=== PATIENT | male | born 1950 | race Caucasian/White ===

== ENCOUNTER 2022-11-02 02:07 | Emergency (ER) | payer MEDICARE ==
--- NOTE | 2022-11-02 03:29 | ED Physician Documentation ---
PD HPI NECK PAIN - Stated complaint Stated Complaint: LEG WEAKNESS - Chief complaint Chief Complaint: Trauma Hd/Nk - History obtained from History obtained from: Patient, Family (spouse of patient) - Additional information Additional information: HPI from patient as well as patient's . Patient's is also registered in ED at this time, unrelated c/o. Patient recently moved to [facility], has not established with local PMD yet. Patient fell yesterday off of a porch, c/o left knee pain, left elbow pain, lower back pain. Pain is exacerbated with movement, palpation. Review of Systems Constitutional: denies: Fever Cardiac: denies: Chest pain / pressure PD PAST MEDICAL HISTORY - Past Medical History Past Medical History: Yes - Present Medications Home Medications: Ambulatory Orders Medication Instructions Recorded Confirmed oxyCODONE [Roxicodone] 5 - 10 mg PO Q6H PRN #14 tablet 11/02/22 - Allergies Allergies/Adverse Reactions: Allergies Allergy/AdvReac Type Severity Reaction Status Date / Time iodine Allergy Itching Verified 11/02/22 02:21 PD ED PE NORMAL - Vitals Vital signs reviewed: Yes - General General: Alert and oriented X 3, No acute distress, Well developed/nourished - HEENT HEENT: Atraumatic - Neck Neck: No bony TTP - Cardiac Cardiac: RRR - Respiratory Respiratory: No respiratory distress, Clear bilaterally - Back Back: No spinal TTP PD ED PE EXPANDED - Extremities Extremities: Tenderness (left knee , anterior aspect over patella with mild swelling; left elbow, mild TTP over olecranon without swelling. ROM intact in left knee and left elbow) Results - Vitals Vitals: Oxygen O2 Source Room air - Rads (name of study) left elbow xrays Radiology: Prelim report reviewed, EMP read indepedently, See rad report left knee xrays Radiology: Prelim report reviewed, EMP read indepedently, See rad report lumbar spine xrays Radiology: Prelim report reviewed, EMP read indepedently, See rad report PD Medical Decision Making - ED course Complexity details: reviewed results, re-evaluated patient, considered differential, d/w patient ED course: No acute findings on xrays (lumbar , left knee, left elbow). results d/w patient. He is given 10 mg oxycodone PO and rx for short course of oxycodone provided. I am prescribing a short course of short-acting opioid pain medication for this patient. I have reviewed the patients [employer] and no concerning findings were noted. I have discussed that the opioids are for short term therapy only, and will not be refilled from the ED. Departure - Departure Disposition: 01 Home, Self Care Clinical Impression: Frequent falls Back pain Qualifiers: Back pain location: low back pain Chronicity: unspecified Back pain laterality: midline Sciatica presence: without sciatica Qualified Code(s): M54.50 - Low back pain, unspecified Left knee sprain Qualifiers: Encounter type: initial encounter Involved ligament of knee: unspecified ligament Qualified Code(s): S83.92XA - Sprain of unspecified site of left knee, initial encounter Elbow contusion Qualifiers: Encounter type: initial encounter Laterality: left Qualified Code(s): S50.02XA - Contusion of left elbow, initial encounter Condition: Good Instructions: ED Low Back Pain Injury, ED Fall Uncertain Cause, ED Sprain Knee Prescriptions: oxyCODONE [Roxicodone] 5 - 10 mg PO Q6H PRN #14 tablet PRN Reason: Pain Comments: There were no acute findings on the x-rays; the abnormalities on the x-rays were all of a chronic nature. You had degenerative changes on the back x-rays as well as the elbow xrays, and bone spurs of the patella ("kneecap"). As we discussed, I recommend that you follow-up with your doctors regarding your increasingly frequent falls. I think the best approach would be to make appointments with both your primary care provider as well as your neurologist, and to keep both appointments no matter which can see you first. A prescription for oxycodone (narcotic/opiate pain medication) has been electronically submitted to the [facility] in [place]. I am prescribing a short course of narcotic pain medication for you. These are potentially dangerous and addictive medications that should be used carefully. These medications may constipate you. Take an zlze-udu-ioyavrc stool softener (docusate) twice daily with plenty of water while taking these medications. If you go 24 hours without a bowel movement, take cudi-esn-hvynluo miralax, per package instructions. Do not drink or drive while taking these medications. If you received narcotic or sedating medications while in the emergency department, do not drive for 24 hours. Store this medication in a safe, secure place and out of reach of children. It is a violation of federal law to give or sell this medication to another person or to use in a manner other than prescribed. The ED will not refill narcotic prescriptions, including prescriptions lost or stolen. To dispose of unwanted medications: 1. [facility] [address] in [place] has a medication drop box. They accept prescription medications (in pill form) Friday through Friday 9:00 a.m. to 5:00 p.m. 2. [facility] accepts prescription medications (in pill form only) for disposal year round. Call for more information. 3. Contact the [facility] for the next [facility] sponsored prescription drug collection event. , [phone], or [phone]; Discharge Date/Time: 11/02/22 06:18
[2022-11-02 05:41] VITALS: BP 132/68
[2022-11-02] MEDS ORDERED: oxyCODONE 5 MG TABLET PO STA (06:06)
--- NOTE | 2022-11-02 10:24 | XRAY Report ---
PROCEDURE: Elbow 3 View LT INDICATIONS: fall, pain TECHNIQUE: 3 views of the elbow were acquired. COMPARISON: None FINDINGS: Bones: No fractures or dislocations. No suspicious bony lesions. Soft tissues: No elbow joint effusion. No suspicious soft tissue calcifications. IMPRESSION: Unremarkable left elbow radiographs Note: Final report is concordant with preliminary interpretation provided by [email or web address] Reviewed by: Jace Jimenes MD on 11/02/2022 9:23 AM [place] Approved by: Jace Jimenes MD on 11/02/2022 9:23 AM [facility] Station ID: [id number]
--- NOTE | 2022-11-02 10:26 | XRAY Report ---
PROCEDURE: Knee 3 View LT INDICATIONS: fall, pain, swelling TECHNIQUE: 3 views of the left knee(s) were acquired. COMPARISON: None. FINDINGS: Bones: No fractures or dislocations. No suspicious bony lesions. Small enthesophyte noted at the s uperior patella and tibial tuberosity Soft tissues: No joint effusion. No suspicious soft tissue calcifications. IMPRESSION: Degenerative disease without fracture or foreign body Note: Final report is concordant with preliminary interpretation provided by [employer] Reviewed by: Jace Jimenes MD on 11/02/2022 9:24 AM [facility] Approved by: Jace Jimenes MD on 11/02/2022 9:24 AM [place] Station ID: [id number]
--- NOTE | 2022-11-02 10:34 | XRAY Report ---
PROCEDURE: Lumbar Spine 2 View INDICATIONS: fall, upper lumbar pain TECHNIQUE: 2 views of the lumbar spine were acquired. COMPARISON: None. FINDINGS: Bones: 5 pbf-suc-foljnti vertebrae are present. There is normal bony alignment. No suspicious bony lesions. Thoracolumbar posterior lateral fusion and interbody fusion with posterior qiana and screw c onstruct noted. Lower lumbar spine degenerative disc space narrowing and hypertrophic facet joints ar e present. Generalized decreased osseous mineralization present. Subcutaneous pain pump noted in the left. Soft tissues: Overlying bowel gas pattern is normal. No suspicious soft tissue calcifications. Dif fuse obscuring vascular calcification. Surgical clips in the right upper quadrant. Moderate degree IMPRESSION: No acute findings. Degenerative findings as well as thoracolumbar instrumented fusion. No hardware failure or loosening. Note: Final report is concordant with preliminary interpretation provided by [employer] Reviewed by: Jace Jimenes MD on 11/02/2022 9:32 AM [facility] Approved by: Jace Jimenes MD on 11/02/2022 9:32 AM [facility] Station ID: [id number]
== END 2022-11-02 06:18 | disposition home or self-care (01) ==
LOC: ED 02:07
DX: M54.50 Low back pain, unspecified (principal); S83.92XA Sprain of unspecified site of left knee, initial encounter; S50.02XA Contusion of left elbow, initial encounter; W17.89XA Other fall from one level to another, initial encounter; Z91.81 History of falling; Y92.008 Other place in unspecified non-institutional (private) residence as the place of occurrence of the external cause; R29.6 Repeated falls
CPT/HCPCS: 72100; 73080; 73562; 99284; A9270

== ENCOUNTER 2022-12-17 18:08 | Outpatient (CLI) | payer MEDICARE | END 2022-12-17 18:09 | disposition critical access hospital (66) | LOC: EMS 18:08 | DX: M25.551 Pain in right hip (principal); W01.0XXA Fall on same level from slipping, tripping and stumbling without subsequent striking against object, initial encounter; Y92.009 Unspecified place in unspecified non-institutional (private) residence as the place of occurrence of the external cause | CPT/HCPCS: A0425; A0429 ==

== ENCOUNTER 2022-12-17 18:43 | Emergency (ER) | payer MEDICARE ==
[2022-12-17 19:54] LABS: BASOPHILS % (AUTO) 0.7 %; EOSINOPHILS # (AUTO) 0.3 10^3/uL (0.0-0.7); EOSINOPHILS % (AUTO) 4.9 %; HCT - HEMATOCRIT 50.1 % (42.0-52.0); HGB - HEMOGLOBIN 15.4 g/dL (14.0-18.0); LYMPHOCYTES # (AUTO) 1.2 10^3/uL (1.5-3.5); LYMPHOCYTES % (AUTO) 21.7 %; MEAN CORPUSCULAR HEMOGLOBIN 29.1 pg (27.0-31.0); MEAN CORPUSCULAR HGB CONC 30.7 g/dL (32.0-36.0); MEAN CORPUSCULAR VOLUME 94.7 fL (80.0-94.0); MEAN PLATELET VOLUME 10.2 fL (7.4-11.4); MONOCYTES # (AUTO) 0.8 10^3/uL (0.0-1.0); MONOCYTES % (AUTO) 13.3 %; NEUTROPHILS # (AUTO) 3.4 10^3/uL (1.5-6.6); NEUTROPHILS % (AUTO) 59.2 %; PLT - PLATELET COUNT 306 10^3/uL (130-450); RED BLOOD COUNT 5.29 10^6/uL (4.70-6.10); RED CELL DISTRIBUTION WIDTH 12.4 % (12.0-15.0); WHITE BLOOD COUNT 5.7 x10^3/uL (4.8-10.8)
[2022-12-17 20:04] LABS: ALBUMIN 3.1 g/dL (3.2-5.5); ALBUMIN/GLOBULIN RATIO 0.9 (1.0-2.2); BILIRUBIN,TOTAL 0.5 mg/dL (0.2-1.0); CALCIUM 8.6 mg/dL (8.5-10.3); CREATININE 0.7 mg/dL (0.6-1.2); POTASSIUM 4.4 mmol/L (3.5-5.0); TOTAL PROTEIN 6.7 g/dL (6.7-8.2)
[2022-12-17] MEDS ORDERED: cephALEXin 250 MG CAPSULE PO STA (20:19)
[2022-12-17] MEDS ORDERED: oxyCODONE 5 MG TABLET PO STA (20:19)
--- NOTE | 2022-12-17 20:22 | ED Physician Documentation ---
History of Present Illness - Stated complaint Stated Complaint: GLF/R HIP PX - Chief complaint Chief Complaint: General - History obtained from History obtained from: Patient, Family () - Additonal information Additional information: 72-year-old man with past medical history of chronic back pain, diabetes, multiple toe amputations, osteomyelitis left first toe, not currently on antibiotics, presents with a fall 36 hours ago without HT or LOC, but with subsequent weakness and right lower back pain preventing him from moving around since the fall. Patient has had multiple prior falls in the past and uses walker at baseline. His doctors are at [facility]. Needs pcp here. denies fever. Review of Systems Constitutional: denies: Fever Cardiac: denies: Chest pain / pressure Respiratory: denies: Dyspnea GI: denies: Abdominal Pain, Nausea, Vomiting : denies: Dysuria, Frequency Musculoskeletal: reports: Back pain Neurologic: reports: Generalized weakness PD PAST MEDICAL HISTORY - Past Medical History Neuro: Parkinson's Psych: Depression, Other Musculoskeletal: Chronic back pain - Past Surgical History Past Surgical History: Yes Ortho: Other - Present Medications Home Medications: Ambulatory Orders Medication Instructions Recorded Confirmed oxyCODONE [Roxicodone] 5 - 10 mg PO Q6H PRN #14 tablet 11/02/22 cephALEXin [Keflex] 500 mg PO Q6H #28 tab 12/17/22 - Allergies Allergies/Adverse Reactions: Allergies Allergy/AdvReac Type Severity Reaction Status Date / Time iodine Allergy Itching Verified 11/02/22 02:21 ketorolac [From Toradol] Allergy Rash Verified 12/17/22 18:56 - Social History Does the pt smoke?: No Smoking Status: Never smoker Does the pt drink ETOH?: No Does the pt have substance abuse?: No - Immunizations Immunizations are current?: Yes - POLST Patient has POLST: No PD ED PE NORMAL - Vitals Vital signs reviewed: Yes - General General: Alert and oriented X 3, No acute distress, Other (elderly, deconditioned appearing) - HEENT HEENT: Atraumatic, PERRL, EOMI - Neck Neck: Supple, no meningeal sign - Cardiac Cardiac: RRR - Respiratory Respiratory: No respiratory distress, Clear bilaterally - Abdomen Abdomen: Non tender, Non distended - Back Back: No spinal TTP, Other (R lower back discomfort to palpation) - Derm Derm: Normal color, Warm and dry - Neuro Neuro: No motor deficit, No sensory deficit - Psych Psych: Normal mood, Normal affect Results - Vitals Vitals: Vital Signs - 24 hr 12/17/22 12/17/22 18:50 19:00 Temperature 37.1 C Heart Rate 80 72 Respiratory 11 L 14 Rate Blood Pressure 137/86 H 140/79 H O2 Saturation 93 93 Oxygen O2 Source Room air - Labs Labs: Laboratory Tests 12/17/22 12/17/22 19:50 19:50 WBC 5.7 RBC 5.29 Hgb 15.4 Hct 50.1 MCV 94.7 H MCH 29.1 MCHC 30.7 L RDW 12.4 Plt Count 306 MPV 10.2 Neut # (Auto) 3.4 Lymph # (Auto) 1.2 L Posey # (Auto) 0.8 Eos # (Auto) 0.3 Baso # (Auto) 0.0 Absolute Nucleated RBC 0.00 Nucleated RBC % 0.0 Sodium 136 Potassium 4.4 Chloride 95 L Carbon Dioxide 32 Anion Gap 9.0 BUN 14 Creatinine 0.7 Estimated GFR (MDRD) 111 Glucose 391 H Calcium 8.6 Total Bilirubin 0.5 AST 24 ALT 15 Alkaline Phosphatase 106 Total Protein 6.7 Albumin 3.1 L Globulin 3.6 Albumin/Globulin Ratio 0.9 L Lipase 22 PD Medical Decision Making - ED course ED course: 72yM with chronic back pain presents with generalized weakness related to fall friday morning as well as chronic L toe osteomyelitis and concern that it is reddening. Patient has been having no fevers, no leukocytosis on labs, and toe looks mildly erythematous. Physical exam uncovered no traumatic injury related to the fall. Plan to give antibiotics for suppression of osteomyelitis. referral provided for PCP here. return precautions given. Departure - Departure Disposition: Home, Self Care Clinical Impression: Toe infection, Chronic back pain, Generalized weakness, Frequent falls Condition: Stable Instructions: Falls Prevent Prepare What Do Follow-Up: Stephane Cohen MD [Provider Admit Priv/Credential] - Prescriptions: cephALEXin [Keflex] 500 mg PO Q6H #28 tab Comments: You are seen in the emergency department for evaluation after a fall as well as for a wound check of your toe. I am sending antibiotics to [facility] electronically. Please follow-up with a primary care provider (referral enclosed).Return to the emergency department for new or worsening symptoms or if you have other concerns.
[2022-12-17] MEDS ORDERED: LIDOCAINE 1% 2 ML VIAL MC ONE (20:24)
[2022-12-17] MEDS ORDERED: cefTRIAXone 1 GM VIAL IM STA (20:24)
[2022-12-17 20:58] VITALS: BP 135/77
[2022-12-17 21:01] LABS: BILIRUBIN,URINE NEGATIVE (NEGATIVE); GLUCOSE, URINE (UA) >=1000 mg/dL (NEGATIVE); KETONES,URINE (UA) NEGATIVE (NEGATIVE); LEUKOCYTE ESTERASE, URINE NEGATIVE (NEGATIVE); NITRITE,URINE NEGATIVE (NEGATIVE); OCCULT BLOOD,URINE TRACE-INTA (NEGATIVE); PROTEIN,URINE NEGATIVE (NEGATIVE); UROBILINOGEN,URINE 0.2 (NORMAL) E.U./dL (NORMAL)
[2022-12-17 21:03] LABS: CLARITY,URINE CLEAR (CLEAR)
== END 2022-12-17 20:58 | disposition home or self-care (01) ==
LOC: EDUNIT# → ED 18:43
DX: M54.9 Dorsalgia, unspecified (principal); G89.29 Other chronic pain; R53.1 Weakness; L08.9 Local infection of the skin and subcutaneous tissue, unspecified; M86.672 Other chronic osteomyelitis, left ankle and foot; R29.6 Repeated falls
CPT/HCPCS: 36415; 80053; 81003; 83690; 85025; 99283; 99284; A9270; 81001; 87086

== ENCOUNTER 2022-12-24 17:13 | Outpatient (CLI) | payer MEDICARE | END 2022-12-24 17:14 | disposition EMS.NT | LOC: EMS 17:13 | DX: E11.621 Type 2 diabetes mellitus with foot ulcer (principal); E11.65 Type 2 diabetes mellitus with hyperglycemia ==

== ENCOUNTER 2022-12-25 11:26 | Emergency (ER) | payer MEDICARE ==
--- NOTE | 2022-12-25 12:33 | XRAY Report ---
PROCEDURE: Shoulder 3 View RT INDICATIONS: GLF. Right shoulder pain TECHNIQUE: 3 views of the shoulder were acquired. COMPARISON: None. FINDINGS: Bones: Comminuted, mildly displaced fracture of the humeral head and neck. No suspicious bony lesions . Visualized ribs appear intact. Soft tissues: No suspicious soft tissue calcifications. IMPRESSION: Comminuted, mildly displaced fracture of the humeral head and neck. Reviewed by: Van Hutchison MD on 12/25/2022 12:31 PM PDT Approved by: Van Hutchison MD on 12/25/2022 12:31 PM PDT Station ID: [id number]
--- NOTE | 2022-12-25 12:52 | ED Physician Documentation ---
History of Present Illness - Stated complaint Stated Complaint: GLF/LT FT INJ - Chief complaint Chief Complaint: Trauma Ext - History obtained from History obtained from: Patient, Family - Additonal information Additional information: This is a 72-year-old male with a past medical history of diabetes and Parkinson's who recently moved to the area who presents after a ground-level fall. The patient was actually coming to the ER to be evaluated for a left great toe infection. On the way from the parking lot to the ER, the patient stumbled and fell and is here now with right shoulder pain. Patient states he did not get dizzy or have any chest pain or sudden weakness but he was walking with a cane rather than a walker and lost his balance and fell. He did not hit his head, denies any hip pain pelvis pain, neck or back pain. His pain is localized to the right shoulder and upper arm. He is also concerned about his left great toe infection. He was seen for this onset 12/17 and states that it was present for about a week to 2 weeks before that. Per the note on 12/17, the patient has chronic osteomyelitis of this toe and he was placed on Keflex at that time for infection though his labs and physical exam were reassuring. states that the toe has gotten worse over the course of the last week. He was actually being seen by home health nurse who called 911 yesterday for his toe infection however at that time the patient did not want to come into the hospital and therefore waited until today when his would bring him in.He has not had a fever chills, chest pain or difficulty breathing, abdominal pain nausea vomiting or diarrhea, with new weakness, or any change in mentation. The patient does have a history of Frequent falls and is post to be using a walker though tends to only use a Cane because he has no use of his left arm due to a prior left arm injury. Patient notably has not been checking his glucose or taking his Insulin for quite a while. His blood sugar monitor is apparently broken and because they have not been checking his blood glucose, they have not been giving him insulin. His glucose has routinely been in the 300-400 range. He has not had any symptoms with this however. Patient used to be seen in [place] however they moved to the [place] area a couple months ago and have not established primary care yet. He was seeing podiatry In the [place] area as well. Review of Systems Constitutional: reports: Reviewed and negative Eyes: reports: Reviewed and negative Ears: reports: Reviewed and negative Nose: reports: Reviewed and negative Throat: reports: Reviewed and negative Cardiac: reports: Reviewed and negative Respiratory: reports: Reviewed and negative GI: reports: Reviewed and negative : reports: Reviewed and negative Skin: reports: Other (left great toe ulcer) Musculoskeletal: reports: Extremity pain, Extremity swelling. denies: Neck pain, Back pain Neurologic: reports: Reviewed and negative Psychiatric: reports: Reviewed and negative Endocrine: reports: Reviewed and negative Immunocompromised: reports: Reviewed and negative PD PAST MEDICAL HISTORY - Past Medical History Past Medical History: Yes Neuro: Parkinson's Psych: Depression, Other Musculoskeletal: Chronic back pain - Past Surgical History Past Surgical History: Yes Ortho: Other - Present Medications Home Medications: Ambulatory Orders Medication Instructions Recorded Confirmed oxyCODONE [Roxicodone] 5 - 10 mg PO Q6H PRN #14 tablet 11/02/22 cephALEXin [Keflex] 500 mg PO Q6H #28 tab 12/17/22 Amox/Clav 875/125 [Augmentin] 1 each PO Q12H #20 tablet 12/25/22 Blood Sugar Diagnostic [Glucometer 1 each QID #100 strip 12/25/22 Strips] Blood-Glucose Meter [Glucometer] 1 each MC QID #1 each 12/25/22 Oxycodone HCl/Acetaminophen 1 each PO Q8HR PRN #12 tab 12/25/22 [Oxycodone-Acetaminophen 5-325] - Allergies Allergies/Adverse Reactions: Allergies Allergy/AdvReac Type Severity Reaction Status Date / Time iodine Allergy Itching Verified 12/25/22 11:47 ketorolac [From Toradol] Allergy Rash Verified 12/25/22 11:47 - Social History Does the pt smoke?: No Smoking Status: Never smoker Does the pt drink ETOH?: No Does the pt have substance abuse?: No - Immunizations Immunizations are current?: Yes - POLST Patient has POLST: No PD ED PE NORMAL - Vitals Vital signs reviewed: Yes - General General: Alert and oriented X 3, No acute distress, Well developed/nourished - HEENT HEENT: Atraumatic, Moist mucous membranes, Pharynx benign - Neck Neck: Supple, no meningeal sign, No JVD - Cardiac Cardiac: RRR, No murmur, No gallop, No rub - Respiratory Respiratory: No respiratory distress, Clear bilaterally - Abdomen Abdomen: Normal bowel sounds, Soft, Non tender, Non distended - Back Back: No CVA TTP, No spinal TTP - Derm Derm: Normal color, Warm and dry, No rash, Other (distal half of the left great toe is raw, open, skin appears to have sloughed off completely. NO erythema extending up the leg. ) - Extremities Extremities: Other (right proximal humerus ttp w/ swelling. chronic left arm immobility. Several toes amputated on the right foot and the fifth toe has been amputated on the left foot.). No: No deformity, No tenderness to palpate, Normal ROM s pain - Neuro Neuro: Alert and oriented X 3 Eye Opening: Spontaneous Motor: Obeys Commands Verbal: Oriented GCS Score: 15 - Psych Psych: Normal mood, Normal affect Results - Vitals Vitals: Vital Signs - 24 hr 12/25/22 12/25/22 12/25/22 11:41 13:23 14:54 Temperature 36.1 C L 35.8 C L Heart Rate 68 58 L 68 Respiratory 16 16 14 Rate Blood Pressure 156/103 H 149/82 H 157/85 H O2 Saturation 94 93 98 Oxygen O2 Source Room air - Labs Labs: Laboratory Tests 12/25/22 12/25/22 13:06 13:06 WBC 8.3 RBC 5.71 Hgb 16.8 Hct 52.9 H MCV 92.6 MCH 29.4 MCHC 31.8 L RDW 12.3 Plt Count 362 MPV 10.1 Neut # (Auto) 4.7 Lymph # (Auto) 2.3 [place] # (Auto) 0.9 Eos # (Auto) 0.4 Baso # (Auto) 0.1 Absolute Nucleated RBC 0.00 Nucleated RBC % 0.0 Sodium 133 L Potassium 5.1 H Chloride 91 L Carbon Dioxide 33 H Anion Gap 9.0 BUN 14 Creatinine 0.8 Estimated GFR (MDRD) 95 Glucose 430 H Calcium 9.2 PD Medical Decision Making - ED course Complexity details: reviewed old records, reviewed results, re-evaluated patient, considered differential, d/w patient, d/w family ED course: This is a 72-year-old male with poorly controlled Insulin-dependent diabetes, Parkinson's, frequent falls, And diabetic ulcer. He presents today for follow- up on his left toe ulcer but then incidentally he fell on his way into the ER and injured his right shoulder as described in HPI. On exam here, the patient is stable appearing with stable vital signs, he is nontoxic and in no acute distress. He does have tenderness of the right humerus and this area was x- rayed which reveals a comminuted fracture of the humeral head and neck. He was placed in a sling and given pain control for this. He will follow-up with orthopedic surgery on outpatient basis for this injury. He also has a left great toe diabetic ulcer. This ulcer appears to have sloughed off somewhat since his last visit but there is no sign of spreading erythema, and clinically he does not have signs of acute infection. I obtained labs which Revealed a stable CBC. We we will clean and dress this wound and they will continue frequent wound care at home at least daily, and I will change his antibiotics to Augmentin to take for the next 10 days. In the meantime, the patient will need to establish care with podiatry locally for follow-up. I have also placed a consult to the wound care clinic. I did have a long discussion with the patient and his that his poorly controlled diabetes is certainly limiting the ability of this wound to heal and there is a possibility that it will continue to get worse and result in possible amputation that this time I do not think there is any benefit for the patient to be monitored in the hospital for IV antibiotics.As part of Routine evaluation in a diabetic patient, I did obtain a CMP and the patient's potassium is slightly elevated 5.1, past elevated at 430. The patient was given 500 mL of normal saline as well as 4 units of insulin. His glucose decreased to 400. No signs of DKA on exam. He was given a glucometer and encouraged to resume checking his glucose on a regular basis and resume his insulin regimen at home. He absolutely needs to establish primary care as soon as possible to continue management of his multiple chronic conditions. He was given recommendations for primary care providers as well as podiatry and orthopedic surgery. He was discharged home with Augmentin For his diabetic ulcer as well as Oxycodone for pain. Departure - Departure Disposition: 01 Home, Self Care Clinical Impression: Frequent falls Humerus head fracture Qualifiers: Encounter type: initial encounter Fracture type: closed Laterality: right Q ualified Code(s): S42.291A - Other displaced fracture of upper end of right humerus, initial encounter for closed fracture Toe ulcer due to DM Qualifiers: Diabetes mellitus type: type 2 Laterality: left Non-pressure ulcer stage: limited to breakdown of skin Qualified Code(s): E11.621 - Type 2 diabetes mellitus with foot ulcer; L97.521 - Non-pressure chronic ulcer of other part of left foot limited to breakdown of skin Hyperglycemia due to type 2 diabetes mellitus Qualifiers: Diabetes mellitus half-way insulin use: with half-way use Qualified Code(s): E11.65 - Type 2 diabetes mellitus with hyperglycemia; Z79.4 - halfway (current) use of insulin Condition: Good Instructions: Falls Preventing, Humerus Fx, ED Hyperglycemia Diabetic, ED Diabetes General Info Follow-Up: Chidi Hauser MD [Provider Admit Priv/Credential] - Amanuel Pierce DPM [Physician No Access] - Arelis Tee DPM [Provider Admit Priv/Credential] - Prescriptions: Oxycodone HCl/Acetaminophen [Oxycodone-Acetaminophen 5-325] 1 each PO Q8HR PRN #12 tab PRN Reason: Pain >8 Amox/Clav 875/125 [Augmentin] 1 each PO Q12H #20 tablet Blood-Glucose Meter [Glucometer] 1 each MC QID #1 each Blood Sugar Diagnostic [Glucometer Strips] 1 each MC QID #100 strip Comments: Please schedule follow up with podiatry as soon as possible. I have listed a couple foreign banknote teller trader in the area if you can't get back to your usual foreign banknote teller trader. You will also need to schedule a follow up with the orthopedic surgeon for your right humerus. I have listed Dr. Hauser for follow up. I have started a new antibiotic for your toe infection and You should continue to monitor this closely with good wound care daily and close follow-up. It remains possible that you may need an amputation if this does not improve with wound care and antibiotics. At this time however there does not appear to be indication for admission to the hospital for IV antibiotics. You do have a right humerus fracture and we have placed you in a sling for this. I also prescribed narcotic pain medication. Please use this cautiously as it can have habit-forming properties and can also cause sedation and confusion.
[2022-12-25] MEDS: MORPHINE 10 MG/ML VIAL IM STA (13:02)
[2022-12-25 13:11] LABS: BASOPHILS # (AUTO) 0.1 10^3/uL (0.0-0.1); EOSINOPHILS # (AUTO) 0.4 10^3/uL (0.0-0.7); EOSINOPHILS % (AUTO) 4.2 %; HCT - HEMATOCRIT 52.9 % (42.0-52.0); HGB - HEMOGLOBIN 16.8 g/dL (14.0-18.0); LYMPHOCYTES # (AUTO) 2.3 10^3/uL (1.5-3.5); LYMPHOCYTES % (AUTO) 27.7 %; MEAN CORPUSCULAR HEMOGLOBIN 29.4 pg (27.0-31.0); MEAN CORPUSCULAR HGB CONC 31.8 g/dL (32.0-36.0); MEAN CORPUSCULAR VOLUME 92.6 fL (80.0-94.0); MEAN PLATELET VOLUME 10.1 fL (7.4-11.4); MONOCYTES # (AUTO) 0.9 10^3/uL (0.0-1.0); MONOCYTES % (AUTO) 10.4 %; NEUTROPHILS # (AUTO) 4.7 10^3/uL (1.5-6.6); NEUTROPHILS % (AUTO) 56.1 %; PLT - PLATELET COUNT 362 10^3/uL (130-450); RED BLOOD COUNT 5.71 10^6/uL (4.70-6.10); RED CELL DISTRIBUTION WIDTH 12.3 % (12.0-15.0); WHITE BLOOD COUNT 8.3 x10^3/uL (4.8-10.8)
[2022-12-25 13:19] LABS: CALCIUM 9.2 mg/dL (8.5-10.3); CREATININE 0.8 mg/dL (0.6-1.2); POTASSIUM 5.1 mmol/L (3.5-5.0)
--- NOTE | 2022-12-25 14:08 | XRAY Report ---
PROCEDURE: Foot 3 View LT INDICATIONS: diabetic infection big toe TECHNIQUE: 3 views of the foot were acquired. COMPARISON: None FINDINGS: Bones: No fractures or dislocations. Subtle erosive changes in radial lucency involving first dista l phalangeal tuft is seen, concerning for early osteomyelitis. Prior amputation of fifth toe at the l evel of fifth metatarsal shaft is seen with plain surgical margin. No suspicious bony lesions. Soft tissues: Soft tissue swelling surrounding distal portion of great toe is noted. No tibiotalar j oint effusion. Achilles tendon appears normal. IMPRESSION: Soft tissue swelling surrounding distal great toe with suggestion of early osteomyelitis involving fi rst distal phalangeal tuft. Reviewed by: Lennox Dukes MD on 12/25/2022 2:06 PM PDT Approved by: Lennox Dukes MD on 12/25/2022 2:06 PM PDT Station ID: [id number]
[2022-12-25] MEDS: SODIUM CHLORIDE 0.9% 500 ML IV STA (14:16)
[2022-12-25] MEDS: INSULIN REGULAR HUMAN 100 UNIT/1 ML 10 ML MDV IVP STA (14:16)
[2022-12-25 14:56] VITALS: BP 157/85
[2022-12-25] MEDS: BACITRACIN ZINC OINT 1 PACKET TOP STA (15:04)
[2022-12-25] MEDS: MORPHINE 2 MG/ML CARPUJECT IVP STA (15:04)
== END 2022-12-25 15:27 | disposition home or self-care (01) ==
LOC: ED 11:26
DX: S42.291A Other displaced fracture of upper end of right humerus, initial encounter for closed fracture (principal); E11.65 Type 2 diabetes mellitus with hyperglycemia; E11.621 Type 2 diabetes mellitus with foot ulcer; L97.521 Non-pressure chronic ulcer of other part of left foot limited to breakdown of skin; Z79.4 Long term (current) use of insulin; W01.0XXA Fall on same level from slipping, tripping and stumbling without subsequent striking against object, initial encounter; Y93.01 Activity, walking, marching and hiking; Y92.481 Parking lot as the place of occurrence of the external cause; Y92.538 Other ambulatory health services establishments as the place of occurrence of the external cause; R29.6 Repeated falls
CPT/HCPCS: 36415; 73030; 73630; 80048; 85025; 96361; 96372; 96374; 99284; A9270; J1815

== ENCOUNTER 2022-12-29 01:52 | Outpatient (CLI) | payer MEDICARE | END 2022-12-29 23:59 | disposition EMS.NT | LOC: EMS 01:52 | DX: M79.621 Pain in right upper arm (principal) ==

== ENCOUNTER 2023-01-28 11:37 | Outpatient (CLI) | payer MEDICARE | END 2023-01-28 23:59 | disposition EMS.NT | LOC: EMS 11:37 | DX: Z03.89 Encounter for observation for other suspected diseases and conditions ruled out (principal) ==

== ENCOUNTER 2023-03-04 15:27 | Outpatient (CLI) | payer MEDICARE | END 2023-03-04 23:59 | disposition short-term general hospital (02) | LOC: EMS 15:27 | DX: I47.20 Ventricular tachycardia, unspecified (principal); R41.82 Altered mental status, unspecified; R47.81 Slurred speech; R73.9 Hyperglycemia, unspecified; K92.2 Gastrointestinal hemorrhage, unspecified; R10.9 Unspecified abdominal pain; R53.1 Weakness; R53.83 Other fatigue; R00.2 Palpitations; T40.2X1A Poisoning by other opioids, accidental (unintentional), initial encounter | CPT/HCPCS: A0425; A0427 ==

== ENCOUNTER 2023-04-01 05:49 | Outpatient (CLI) | payer MEDICARE | END 2023-04-01 23:59 | disposition critical access hospital (66) | LOC: EMS 05:49 | DX: R53.1 Weakness (principal); R47.81 Slurred speech; R26.81 Unsteadiness on feet; R63.0 Anorexia; Z79.01 Long term (current) use of anticoagulants | CPT/HCPCS: A0425; A0429 ==

== ENCOUNTER 2023-04-01 06:18 | Emergency (ER) | payer MEDICARE ==
[2023-04-01] MEDS ORDERED: SODIUM CHLORIDE 0.9% 1,000 ML IV STA ×2 (06:21→07:32)
--- NOTE | 2023-04-01 06:25 | ED Physician Documentation ---
History of Present Illness - Stated complaint Stated Complaint: SLURRED SPEECH - Chief complaint Chief Complaint: Neuro - History obtained from History obtained from: Patient, EMS - Additonal information Additional information: The patient is brought to the emergency department by EMS for chief complaint of slurred speech which started last night around 1999. The patient has a history of a prior stroke and has some residual left-sided weakness from this. He states he felt a bit generally weak last night. He has some nausea but has not vomited. He denies chest pain or shortness of breath. No new focal weakness. No visual changes. He does admit to not eating or drinking that much over the past several days because it makes his stomach hurt. The patient states he is on Pradaxa for history of A-fib. PD PAST MEDICAL HISTORY - Past Medical History Neuro: Parkinson's Psych: Depression, Other Musculoskeletal: Chronic back pain - Past Surgical History Past Surgical History: Yes Ortho: Other - Present Medications Home Medications: Ambulatory Orders Medication Instructions Recorded Confirmed oxyCODONE [Roxicodone] 5 - 10 mg PO Q6H PRN #14 tablet 11/02/22 cephALEXin [Keflex] 500 mg PO Q6H #28 tab 12/17/22 Amox/Clav 875/125 [Augmentin] 1 each PO Q12H #20 tablet 12/25/22 Blood Sugar Diagnostic [Glucometer 1 each QID #100 strip 12/25/22 Strips] Blood-Glucose Meter [Glucometer] 1 each QID #1 each 12/25/22 Oxycodone HCl/Acetaminophen 1 each PO Q8HR PRN #12 tab 12/25/22 [Oxycodone-Acetaminophen 5-325] - Allergies Allergies/Adverse Reactions: Allergies Allergy/AdvReac Type Severity Reaction Status Date / Time iodine Allergy Itching Verified 12/25/22 11:47 ketorolac [From Toradol] Allergy Rash Verified 12/25/22 11:47 - Social History Does the pt smoke?: No Smoking Status: Never smoker Does the pt drink ETOH?: No Does the pt have substance abuse?: No - Immunizations Immunizations are current?: Yes - POLST Patient has POLST: No PD ED PE NORMAL - Vitals Vital signs reviewed: Yes - General General: Alert and oriented X 3, No acute distress, Well developed/nourished, Other (Appears older than stated age.) - HEENT HEENT: Atraumatic, PERRL, EOMI, Moist mucous membranes - Neck Neck: Supple, no meningeal sign - Cardiac Cardiac: RRR, No murmur - Respiratory Respiratory: No respiratory distress, Clear bilaterally - Abdomen Abdomen: Soft, Non tender, Non distended - Derm Derm: Normal color, Warm and dry, No rash - Extremities Extremities: No deformity - Neuro Neuro: Alert and oriented X 3, Other (The patient has reasonably clear speech, considering that he has no teeth. He is moving all 4 extremities without difficulty.) - Psych Psych: Normal mood, Normal affect Results - Vitals Vitals: Vital Signs - 24 hr 04/01/23 06:24 Temperature 36.8 C Heart Rate 59 L Respiratory 16 Rate Blood Pressure 105/72 O2 Saturation 96 Oxygen O2 Source Room air - Labs Labs: Laboratory Tests 04/01/23 04/01/23 06:28 06:28 WBC 6.6 RBC 4.84 Hgb 13.8 L Hct 43.2 MCV 89.3 MCH 28.5 MCHC 31.9 L RDW 13.8 Plt Count 251 MPV 9.9 Neut # (Auto) 2.9 Lymph # (Auto) 2.4 [place] # (Auto) 0.7 Eos # (Auto) 0.4 Baso # (Auto) 0.1 Absolute Nucleated RBC 0.00 Nucleated RBC % 0.0 Sodium 138 Potassium 3.2 L Chloride 101 Carbon Dioxide 24 Anion Gap 13.0 BUN 15 Creatinine 0.8 Estimated GFR (MDRD) 95 Glucose 198 H Calcium 8.4 L Total Bilirubin 0.6 AST 29 ALT 29 Alkaline Phosphatase 78 Total Protein 6.3 L Albumin 3.4 Globulin 2.9 Albumin/Globulin Ratio 1.2 Lipase 21 L PD Medical Decision Making - ED course Complexity details: reviewed results, re-evaluated patient, considered differential, d/w patient ED course: The patient was fairly well-appearing in the emergency department. He was treated with IV fluids and worked up with labs, urinalysis, and CT of the head. He was signed out to Dr. Abraham at change of shift, pending results and final disposition.
[2023-04-01 06:33] LABS: BASOPHILS # (AUTO) 0.1 10^3/uL (0.0-0.1); BASOPHILS % (AUTO) 0.8 %; EOSINOPHILS # (AUTO) 0.4 10^3/uL (0.0-0.7); EOSINOPHILS % (AUTO) 6.6 %; HCT - HEMATOCRIT 43.2 % (42.0-52.0); HGB - HEMOGLOBIN 13.8 g/dL (14.0-18.0); LYMPHOCYTES # (AUTO) 2.4 10^3/uL (1.5-3.5); LYMPHOCYTES % (AUTO) 36.6 %; MEAN CORPUSCULAR HEMOGLOBIN 28.5 pg (27.0-31.0); MEAN CORPUSCULAR HGB CONC 31.9 g/dL (32.0-36.0); MEAN CORPUSCULAR VOLUME 89.3 fL (80.0-94.0); MEAN PLATELET VOLUME 9.9 fL (7.4-11.4); MONOCYTES # (AUTO) 0.7 10^3/uL (0.0-1.0); MONOCYTES % (AUTO) 10.8 %; NEUTROPHILS # (AUTO) 2.9 10^3/uL (1.5-6.6); NEUTROPHILS % (AUTO) 44.9 %; PLT - PLATELET COUNT 251 10^3/uL (130-450); RED BLOOD COUNT 4.84 10^6/uL (4.70-6.10); RED CELL DISTRIBUTION WIDTH 13.8 % (12.0-15.0); WHITE BLOOD COUNT 6.6 x10^3/uL (4.8-10.8)
[2023-04-01 06:46] LABS: ALBUMIN 3.4 g/dL (3.2-5.5); ALBUMIN/GLOBULIN RATIO 1.2 (1.0-2.2); BILIRUBIN,TOTAL 0.6 mg/dL (0.2-1.0); CALCIUM 8.4 mg/dL (8.5-10.3); CREATININE 0.8 mg/dL (0.6-1.2); POTASSIUM 3.2 mmol/L (3.5-5.0); TOTAL PROTEIN 6.3 g/dL (6.7-8.2)
--- NOTE | 2023-04-01 07:18 | CT Report ---
PROCEDURE: HEAD WO INDICATIONS: slurred speech TECHNIQUE: Noncontrast 4.5 mm thick angled axial sections acquired from the foramen magnum to the vertex. For r adiation dose reduction, the following was used: automated exposure control, adjustment of mA and/or kV according to patient size. COMPARISON: None. FINDINGS: Image quality: Excellent. CSF spaces: Basal cisterns are patent. No extra-axial fluid collections. Ventricles are normal in size and shape. Brain: No midline shift. No intracranial masses or hemorrhage. [place]-white matter interface is norm al. Intracranial carotid calcifications. Age-related volume loss and mild small vessel ischemic miller e. Old left cerebellar lacunar infarction. Skull and face: Calvarium and visualized facial bones are intact, without suspicious lesions. Sinuses: Visualized sinuses and mastoids are clear. IMPRESSION: 1. Age-related volume loss, mild small vessel ischemic change, old left cerebellar lacunar infarction . 2. No acute intracranial process. Findings are concordant with preliminary interpretation provided by [facility]. Reviewed by: Van Hutchison MD on 04/01/2023 7:16 AM PDT Approved by: Van Hutchison MD on 04/01/2023 7:16 AM PDT Station ID: [id number]
[2023-04-01] MEDS ORDERED: POTASSIUM BICARB 25 MEQ TABLET PO STA (07:32)
[2023-04-01] MEDS ORDERED: ACETAMINOPHEN 325 MG TABLET PO STA (07:32)
[2023-04-01] MEDS ORDERED: POTASSIUM CHLOR 10 MEQ/100 ML 10 MEQ/100 ML BAG IV ONE (07:32)
[2023-04-01] MEDS ORDERED: MAG HYDROX/AL HYDROX/SIMETH 30 ML UDC PO STA (07:33)
--- NOTE | 2023-04-01 08:08 | ED Physician Documentation ---
ED Addendum - Addendum Addendum: 04/01/23 08:04 Met with the patient and his at change of shift. The patient has had significant medical difficulties over the past 6 months or so. He had had an injury of his shoulder so was not able to move it very well. He had had a toe infection that required amputation and he was therefore down in bed quite a bit since he cannot really work with crutches etc. There was healing time for these and he was in some rehab briefly. About a month ago he had a stroke and was brought to [facility] for care there. He also had blood clots in his lung that came from his leg. He is on Pradaxa blood thinner for the last month or more. He has had ongoing chronic back pain and also pain at his foot and shoulder. He sees a pain clinic and is on a fentanyl patch 12.5 mg. He had had it Dilaudid pump but that and needed to be replaced. However with the recent problems and now on a blood thinner, its not currently able to be replaced. He is on the patch otherwise but no as needed pain meds. His states he is been having difficulty sleeping because of some insomnia and also pain at night. He is on metoprolol for heart rate. His blood pressure typically is approximately 1 15-1 20 systolic. Current ones here in the ER are 98-105. He states his speech is feeling better now. It had noticed some difficulty talking last night and also some left leg fumbling weakness. This is similar to the prior stroke symptoms a month ago. Is not clear whether he is having extended injury versus stress effect on the prior stroke because of tiredness, hydration etc. Assuming his symptoms are better now with some IV fluids and there is not really interventions to be done, it may be reasonable that he discharged home. However we will give some IV fluids and potassium replacement and see that he is doing a little bit better and his blood pressures slightly improved. I can prescribe him short-term as needed pain medicines. Have him do a baseline Tylenol a few times a day. No NSAIDs because of the Pradaxa. Can also prescribe medication for sleep at night. May consider reducing his metoprolol by half for the short-term anyway.
[2023-04-01 08:25] LABS: BILIRUBIN,URINE NEGATIVE (NEGATIVE); GLUCOSE, URINE (UA) >=1000 mg/dL (NEGATIVE); KETONES,URINE (UA) NEGATIVE (NEGATIVE); LEUKOCYTE ESTERASE, URINE NEGATIVE (NEGATIVE); NITRITE,URINE NEGATIVE (NEGATIVE); OCCULT BLOOD,URINE NEGATIVE (NEGATIVE); PH,URINE 5.5 PH (5.0-7.5); PROTEIN,URINE NEGATIVE (NEGATIVE); UROBILINOGEN,URINE 0.2 (NORMAL) E.U./dL (NORMAL)
[2023-04-01 08:26] LABS: CLARITY,URINE CLEAR (CLEAR)
[2023-04-01 09:03] VITALS: BP 119/66
== END 2023-04-01 09:27 | disposition home or self-care (01) ==
LOC: EDUNIT# → EDBD → ED 06:18
DX: R47.81 Slurred speech (principal); I95.9 Hypotension, unspecified; T44.7X5A Adverse effect of beta-adrenoreceptor antagonists, initial encounter; G47.00 Insomnia, unspecified; M79.673 Pain in unspecified foot; M25.519 Pain in unspecified shoulder; M54.9 Dorsalgia, unspecified; G89.29 Other chronic pain; I69.354 Hemiplegia and hemiparesis following cerebral infarction affecting left non-dominant side; I48.91 Unspecified atrial fibrillation; Z79.01 Long term (current) use of anticoagulants
CPT/HCPCS: 36415; 70450; 80053; 81003; 83690; 83735; 85025; 96365; 99284; A9270; 81001; 87086

== ENCOUNTER 2023-04-04 02:51 | Emergency (ER) | payer MEDICARE ==
[2023-04-04] MEDS ORDERED: SODIUM CHLORIDE 0.9% 1,000 ML IV STA (02:54)
[2023-04-04 03:25] LABS: BASOPHILS # (AUTO) 0.1 10^3/uL (0.0-0.1); BASOPHILS % (AUTO) 0.6 %; EOSINOPHILS # (AUTO) 0.3 10^3/uL (0.0-0.7); EOSINOPHILS % (AUTO) 3.5 %; HCT - HEMATOCRIT 46.6 % (42.0-52.0); HGB - HEMOGLOBIN 14.6 g/dL (14.0-18.0); LYMPHOCYTES # (AUTO) 1.3 10^3/uL (1.5-3.5); MEAN CORPUSCULAR HGB CONC 31.3 g/dL (32.0-36.0); MEAN CORPUSCULAR VOLUME 92.5 fL (80.0-94.0); MEAN PLATELET VOLUME 9.9 fL (7.4-11.4); MONOCYTES # (AUTO) 0.9 10^3/uL (0.0-1.0); NEUTROPHILS # (AUTO) 5.6 10^3/uL (1.5-6.6); NEUTROPHILS % (AUTO) 68.7 %; PLT - PLATELET COUNT 243 10^3/uL (130-450); RED BLOOD COUNT 5.04 10^6/uL (4.70-6.10); WHITE BLOOD COUNT 8.1 x10^3/uL (4.8-10.8)
[2023-04-04 03:30] LABS: INR 1.4 (0.8-1.2); PT - PROTHROMBIN TIME 15.3 secs (9.9-12.6)
--- NOTE | 2023-04-04 03:34 | ED Physician Documentation ---
History of Present Illness - Stated complaint Stated Complaint: FALL - Chief complaint Chief Complaint: Trauma Ext - History obtained from History obtained from: EMS - Additonal information Additional information: 72-year-old man brought in by EMS as a modified trauma for possible head injury on Pradaxa after falling from bed. Patient is demented at baseline and EMS reported that his provided a very limited history. he has chronic nonhealing R humerus fracture, hx of CVA X 2 in the past couple months, uncontrolled DM with multiple toe amputations, and extensive cardiac history including afib on pradaxa. Patient does not appear to have sustained traumatic injury today aside from abrasion to L 3rd toe though he cannot give history. PD PAST MEDICAL HISTORY - Past Medical History Cardiovascular: Congestive heart failure, Hypertension, High cholesterol, Coronary artery disease, [place] Respiratory: COPD Neuro: Dementia, CVA, Parkinson's Endocrine/Autoimmune: Type 2 diabetes GI: Ulcers : Benign prostate hypertrophy HEENT: Other Psych: Depression, Anxiety, Other Musculoskeletal: Chronic back pain - Past Surgical History Past Surgical History: Yes General: Bowel surgery Ortho: Spine surgery, Other - Present Medications Home Medications: Ambulatory Orders Medication Instructions Recorded Confirmed oxyCODONE [Roxicodone] 5 - 10 mg PO Q6H PRN #14 tablet 11/02/22 04/04/23 Blood Sugar Diagnostic [Glucometer 1 each QID #100 strip 12/25/22 04/04/23 Strips] Blood-Glucose Meter [Glucometer] 1 each QID #1 each 12/25/22 04/04/23 Acetaminophen [Tylenol] 650 mg PO Q6H PRN 04/01/23 04/04/23 Atorvastatin Calcium [Lipitor] 80 mg PO DAILY 04/01/23 04/04/23 Dabigatran Etexilate Mesylate 150 mg ORAL BID 04/01/23 04/04/23 [Pradaxa] Empagliflozin [Jardiance] 10 mg ORAL DAILY 04/01/23 04/04/23 Insulin NPH Human [HumuLIN N] 7 unit SUBQ BID 04/01/23 04/04/23 Insulin Regular Human [NovoLIN R] 10 - 30 units SUBQ TIDWM 04/01/23 04/04/23 Magnesium Oxide [Mag Ox] 400 mg PO DAILY 04/01/23 04/04/23 Metformin HCl 1,000 mg PO BID 04/01/23 04/04/23 Metoclopramide [Reglan] 5 mg PO TID PRN 04/01/23 04/04/23 Metoprolol Succinate [Toprol Xl] 25 mg PO DAILY 04/01/23 04/04/23 Miconazole Nitrate 1 applic TP BID 04/01/23 04/04/23 Mirtazapine [Remeron] 15 mg PO HS 04/01/23 04/04/23 ONDANSETRON ODT Prepack 2 [ZOFRAN 4 mg TL Q6H PRN 04/01/23 04/04/23 ODT Prepack 2] Omeprazole Magnesium 20 mg PO DAILY 04/01/23 04/04/23 Oxycodone HCl 10 mg PO TID PRN #25 tablet 04/01/23 04/04/23 Potassium Bicarbonate 25 meq PO DAILY #10 tablet 04/01/23 04/04/23 [K-Effervescent] Senna [Senokot] 8.6 mg PO BID PRN 04/01/23 04/04/23 Tamsulosin HCl [Flomax] 0.4 mg PO DAILY 04/01/23 04/04/23 Terbinafine HCl [Lamisil At] 1 applic TP BID 04/01/23 04/04/23 Trazodone HCl 100 mg PO HS PRN 04/01/23 04/04/23 fentaNYL 12 MCG PATCH [Duragesic 12 mcg TOP Q3D 04/01/23 04/04/23 12mcg patch] glipiZIDE [Glipizide] 10 mg PO BID 04/01/23 04/04/23 cephALEXin [Keflex] 500 mg PO Q6H #28 tab 04/04/23 - Allergies Allergies/Adverse Reactions: Allergies Allergy/AdvReac Type Severity Reaction Status Date / Time iodine Allergy Itching Verified 04/04/23 02:59 ketorolac [From Toradol] Allergy Rash Verified 04/04/23 02:59 - Social History Does the pt smoke?: No Smoking Status: Never smoker Does the pt drink ETOH?: No Does the pt have substance abuse?: No - Immunizations Immunizations are current?: Yes - POLST Patient has POLST: No PD ED PE NORMAL - Vitals Vital signs reviewed: Yes - General General: Other (alert, disoriented at baseline) - HEENT HEENT: Atraumatic, PERRL, EOMI, Moist mucous membranes - Neck Neck: No bony TTP, Other (c collar in place on ems arrival) - Cardiac Cardiac: RRR - Respiratory Respiratory: No respiratory distress, Clear bilaterally - Abdomen Abdomen: Non tender, Non distended - Back Back: No spinal TTP - Derm Derm: Normal color, Warm and dry, Other (multiple toe amputations. avulsed tissue to L 3rd toe) - Extremities Extremities: Other (2+ dp pulses) - Neuro Neuro: No motor deficit, No sensory deficit Eye Opening: Spontaneous Motor: Obeys Commands Verbal: Confused (at baseline) GCS Score: 14 Results - Vitals Vitals: Vital Signs - 24 hr 04/04/23 04/04/23 04/04/23 02:48 03:23 03:30 Temperature 36.2 C L Heart Rate 92 91 89 Respiratory 13 19 15 Rate Blood Pressure 126/70 126/73 126/73 O2 Saturation 96 99 100 04/04/23 04/04/23 04/04/23 04:00 04:28 04:30 Temperature Heart Rate 102 H 94 92 Respiratory 16 16 19 Rate Blood Pressure 116/41 L 129/78 129/78 O2 Saturation 96 96 98 Oxygen O2 Source Room air - EKG (time done) 0256 EKG releavant findings:: EKG personally interpreted by author of this note. Relevant findings are: Rate: Rate (enter#) (90) Rhythm: NSR Intervals: Normal [place] QRS: Poor R wave progression Ischemia: Non specific changes - Labs Labs: Laboratory Tests 04/04/23 04/04/23 04/04/23 03:18 03:18 03:18 WBC 8.1 RBC 5.04 Hgb 14.6 Hct 46.6 MCV 92.5 MCH 29.0 MCHC 31.3 L RDW 14.0 Plt Count 243 MPV 9.9 Neut # (Auto) 5.6 Lymph # (Auto) 1.3 L [place] # (Auto) 0.9 Eos # (Auto) 0.3 Baso # (Auto) 0.1 Absolute Nucleated RBC 0.00 Nucleated RBC % 0.0 PT 15.3 H INR 1.4 H APTT 51.7 H Sodium 140 Potassium 4.2 Chloride 104 Carbon Dioxide 26 Anion Gap 10.0 BUN 13 Creatinine 0.9 Estimated GFR (MDRD) 83 L Glucose 197 H Calcium 9.0 Total Bilirubin 1.0 AST 16 ALT 19 Alkaline Phosphatase 96 Total Protein 6.9 Albumin 3.3 Globulin 3.6 Albumin/Globulin Ratio 0.9 L Lipase 19 L Urine Color Urine Clarity Urine pH Ur Specific [place] Urine Protein Urine Glucose (UA) Urine Ketones Urine Occult Blood Urine Nitrite Urine Bilirubin Urine Urobilinogen Ur Leukocyte Esterase Ur Microscopic Review Urine Culture Comments Urine Opiates Screen Ur Oxycodone Screen Urine Methadone Screen Ur Propoxyphene Screen Ur Barbiturates Screen Ur Tricyclics Screen Ur Phencyclidine Scrn Ur Amphetamine Screen U Methamphetamines Scrn U Benzodiazepines Scrn Urine Cocaine Screen U Cannabinoids Screen Ethyl Alcohol < 5.0 04/04/23 04:00 WBC RBC Hgb Hct MCV MCH MCHC RDW Plt Count MPV Neut # (Auto) Lymph # (Auto) [place] # (Auto) Eos # (Auto) Baso # (Auto) Absolute Nucleated RBC Nucleated RBC % PT INR APTT Sodium Potassium Chloride Carbon Dioxide Anion Gap BUN Creatinine Estimated GFR (MDRD) Glucose Calcium Total Bilirubin AST ALT Alkaline Phosphatase Total Protein Albumin Globulin Albumin/Globulin Ratio Lipase Urine Color YELLOW Urine Clarity CLEAR Urine pH 5.5 Ur Specific [place] 1.010 Urine Protein NEGATIVE Urine Glucose (UA) >=1000 H Urine Ketones TRACE Urine Occult Blood TRACE-INTA Urine Nitrite NEGATIVE Urine Bilirubin NEGATIVE Urine Urobilinogen 0.2 (NORMAL) Ur Leukocyte Esterase NEGATIVE Ur Microscopic Review NOT INDICATED Urine Culture Comments NOT INDICATED Urine Opiates Screen NEGATIVE Ur Oxycodone Screen POSITIVE H Urine Methadone Screen NEGATIVE Ur Propoxyphene Screen NEGATIVE Ur Barbiturates Screen NEGATIVE Ur Tricyclics Screen NEGATIVE Ur Phencyclidine Scrn NEGATIVE Ur Amphetamine Screen NEGATIVE U Methamphetamines Scrn NEGATIVE U Benzodiazepines Scrn NEGATIVE Urine Cocaine Screen NEGATIVE U Cannabinoids Screen NEGATIVE Ethyl Alcohol PD Medical Decision Making - ED course ED course: 72yM presents as modified trauma s/p fall tonight with possible HT but no LOC. traumatic workup is underway. plan to reevaluate. at bedside now providing collateral history. she states she woke and he was on the floor, disoriented to place. she states he does sometimes have worsening dementia at nighttime and she was not too concerned by this but rather by the possibility of injury given he is on blood thinners. shared decision making to continue his traumatic workup and dc home if negative. she states his left 3rd toe was scraped in the fall but had already been starting to get red and swollen prior to this. he is not yet on antibiotics so first dose was provided here and rx for keflex for toe cellulitis sent to pharmacy. Departure - Departure Clinical Impression: Toe infection, Fall Condition: Stable Instructions: Cellulitis Dc Prescriptions: cephALEXin [Keflex] 500 mg PO Q6H #28 tab Comments: Mr. Vital was seen in the emergency department for evaluation after a fall. He does not have any traumatic injury on his work-up but he does appear to have getting of an infection in his toe. Antibiotics were sent electronically to [facility] in [place]. Please follow-up with your primary care provider soon as possible for recheck.
[2023-04-04 03:37] LABS: ALBUMIN 3.3 g/dL (3.2-5.5); ALBUMIN/GLOBULIN RATIO 0.9 (1.0-2.2); ALKALINE PHOSPHATASE 96 IU/L (42-121); ALT ALANINE AMINOTRANSFERASE 19 IU/L (10-60); AST ASPARTATE AMINOTRANSFERASE 16 IU/L (10-42); BUN - BLOOD UREA NITROGEN 13 mg/dL (6-20); CARBON DIOXIDE - CO2 26 mmol/L (21-32); CHLORIDE 104 mmol/L (101-111); CREATININE 0.9 mg/dL (0.6-1.2); ETOH - ETHANOL < 5.0 mg/dL; GFR - MDRD 83 (>89); GLUCOSE 197 mg/dL (70-100); LIPASE 19 U/L (22-51); PARTIAL THROMBOPLASTIN TIME 51.7 secs (24.9-33.3); POTASSIUM 4.2 mmol/L (3.5-5.0); SODIUM 140 mmol/L (135-145); TOTAL PROTEIN 6.9 g/dL (6.7-8.2)
[2023-04-04] MEDS ORDERED: cefTRIAXone 1 GM VIAL IM STA (04:11)
[2023-04-04] MEDS ORDERED: LIDOCAINE 1% 2 ML VIAL MC ONE (04:11)
[2023-04-04] MEDS ORDERED: BACITRACIN ZINC OINT 1 PACKET TOP STA (04:16)
[2023-04-04 04:38] LABS: BILIRUBIN,URINE NEGATIVE (NEGATIVE); CLARITY,URINE CLEAR (CLEAR); GLUCOSE, URINE (UA) >=1000 mg/dL (NEGATIVE); KETONES,URINE (UA) TRACE mg/dL (NEGATIVE); LEUKOCYTE ESTERASE, URINE NEGATIVE (NEGATIVE); MUDS CUTOFF CONCENTRATIONS CUTOFF CONC BELOW:; NITRITE,URINE NEGATIVE (NEGATIVE); OCCULT BLOOD,URINE TRACE-INTA (NEGATIVE); PH,URINE 5.5 PH (5.0-7.5); PROTEIN,URINE NEGATIVE (NEGATIVE); UROBILINOGEN,URINE 0.2 (NORMAL) E.U./dL (NORMAL)
[2023-04-04 04:49] LABS: AMPHETAMINE SCREEN,URINE NEGATIVE (NEGATIVE); BARBITURATE SCREEN,UR NEGATIVE (NEGATIVE); BENZODIAZEPINES SCREEN, URINE NEGATIVE (NEGATIVE); COCAINE SCREEN URINE NEGATIVE (NEGATIVE); METHADONE SCREEN, URINE NEGATIVE (NEGATIVE); METHAMPHETAMINES SCREEN, URINE NEGATIVE (NEGATIVE); OPIATE SCREEN, URINE NEGATIVE (NEGATIVE); OXYCODONE SCREEN, URINE POSITIVE (NEGATIVE); PROPOXYPHENE SCREEN, URINE NEGATIVE (NEGATIVE); THC CANNABINOID SCREEN, URINE NEGATIVE (NEGATIVE); TRICYCLIC ANTIDEPRESSANT,URINE NEGATIVE (NEGATIVE)
[2023-04-04 07:02] VITALS: BP 131/75
--- NOTE | 2023-04-04 08:17 | XRAY Report ---
PROCEDURE: Chest 1 View X-Ray INDICATIONS: md trauma TECHNIQUE: One view of the chest was acquired. COMPARISON: None. FINDINGS: Surgical changes and devices: Partially seen thoracolumbar spinal fusion hardware. Lungs and pleura: Low lung volumes. Appearance of vascular crowding and perihilar fullness may be ar tifact from low lung volumes. No dense consolidation or pleural effusion. Mediastinum: Possible cardiomegaly. Bones and chest wall: There is a possible irregularity at the right humeral head, only partially vis ualized. This was seen in January 2023. IMPRESSION: No acute radiographic abnormality in the chest. Evaluation limited by low lung volumes. Agree with pr eliminary report. Reviewed by: Dwight Hernandez MD on 04/04/2023 8:15 AM PDT Approved by: Dwight Hernandez MD on 04/04/2023 8:15 AM PDT Station ID: [id number]
--- NOTE | 2023-04-04 08:18 | XRAY Report ---
PROCEDURE: Pelvis 1 View INDICATIONS: md trauma TECHNIQUE: 1 view(s) of the pelvis acquired. COMPARISON: None. FINDINGS: Bones: Moderate bilateral hip degenerative changes. Partially seen and lumbar fusion hardware. Parti ally seen device at the left lower quadrant. No acute displaced fracture or dislocation. Soft tissues: No suspicious calcifications. IMPRESSION: No acute radiographic abnormality. There are degenerative changes. If there is high concern for occul t injury, consider repeat radiography or cross-sectional imaging. Agree with preliminary report. Reviewed by: Dwight Hernandez MD on 04/04/2023 8:17 AM PDT Approved by: Dwight Hernandez MD on 04/04/2023 8:17 AM PDT Station ID: [id number]
--- NOTE | 2023-04-04 08:21 | CT Report ---
PROCEDURE: HEAD WO INDICATIONS: Head trauma, mod-severe TECHNIQUE: Noncontrast 4.5 mm thick angled axial sections acquired from the foramen magnum to the vertex. For r adiation dose reduction, the following was used: automated exposure control, adjustment of mA and/or kV according to patient size. COMPARISON: 04/01/2023 FINDINGS: Image quality: There is some motion artifact. CSF spaces: Basal cisterns are patent. Lateral ventricles are symmetric. Volume: Vascular calcifications. Periventricular white matter disease is commonly seen with chronic m icroangiopathy. Volume loss is present. These findings are moderate. Brain: No intracranial hemorrhage. [place]-white differentiation is grossly maintained. Mild encephalom alacia of the left cerebellum. Craniofacial structures: Small mastoid effusions. The paranasal sinuses are otherwise clear. IMPRESSION: No acute intracranial abnormality. Reviewed by: Dwight Hernandez MD on 04/04/2023 8:20 AM PDT Approved by: Dwight Hernandez MD on 04/04/2023 8:20 AM PDT Station ID: [id number]
--- NOTE | 2023-04-04 08:22 | CT Report ---
PROCEDURE: CERVICAL SPINE WO INDICATIONS: Neck trauma, midline tenderness TECHNIQUE: Noncontrast 3 mm thick sections acquired from the skull base to the T4 level. Sagittal and coronal r eformats were then constructed. For radiation dose reduction, the following was used: automated exp osure control, adjustment of mA and/or kV according to patient size. COMPARISON: None. FINDINGS: Image quality: Good Bones: Mild to moderate degenerative changes. Vertebral body heights are well-maintained. No traumati c subluxation. Soft tissues: There are vascular calcifications. No pathologic prevertebral soft tissue swelling. IMPRESSION: No acute fracture or subluxation of the cervical spine. Mild to moderate degenerative changes. If the re is high concern for further derangement, consider MRI evaluation. Reviewed by: Dwight Hernandez MD on 04/04/2023 8:21 AM PDT Approved by: Dwight Hernandez MD on 04/04/2023 8:21 AM PDT Station ID: [id number]
== END 2023-04-04 07:15 | disposition home or self-care (01) ==
LOC: EDUNIT# → ED 02:51
DX: L08.9 Local infection of the skin and subcutaneous tissue, unspecified (principal); E11.9 Type 2 diabetes mellitus without complications; Z79.4 Long term (current) use of insulin; W19.XXXA Unspecified fall, initial encounter
CPT/HCPCS: 36415; 70450; 71045; 72125; 72170; 80053; 80306; 81003; 83690; 85025; 85610; 85730; 93005; 96372; 99284; A9270; G0480; 80320; 81001; 87086

== ENCOUNTER 2023-04-30 13:15 | Outpatient (CLI) | payer MEDICARE | END 2023-04-30 23:59 | disposition critical access hospital (66) | LOC: EMS 13:15 | DX: R53.1 Weakness (principal); R03.1 Nonspecific low blood-pressure reading; R00.1 Bradycardia, unspecified | CPT/HCPCS: A0425; A0429 ==

== ENCOUNTER 2023-04-30 14:25 | Emergency (ER) | payer MEDICARE ==
[2023-04-30 14:59] LABS: BASOPHILS # (AUTO) 0.1 10^3/uL (0.0-0.1); BASOPHILS % (AUTO) 0.6 %; EOSINOPHILS # (AUTO) 0.2 10^3/uL (0.0-0.7); EOSINOPHILS % (AUTO) 2.3 %; HCT - HEMATOCRIT 47.5 % (42.0-52.0); HGB - HEMOGLOBIN 15.5 g/dL (14.0-18.0); LYMPHOCYTES # (AUTO) 2.3 10^3/uL (1.5-3.5); LYMPHOCYTES % (AUTO) 28.9 %; MEAN CORPUSCULAR HEMOGLOBIN 29.1 pg (27.0-31.0); MEAN CORPUSCULAR HGB CONC 32.6 g/dL (32.0-36.0); MEAN CORPUSCULAR VOLUME 89.1 fL (80.0-94.0); MEAN PLATELET VOLUME 10.1 fL (7.4-11.4); MONOCYTES # (AUTO) 0.9 10^3/uL (0.0-1.0); MONOCYTES % (AUTO) 11.1 %; NEUTROPHILS # (AUTO) 4.5 10^3/uL (1.5-6.6); NEUTROPHILS % (AUTO) 56.7 %; PLT - PLATELET COUNT 295 10^3/uL (130-450); RED BLOOD COUNT 5.33 10^6/uL (4.70-6.10); RED CELL DISTRIBUTION WIDTH 14.5 % (12.0-15.0); WHITE BLOOD COUNT 7.9 x10^3/uL (4.8-10.8)
--- NOTE | 2023-04-30 15:06 | ED Physician Documentation ---
History of Present Illness - Stated complaint Stated Complaint: WEAKNESS/LBP - Chief complaint Chief Complaint: General - Additonal information Additional information: 72-year-old male who has a past medical history most significant for dementia, previous CVAs, Parkinson's disorder, poorly controlled type 2 diabetes, atrial fib anticoagulated on Pradaxa, chronic right humeral fracture presents to the emergency department for evaluation of general weakness and reported hypotension. He was being visited by the home health nurse this morning when she checked his blood pressure and found it to be low in the 80s thus EMS was summoned. For EMS he had a blood pressure of 94/54. On presentation in the emergency department I am greeted by a gentleman that appears much older than stated age. He is thin and cachectic in appearance. He has multiple toe amputations on both his lower extremities. The patient has a temperature of 37.3, heart rate of 84 and a blood pressure of 111/67. Room air sats are 97%. Patient states that he feels fine and would not have asked to come to the ER had it not been for home health advisement Review of Systems Constitutional: denies: Fever GI: reports: Reviewed and negative : reports: Reviewed and negative Skin: reports: Other (Multiple toe amputations bilateral feet) Neurologic: reports: Generalized weakness PD PAST MEDICAL HISTORY - Past Medical History Past Medical History: Yes Cardiovascular: Congestive heart failure, Hypertension, High cholesterol, Coronary artery disease, [place] Respiratory: COPD Neuro: Dementia, CVA, Parkinson's Endocrine/Autoimmune: Type 2 diabetes GI: Ulcers : Benign prostate hypertrophy HEENT: Other Psych: Depression, Anxiety, Other Musculoskeletal: Osteoarthritis, Chronic back pain - Past Surgical History Past Surgical History: Yes General: Bowel surgery Ortho: Spine surgery, Amputation, Other - Present Medications Home Medications: Ambulatory Orders Medication Instructions Recorded Confirmed Blood Sugar Diagnostic [Glucometer 1 each QID #100 strip 12/25/22 04/30/23 Strips] Blood-Glucose Meter [Glucometer] 1 each QID #1 each 12/25/22 04/30/23 Atorvastatin Calcium [Lipitor] 80 mg PO DAILY 04/01/23 04/30/23 Dabigatran Etexilate Mesylate 150 mg ORAL BID 04/01/23 04/30/23 [Pradaxa] Empagliflozin [Jardiance] 10 mg ORAL DAILY 04/01/23 04/30/23 Insulin NPH Human [HumuLIN N] 7 unit SUBQ BID 04/01/23 04/30/23 Insulin Regular Human [NovoLIN R] 10 - 30 units SUBQ TIDWM 04/01/23 04/30/23 Magnesium Oxide [Mag Ox] 400 mg PO DAILY 04/01/23 04/30/23 Metformin HCl 1,000 mg PO BID 04/01/23 04/30/23 Metoclopramide [Reglan] 5 mg PO TID PRN 04/01/23 04/30/23 Metoprolol Succinate [Toprol Xl] 25 mg PO DAILY 04/01/23 04/30/23 Miconazole Nitrate 1 applic TP BID 04/01/23 04/30/23 Mirtazapine [Remeron] 30 mg PO HS 04/01/23 04/30/23 ONDANSETRON ODT Prepack 2 [ZOFRAN 4 mg TL Q6H PRN 04/01/23 04/30/23 ODT Prepack 2] Omeprazole Magnesium 20 mg PO DAILY 04/01/23 04/30/23 Potassium Bicarbonate 25 meq PO DAILY #10 tablet 04/01/23 04/30/23 [K-Effervescent] Senna [Senokot] 8.6 mg PO BID PRN 04/01/23 04/30/23 Tamsulosin HCl [Flomax] 0.4 mg PO DAILY 04/01/23 04/30/23 Terbinafine HCl [Lamisil At] 1 applic TP BID 04/01/23 04/30/23 Trazodone HCl 100 mg PO HS PRN 04/01/23 04/30/23 glipiZIDE [Glipizide] 10 mg PO BID 04/01/23 04/30/23 Cholecalciferol (Vitamin D3) 50 mcg PO DAILY 04/30/23 04/30/23 [Vitamin D3] Escitalopram Oxalate [Lexapro] 20 mg PO DAILY 04/30/23 04/30/23 Furosemide [Lasix] 80 mg PO DAILY 04/30/23 04/30/23 Lidocaine Patch 5% [Lidoderm Patch] 1 each TOP DAILY 04/30/23 04/30/23 Methylphenidate HCl [Ritalin LA] 20 mg PO DAILY 04/30/23 04/30/23 Propranolol [Inderal] 10 mg ORAL TID 04/30/23 04/30/23 QUEtiapine [SEROquel] 25 - 50 mg PO QPM PRN 04/30/23 04/30/23 clonazePAM [Clonazepam] 0.5 - 1 mg PO HS PRN 04/30/23 04/30/23 - Allergies Allergies/Adverse Reactions: Allergies Allergy/AdvReac Type Severity Reaction Status Date / Time iodine Allergy Itching Verified 04/30/23 14:31 ketorolac [From Toradol] Allergy Rash Verified 04/30/23 14:31 - Social History Does the pt smoke?: No Smoking Status: Former smoker Does the pt drink ETOH?: No Does the pt have substance abuse?: No - Immunizations Immunizations are current?: Yes - POLST Patient has POLST: No PD ED PE NORMAL - General General: Alert and oriented X 3, No acute distress, Well developed/nourished (thin cachetic appearance) - Neck Neck: Supple, no meningeal sign - Cardiac Cardiac: RRR, Other (2+ DP pulses) - Respiratory Respiratory: No respiratory distress, Clear bilaterally - Abdomen Abdomen: Normal bowel sounds, Soft, Non tender - Back Back: No spinal TTP - Derm Derm: Normal color, Warm and dry - Extremities Extremities: Other (multiple toe amputations) - Neuro Neuro: Alert and oriented X 3 Eye Opening: Spontaneous Motor: Obeys Commands Verbal: Oriented GCS Score: 15 Results - Vitals Vitals: Vital Signs - 24 hr 04/30/23 04/30/23 14:31 14:35 Temperature 37.3 C Heart Rate 84 84 Respiratory 18 14 Rate Blood Pressure 95/66 111/67 O2 Saturation 98 97 Oxygen O2 Source Room air - EKG (time done) 1522 EKG releavant findings:: EKG personally interpreted by author of this note. Relevant findings are: Rate: Rate (enter#) (84) Rhythm: NSR [place]: Normal Intervals: RBBB Ischemia: Non specific changes Compare to prior EKG: Unchanged from prior EKG Computer interpretation: Agree with computer - Labs Labs: Laboratory Tests 04/30/23 04/30/23 04/30/23 14:53 14:53 14:53 WBC 7.9 RBC 5.33 Hgb 15.5 Hct 47.5 MCV 89.1 MCH 29.1 MCHC 32.6 RDW 14.5 Plt Count 295 MPV 10.1 Neut # (Auto) 4.5 Lymph # (Auto) 2.3 [place] # (Auto) 0.9 Eos # (Auto) 0.2 Baso # (Auto) 0.1 Absolute Nucleated RBC 0.00 Nucleated RBC % 0.0 Sodium 138 Potassium 3.4 L Chloride 104 Carbon Dioxide 27 Anion Gap 7.0 BUN 15 Creatinine 0.7 Estimated GFR (MDRD) 111 Glucose 171 H Lactic Acid Calcium 9.6 Total Bilirubin 0.7 AST 12 ALT 10 Alkaline Phosphatase 102 Total Protein 6.5 Albumin 3.7 Globulin 2.8 Albumin/Globulin Ratio 1.3 Lipase 6 L TSH 0.57 Urine Color Urine Clarity Urine pH Ur Specific [place] Urine Protein Urine Glucose (UA) Urine Ketones Urine Occult Blood Urine Nitrite Urine Bilirubin Urine Urobilinogen Ur Leukocyte Esterase Ur Microscopic Review Urine Culture Comments 04/30/23 04/30/23 15:09 15:30 WBC RBC Hgb Hct MCV MCH MCHC RDW Plt Count MPV Neut # (Auto) Lymph # (Auto) [place] # (Auto) Eos # (Auto) Baso # (Auto) Absolute Nucleated RBC Nucleated RBC % Sodium Potassium Chloride Carbon Dioxide Anion Gap BUN Creatinine Estimated GFR (MDRD) Glucose Lactic Acid 1.3 Calcium Total Bilirubin AST ALT Alkaline Phosphatase Total Protein Albumin Globulin Albumin/Globulin Ratio Lipase TSH Urine Color YELLOW Urine Clarity CLEAR Urine pH 5.0 Ur Specific [place] 1.015 Urine Protein NEGATIVE Urine Glucose (UA) >=1000 H Urine Ketones 15 H Urine Occult Blood NEGATIVE Urine Nitrite NEGATIVE Urine Bilirubin NEGATIVE Urine Urobilinogen 0.2 (NORMAL) Ur Leukocyte Esterase NEGATIVE Ur Microscopic Review NOT INDICATED Urine Culture Comments NOT INDICATED - Rads (name of study) cxr Relevant Findings:: Final report received (No acute cardiopulmonary process) PD Medical Decision Making - ED course Complexity details: reviewed results, re-evaluated patient, d/w patient, d/w family ED course: 72-year-old male was referred to the emergency department on the advice of home health for findings of hypotension during the home health visit. However for EMS he was noted to be 90/50 and while here in the emergency department he has been normotensive. He was without fever. We did obtain routine sepsis labs that included CBC chemistry blood cultures x2 lactic acid urinalysis. Per my interpretation no leukocytosis. Hemoglobin is 15.5. Electrolytes without worrisome derangement though he is hyperglycemic with a blood sugar of 171. This is consistent with his history of diabetes. Lactate was normal at 1.3. Urine showed no signs of infection. And a chest x-ray showed no evidence of pneumonia. Here in the emergency department he did receive some IV fluids and was not orthostatic. Nursing staff was able to ambulate the patient with a walker and he did well. At this time the etiology of his vital sign abnormality at home is not clear though clinically we do not have any findings to suggest infection or sepsis. Patient reports that he feels well and would like to be discharged home. The usual emergent return precautions were discussed for worsening symptoms. Departure - Departure Disposition: Home, Self Care Clinical Impression: General weakness, History of CVA (cerebrovascular accident) Condition: Stable Record reviewed to determine appropriate education?: Yes Comments: Amanuel ariadne are seen today in the emergency department for concerns of low blood pressure at home. Your blood pressure has been normal here in the emergency department. Your chest x-ray showed no signs of pneumonia. Your urine shows no signs of infection and your lab work today was all essentially normal for your age and history. Blood cultures are pending. At this time is not clear what caused the episode this morning. If it returns, you have any chest pain, shortness of air or fevers you will need to return to the ER but at this time you are safe to be discharged home. Forms: PCP List
[2023-04-30 15:22] LABS: ALBUMIN 3.7 g/dL (3.2-5.5); ALBUMIN/GLOBULIN RATIO 1.3 (1.0-2.2); BILIRUBIN,TOTAL 0.7 mg/dL (0.2-1.0); CALCIUM 9.6 mg/dL (8.5-10.3); CREATININE 0.7 mg/dL (0.6-1.3); POTASSIUM 3.4 mmol/L (3.5-4.5); TOTAL PROTEIN 6.5 g/dL (6.4-8.9)
[2023-04-30 15:40] LABS: BILIRUBIN,URINE NEGATIVE (NEGATIVE); GLUCOSE, URINE (UA) >=1000 mg/dL (NEGATIVE); KETONES,URINE (UA) 15 mg/dL (NEGATIVE); LEUKOCYTE ESTERASE, URINE NEGATIVE (NEGATIVE); NITRITE,URINE NEGATIVE (NEGATIVE); OCCULT BLOOD,URINE NEGATIVE (NEGATIVE); PROTEIN,URINE NEGATIVE (NEGATIVE); UROBILINOGEN,URINE 0.2 (NORMAL) E.U./dL (NORMAL)
[2023-04-30 15:42] LABS: CLARITY,URINE CLEAR (CLEAR)
--- NOTE | 2023-04-30 15:52 | XRAY Report ---
PROCEDURE: Chest 1 View X-Ray INDICATIONS: chest pain TECHNIQUE: One view of the chest was acquired. COMPARISON: None. FINDINGS: Surgical changes and devices: Lower thoracic spine posterior stabilization rods Lungs and pleura: No pleural effusions or pneumothorax. Lungs are clear. Mediastinum: Mediastinal contours appear normal. Heart size is normal. Bones and chest wall: No suspicious bony lesions. Overlying soft tissues appear unremarkable. IMPRESSION: No acute cardiopulmonary process. Reviewed by: Jace Jimenes MD on 04/30/2023 2:50 PM AKDT Approved by: Jace Jimenes MD on 04/30/2023 2:50 PM AKDT Station ID: [id number]
[2023-04-30 16:50] VITALS: BP 115/87
== END 2023-04-30 16:44 | disposition home or self-care (01) ==
LOC: EDUNIT# → EDBD → ED 14:25
DX: R53.1 Weakness (principal); E11.65 Type 2 diabetes mellitus with hyperglycemia; Z79.4 Long term (current) use of insulin; Z79.84 Long term (current) use of oral hypoglycemic drugs; Z87.891 Personal history of nicotine dependence; Z86.73 Personal history of transient ischemic attack (TIA), and cerebral infarction without residual deficits
CPT/HCPCS: 36415; 80053; 81001; 81003; 83605; 83690; 84439; 84443; 85025; 87040; 87086; 93005; 99284

== ENCOUNTER 2023-08-11 08:00 | Outpatient (CLI) | payer MEDICARE ==
--- NOTE | 2023-08-11 20:34 | XRAY Report ---
PROCEDURE: Shoulder 2 View RT INDICATIONS: PAIN IN RIGHT SHOULDER TECHNIQUE: 3 views of the shoulder were acquired. COMPARISON: None FINDINGS: Bones: Proximal humeral fracture deformity shows increased bridging callus. No dislocation. Soft tissues: No suspicious soft tissue calcifications. IMPRESSION: Healing proximal humeral fracture deformity Reviewed by: Jace Jimenes MD on 08/11/2023 7:33 PM [place] Approved by: Jace Jimenes MD on 08/11/2023 7:33 PM [place] Station ID: [id number]
== END 2023-08-11 23:59 | disposition home or self-care (01) ==
LOC: DI.S 08:00
PROVIDERS: ATTEND Nurse Practitioner
DX: S42.201D Unspecified fracture of upper end of right humerus, subsequent encounter for fracture with routine healing (principal)

== ENCOUNTER 2023-09-09 07:25 | Outpatient (CLI) | payer MEDICARE, MEDICAID | END 2023-09-09 07:26 | disposition critical access hospital (66) | LOC: EMS 07:25 | DX: R26.89 Other abnormalities of gait and mobility (principal); R46.4 Slowness and poor responsiveness; R50.9 Fever, unspecified; R11.10 Vomiting, unspecified; R39.89 Other symptoms and signs involving the genitourinary system | CPT/HCPCS: A0425; A0427 ==

== ENCOUNTER 2023-09-09 07:55 | Emergency (ER) | payer MEDICARE, MEDICAID ==
[2023-09-09] MEDS ORDERED: ACETAMINOPHEN 500 MG TABLET PO STA (08:14)
[2023-09-09] MEDS ORDERED: ONDANSETRON 4 MG/2 ML VIAL IVP STA (08:14)
[2023-09-09] MEDS ORDERED: SODIUM CHLORIDE 0.9% 500 ML IV STA (08:14)
--- NOTE | 2023-09-09 08:34 | XRAY Report ---
PROCEDURE: Chest 1 View X-Ray INDICATIONS: fever/weak TECHNIQUE: One view of the chest was acquired. COMPARISON: Chest x-ray 04/30/2023. FINDINGS: Surgical changes and devices: Partially visualized Goss rods. Right upper quadrant surgical cl ips. Lungs and pleura: No pleural effusions or pneumothorax. Prominent interstitial markings. Mediastinum: Mediastinal contours appear normal. Heart size is mildly enlarged. Bones and chest wall: No suspicious bony lesions. Overlying soft tissues appear unremarkable. IMPRESSION: Heart appears mildly enlarged compared to prior. There are prominent interstitial markings, different ial includes infection or edema. Reviewed by: Donta Salazar MD on 09/09/2023 8:33 AM [facility] Approved by: Donta Salazar MD on 09/09/2023 8:33 AM PST Station ID: [id number]
--- NOTE | 2023-09-09 08:47 | ED Physician Documentation ---
History of Present Illness - Stated complaint Stated Complaint: N/V - Chief complaint Chief Complaint: General - History obtained from History obtained from: Patient, EMS - Additonal information Additional information: Patient is a 73-year-old male with a history of dementia, Parkinson's and prior CVAs presenting for evaluation of feeling unwell since Friday. Per EMS patient reported feeling nausea and vomiting since Friday. When I asked the patient how long symptoms have been going on he states for 1 or 2 weeks. He is coming from home. It is unclear what his baseline is but he is not able to tell me exactly where he lives. He does have a history of vertigo. He currently denies vertiginous symptoms. He has noted to have a fever on arrival. I did attempt to call family member with phone number listed but the number is not in service. History is limited as patient appears confused and does have a history of dementia. 0910 - is now present at the bedside. States that on he received his COVID and flu vaccine. Starting on Friday he has been having vomiting and diarrhea with increasing weakness. She states that his last episode of diarrhea was yesterday and his last episode of emesis was today. She states that he was unable to get up today like he normally is which is why she called 911. states that she also is starting to feel unwell although she has not had any nausea, vomiting or diarrhea. Review of Systems Unable to obtain: Dementia PD PAST MEDICAL HISTORY - Past Medical History Past Medical History: Yes Cardiovascular: Congestive heart failure, Hypertension, High cholesterol, Coronary artery disease, [place] Respiratory: COPD Neuro: Dementia, CVA, Parkinson's Endocrine/Autoimmune: Type 2 diabetes GI: Ulcers : Benign prostate hypertrophy HEENT: Other Psych: Depression, Anxiety, Other Musculoskeletal: Osteoarthritis, Chronic back pain - Past Surgical History Past Surgical History: Yes General: Bowel surgery Ortho: Spine surgery, Amputation, Other - Present Medications Home Medications: Ambulatory Orders Medication Instructions Recorded Confirmed Blood Sugar Diagnostic [Glucometer 1 each QID #100 strip 12/25/22 09/09/23 Strips] Blood-Glucose Meter [Glucometer] 1 each QID #1 each 12/25/22 09/09/23 Atorvastatin Calcium [Lipitor] 80 mg PO DAILY 04/01/23 09/09/23 Empagliflozin [Jardiance] 10 mg ORAL DAILY 04/01/23 09/09/23 Insulin NPH Human [HumuLIN N] 7 unit SUBQ BID 04/01/23 09/09/23 Insulin Regular Human [NovoLIN R] 10 - 30 units SUBQ TIDWM 04/01/23 09/09/23 Magnesium Oxide [Mag Ox] 400 mg PO DAILY 04/01/23 09/09/23 Metformin HCl 1,000 mg PO BID 04/01/23 09/09/23 Metoclopramide [Reglan] 5 mg PO TID PRN 04/01/23 09/09/23 Miconazole Nitrate 1 applic TP BID 04/01/23 09/09/23 Omeprazole Magnesium 20 mg PO DAILY 04/01/23 09/09/23 Potassium Bicarbonate 25 meq PO DAILY #10 tablet 04/01/23 09/09/23 [K-Effervescent] Senna [Senokot] 8.6 mg PO BID PRN 04/01/23 09/09/23 Tamsulosin HCl [Flomax] 0.4 mg PO DAILY 04/01/23 09/09/23 Terbinafine HCl [Lamisil At] 1 applic TP BID 04/01/23 09/09/23 Cholecalciferol (Vitamin D3) 50 mcg PO DAILY 04/30/23 09/09/23 [Vitamin D3] Methylphenidate HCl [Ritalin LA] 20 mg PO DAILY 04/30/23 09/09/23 Propranolol [Inderal] 10 mg ORAL TID 04/30/23 09/09/23 QUEtiapine [SEROquel] 25 - 50 mg PO QPM PRN 04/30/23 09/09/23 clonazePAM [Clonazepam] 0.5 - 1 mg PO HS PRN 04/30/23 09/09/23 Ondansetron Odt [Zofran] 4 mg TL Q6H PRN #10 tablet 09/09/23 - Allergies Allergies/Adverse Reactions: Allergies Allergy/AdvReac Type Severity Reaction Status Date / Time iodine Allergy Itching Verified 09/09/23 08:07 ketorolac [From Toradol] Allergy Rash Verified 09/09/23 08:07 - Social History Does the pt smoke?: No Smoking Status: Never smoker Does the pt drink ETOH?: No Does the pt have substance abuse?: No - Immunizations Immunizations are current?: Yes - POLST Patient has POLST: No PD ED PE NORMAL - General General: No acute distress, Well developed/nourished. No: Alert and oriented X 3 (Alert and oriented to person and place) - HEENT HEENT: Atraumatic, PERRL, EOMI, Moist mucous membranes, Pharynx benign - Neck Neck: Supple, no meningeal sign - Cardiac Cardiac: Other (Irregularly irregular; Normal rate) - Respiratory Respiratory: No respiratory distress, Clear bilaterally - Abdomen Abdomen: Normal bowel sounds, Soft, Non tender, Non distended - Extremities Extremities: Other (Multiple toe amputations on bilateral feet) - Neuro Neuro: terminal make up operator 2-12 intact, No sensory deficit, Normal speech. No: Alert and oriented X 3 (Alert and oriented to person and place), No motor deficit (Left arm weakness) Results - Vitals Vitals: Vital Signs - 24 hr 09/09/23 09/09/23 09/09/23 08:02 08:22 09:11 Temperature 38.2 C H 36.6 C Heart Rate 89 Respiratory 25 H 27 H Rate Blood Pressure 118/68 118/68 O2 Saturation 95 95 09/09/23 09/09/23 09/09/23 10:08 12:00 13:25 Temperature 98.9 C H Heart Rate 93 85 87 Respiratory 21 17 24 Rate Blood Pressure 152/80 H 140/85 H 130/73 O2 Saturation 95 98 87 L Oxygen O2 Source Room air - EKG (time done) 0902 EKG releavant findings:: EKG personally interpreted by author of this note. Relevant findings are: Rate 87, atrial fibrillation, PVCs, no STEMI, right bundle branch block - Labs Labs: Laboratory Tests 09/09/23 09/09/23 09/09/23 08:26 08:30 08:30 WBC 10.5 RBC 5.74 Hgb 17.0 Hct 50.6 MCV 88.2 MCH 29.6 MCHC 33.6 RDW 12.5 Plt Count 367 MPV 10.1 Neut # (Auto) 7.6 H Lymph # (Auto) 1.7 Angelina # (Auto) 1.1 H Eos # (Auto) 0.0 Baso # (Auto) 0.1 Absolute Nucleated RBC 0.00 Nucleated RBC % 0.0 Sodium 134 L Potassium 3.7 Chloride 97 L Carbon Dioxide 27 Anion Gap 10.0 BUN 17 Creatinine 0.9 Estimated GFR (MDRD) 83 L Glucose 250 H POC Whole Bld Glucose Lactic Acid Calcium 9.3 Total Bilirubin 2.6 H AST 18 ALT 8 L Alkaline Phosphatase 98 Total Protein 7.0 Albumin 3.9 Globulin 3.1 Albumin/Globulin Ratio 1.3 Lipase < 10 L Urine Color Urine Clarity Urine pH Ur Specific [place] Urine Protein Urine Glucose (UA) Urine Ketones Urine Occult Blood Urine Nitrite Urine Bilirubin Urine Urobilinogen Ur Leukocyte Esterase Urine RBC Urine WBC Ur Squamous Epith Cells Urine Bacteria Ur Microscopic Review Urine Culture Comments Nasal Adenovirus (PCR) NOT DETECTED Nasal B. parapertussis DNA (PCR) NOT DETECTED Nasal Coronavir 229E PCR NOT DETECTED Nasal Coronavir HKU1 PCR NOT DETECTED Nasal Coronavir NL63 PCR NOT DETECTED Nasal Coronavir OC43 PCR NOT DETECTED Nasal Enterovir/Rhinovir PCR NOT DETECTED Nasal Influenza B PCR NOT DETECTED Nasal Influenza A PCR NOT DETECTED Nasal Parainfluen 1 PCR NOT DETECTED Nasal Parainfluen 2 PCR NOT DETECTED Nasal Parainfluen 3 PCR NOT DETECTED Nasal Parainfluen 4 PCR NOT DETECTED Nasal RSV (PCR) NOT DETECTED Nasal B.pertussis DNA PCR NOT DETECTED Nasal C.pneumoniae (PCR) NOT DETECTED Iain Human Metapneumo PCR NOT DETECTED Nasal M.pneumoniae (PCR) NOT DETECTED Nasal SARS-CoV-2 (PCR) NOT DETECTED 09/09/23 09/09/23 09/09/23 08:30 09:05 10:07 WBC RBC Hgb Hct MCV MCH MCHC RDW Plt Count MPV Neut # (Auto) Lymph # (Auto) Angelina # (Auto) Eos # (Auto) Baso # (Auto) Absolute Nucleated RBC Nucleated RBC % Sodium Potassium Chloride Carbon Dioxide Anion Gap BUN Creatinine Estimated GFR (MDRD) Glucose POC Whole Bld Glucose 242 H Lactic Acid 2.0 Calcium Total Bilirubin AST ALT Alkaline Phosphatase Total Protein Albumin Globulin Albumin/Globulin Ratio Lipase Urine Color DARK YELLOW Urine Clarity CLEAR Urine pH 5.5 Ur Specific [place] >=1.030 H Urine Protein 100 H Urine Glucose (UA) 100 H Urine Ketones 40 H Urine Occult Blood SMALL H Urine Nitrite NEGATIVE Urine Bilirubin NEGATIVE Urine Urobilinogen 0.2 (NORMAL) Ur Leukocyte Esterase NEGATIVE Urine RBC 0-5 Urine WBC 0-3 Ur Squamous Epith Cells RARE Squamous Urine Bacteria Few Ur Microscopic Review INDICATED Urine Culture Comments NOT INDICATED Nasal Adenovirus (PCR) Nasal B. parapertussis DNA (PCR) Nasal Coronavir 229E PCR Nasal Coronavir HKU1 PCR Nasal Coronavir NL63 PCR Nasal Coronavir OC43 PCR Nasal Enterovir/Rhinovir PCR Nasal Influenza B PCR Nasal Influenza A PCR Nasal Parainfluen 1 PCR Nasal Parainfluen 2 PCR Nasal Parainfluen 3 PCR Nasal Parainfluen 4 PCR Nasal RSV (PCR) Nasal B.pertussis DNA PCR Nasal C.pneumoniae (PCR) Iain Human Metapneumo PCR Nasal M.pneumoniae (PCR) Nasal SARS-CoV-2 (PCR) PD Medical Decision Making - ED course Complexity details: reviewed results, re-evaluated patient, d/w patient, d/w family ED course: Patient is a 73-year-old male presenting for evaluation of nausea, vomiting and diarrhea since Friday. Found to have a low-grade fever here. Abdominal exam has been benign. CBC, chemistries, urinalysis, respiratory swab and chest x-ray were obtained and reviewed. No significant abnormalities with labs other than slightly elevated bilirubin level. However on repeated abdominal exams he has had no tenderness to the right upper quadrant. He feels better here after acetaminophen, IV fluids, Zofran. He is tolerating p.o. He is able to ambulate without any difficulty. Initially was unclear what his baseline is with his dementia but has been present and states that he is at his normal self. He has not had any diarrhea here. reports that she is also chronic been feeling under the weather so suspect a viral etiology. Blood cultures are pending. At this time I see no indication for admission and is comfortable with plan for discharge home. They are counseled on concerning symptoms to return for. 1024 - Repeat abdominal exam is benign 1152 - Pt able to ambulate. Departure - Departure Disposition: Home, Self Care Clinical Impression: Fever, Nausea, vomiting and diarrhea Condition: Stable Instructions: ED Diet Vomiting Diarrhea, ED Fever Unconf Cause Follow-Up: TERRA YOUNG MD [Primary Care Provider] - Prescriptions: Ondansetron Odt [Zofran] 4 mg TL Q6H PRN #10 tablet PRN Reason: Nausea / Vomiting Comments: You are found to have a low-grade fever here. We have checked your labs and blood cultures are pending. At the time it is unclear what is causing your fever but could be related to a virus that we do not test for. We did check you for COVID, RSV and influenza which is negative. Your urine also does not show any infection. If your blood cultures are abnormal we will notify you. I have sent a prescription for an antinausea medication to [facility] in [place]. Return to the ER with any worsening. Forms: PCP List Discharge Date/Time: 09/09/23 13:25
[2023-09-09 08:52] LABS: ALBUMIN 3.9 g/dL (3.2-5.5); ALBUMIN/GLOBULIN RATIO 1.3 (1.0-2.2); ALKALINE PHOSPHATASE 98 IU/L (42-121); ALT ALANINE AMINOTRANSFERASE 8 IU/L (10-60); AST ASPARTATE AMINOTRANSFERASE 18 IU/L (10-42); BILIRUBIN,TOTAL 2.6 mg/dL (0.2-1.0); BUN - BLOOD UREA NITROGEN 17 mg/dL (6-20); CALCIUM 9.3 mg/dL (8.5-10.3); CARBON DIOXIDE - CO2 27 mmol/L (21-32); CHLORIDE 97 mmol/L (101-111); CREATININE 0.9 mg/dL (0.6-1.3); GFR - MDRD 83 (>89); GLUCOSE 250 mg/dL (74-104); LIPASE < 10 U/L (11-82); POTASSIUM 3.7 mmol/L (3.5-4.5); SODIUM 134 mmol/L (135-145)
[2023-09-09 08:55] LABS: BASOPHILS # (AUTO) 0.1 10^3/uL (0.0-0.1); BASOPHILS % (AUTO) 0.6 %; EOSINOPHILS % (AUTO) 0.1 %; HCT - HEMATOCRIT 50.6 % (42.0-52.0); LYMPHOCYTES # (AUTO) 1.7 10^3/uL (1.5-3.5); LYMPHOCYTES % (AUTO) 16.1 %; MEAN CORPUSCULAR HEMOGLOBIN 29.6 pg (27.0-31.0); MEAN CORPUSCULAR HGB CONC 33.6 g/dL (32.0-36.0); MEAN CORPUSCULAR VOLUME 88.2 fL (80.0-94.0); MEAN PLATELET VOLUME 10.1 fL (7.4-11.4); MONOCYTES # (AUTO) 1.1 10^3/uL (0.0-1.0); MONOCYTES % (AUTO) 10.6 %; NEUTROPHILS # (AUTO) 7.6 10^3/uL (1.5-6.6); NEUTROPHILS % (AUTO) 72.2 %; PLT - PLATELET COUNT 367 10^3/uL (130-450); RED BLOOD COUNT 5.74 10^6/uL (4.70-6.10); RED CELL DISTRIBUTION WIDTH 12.5 % (12.0-15.0); WHITE BLOOD COUNT 10.5 x10^3/uL (4.8-10.8)
[2023-09-09 09:36] LABS: B. PARAPERTUSSIS- RESP PCR PAN NOT DETECTED; B. PERTUSSIS- RESP PCR PANEL NOT DETECTED; C. PNEUMONIAE- RESP PCR PANEL NOT DETECTED; CORONAVIRUS 229E-RESP PCR NOT DETECTED; CORONAVIRUS HKU1-RESP PCR NOT DETECTED; CORONAVIRUS NL63-RESP PCR NOT DETECTED; CORONAVIRUS OC43-RESP PCR NOT DETECTED; HUMAN METAPNEUMOVIRUS NOT DETECTED; INFLUENZA A- RESP PCR PANEL NOT DETECTED; INFLUENZA B - RESP PCR PANEL NOT DETECTED; M. PNEUMONIAE- RESP PCR PANEL NOT DETECTED; PARAINFLUENZA VIRUS 1 NOT DETECTED; PARAINFLUENZA VIRUS 2 NOT DETECTED; PARAINFLUENZA VIRUS 3 NOT DETECTED; PARAINFLUENZA VIRUS 4 NOT DETECTED; RHINOVIRUS/ENTEROVIRUS NOT DETECTED; RSV- RESP PCR PANEL NOT DETECTED; SARS-CoV-2 -RESP PCR PANEL NOT DETECTED
[2023-09-09 10:17] LABS: GLUCOSE, URINE (UA) 100 mg/dL (NEGATIVE); KETONES,URINE (UA) 40 mg/dL (NEGATIVE); LEUKOCYTE ESTERASE, URINE NEGATIVE (NEGATIVE); NITRITE,URINE NEGATIVE (NEGATIVE); OCCULT BLOOD,URINE SMALL (NEGATIVE); PH,URINE 5.5 PH (5.0-7.5); PROTEIN,URINE 100 mg/dL (NEGATIVE); UROBILINOGEN,URINE 0.2 (NORMAL) E.U./dL (NORMAL)
[2023-09-09 10:53] LABS: CLARITY,URINE CLEAR (CLEAR)
[2023-09-09 10:54] LABS: BILIRUBIN,URINE NEGATIVE (NEGATIVE); ICTOTEST,URINE NEGATIVE
[2023-09-09 10:55] LABS: BACTERIA,URINE Few /HPF (None Seen); RBC,URINE 0-5 /HPF (0-5); SQUAMOUS EPITHELIAL CELL,UR RARE Squamous (<= Few); WBC,URINE 0-3 /HPF (0-3)
[2023-09-09 13:30] VITALS: BP 130/73; O2SAT 87
== END 2023-09-09 13:25 | disposition home or self-care (01) ==
LOC: EDBD → ED 07:55
DX: R11.2 Nausea with vomiting, unspecified (principal); R19.7 Diarrhea, unspecified; R50.9 Fever, unspecified; I11.0 Hypertensive heart disease with heart failure; I50.9 Heart failure, unspecified; E78.00 Pure hypercholesterolemia, unspecified; J44.9 Chronic obstructive pulmonary disease, unspecified; I25.2 Old myocardial infarction; G20.A1 Parkinson's disease without dyskinesia, without mention of fluctuations; F02.80 Dementia in other diseases classified elsewhere, unspecified severity, without behavioral disturbance, psychotic disturbance, mood disturbance, and anxiety; E11.9 Type 2 diabetes mellitus without complications; Z86.73 Personal history of transient ischemic attack (TIA), and cerebral infarction without residual deficits; Z79.899 Other long term (current) drug therapy; Z11.52 Encounter for screening for COVID-19; Z79.84 Long term (current) use of oral hypoglycemic drugs; Z79.4 Long term (current) use of insulin
CPT/HCPCS: 36415; 51701; 71045; 80053; 81001; 83605; 83690; 85025; 87040; 87633; 93005; 96360; 99284; A9270; 81003; 87086

== ENCOUNTER 2023-09-12 08:50 | Outpatient (CLI) | payer MEDICARE, MEDICAID | END 2023-09-12 23:59 | disposition critical access hospital (66) | LOC: EMS 08:50 | DX: R41.82 Altered mental status, unspecified (principal); E11.649 Type 2 diabetes mellitus with hypoglycemia without coma | CPT/HCPCS: A0425; A0427 ==

== ENCOUNTER 2023-09-12 09:20 | Inpatient (IN) | payer MEDICARE, MEDICAID ==
--- NOTE | 2023-09-12 09:34 | ED Physician Documentation ---
PD HPI ALTERED MENTAL STATUS - Stated complaint Stated Complaint: AMS - History obtained from History obtained from: Family, EMS - History of Present Illness Timing - onset: How many days ago (2) Timing - duration: Days (2) Timing - details: Gradual onset ( noticed him speaking gibberish yesterday but did not know if tired/dehydrated/etc. Less responive last evening and no verbal response to her this morning. He had been not geting up/out of bed for days, so she did not notice focal weakness.), Still present Quality / character: Less responsive (confused and less responsive yesterday into today, with unresponsive this AM. Breathing regular. EMS noted pt with FSBS in 50s, but no change in alertness with glucose.) Associated symptoms: No: Fever, Headache Contributing factors: Recent illness (nausea with vomiting 4-5 days ago. 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 denies: Abdominal Pain, Diarrhea Neurologic: reports: Generalized weakness (for the past week.) PD PAST MEDICAL HISTORY - Past Medical History Cardiovascular: Congestive heart failure, Hypertension, High cholesterol, Coronary artery disease, [place] Respiratory: COPD Neuro: Dementia, CVA, Parkinson's Endocrine/Autoimmune: Type 2 diabetes GI: Ulcers : Benign prostate hypertrophy HEENT: Other Psych: Depression, Anxiety, Other Musculoskeletal: Osteoarthritis, Chronic back pain - Past Surgical History Past Surgical History: Yes General: Bowel surgery Ortho: Spine surgery, Amputation, Other - Present Medications Home Medications: Ambulatory Orders Medication Instructions Recorded Confirmed Blood Sugar Diagnostic [Glucometer 1 each QID #100 strip 12/25/22 09/09/23 Strips] Blood-Glucose Meter [Glucometer] 1 each QID #1 each 12/25/22 09/09/23 Atorvastatin Calcium [Lipitor] 80 mg PO DAILY 04/01/23 09/09/23 Empagliflozin [Jardiance] 10 mg ORAL DAILY 04/01/23 09/09/23 Insulin NPH Human [HumuLIN N] 7 unit SUBQ BID 04/01/23 09/09/23 Insulin Regular Human [NovoLIN R] 10 - 30 units SUBQ TIDWM 04/01/23 09/09/23 Magnesium Oxide [Mag Ox] 400 mg PO DAILY 04/01/23 09/09/23 Metformin HCl 1,000 mg PO BID 04/01/23 09/09/23 Metoclopramide [Reglan] 5 mg PO TID PRN 04/01/23 09/09/23 Miconazole Nitrate 1 applic TP BID 04/01/23 09/09/23 Omeprazole Magnesium 20 mg PO DAILY 04/01/23 09/09/23 Potassium Bicarbonate 25 meq PO DAILY #10 tablet 04/01/23 09/09/23 [K-Effervescent] Senna [Senokot] 8.6 mg PO BID PRN 04/01/23 09/09/23 Tamsulosin HCl [Flomax] 0.4 mg PO DAILY 04/01/23 09/09/23 Terbinafine HCl [Lamisil At] 1 applic TP BID 04/01/23 09/09/23 Cholecalciferol (Vitamin D3) 50 mcg PO DAILY 04/30/23 09/09/23 [Vitamin D3] Methylphenidate HCl [Ritalin LA] 20 mg PO DAILY 04/30/23 09/09/23 Propranolol [Inderal] 10 mg ORAL TID 04/30/23 09/09/23 QUEtiapine [SEROquel] 25 - 50 mg PO QPM PRN 04/30/23 09/09/23 clonazePAM [Clonazepam] 0.5 - 1 mg PO HS PRN 04/30/23 09/09/23 Ondansetron Odt [Zofran] 4 mg TL Q6H PRN #10 tablet 09/09/23 - Allergies Allergies/Adverse Reactions: Allergies Allergy/AdvReac Type Severity Reaction Status Date / Time iodine Allergy Itching Verified 09/09/23 08:07 ketorolac [From Toradol] Allergy Rash Verified 09/09/23 08:07 - Living Situation Living Situation: reports: With spouse/s.o. Living Arrangement: reports: At home - Social History Does the pt smoke?: No Smoking Status: Never smoker Does the pt drink ETOH?: No Does the pt have substance abuse?: No - Immunizations Immunizations are current?: Yes - POLST Patient has POLST: No PD ED PE NORMAL - Vitals Vital signs reviewed: Yes - General General: Well developed/nourished, Other (no verbal response initially. Subsequent was talking some sentences weakly. Not easily intelligible. ) - HEENT HEENT: Atraumatic, Pharynx benign (there is a gag reflex present. ) - Neck Neck: Supple, no meningeal sign, No adenopathy - Cardiac Cardiac: RRR, No murmur - Respiratory Respiratory: No respiratory distress, Clear bilaterally - Abdomen Abdomen: Soft, Non distended - Derm Derm: Warm and dry. No: Normal color (pale) - Extremities Extremities: Normal ROM s pain, Other (1+ edema in both legs. responds to painful right arm. Mild response right leg. Flaccid tone and no movement left arm nor leg. ) - Neuro Eye Opening: To Pain Motor: Withdraws to Pain Verbal: Incomprehensible GCS Score: 8 Results - Vitals Vitals: Vital Signs - 24 hr 09/12/23 09/12/23 09/12/23 09:35 10:35 11:00 Temperature 36.6 C 36.7 C Heart Rate 65 71 67 Respiratory 16 18 18 Rate Blood Pressure 127/87 H 119/55 L 136/75 H O2 Saturation 95 98 99 09/12/23 09/12/23 09/12/23 11:53 13:16 14:17 Temperature 36.6 C Heart Rate 62 65 60 Respiratory 17 14 15 Rate Blood Pressure 133/74 H 120/82 H 114/61 O2 Saturation 99 97 97 09/12/23 09/12/23 09/12/23 15:14 15:30 16:03 Temperature Heart Rate 62 60 60 Respiratory 15 16 14 Rate Blood Pressure 109/63 123/68 119/62 O2 Saturation 98 98 98 09/12/23 16:24 Temperature 36.3 C L Heart Rate 59 L Respiratory 18 Rate Blood Pressure 119/62 O2 Saturation 99 Oxygen O2 Source Room air - EKG (time done) 09:23 EKG releavant findings:: EKG personally interpreted by author of this note. Relevant findings are: Rate: Rate (enter#) (67) Rhythm: NSR, Other (PVCs) Slaughters: Normal Intervals: LBBB Compare to prior EKG: Unchanged from prior EKG (from 3 days ago) - Labs Labs: Laboratory Tests 09/12/23 09/12/23 09/12/23 09:25 09:55 09:55 WBC 8.0 RBC 5.41 Hgb 15.8 Hct 47.9 MCV 88.5 MCH 29.2 MCHC 33.0 RDW 12.6 Plt Count 380 MPV 9.8 Neut # (Auto) 6.0 Lymph # (Auto) 1.3 L Lamb # (Auto) 0.5 Eos # (Auto) 0.1 Baso # (Auto) 0.1 Absolute Nucleated RBC 0.00 Nucleated RBC % 0.0 VBG pH VBG pCO2 VBG pO2 VBG HCO3 VBG Total CO2 VBG O2 Saturation VBG Base Excess Sodium 136 Potassium 3.3 L Chloride 101 Carbon Dioxide 23 Anion Gap 12.0 BUN 16 Creatinine 0.9 Estimated GFR (MDRD) 83 L Glucose 154 H POC Whole Bld Glucose 166 H Lactic Acid Calcium 9.0 Magnesium 1.6 L Total Bilirubin 1.3 H AST 11 ALT 8 L Alkaline Phosphatase 86 Total Protein 6.3 L Albumin 3.5 Globulin 2.8 Albumin/Globulin Ratio 1.3 Lipase < 10 L Serum Ketones SMALL H 09/12/23 09/12/23 09/12/23 09:55 09:55 15:18 WBC RBC Hgb Hct MCV MCH MCHC RDW Plt Count MPV Neut # (Auto) Lymph # (Auto) Lamb # (Auto) Eos # (Auto) Baso # (Auto) Absolute Nucleated RBC Nucleated RBC % VBG pH 7.437 H VBG pCO2 34.6 L VBG pO2 60.7 H VBG HCO3 22.8 L VBG Total CO2 23.9 L VBG O2 Saturation 92.5 H VBG Base Excess -0.6 Sodium Potassium Chloride Carbon Dioxide Anion Gap BUN Creatinine Estimated GFR (MDRD) Glucose POC Whole Bld Glucose 93 Lactic Acid 0.9 Calcium Magnesium Total Bilirubin AST ALT Alkaline Phosphatase Total Protein Albumin Globulin Albumin/Globulin Ratio Lipase Serum Ketones - Rads (name of study) head CT Relevant Findings:: Prelim report reviewed (right temporal hypodensity c/w subactue infarction. Some edema.), EMP independent interpretation of test PD Medical Decision Making - ED course Complexity details: reviewed results, considered differential, d/w patient, d/w family (The patient's is present as it is one of his caregivers. He has been having significant Parkinson's and some dementia and difficulty with ambulation. He is diabetic. He would not want CPR or intubation nor nutritional feeding. We will see how he does with attempted oral intake. ) ED course: The patient with apparent new stroke with left deficit and speech problems and likely trouble swallowing. The patient does have a POLST form that is DO NOT RESUSCITATE. Talking with the she would not want nutritional feedings or tubes. At this point we would assess how his symptoms do in the short-term but to consider the idea of holding fluids or feedings and insulin and look at hospice care if his stroke disability is that significant. Timing is certainly well beyond any acute interventions with onset of symptoms early yesterday. The states the patient would not really want surgical or procedural interventions so I did not do any carotid studies at this point as it would not lead to any carotid procedures. He is in a sinus rhythm. I feel the patient is treatable here at our facility and at the present would I would be looking at blood sugar and blood pressure control with permissive hypertension up to 180 and use of aspirin and Plavix at the direction of usual guidance for stroke. There will subsequently want to be a discussion further with the about goals of treatment after better assessment of ability to swallow and any improvement in symptoms in the short-term. Departure - Departure Disposition: 66 [facility] DC/Xfer Clinical Impression: Acute left-sided weakness, AMS (altered mental status), Cerebrovascular accident (CVA), Diabetes Condition: Stable Record reviewed to determine appropriate education?: Yes
[2023-09-12] MEDS ORDERED: SODIUM CHLORIDE 0.9% 1,000 ML IV STA (09:38)
[2023-09-12 10:02] LABS: BASOPHILS # (AUTO) 0.1 10^3/uL (0.0-0.1); BASOPHILS % (AUTO) 0.9 %; EOSINOPHILS # (AUTO) 0.1 10^3/uL (0.0-0.7); HCT - HEMATOCRIT 47.9 % (42.0-52.0); HGB - HEMOGLOBIN 15.8 g/dL (14.0-18.0); LYMPHOCYTES # (AUTO) 1.3 10^3/uL (1.5-3.5); LYMPHOCYTES % (AUTO) 16.4 %; MEAN CORPUSCULAR HEMOGLOBIN 29.2 pg (27.0-31.0); MEAN CORPUSCULAR VOLUME 88.5 fL (80.0-94.0); MEAN PLATELET VOLUME 9.8 fL (7.4-11.4); MONOCYTES # (AUTO) 0.5 10^3/uL (0.0-1.0); MONOCYTES % (AUTO) 6.6 %; NEUTROPHILS % (AUTO) 74.7 %; PLT - PLATELET COUNT 380 10^3/uL (130-450); RED BLOOD COUNT 5.41 10^6/uL (4.70-6.10); RED CELL DISTRIBUTION WIDTH 12.6 % (12.0-15.0)
[2023-09-12 10:08] LABS: KETONES, SERUM (ACETEST) SMALL (NEGATIVE); VBG PCO2 34.6 mmHg (41-51); VBG PH 7.437 (7.31-7.41)
[2023-09-12 10:09] LABS: VBG BASE EXCESS -0.6 mmol/L (-2 - +2); VBG HCO3 22.8 mmol/L (23-28); VBG OXYGEN SATURATION 92.5 % (60-80); VBG PO2 60.7 mmHg (25-47); VBG TOTAL CO2 23.9 mmol/L (24-29)
[2023-09-12 10:22] LABS: ALBUMIN 3.5 g/dL (3.2-5.5); ALBUMIN/GLOBULIN RATIO 1.3 (1.0-2.2); ALKALINE PHOSPHATASE 86 IU/L (42-121); ALT ALANINE AMINOTRANSFERASE 8 IU/L (10-60); AST ASPARTATE AMINOTRANSFERASE 11 IU/L (10-42); BILIRUBIN,TOTAL 1.3 mg/dL (0.2-1.0); BUN - BLOOD UREA NITROGEN 16 mg/dL (6-20); CARBON DIOXIDE - CO2 23 mmol/L (21-32); CHLORIDE 101 mmol/L (101-111); CREATININE 0.9 mg/dL (0.6-1.3); GFR - MDRD 83 (>89); GLUCOSE 154 mg/dL (74-104); LIPASE < 10 U/L (11-82); MAGNESIUM 1.6 mg/dL (1.7-2.3); POTASSIUM 3.3 mmol/L (3.5-4.5); SODIUM 136 mmol/L (135-145); TOTAL PROTEIN 6.3 g/dL (6.4-8.9)
--- NOTE | 2023-09-12 11:46 | CT Report ---
PROCEDURE: HEAD WO INDICATIONS: altered MS, left side weakness TECHNIQUE: Noncontrast 4.5 mm thick angled axial sections acquired from the foramen magnum to the vertex. For r adiation dose reduction, the following was used: automated exposure control, adjustment of mA and/or kV according to patient size. COMPARISON: CT head dated 04/04/2023. FINDINGS: Image quality: Excellent. CSF spaces: Basal cisterns are patent. No extra-axial fluid collections. Ventricles are normal in size and shape. Brain: Edematous change present in the right temporal lobe with an appearance suggesting cytotoxic ed camille, likely representing at least moderate subacute right temporal infarct. No hemorrhagic transforma tion noted. No significant mass effect on the right lateral ventricle. Skull and face: Calvarium and visualized facial bones are intact, without suspicious lesions. Sinuses: Visualized sinuses and mastoids are clear. IMPRESSION: Abnormal appearance of right temporal lobe. Suspect that it is secondary to a at least moderate subac robert infarct. Comment: Consider brain MRI with and without contrast for further evaluation. Also, consider CTA head . Reviewed by: Van Hutchison MD on 09/12/2023 11:45 AM PST Approved by: Van Hutchison MD on 09/12/2023 11:45 AM PST Station ID: [id number]
[2023-09-12] MEDS ORDERED: LACTATED RINGERS 1,000 ML IV STA (14:54)
[2023-09-12] MEDS ORDERED: KETOROLAC 15 MG/ML VIAL IVP STA (15:32)
[2023-09-12] MEDS ORDERED: SODIUM CHLORIDE FLUSH 0.9% 10 ML SYRINGE IVP PRN (16:48)
[2023-09-12] MEDS ORDERED: ONDANSETRON 4 MG/2 ML VIAL IVP PRN (16:48)
[2023-09-12] MEDS ORDERED: LORazepam 2 MG/ML VIAL IVP PRN (16:55)
[2023-09-12] MEDS ORDERED: ASPIRIN 300 MG SUPP PR STA (16:56)
--- NOTE | 2023-09-12 17:01 | HISTORY & PHYSICAL EXAMINATION ---
Chief Complaint - Chief Complaint Chief Complaint: Change in mental status History of Present Illness - Admitted From Admitted From:: ED - History Obtained From History obtained from: ED provider - History of Present Illness HPI Comment/Other: This is a 73-year-old male with Parkinson's dementia. He and his have caregivers. The noticed that he was somehow not as interactive yesterday and today noticed that he had weakness on one side and was speaking differently. He was brought to the ER greater than 24 hours from the onset of when he first had a change in mentation. In the ER he had workup for stroke. The CT had showed an evolving right temporal stroke. His exam was significant for left- sided weakness and speaking gibberish. The was at bedside and spoke to the ED provider that he would not want a feeding tube and she would not want workup for diagnoses that would require interventions such as a carotid Doppler for carotid endarterectomy. The ED provider spoke to me about this patient. He will be admitted for treating a stroke that is in evolution. The states that the patient is a DNR/DNI. History - Past Medical History Cardiovascular: reports: Congestive heart failure, Hypertension, High cholesterol, Coronary artery disease, [place] Respiratory: reports: COPD Neuro: reports: Dementia, CVA, Parkinson's Endocrine/Autoimmune: reports: Type 2 diabetes GI: reports: Ulcers : reports: Benign prostate hypertrophy HEENT: reports: Other Psych: reports: Depression, Anxiety, Other Musculoskeletal: reports: Osteoarthritis, Chronic back pain MRSA Hx?: No - Past Surgical History General: reports: Bowel surgery Ortho: reports: Spine surgery, Amputation, Other - POLST Patient has POLST: No Meds/Allgy - Home Medications Home Medications: Ambulatory Orders Medication Instructions Recorded Confirmed Blood Sugar Diagnostic [Glucometer 1 each QID #100 strip 12/25/22 09/09/23 Strips] Blood-Glucose Meter [Glucometer] 1 each QID #1 each 12/25/22 09/09/23 Atorvastatin Calcium [Lipitor] 80 mg PO DAILY 04/01/23 09/09/23 Empagliflozin [Jardiance] 10 mg ORAL DAILY 04/01/23 09/09/23 Insulin NPH Human [HumuLIN N] 7 unit SUBQ BID 04/01/23 09/09/23 Insulin Regular Human [NovoLIN R] 10 - 30 units SUBQ TIDWM 04/01/23 09/09/23 Magnesium Oxide [Mag Ox] 400 mg PO DAILY 04/01/23 09/09/23 Metformin HCl 1,000 mg PO BID 04/01/23 09/09/23 Metoclopramide [Reglan] 5 mg PO TID PRN 04/01/23 09/09/23 Miconazole Nitrate 1 applic TP BID 04/01/23 09/09/23 Omeprazole Magnesium 20 mg PO DAILY 04/01/23 09/09/23 Potassium Bicarbonate 25 meq PO DAILY #10 tablet 04/01/23 09/09/23 [K-Effervescent] Senna [Senokot] 8.6 mg PO BID PRN 04/01/23 09/09/23 Tamsulosin HCl [Flomax] 0.4 mg PO DAILY 04/01/23 09/09/23 Terbinafine HCl [Lamisil At] 1 applic TP BID 04/01/23 09/09/23 Cholecalciferol (Vitamin D3) 50 mcg PO DAILY 04/30/23 09/09/23 [Vitamin D3] Methylphenidate HCl [Ritalin LA] 20 mg PO DAILY 04/30/23 09/09/23 Propranolol [Inderal] 10 mg ORAL TID 04/30/23 09/09/23 QUEtiapine [SEROquel] 25 - 50 mg PO QPM PRN 04/30/23 09/09/23 clonazePAM [Clonazepam] 0.5 - 1 mg PO HS PRN 04/30/23 09/09/23 Ondansetron Odt [Zofran] 4 mg TL Q6H PRN #10 tablet 09/09/23 - Allergies Allergies/Adverse Reactions: Allergies Allergy/AdvReac Type Severity Reaction Status Date / Time iodine Allergy Itching Verified 09/09/23 08:07 ketorolac [From Toradol] Allergy Rash Verified 09/09/23 08:07 Review of Systems - All Other Systems All Other Systems: reports: Other (Unable to obtain since the patient is nearly comatose and there is no family at bedside) Exam - Vital Signs Vital Signs: Vital Signs x48h Temp Pulse Resp BP Pulse Ox 09/12/23 16:24 36.3 C L 59 L 18 119/62 99 09/12/23 16:03 60 14 119/62 98 09/12/23 15:30 60 16 123/68 98 09/12/23 15:14 62 15 109/63 98 09/12/23 14:17 60 15 114/61 97 09/12/23 13:16 36.6 C 65 14 120/82 H 97 09/12/23 11:53 62 17 133/74 H 99 09/12/23 11:00 67 18 136/75 H 99 09/12/23 10:35 36.7 C 71 18 119/55 L 98 09/12/23 09:35 36.6 C 65 16 127/87 H 95 - Physical Exam General Appearance: positive: Other (Comatose, male pattern baldness. Long disheveled taveras.) Eyes Bilateral: positive: No lid inflammation ENT: positive: No signs of dehydration Neck: positive: Nml inspection, No JVD Respiratory: positive: No respiratory distress, Breath sounds nml Cardiovascular: positive: Regular rate & rhythm, No murmur Abdomen: positive: Nml bowel sounds, No distention Skin: positive: Warm, Dry Extremities: positive: No pedal edema, Other (Amputations of toes of both feet) Neurologic/Psychiatric: positive: Other (Comatose, no response to sternal rub or pain. No response to Babinski) Conclusion/Plan - Problem List (1) Cerebrovascular accident (CVA) Conclusion/Plan: Patient presented greater than 24 hours out from his initial neurologic symptoms. CT shows evidence of an evolving moderate size right temporal stroke Patient was unable to swallow in the ER and was also speaking gibberish and had left-sided body weakness. Now several hrs later he has worsening mental status w/ no response to pain and is nearly comatose Plan: Admit to inpatient status, place on telemetry to watch for A-fib Will allow 24 hours of permissive HTN Will start aspirin per rectum, give now and daily. I will change that to p.o ASA. if he passes his swallowing screen The said she does not want a workup for carotid stenosis or an Echo that would lead to any interventions, therefore MRI, carotid Dopplers and Echo will not be ordered I will order eval by PT, OT and speech therapy RN to do swallowing screen at bedside to decide when he can begin a diet otherwise he will be n.p.o. and will order twice daily oral care The has stated that if the patient cannot swallow, she does not want a feeding tube, which he would not want. If there is no recovery of his stroke symptoms, she would want to proceed to hospice care. (2) Diabetes Conclusion/Plan: Plan: Since the patient will be n.p.o. until he passes a swallowing eval, will give IV fluids that contain D5 Will order insulin coverage for patient that is n.p.o. including fingersticks every 6 hours, hypoglycemia protocol. Obtain A1c with a.m. 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 Then I will take the absolute necessary medicines that can be given in IV form and start close. Since he is on a psychotic med I will start iv Ativan as needed anxiety - Lab Results Fish Bones: 09/12/23 09:55 09/12/23 09:55 - Diagnostic Imaging Results Diagnostic Imaging Results: positive: Final report reviewed - Other Other Results/Comments: Attestation: The patient is expected to be hospitalized for greater than 2 midnights and is expected to be transferred or discharged within 96 hours: Yes.
[2023-09-12] MEDS: SODIUM CHLORIDE FLUSH 0.9% 10 ML SYRINGE IVP SCH (17:58)
[2023-09-12] MEDS: D5NS W/20 MEQ KCL 1,000 ML IV SCH (17:58)
[2023-09-12] MEDS: INSULIN REGULAR HUMAN 300 UNIT/3 ML VIAL SUBQ SCH ×2 (19:25→23:46)
[2023-09-13] MEDS: SODIUM CHLORIDE FLUSH 0.9% 10 ML SYRINGE IVP SCH ×3 (03:18→17:02)
[2023-09-13] MEDS: D5NS W/20 MEQ KCL 1,000 ML IV SCH ×2 (03:18→12:56)
[2023-09-13] MEDS: INSULIN REGULAR HUMAN 300 UNIT/3 ML VIAL SUBQ SCH ×2 (06:16→11:21)
[2023-09-13 07:58] LABS: CALCIUM 8.9 mg/dL (8.5-10.3); POTASSIUM 3.8 mmol/L (3.5-4.5)
[2023-09-13] MEDS ORDERED: POTASSIUM CHLOR 10 MEQ/100 ML 10 MEQ/100 ML BAG IV SCH (08:00)
[2023-09-13] MEDS ORDERED: ASPIRIN 300 MG SUPP PR SCH (09:00)
[2023-09-13 10:41] LABS: ESTIMATED AVERAGE GLUCOSE 203 mg/dL (70-100); HEMOGLOBIN A1c% 8.7 % (4.27-6.07)
--- NOTE | 2023-09-13 11:44 | PROVIDER PROGRESS NOTE ---
Assessment/Plan - Problem List (1) Cerebrovascular accident (CVA) Assessment/Plan: Patient presented greater than 24 hours out from his initial neurologic symptoms, so not a candidate for interventions or transfer. told me he was unable to have trunk control when seated and was walking poorly then had obvious left-sided weakness and change in speech. CT shows an evolving moderate size right temporal stroke Patient was unable to swallow in the ER and was also speaking gibberish and had left-sided body weakness.Then upon admission to the hospital, he was comatose, not responding to pain. The said that if the patient cannot swallow, she does not want a feeding tube, which he would not want. If there is no recovery of his stroke symptoms, she would want to proceed to hospice care. Overnight, he started opening his eyes. He got an aspirin dose by suppository this a.m. At 11:30 a.m, he opens eyes to voice and answers with 1-2 words sentences. He recognizes his in room. He was able to lift L arm. He then passed the RN swallow screen. His fasting lipid panel shows LDL of 110 Plan: Remain on telemetry to watch for A-fib Will allow 24 hours of permissive HTN and not resume his Losartan yet Cont daily aspirin, will change to p.o ASA since he passed his swallow screen, and will start a diet The had said in the ER that she does not want a workup for carotid stenosis or an Echo that would lead to any interventions, therefore MRI, carotid Dopplers and Echo will not be ordered PT, OT and speech therapy ordered I updated the at bedside today. I discussed that he will now be on 1 aspirin daily lifelong. She said that he is prone to gastric ulcers. We will therefore use sucralfate dosed daily with the aspirin. I will change his suppository aspirin to oral aspirin. Restart Lipitor 80 mg qpm, goal LDL is <70. (2) Diabetes Mellitus, Type 2 Conclusion/Plan: His is at bedside today and gave me details about him. He takes Metformin and she administers his insulin twice a day plus sliding scale insulin. She does the fingerstick checks and he has a Dexacom monitor on his left upper arm. He has an Insulin pump in his abdomen but it has not worked since December 2022. He has diabetic gastroparesis. His A1c came back at 8.7 Plan: Since the patient passed a swallowing eval, will start a diet, pureed and advance as tolerated Cont insulin ss coverage, hypoglycemia protocol, and will resume his usual meds possibly at lower doses I will not resume his Metformin yet, until we are sure he will have no imaging using dye (3) Diabetic gastroparesis Conclusion/Plan: As per Hx. 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 He did not tolerate carbidopa/levodopa which gave him nausea and vomiting. He is on Inderal for tremors and on Seroquel for hallucinations Plan: Since he was on a psychotic med I ordered Ativan as needed for anxiety Await his reconciled med list and will resume po meds (5) Chronic pain Conclusion/Plan: at bedside informs me that he is on a narcotic contract and that he requires scheduled narcotics for back pain Plan: I will resume the narcotic that he takes scheduled, once the reconciled pharmacy list is ready today - Current Meds Current Meds: Current Medications Generic Name Dose Route Start Last Admin Trade Name Freq PRN Reason Stop Dose Admin Aspirin 300 mg 09/13/23 09:00 09/13/23 08:58 Aspirin 300 Mg Supp MD 300 mg DAILY ISELA Administration Potassium Chloride/Dextrose/Sod Cl 1,000 mls @ 100 mls/hr 09/12/23 17:00 09/13/23 03:18 D5ns W/20 Meq Kcl IV 100 mls/hr .Q10H ISELA Administration Insulin Human Regular 1 - 5 unit 09/12/23 18:00 09/13/23 11:21 Insulin Regular Human 300 Unit/3 Ml Vial SUBQ Not Given Q6HR ISELA Protocol Sodium Chloride 10 ml 09/12/23 17:00 09/13/23 08:50 Sodium Chloride Flush 0.9% 10 Ml Syringe IVP Not Given 0100,0900,1700 ISELA - Lab Result Fish Bone Diagrams: 09/12/23 09:55 09/13/23 05:52 - Additional Planning My Orders: My Active Orders 09/12/23 16:48 Activity Orders [RC] Q2HR IO [RC] IOSHIFT Incentive Spirometry - RT [RC] TID Initiate Bowel Care Protocol [RC] .protocol Initiate Line Care Protocol [RC] QSHIFT Oxygen Therapy [RC] .PRN Telemetry- [RC] Q4HR Vital Signs [RC] 0800,1600,0000 Ondansetron Inj [Zofran Inj] 4 mg IVP Q6HR PRN Sodium Chloride Flush 0.9% [Normal Saline Flush 0.9%] 10 ml IVP PRN PRN Code Status [OTHERS] Routine Condition of Patient [OTHERS] Routine DVT Prophylaxis [OTHERS] Routine 09/12/23 16:50 IV Insert [RC] .ONCE Nutrition Consult [CONS] Routine 09/12/23 16:51 Initiate Line Care Protocol [RC] QSHIFT SCDs [RC] QSHIFT Evaluate and Treat OT [OT] Routine Evaluate and Treat PT [PT] Routine 09/12/23 16:52 Neuro Check [RC] Q4HR 09/12/23 16:53 Initiate Hypoglycemia Protocol [RC] .protocol 09/12/23 16:55 LORazepam INJ [Ativan Inj (Vial)] 0.5 mg IVP Q4H PRN 09/12/23 17:00 D5ns W/20 Meq KCl 1,000 ml IV 100 mls/hr Sodium Chloride Flush 0.9% [Normal Saline Flush 0.9%] 10 ml IVP 0100,0900,1700 09/12/23 18:00 Insulin Regular Human [Humulin R] 1 - 5 unit SUBQ Q6HR 09/12/23 18:50 Oral Care - Nursing [RC] BID 09/13/23 Clinical Swallow Evaluation [ST] Routine 09/13/23 09:00 Aspirin Supp [Aspirin] 300 mg MD DAILY 09/13/23 10:22 Blood Glucose Checks - Eating [RC] 0800,1200,1700,2100 09/13/23 10:23 Miscellaenous Nursing Order [RC] QSHIFT 09/13/23 Lunch DIET [Dysphagia - Puree] [DIET] 09/14/23 05:00 BMP - BASIC METABOLIC PANEL [CHEM] DAILYLAB Subjective - Subjective Patient Reports: Feeling Better (Opens eyes and answers a question) Objective Vital Signs: Vital Signs - 24 hr 09/12/23 09/12/23 09/12/23 11:53 13:16 14:17 Temperature 36.6 C Heart Rate 62 65 60 Heart Rate [ Brachial] Heart Rate [ Monitoring electrodes] Respiratory 17 14 15 Rate Blood Pressure 133/74 H 120/82 H 114/61 Blood Pressure [Right Brachial artery] O2 Saturation 99 97 97 09/12/23 09/12/23 09/12/23 15:14 15:30 16:03 Temperature Heart Rate 62 60 60 Heart Rate [ Brachial] Heart Rate [ Monitoring electrodes] Respiratory 15 16 14 Rate Blood Pressure 109/63 123/68 119/62 Blood Pressure [Right Brachial artery] O2 Saturation 98 98 98 09/12/23 09/12/23 09/12/23 16:24 17:00 17:52 Temperature 36.3 C L 36.6 C 36.6 C Heart Rate 59 L 57 L Heart Rate [ Brachial] Heart Rate [ 56 L Monitoring electrodes] Respiratory 18 18 16 Rate Blood Pressure 119/62 117/59 L Blood Pressure 127/58 L [Right Brachial artery] O2 Saturation 99 96 98 09/12/23 09/13/23 09/13/23 23:48 03:48 07:31 Temperature 36.3 C L 36.2 C L 37.1 C Heart Rate Heart Rate [ 58 L 55 L 77 Brachial] Heart Rate [ Monitoring electrodes] Respiratory 20 20 20 Rate Blood Pressure Blood Pressure 127/60 127/54 L 145/86 H [Right Brachial artery] O2 Saturation 97 92 99 Oxygen O2 Source Room air I&O (Last 24 Hrs): Intake and Output Totals x24h 09/11/23 09/12/23 09/13/23 23:59 23:59 23:59 Intake Total 1495 933.333 Output Total 575 325 Balance 920 608.333 General: Alert, Other (Stiff, flat affect, staring at 1 point) HEENT: Mucous membr. moist/pink, Other (Male pattern baldness, along disheveled taveras) Neck: Supple Neuro: Other (Awake, answers slowly, flat affect and is stiff, L arm 3/5, L leg 1/5) Cardiovascular: Regular rate, No murmurs Respiratory: No respiratory distress, Breath sounds nml Abdomen: Normal bowel sounds, Soft, No tenderness Extremities: No clubbing, No edema, No tenderness/swelling - Results Results: Laboratory Results WBC 8.0 x10^3/uL (4.8-10.8) 09/12/23 09:55 RBC 5.41 10^6/uL (4.70-6.10) 09/12/23 09:55 Hgb 15.8 g/dL (14.0-18.0) 09/12/23 09:55 Hct 47.9 % (42.0-52.0) 09/12/23 09:55 MCV 88.5 fL (80.0-94.0) 09/12/23 09:55 MCH 29.2 pg (27.0-31.0) 09/12/23 09:55 MCHC 33.0 g/dL (32.0-36.0) 09/12/23 09:55 RDW 12.6 % (12.0-15.0) 09/12/23 09:55 Plt Count 380 10^3/uL (130-450) 09/12/23 09:55 MPV 9.8 fL (7.4-11.4) 09/12/23 09:55 Neut # (Auto) 6.0 10^3/uL (1.5-6.6) 09/12/23 09:55 Lymph # (Auto) 1.3 10^3/uL (1.5-3.5) L 09/12/23 09:55 Placer # (Auto) 0.5 10^3/uL (0.0-1.0) 09/12/23 09:55 Eos # (Auto) 0.1 10^3/uL (0.0-0.7) 09/12/23 09:55 Baso # (Auto) 0.1 10^3/uL (0.0-0.1) 09/12/23 09:55 Absolute Nucleated RBC 0.00 x10^3/uL 09/12/23 09:55 Nucleated RBC % 0.0 /100WBC 09/12/23 09:55 VBG pH 7.437 (7.31-7.41) H 09/12/23 09:55 VBG pCO2 34.6 mmHg (41-51) L 09/12/23 09:55 VBG pO2 60.7 mmHg (25-47) H 09/12/23 09:55 VBG HCO3 22.8 mmol/L (23-28) L 09/12/23 09:55 VBG Total CO2 23.9 mmol/L (24-29) L 09/12/23 09:55 VBG O2 Saturation 92.5 % (60-80) H 09/12/23 09:55 VBG Base Excess -0.6 mmol/L (-2 - +2) 09/12/23 09:55 Sodium 139 mmol/L (135-145) 09/13/23 05:52 Potassium 3.8 mmol/L (3.5-4.5) 09/13/23 05:52 Chloride 107 mmol/L (101-111) 09/13/23 05:52 Carbon Dioxide 24 mmol/L (21-32) 09/13/23 05:52 Anion Gap 8.0 (6-13) 09/13/23 05:52 BUN 17 mg/dL (6-20) 09/13/23 05:52 Creatinine 1.0 mg/dL (0.6-1.3) 09/13/23 05:52 Estimated GFR (MDRD) 73 (>89) L 09/13/23 05:52 Glucose 154 mg/dL (74-104) H 09/13/23 05:52 POC Whole Bld Glucose 153 mg/dL (70 - 100) H 09/13/23 05:31 Estimat Average Glucose 203 mg/dL (70-100) H 09/13/23 05:52 Hemoglobin A1c % 8.7 % (4.27-6.07) H 09/13/23 05:52 Lactic Acid 0.9 mmol/L (0.5-2.2) 09/12/23 09:55 Calcium 8.9 mg/dL (8.5-10.3) 09/13/23 05:52 Magnesium 1.8 mg/dL (1.7-2.3) 09/13/23 05:52 Total Bilirubin 1.3 mg/dL (0.2-1.0) H 09/12/23 09:55 AST 11 IU/L (10-42) 09/12/23 09:55 ALT 8 IU/L (10-60) L 09/12/23 09:55 Alkaline Phosphatase 86 IU/L (42-121) 09/12/23 09:55 Total Protein 6.3 g/dL (6.4-8.9) L 09/12/23 09:55 Albumin 3.5 g/dL (3.2-5.5) 09/12/23 09:55 Globulin 2.8 g/dL (2.1-4.2) 09/12/23 09:55 Albumin/Globulin Ratio 1.3 (1.0-2.2) 09/12/23 09:55 Lipase < 10 U/L (11-82) L 09/12/23 09:55 Serum Ketones SMALL (NEGATIVE) H 09/12/23 09:55
[2023-09-13 12:30] LABS: CHOL/HDL RATIO 5.6 (<5.0); CHOLESTEROL 162 mg/dL; HDL CHOLESTEROL 29 mg/dL; LDL CHOLESTEROL,CALCULATED 110 mg/dL; LDL/HDL RATIO 3.8 (<3.6); TRIGLYCERIDES 114 mg/dL (48-352); VLDL CHOLESTEROL 23 mg/dL
--- NOTE | 2023-09-13 12:36 | PHARMACY PROGRESS NOTE ---
- Best Possible Medication History Admit Date and Time: 09/12/23 1388 Processed by: Pharmacy Medication History completed: Yes Patient Interview: Pt unable to participate Secondary Source(s): Spouse/Significant other, Caregiver, Pharmacy records, I nsurance records (Reviewed medications with spouse, chronic med list available (spouse)) As the person ultimately responsible for medication therapy, providers are able to order a medication from an existing home medication list in [facility] via the "Reconcile Routine" prior to Confirmation of that medication by software support analyst. Such practice is discouraged except when the physician, in their clinical judgment, deems that a medical need exists for a medication without regard to previous use.
[2023-09-13] MEDS ORDERED: ONDANSETRON ODT 4 MG TABLET TL PRN (14:28)
[2023-09-13] MEDS ORDERED: QUEtiapine 25 MG TABLET PO PRN (14:28)
[2023-09-13] MEDS ORDERED: SENNA 8.6 MG TABLET PO PRN (14:28)
[2023-09-13] MEDS ORDERED: clonazePAM 0.5 MG TABLET PO PRN (14:48)
[2023-09-13] MEDS: METOCLOPRAMIDE 10 MG TABLET PO SCH (16:49)
[2023-09-13] MEDS: MORPHINE IR 15 MG TABLET PO SCH ×3 (16:49→23:28)
[2023-09-13] MEDS: INSULIN LISPRO 300 UNIT/3 ML PEN SUBQ SCH ×2 (17:02→21:56)
[2023-09-13] MEDS: PROPRANOLOL 10 MG TABLET PO SCH (17:26)
[2023-09-13] MEDS: TAMSULOSIN 0.4 MG CAPSULE PO SCH (21:52)
[2023-09-13] MEDS: FAMOTIDINE 20 MG TABLET PO SCH (21:52)
[2023-09-13] MEDS: ATORVASTATIN 40 MG TABLET PO SCH (21:52)
[2023-09-14] MEDS: SODIUM CHLORIDE FLUSH 0.9% 10 ML SYRINGE IVP SCH ×3 (01:19→16:08)
[2023-09-14] MEDS: MORPHINE IR 15 MG TABLET PO SCH ×6 (03:15→22:29)
[2023-09-14] MEDS: D5NS W/20 MEQ KCL 1,000 ML IV SCH (05:10)
[2023-09-14 06:45] LABS: CALCIUM 8.5 mg/dL (8.5-10.3); CREATININE 0.8 mg/dL (0.6-1.3); POTASSIUM 3.8 mmol/L (3.5-4.5)
[2023-09-14] MEDS: PANTOPRAZOLE 40 MG TABLET PO SCH (07:02)
[2023-09-14] MEDS: INSULIN LISPRO 300 UNIT/3 ML PEN SUBQ SCH ×4 (08:33→21:10)
[2023-09-14] MEDS: MAGNESIUM OXIDE 400 MG TABLET PO SCH (08:34)
[2023-09-14] MEDS: ASPIRIN EC 81 MG TABLET PO SCH (08:34)
[2023-09-14] MEDS: SUCRALFATE 1 GM/10 ML UDC PO SCH (08:35)
[2023-09-14] MEDS: METOCLOPRAMIDE 10 MG TABLET PO SCH ×3 (08:40→16:39)
[2023-09-14] MEDS: PROPRANOLOL 10 MG TABLET PO SCH ×3 (08:40→16:42)
[2023-09-14] MEDS: METHYLPHENIDATE HCL 20 MG PO SCH ×3 (08:41→12:38)
[2023-09-14] MEDS ORDERED: D5NS W/20 MEQ KCL 1,000 ML IV SCH (10:01)
[2023-09-14] MEDS: LOSARTAN 50 MG TABLET PO SCH (10:58)
--- NOTE | 2023-09-14 14:52 | PROVIDER PROGRESS NOTE ---
Assessment/Plan - Problem List (1) Cerebrovascular accident (CVA) Assessment/Plan: Patient presented greater than 24 hours out from his initial neurologic symptoms, so not a candidate for interventions or transfer. told me he was unable to have trunk control when seated and was walking poorly then had obvious left-sided weakness and change in speech. CT shows an evolving moderate size right temporal stroke Patient was unable to swallow in the ER and was also speaking gibberish and had left-sided body weakness.Then upon admission to the hospital, he was comatose, not responding to pain. That first night, he started opening his eyes. He got an aspirin dose by suppository Since yesterday, he is speaking, feeding himself, moving L arm and slightly moving L leg. His fasting lipid panel shows LDL of 110. Lipitor 80 mg resumed We allowed 24 hours of permissive HTN Plan: Remain on telemetry to watch for A-fib Will resume his Losartan today Cont daily aspirin The had said in the ER that she does not want a workup for carotid stenosis or an Echo that would lead to any interventions, therefore MRI, carotid Dopplers and Echo will not be ordered PT, OT and speech therapy ordered I updated the at bedside today about SNF for rehab. I already discussed that he will now be on 1 aspirin daily lifelong. She said that he is prone to gastric ulcers. I ordered sucralfate dosed daily with the aspirin. Cont Lipitor 80 mg qpm, goal LDL is <70. (2) Diabetes Mellitus, Type 2 Conclusion/Plan: His is at bedside and gave me details about him. He takes Metformin and she administers his insulin twice a day plus sliding scale insulin. She does the fingerstick checks and he has a Dexacom monitor on his left upper arm. He has an Insulin pump in his abdomen but it has not worked since December 2022. He has diabetic gastroparesis. His A1c came back at 8.7 His glu are running 200's here Plan: Cont DM diet, pureed and advance as tolerated Cont insulin ss coverage, hypoglycemia protocol, and will resume his usual meds possibly at lower doses I will resume his Metformin (3) Diabetic gastroparesis Conclusion/Plan: As per Hx. 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 He did not tolerate carbidopa/levodopa which gave him nausea and vomiting. He is on Inderal for tremors and on Seroquel for hallucinations. He mostly lays in bed but can walk, feeds himself, does stairs but she walks with him and always uses a gait belt. For the past 2-3 years, she cannot leave his side because he has a panic attack that lasts 4 hours. He used to have a caregiver part-time, but she got sick herself. She requests a Palliative Care consult because pt has asked what would happen if he chooses to stop all his meds. Plan: I ordered Ativan as needed for anxiety Seroquel resumed SW to help with caregiver burn-out Palliative Care consult as well (5) Chronic pain Conclusion/Plan: at bedside informs me that he is on a narcotic pain contract and that he requires scheduled narcotics for back pain Plan: I will resume the narcotic that he takes scheduled, once the reconciled pharmacy list is ready today - Current Meds Current Meds: Current Medications Generic Name Dose Route Start Last Admin Trade Name Tapan PRN Reason Stop Dose Admin Aspirin 81 mg 09/14/23 09:00 09/14/23 08:34 Aspirin Ec 81 Mg Tablet PO 81 mg DAILY ISEAL Administration Atorvastatin Calcium 80 mg 09/13/23 21:00 09/13/23 21:52 Atorvastatin 40 Mg Tablet PO 80 mg QPM ISELA Administration Famotidine 20 mg 09/13/23 21:00 09/13/23 21:52 Famotidine 20 Mg Tablet PO 20 mg QPM ISELA Administration Potassium Chloride/Dextrose/Sod Cl 1,000 mls @ 30 mls/hr 09/14/23 10:01 09/14/23 11:01 D5ns W/20 Meq Kcl IV 09/15/23 00:01 30 mls/hr .[id number] ISELA Administration Insulin Human Lispro 1 - 5 unit 09/13/23 17:00 09/14/23 11:22 Insulin Lispro 300 Unit/3 Ml Pen SUBQ 2 unit 0800,1200,1700,2100 ISELA Administration Protocol Losartan Potassium 12.5 mg 09/14/23 11:00 09/14/23 10:58 Losartan 50 Mg Tablet PO 12.5 mg DAILY ISELA Administration Magnesium Oxide 400 mg 09/14/23 09:00 09/14/23 08:34 Magnesium Oxide 400 Mg Tablet PO 400 mg DAILY ISELA Administration Metoclopramide HCl 5 mg 09/13/23 17:00 09/14/23 12:39 Metoclopramide 10 Mg Tablet PO 5 mg TIDWM ISELA Administration Morphine Sulfate 15 mg 09/13/23 15:00 09/14/23 14:36 Morphine Ir 15 Mg Tablet PO 15 mg Q4H ISELA Administration Pantoprazole Sodium 40 mg 09/14/23 07:00 09/14/23 07:02 Pantoprazole 40 Mg Tablet PO 40 mg QDAC ISELA Administration Methylphenidate 1 each 09/14/23 09:00 09/14/23 12:38 Hcl [Ritalin La] 20 PO 1 each Mg Er Tab 0900,1100,1300 ISELA Administration Propranolol HCl 10 mg 09/13/23 17:00 09/14/23 12:38 Propranolol 10 Mg Tablet PO 10 mg TIDWM ISELA Administration Sodium Chloride 10 ml 09/12/23 17:00 09/14/23 08:41 Sodium Chloride Flush 0.9% 10 Ml Syringe IVP Not Given 0100,0900,1700 ISELA Sucralfate 1 gm 09/14/23 08:00 09/14/23 08:35 Sucralfate 1 Gm/10 Ml Udc PO 1 gm 0800 ISELA Administration Tamsulosin HCl 0.4 mg 09/13/23 21:00 09/13/23 21:52 Tamsulosin 0.4 Mg Capsule PO 0.4 mg HS ISELA Administration - Lab Result Fish Bone Diagrams: 09/12/23 09:55 09/14/23 06:15 - Additional Planning My Orders: My Active Orders 09/13/23 14:28 Ondansetron Odt [Zofran Odt] 4 mg TL Q6H PRN QUEtiapine [SEROquel] 50 mg PO QPM PRN Senna [Senokot] 8.6 mg PO BID PRN 09/13/23 14:48 clonazePAM [KlonoPIN] 1 mg PO HS PRN 09/13/23 15:00 Morphine Ir [Ms Ir] 15 mg PO Q4H 09/13/23 Dinner DIET [Dysphagia - Minced and Moist] [DIET] 09/13/23 17:00 Insulin Lispro [Humalog Kwikpen U-100] 1 - 5 unit SUBQ 0800,1200,1700,2100 Metoclopramide [Reglan] 5 mg PO TIDWM Propranolol [Inderal] 10 mg PO TIDWM 09/13/23 21:00 Atorvastatin [Lipitor] 80 mg PO QPM Famotidine [Pepcid] 20 mg PO QPM Tamsulosin [Flomax] 0.4 mg PO HS 09/14/23 07:00 Pantoprazole [Protonix] 40 mg PO QDAC 09/14/23 08:00 Sucralfate [Carafate] 1 gm PO 0800 09/14/23 09:00 Aspirin EC [Ecotrin] 81 mg PO DAILY Magnesium Oxide [Mag Ox] 400 mg PO DAILY Patient Own Controlled 1 each PO 0900,1100,1300 09/14/23 10:01 D5ns W/20 Meq KCl 1,000 ml IV 30 mls/hr 09/14/23 11:00 Losartan [Cozaar] 12.5 mg PO DAILY Subjective - Subjective Patient Reports: Feeling Better, Resting Comfortably Objective Vital Signs: Vital Signs - 24 hr 09/13/23 09/13/23 09/14/23 15:41 23:45 05:18 Temperature 36.6 C 36.5 C 36.5 C Heart Rate [ 77 65 60 Brachial] Heart Rate [ Monitoring electrodes] Respiratory 20 20 18 Rate Blood Pressure 143/70 H 116/61 105/53 L [Right Brachial artery] O2 Saturation 96 95 100 09/14/23 09/14/23 07:41 12:40 Temperature 36.5 C Heart Rate [ 65 Brachial] Heart Rate [ 60 Monitoring electrodes] Respiratory 18 Rate Blood Pressure 120/63 [Right Brachial artery] O2 Saturation 93 Oxygen O2 Source Room air I&O (Last 24 Hrs): Intake and Output Totals x24h 09/12/23 09/13/23 09/14/23 23:59 23:59 23:59 Intake Total 1495 2498.333 1613 Output Total 575 1625 1225 Balance 920 873.333 388 General: Alert, Oriented x3 HEENT: Mucous membr. moist/pink, Other (Large disheveled taveras. Flat affect. Speech is brief and gravely but appropriate.) Neuro: Alert, Other (L arm 4/5, L leg 1/5. Flat affect. Bradykinetic. No tremor.) Cardiovascular: Regular rate Respiratory: No respiratory distress Abdomen: Soft, No tenderness Extremities: No edema, Other (all toes amputated) - Results Results: Laboratory Results WBC 8.0 x10^3/uL (4.8-10.8) 09/12/23 09:55 RBC 5.41 10^6/uL (4.70-6.10) 09/12/23 09:55 Hgb 15.8 g/dL (14.0-18.0) 09/12/23 09:55 Hct 47.9 % (42.0-52.0) 09/12/23 09:55 MCV 88.5 fL (80.0-94.0) 09/12/23 09:55 MCH 29.2 pg (27.0-31.0) 09/12/23 09:55 MCHC 33.0 g/dL (32.0-36.0) 09/12/23 09:55 RDW 12.6 % (12.0-15.0) 09/12/23 09:55 Plt Count 380 10^3/uL (130-450) 09/12/23 09:55 MPV 9.8 fL (7.4-11.4) 09/12/23 09:55 Neut # (Auto) 6.0 10^3/uL (1.5-6.6) 09/12/23 09:55 Lymph # (Auto) 1.3 10^3/uL (1.5-3.5) L 09/12/23 09:55 [place] # (Auto) 0.5 10^3/uL (0.0-1.0) 09/12/23 09:55 Eos # (Auto) 0.1 10^3/uL (0.0-0.7) 09/12/23 09:55 Baso # (Auto) 0.1 10^3/uL (0.0-0.1) 09/12/23 09:55 Absolute Nucleated RBC 0.00 x10^3/uL 09/12/23 09:55 Nucleated RBC % 0.0 /100WBC 09/12/23 09:55 VBG pH 7.437 (7.31-7.41) H 09/12/23 09:55 VBG pCO2 34.6 mmHg (41-51) L 09/12/23 09:55 VBG pO2 60.7 mmHg (25-47) H 09/12/23 09:55 VBG HCO3 22.8 mmol/L (23-28) L 09/12/23 09:55 VBG Total CO2 23.9 mmol/L (24-29) L 09/12/23 09:55 VBG O2 Saturation 92.5 % (60-80) H 09/12/23 09:55 VBG Base Excess -0.6 mmol/L (-2 - +2) 09/12/23 09:55 Sodium 138 mmol/L (135-145) 09/14/23 06:15 Potassium 3.8 mmol/L (3.5-4.5) 09/14/23 06:15 Chloride 108 mmol/L (101-111) 09/14/23 06:15 Carbon Dioxide 25 mmol/L (21-32) 09/14/23 06:15 Anion Gap 5.0 (6-13) L 09/14/23 06:15 BUN 11 mg/dL (6-20) 09/14/23 06:15 Creatinine 0.8 mg/dL (0.6-1.3) 09/14/23 06:15 Estimated GFR (MDRD) 95 (>89) 09/14/23 06:15 Glucose 164 mg/dL (74-104) H 09/14/23 06:15 POC Whole Bld Glucose 208 mg/dL (70 - 100) H 09/14/23 11:07 Estimat Average Glucose 203 mg/dL (70-100) H 09/13/23 05:52 Hemoglobin A1c % 8.7 % (4.27-6.07) H 09/13/23 05:52 Lactic Acid 0.9 mmol/L (0.5-2.2) 09/12/23 09:55 Calcium 8.5 mg/dL (8.5-10.3) 09/14/23 06:15 Magnesium 1.8 mg/dL (1.7-2.3) 09/13/23 05:52 Total Bilirubin 1.3 mg/dL (0.2-1.0) H 09/12/23 09:55 AST 11 IU/L (10-42) 09/12/23 09:55 ALT 8 IU/L (10-60) L 09/12/23 09:55 Alkaline Phosphatase 86 IU/L (42-121) 09/12/23 09:55 Total Protein 6.3 g/dL (6.4-8.9) L 09/12/23 09:55 Albumin 3.5 g/dL (3.2-5.5) 09/12/23 09:55 Globulin 2.8 g/dL (2.1-4.2) 09/12/23 09:55 Albumin/Globulin Ratio 1.3 (1.0-2.2) 09/12/23 09:55 Triglycerides 114 mg/dL (48-352) 09/13/23 05:52 Cholesterol 162 mg/dL (-200) 09/13/23 05:52 LDL Cholesterol, Calc 110 mg/dL (-129) 09/13/23 05:52 VLDL Cholesterol 23 mg/dL 09/13/23 05:52 HDL Cholesterol 29 mg/dL (60-) L 09/13/23 05:52 LDL/HDL Ratio 3.8 (<3.6) 09/13/23 05:52 Cholesterol/HDL Ratio 5.6 (<5.0) 09/13/23 05:52 Lipase < 10 U/L (11-82) L 09/12/23 09:55 Serum Ketones SMALL (NEGATIVE) H 09/12/23 09:55
[2023-09-14] MEDS: ATORVASTATIN 40 MG TABLET PO SCH (21:10)
[2023-09-14] MEDS: TAMSULOSIN 0.4 MG CAPSULE PO SCH (21:10)
[2023-09-14] MEDS: FAMOTIDINE 20 MG TABLET PO SCH (21:10)
[2023-09-15] MEDS: MORPHINE IR 15 MG TABLET PO SCH ×6 (03:20→22:41)
[2023-09-15] MEDS: SODIUM CHLORIDE FLUSH 0.9% 10 ML SYRINGE IVP SCH ×3 (03:21→16:31)
[2023-09-15] MEDS: PANTOPRAZOLE 40 MG TABLET PO SCH (07:36)
[2023-09-15] MEDS: INSULIN LISPRO 300 UNIT/3 ML PEN SUBQ SCH ×4 (08:28→21:33)
[2023-09-15] MEDS: MAGNESIUM OXIDE 400 MG TABLET PO SCH (08:29)
[2023-09-15] MEDS: METOCLOPRAMIDE 10 MG TABLET PO SCH ×3 (08:30→16:57)
[2023-09-15] MEDS: PROPRANOLOL 10 MG TABLET PO SCH ×3 (08:30→16:57)
[2023-09-15] MEDS: ASPIRIN EC 81 MG TABLET PO SCH (08:30)
[2023-09-15] MEDS: METHYLPHENIDATE HCL 20 MG PO SCH ×3 (08:30→12:36)
[2023-09-15] MEDS: LOSARTAN 50 MG TABLET PO SCH (08:31)
[2023-09-15] MEDS: SUCRALFATE 1 GM/10 ML UDC PO SCH (08:31)
--- NOTE | 2023-09-15 12:33 | PROVIDER PROGRESS NOTE ---
Assessment/Plan - Problem List (1) Cerebrovascular accident (CVA) Assessment/Plan: Patient presented greater than 24 hours out from his initial neurologic symptoms, so not a candidate for interventions or transfer. told me he was unable to have trunk control when seated and was walking poorly then had obvious left-sided weakness and change in speech. CT shows an evolving moderate size right temporal stroke Patient was unable to swallow in the ER and was also speaking gibberish and had left-sided body weakness.Then upon admission to the hospital, he was comatose, not responding to pain. That first night, he started opening his eyes. He got an aspirin dose by suppository Since yesterday, he is speaking, feeding himself, moving L arm and slightly moving L leg. His fasting lipid panel shows LDL of 110. Lipitor 80 mg resumed We allowed 24 hours of permissive HTN Plan: Remain on telemetry to watch for A-fib Will resume his Losartan today Cont daily aspirin The had said in the ER that she does not want a workup for carotid stenosis or an Echo that would lead to any interventions, therefore MRI, carotid Dopplers and Echo will not be ordered PT, OT and speech therapy ordered I already discussed that he will now be on 1 aspirin daily lifelong. She said that he is prone to gastric ulcers. I ordered sucralfate dosed daily with the aspirin. Cont Lipitor 80 mg qpm, goal LDL is <70. (2) Diabetes Mellitus, Type 2 Conclusion/Plan: His gave me details about him. He takes Metformin and she administers his insulin twice a day plus sliding scale insulin. She does the fingerstick checks and he has a Dexacom monitor on his left upper arm. He has an Insulin pump in his abdomen but it has not worked since December 2022. He has diabetic gastro paresis. His A1c came back at 8.7 His glu are running 200's here Plan: Cont DM diet, pureed and advance as tolerated Cont insulin ss coverage, hypoglycemia protocol, and will resume his usual meds possibly at lower doses I have resumed his Metformin (3) Diabetic gastroparesis Conclusion/Plan: As per Hx. Plan: Cont his po meds (4) Dementia in Parkinson's disease Conclusion/Plan: His gave me details about him. He did not tolerate carbidopa/levodopa which gave him nausea and vomiting. He is on Inderal for tremors and on Seroquel for hallucinations. He mostly lays in bed but can walk, feeds himself, does stairs but she walks with him and always uses a gait belt. For the past 2-3 years, she cannot leave his side because he has a panic attack that lasts 4 hours. He used to have a caregiver part-time, but she got sick herself. The requested a Palliative Care consult because pt has asked what would hap pen if he chooses to stop all his meds. Appreciate Luba Beyer PIT SUPERVISOR of palliative care seeing the patient today. Recommendations were to start Trazodone for sleep and nightly Memantine Plan: I ordered Ativan as needed for anxiety Seroquel resumed Klonopin will need to be titrated off very slowly I ordered Trazodone scheduled for sleep and nightly Memantine SW to help with caregiver burn-out (5) Chronic pain Conclusion/Plan: at bedside informs me that he is on a narcotic pain contract and that he requires scheduled narcotics for back pain Plan: I resumed the narcotic that he takes 6 times a day scheduled - Current Meds Current Meds: Current Medications Generic Name Dose Route Start Last Admin Trade Name Tapan PRN Reason Stop Dose Admin Aspirin 81 mg 09/14/23 09:00 09/15/23 08:30 Aspirin Ec 81 Mg Tablet PO 81 mg DAILY ISELA Administration Atorvastatin Calcium 80 mg 09/13/23 21:00 09/14/23 21:10 Atorvastatin 40 Mg Tablet PO 80 mg QPM ISELA Administration Famotidine 20 mg 09/13/23 21:00 09/14/23 21:10 Famotidine 20 Mg Tablet PO 20 mg QPM ISELA Administration Insulin Human Lispro 1 - 5 unit 09/13/23 17:00 09/15/23 11:13 Insulin Lispro 300 Unit/3 Ml Pen SUBQ 3 unit 0800,1200,1700,2100 ISELA Administration Protocol Losartan Potassium 12.5 mg 09/14/23 11:00 09/15/23 08:31 Losartan 50 Mg Tablet PO 12.5 mg DAILY ISELA Administration Magnesium Oxide 400 mg 09/14/23 09:00 09/15/23 08:29 Magnesium Oxide 400 Mg Tablet PO 400 mg DAILY ISELA Administration Metoclopramide HCl 5 mg 09/13/23 17:00 09/15/23 08:30 Metoclopramide 10 Mg Tablet PO 5 mg TIDWM SIELA Administration Morphine Sulfate 15 mg 09/13/23 15:00 09/15/23 11:09 Morphine Ir 15 Mg Tablet PO 15 mg Q4H ISELA Administration Pantoprazole Sodium 40 mg 09/14/23 07:00 09/15/23 07:36 Pantoprazole 40 Mg Tablet PO 40 mg QDAC ISELA Administration Methylphenidate 1 each 09/14/23 09:00 09/15/23 11:09 Hcl [Ritalin La] 20 PO 1 each Mg Er Tab 0900,1100,1300 ISELA Administration Propranolol HCl 10 mg 09/13/23 17:00 09/15/23 12:08 Propranolol 10 Mg Tablet PO Not Given TIDWM ISELA Sodium Chloride 10 ml 09/12/23 17:00 09/15/23 08:29 Sodium Chloride Flush 0.9% 10 Ml Syringe IVP 10 ml 0100,0900,1700 ISELA Administration Sucralfate 1 gm 09/14/23 08:00 09/15/23 08:31 Sucralfate 1 Gm/10 Ml Udc PO 1 gm 0800 ISELA Administration Tamsulosin HCl 0.4 mg 09/13/23 21:00 09/14/23 21:10 Tamsulosin 0.4 Mg Capsule PO 0.4 mg HS ISELA Administration - Lab Result Fish Bone Diagrams: 09/12/23 09:55 09/14/23 06:15 - Additional Planning My Orders: My Active Orders 09/15/23 08:31 Out of bed 3+ hours today [RC] TID 09/15/23 08:32 Miscellaenous Nursing Order [RC] QSHIFT Subjective - Subjective Patient Reports: Feeling Better, Resting Comfortably, No Complaints Objective Vital Signs: Vital Signs - 24 hr 09/14/23 09/14/23 09/14/23 12:40 15:57 20:55 Temperature 36.3 C L 36.7 C Heart Rate [ 59 L 85 Brachial] Heart Rate [ 60 Monitoring electrodes] Respiratory 20 20 Rate Blood Pressure 126/85 H 137/69 H [Right Brachial artery] O2 Saturation 94 93 09/14/23 09/15/23 09/15/23 23:49 05:34 07:35 Temperature 36.9 C 36.2 C L 36.4 C L Heart Rate [ 81 64 73 Brachial] Heart Rate [ Monitoring electrodes] Respiratory 18 18 18 Rate Blood Pressure 129/69 107/66 113/50 L [Right Brachial artery] O2 Saturation 92 94 94 09/15/23 11:14 Temperature 36.0 C L Heart Rate [ 60 Brachial] Heart Rate [ Monitoring electrodes] Respiratory 18 Rate Blood Pressure 105/65 [Right Brachial artery] O2 Saturation 92 Oxygen O2 Source Room air I&O (Last 24 Hrs): Intake and Output Totals x24h 09/13/23 09/14/23 09/15/23 23:59 23:59 23:59 Intake Total 2498.333 1731 438 Output Total 1625 1500 Balance 873.333 231 438 General: Alert, Other (Flat affect and stiff, stares at one point in space) HEENT: EOMI, Mucous membr. moist/pink Neuro: Alert, Other (L arm 4/5 str, L leg 2/5 str) Cardiovascular: Regular rate Respiratory: No respiratory distress Abdomen: Soft Extremities: No edema, Other (All toes bilat are amputated) - Results Results: Laboratory Results WBC 8.0 x10^3/uL (4.8-10.8) 09/12/23 09:55 RBC 5.41 10^6/uL (4.70-6.10) 09/12/23 09:55 Hgb 15.8 g/dL (14.0-18.0) 09/12/23 09:55 Hct 47.9 % (42.0-52.0) 09/12/23 09:55 MCV 88.5 fL (80.0-94.0) 09/12/23 09:55 MCH 29.2 pg (27.0-31.0) 09/12/23 09:55 MCHC 33.0 g/dL (32.0-36.0) 09/12/23 09:55 RDW 12.6 % (12.0-15.0) 09/12/23 09:55 Plt Count 380 10^3/uL (130-450) 09/12/23 09:55 MPV 9.8 fL (7.4-11.4) 09/12/23 09:55 Neut # (Auto) 6.0 10^3/uL (1.5-6.6) 09/12/23 09:55 Lymph # (Auto) 1.3 10^3/uL (1.5-3.5) L 09/12/23 09:55 [place] # (Auto) 0.5 10^3/uL (0.0-1.0) 09/12/23 09:55 Eos # (Auto) 0.1 10^3/uL (0.0-0.7) 09/12/23 09:55 Baso # (Auto) 0.1 10^3/uL (0.0-0.1) 09/12/23 09:55 Absolute Nucleated RBC 0.00 x10^3/uL 09/12/23 09:55 Nucleated RBC % 0.0 /100WBC 09/12/23 09:55 VBG pH 7.437 (7.31-7.41) H 09/12/23 09:55 VBG pCO2 34.6 mmHg (41-51) L 09/12/23 09:55 VBG pO2 60.7 mmHg (25-47) H 09/12/23 09:55 VBG HCO3 22.8 mmol/L (23-28) L 09/12/23 09:55 VBG Total CO2 23.9 mmol/L (24-29) L 09/12/23 09:55 VBG O2 Saturation 92.5 % (60-80) H 09/12/23 09:55 VBG Base Excess -0.6 mmol/L (-2 - +2) 09/12/23 09:55 Sodium 138 mmol/L (135-145) 09/14/23 06:15 Potassium 3.8 mmol/L (3.5-4.5) 09/14/23 06:15 Chloride 108 mmol/L (101-111) 09/14/23 06:15 Carbon Dioxide 25 mmol/L (21-32) 09/14/23 06:15 Anion Gap 5.0 (6-13) L 09/14/23 06:15 BUN 11 mg/dL (6-20) 09/14/23 06:15 Creatinine 0.8 mg/dL (0.6-1.3) 09/14/23 06:15 Estimated GFR (MDRD) 95 (>89) 09/14/23 06:15 Glucose 164 mg/dL (74-104) H 09/14/23 06:15 POC Whole Bld Glucose 182 mg/dL (70 - 100) H 09/14/23 21:00 Estimat Average Glucose 203 mg/dL (70-100) H 09/13/23 05:52 Hemoglobin A1c % 8.7 % (4.27-6.07) H 09/13/23 05:52 Lactic Acid 0.9 mmol/L (0.5-2.2) 09/12/23 09:55 Calcium 8.5 mg/dL (8.5-10.3) 09/14/23 06:15 Magnesium 1.8 mg/dL (1.7-2.3) 09/13/23 05:52 Total Bilirubin 1.3 mg/dL (0.2-1.0) H 09/12/23 09:55 AST 11 IU/L (10-42) 09/12/23 09:55 ALT 8 IU/L (10-60) L 09/12/23 09:55 Alkaline Phosphatase 86 IU/L (42-121) 09/12/23 09:55 Total Protein 6.3 g/dL (6.4-8.9) L 09/12/23 09:55 Albumin 3.5 g/dL (3.2-5.5) 09/12/23 09:55 Globulin 2.8 g/dL (2.1-4.2) 09/12/23 09:55 Albumin/Globulin Ratio 1.3 (1.0-2.2) 09/12/23 09:55 Triglycerides 114 mg/dL (48-352) 09/13/23 05:52 Cholesterol 162 mg/dL (-200) 09/13/23 05:52 LDL Cholesterol, Calc 110 mg/dL (-129) 09/13/23 05:52 VLDL Cholesterol 23 mg/dL 09/13/23 05:52 HDL Cholesterol 29 mg/dL (60-) L 09/13/23 05:52 LDL/HDL Ratio 3.8 (<3.6) 09/13/23 05:52 Cholesterol/HDL Ratio 5.6 (<5.0) 09/13/23 05:52 Lipase < 10 U/L (11-82) L 09/12/23 09:55 Serum Ketones SMALL (NEGATIVE) H 09/12/23 09:55
--- NOTE | 2023-09-15 17:58 | CONSULTATION NOTE ---
Palliative Care Consultation - Referral Referring Provider: Dr. Daisy Hicks Time of Visit: 09:30-11:00 am Referral setting: Hospitalized patient Referral Reason: Goals of care/Parkinsons Dementia/CVA right temporal stroke - Information Sources Records reviewed: RN notes reviewed, Previous records reviewed History/Review of Systems obtained from: Patient, Family ( Mercedes) Exam limitations: Clinical condition (dementia; poor insight and STM deficits) - History of Present Illness Brief History of Present Illness: This is a 73-year-old gentleman with significant complex history. He presented to the emergency room 09/12/2023 with altered mental status, and found to have a evolving moderate size right temporal stroke. Patient had left-sided weakness, difficulty swallowing, and unable to communicate. Patient is slowly recovered, is interactive, still with some swallowing deficits, but is able to eat and drink, has been bedbound up to this point with pending PT and OT evaluation. 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 They have a complex living situation, had lived in an , had been in bedbound as a result of environment and decline. Patient unfortunately had his intrathecal pump fail in December, had ran out of battery. He then was transition to oral morphine, had difficulty with establishing prescribing as transitioning to care here [facility]. Patient has long-term serious chronic pain issues secondary to his original industrial accident. He also has a history of alcoholism, has been sober for 30 to 35 years, as well as other substance abuse issues. Currently he is on prescribed morphine and has done fairly well on this. Patient now lives in a [facility] since June, was doing better, ambulatory with a cane, and then got a COVID/flu shot about 2 weeks ago with severe.vomiting diarrhea, that made things significantly worse again. Patient's dementia, was thought to be Lewy body. Does have hallucinations and they evening, at some point along the way they stopped antidepressants secondary to "stroke risk and stroke. His hallucinations include seeing his brother and father and 2 dogs. He also has a history of hoarding behavior and sounds like some OCD. What is made his caregiving most difficulty is also has severe p anic attacks, and has been unable to leave him without him have severe distress. In November he also had a fall with a broken arm in 2 places, and infection in his toe requiring hospitalization.He did have a stroke in January also, with deficits, follow-up MRI showed he has a history of 2 strokes, recently had been told it was the TIF. He has a history of CHF, and has been stable for about a year. He also has diabetes, and has been more complicated and difficult to control over the last month. Palliative care has been asked to meet with regarding concerns for patient wanting to be done with all of this, has history of suicidality over last few months, and wondering about stopping / if patient wants to refuse medications. Patient's goals are palliative in nature, he is a DNR,/DNI and selective treatments at this time. Medical/Surgical History - Past Medical History Cardiovascular: reports: Congestive heart failure, Hypertension, High cholesterol, Coronary artery disease, [place] Respiratory: reports: COPD Neuro: Dementia, CVA, TIA, Parkinson's Endocrine/Autoimmune: reports: Type 2 diabetes GI: reports: Ulcers : reports: Benign prostate hypertrophy HEENT: reports: Other Psych: reports: Depression, Anxiety, Panic attacks, ADD/ADHD, Other ( hallucinations) Musculoskeletal: reports: Osteoarthritis, Chronic back pain, Other (amputation of all toes) MRSA Hx?: No - Past Surgical History General: reports: Bowel surgery Ortho: reports: Spine surgery, Amputation, Other Social History - Living Situation Living Situation: With spouse/s.o. Support System: Patient and have been together for 37 years, he is on [place] PES with allotted 140 hours, but has had difficulty finding a caregiver. He has 4 children, is estranged from 2. His daughter Mitra who is supportive came at end of visit, financial stressors are significant for them, as well as some complex family dynamics. Family History - Family History Family History: Mother: Alive and Well, Father: Alive and Well, Brother: Medications/Allergies - Medications Active Medication List: Active Medications Aspirin (Aspirin Ec 81 Mg Tablet) 81 mg PO DAILY [facility] Last Admin: 09/15/23 08:30 Dose: 81 mg Atorvastatin Calcium (Atorvastatin 40 Mg Tablet) 80 mg PO QPM [facility] Last Admin: 09/14/23 21:10 Dose: 80 mg Clonazepam (Clonazepam 0.5 Mg Tablet) 1 mg PO HS PRN PRN Reason: Insomnia Famotidine (Famotidine 20 Mg Tablet) 20 mg PO QPM [facility] Last Admin: 09/14/23 21:10 Dose: 20 mg Insulin Human Lispro (Insulin Lispro 300 Unit/3 Ml Pen) 1 - 5 unit SUBQ 0800,1200,1700,2100 [facility]; Protocol Last Admin: 09/15/23 11:13 Dose: 3 unit Lorazepam (Lorazepam 2 Mg/Ml Vial) 0.5 mg IVP Q4H PRN PRN Reason: Anxiety Losartan Potassium (Losartan 50 Mg Tablet) 12.5 mg PO DAILY [facility] Last Admin: 09/15/23 08:31 Dose: 12.5 mg Magnesium Oxide (Magnesium Oxide 400 Mg Tablet) 400 mg PO DAILY [facility] Last Admin: 09/15/23 08:29 Dose: 400 mg Metoclopramide HCl (Metoclopramide 10 Mg Tablet) 5 mg PO TIDWM [facility] Last Admin: 09/15/23 12:35 Dose: 5 mg Morphine Sulfate (Morphine Ir 15 Mg Tablet) 15 mg PO Q4H [facility] Last Admin: 09/15/23 14:40 Dose: 15 mg Ondansetron HCl (Ondansetron 4 Mg/2 Ml Vial) 4 mg IVP Q6HR PRN PRN Reason: Nausea / Vomiting Ondansetron HCl (Ondansetron Odt 4 Mg Tablet) 4 mg TL Q6H PRN PRN Reason: Nausea / Vomiting Pantoprazole Sodium (Pantoprazole 40 Mg Tablet) 40 mg PO QDAC [facility] Last Admin: 09/15/23 07:36 Dose: 40 mg Methylphenidate Hcl [Ritalin La] 20 Mg Er Tab 1 each PO 0900,1100,1300 [facility] Last Admin: 09/15/23 12:36 Dose: 1 each Propranolol HCl (Propranolol 10 Mg Tablet) 10 mg PO TIDWM [facility] Last Admin: 09/15/23 12:08 Dose: Not Given Quetiapine Fumarate (Quetiapine 25 Mg Tablet) 50 mg PO QPM PRN PRN Reason: hallucinations Senna (Senna 8.6 Mg Tablet) 8.6 mg PO BID PRN PRN Reason: Constipation Sodium Chloride (Sodium Chloride Flush 0.9% 10 Ml Syringe) 10 ml IVP PRN PRN PRN Reason: NEEDED PER PROVIDER ORDERS Sodium Chloride (Sodium Chloride Flush 0.9% 10 Ml Syringe) 10 ml IVP 0100,0900,1700 [facility] Last Admin: 09/15/23 08:29 Dose: 10 ml Sucralfate (Sucralfate 1 Gm/10 Ml Udc) 1 gm PO 0800 [facility] Last Admin: 09/15/23 08:31 Dose: 1 gm Tamsulosin HCl (Tamsulosin 0.4 Mg Capsule) 0.4 mg PO HS [facility] Last Admin: 09/14/23 21:10 Dose: 0.4 mg Atorvastatin Calcium [Lipitor] 80 mg PO DAILY 04/01/23 Empagliflozin [Jardiance] 10 mg ORAL DAILY 04/01/23 Insulin NPH Human [HumuLIN N] 7 unit SUBQ BID 04/01/23 Insulin Regular Human [NovoLIN R] 10 - 30 units SUBQ TIDWM 04/01/23 Magnesium Oxide [Mag Ox] 400 mg PO DAILY 04/01/23 Metformin HCl 1,000 mg PO BID 04/01/23 Omeprazole Magnesium 20 mg PO BID 04/01/23 Senna [Senokot] 8.6 mg PO BID PRN 04/01/23 Tamsulosin HCl [Flomax] 0.4 mg PO HS 04/01/23 Terbinafine HCl [Lamisil At] 1 applic TP BID 04/01/23 Cholecalciferol (Vitamin D3) [Vitamin D3] 50 mcg PO DAILY 04/30/23 Methylphenidate HCl [Ritalin LA] 20 mg PO TID 04/30/23 Propranolol [Inderal] 10 mg ORAL TID 04/30/23 QUEtiapine [SEROquel] 25 - 50 mg PO QPM PRN 04/30/23 clonazePAM [Clonazepam] 1 - 2 tab PO HS PRN 04/30/23 Famotidine [Pepcid] 20 mg ORAL QPM 09/13/23 Losartan Potassium 12.5 mg ORAL DAILY 09/13/23 Metoclopramide [Reglan] 5 mg PO TID 09/13/23 Morphine Ir [Ms Ir] 15 mg ORAL Q4H 09/13/23 Potassium Chloride 20 meq ORAL DAILY 09/13/23 - Allergies Allergies/Adverse Reactions: Allergies Allergy/AdvReac Type Severity Reaction Status Date / Time iodine Allergy Itching Verified 09/09/23 08:07 ketorolac [From Toradol] Allergy Rash Verified 09/09/23 08:07 Review of Systems - Constitutional Constitutional: reports: Fatigue, Weakness - Ears, Nose & Throat Ears, Nose & Throat: reports: Other (difficulty swallowing) - Cardiovascular Cardiovascular: reports: Decr. exercise tolerance - Respiratory Respiratory: reports: Wheezing - Genitourinary Genitourinary: reports: Incontinence - Musculoskeletal Musculoskeletal: reports: Limited range of motion, Other (currently has been bedbound with acute stroke; to start therapy and goal to go to rehab) - Integumentary Integumentary: reports: Dryness - Neurological Neurological: reports: General weakness, Memory problems - Psychiatric Psychiatric: reports: Depression, Anxiety, Hallucinations - Endocrine Endocrine: reports: Diabetes type 2 - All Other Systems All Other Systems: reports: Other (limited) Physical Exam - Vital Signs Vital Signs: Vital Signs x48h Temp Pulse Resp BP Pulse Ox 09/15/23 11:14 36.0 C L 60 18 105/65 92 09/15/23 07:35 36.4 C L 73 18 113/50 L 94 - Physical Exam General Appearance: positive: No acute distress ENT: positive: Other (edentulous) Neck: positive: No JVD, Trachea midline Cardiovascular: positive: Regular rate & rhythm Respiratory: positive: Diminished in bases, Other (upper airway with expiratory wheezing) Abdomen: positive: Soft Skin: positive: Pallor Extremities: positive: No pedal edema Neurologic/Psychiatric: positive: Weakness, Flat affect, Other (disoriented to time; aware in hosptial and had stroke) Palliative Care - POLST Patient has POLST: Yes POLST Status: DNR, Selective Treatment - Palliative Care Discussion: Discussed very complex history with , has had multiple health problems, fluctuating mood, as well as worsening dementia and anxiety. Patient is managed with Seroquel for his hallucinations at night, but has continued to sleep poorly despite the Klonopin. Patient's care needs are consistently increasing, and now with acute issues of new CVA has added to the complexity of his care. We discussed in the context of patient's dementia, he does not really present with decision-making capacity to weigh benefits and burdens of making a decision to stop or withdraw care, that patient certainly can have a palliative approach to his care, if he were to have another crisis, or life-threatening event, could choose to focus on comfort versus aggressive interventions. Given difficult last few months, as well as patient's history of depression, patient most likely would benefit from behavioral health evaluation to revisit about starting antidepressant, overall medications for underlying psych management, as well as looking adding other medications for behaviors and dementia. able to verbal ize understanding that stablizing current situation, medications, and completing follow up with SNF to improving physical status would be priority before revisiting these concerns. does believe that patient is having continued suffering, particularly with declining quality of life, and would like to continue with palliative care and support. Results - Lab Results Lab results reviewed: Yes Fish Bones: 09/12/23 09:55 09/14/23 06:15 Lab and Imaging Results: Lab Results x24hrs 09/14/23 09/14/23 Range/Units 21:00 16:30 POC Whole Bld Glucose 182 H 164 H (70 - 100) mg/dL Impression and Recommendations - Palliative Care Impression: This is a 73-year-old gentleman who recently had an acute stroke, right temporal, has continued to improve. Given focus on quality of life issues, and complex care needs, would benefit from focus on support for improving functional status. Patient does have dementia and Parkinson's disease, with known hallucinations, fluctuating depression, insomnia, and significant panic attacks. Patient also with known chronic pain, with failed intrathecal pump, now on oral morphine. Palliative care introducing palliative care services and support, helping clarify goals of care, and providing anticipatory guidance. Recommendations/Counseling Done: 1. Dementia and Parkinson's disease. Patient using Seroquel for management of hallucinations at night, these hallucinations are not problematic for patient, but some of his agitation, anxiety and behaviors are difficult at home.Patient has not been on any dementia medications, would recommend trialing memantine 5 mg at bedtime for 1 week, increasing to 10 to see if this improves some of his behaviors. Patient also with poor sleep, which often exacerbates patient's symptoms, Klonopin has not been as effective, will need to be titrated off of this, would not recommend doing this until finished with acute phase of current illness, but can add trazodone 50 mg at bedtime to assist with sleep and pain management. Will reach out to primary care, to get patient referral to network diagnostic support specialist, as most likely would benefit from further medication man agement and an antidepressant. 2. Acute CVA. Patient will benefit from transition to SNF, looking at improving functional status, as well is helping separate and ability to help things move forward that she needs to do for patient to return home. Did recommend she follow-up with her case picker, to see alternative ways of feeling her 140 hours, she does need further support. 3. Advance care planning. Patient does have a POLST with DNR/DNI and selective treatments per my understanding, have not found copy in the chart. She reports she has it with her, as well as DPOA, and follow-up DPOA is his daughter Mitra. Will follow-up and get copies for [facility] IM if not and by tomorrow. Discussed in the context of patient's dementia, lack of decision-making capacity, as well as history and current depressive symptoms, at this time given patient's condition, would recommend stabilizing both mood, physical status, and revisiting goals of care. Patient can continue to have a palliative care approach to care, if he were to have another crisis, acutely decline, certainly appropriate given their goals and his quality of life to consider weighing benefits and burdens of treatment decisions as they come up. has been very cognizant and following a palliative approach through his current journey. Counseling and anticipatory guidance provided. 90 minutes with review of chart, labs, scans, family conference with and daughter, counseling for advanced care planning, introduction of palliative care services and support, and coordination of care with hospitalist. Will reach out to primary care for referrals as requested to neurology, behavioral health, and palliative care.
[2023-09-15] MEDS: FAMOTIDINE 20 MG TABLET PO SCH (21:35)
[2023-09-15] MEDS: TAMSULOSIN 0.4 MG CAPSULE PO SCH (21:38)
[2023-09-15] MEDS: MEMANTINE 5 MG TABLET PO SCH (21:38)
[2023-09-15] MEDS: traZODone 50 MG TABLET PO SCH (21:38)
[2023-09-15] MEDS: ATORVASTATIN 40 MG TABLET PO SCH (21:43)
[2023-09-16] MEDS: MORPHINE IR 15 MG TABLET PO SCH ×5 (02:39→20:40)
[2023-09-16] MEDS: SODIUM CHLORIDE FLUSH 0.9% 10 ML SYRINGE IVP SCH ×3 (02:40→18:59)
[2023-09-16] MEDS: PANTOPRAZOLE 40 MG TABLET PO SCH (06:33)
[2023-09-16] MEDS: INSULIN LISPRO 300 UNIT/3 ML PEN SUBQ SCH ×4 (10:14→20:46)
[2023-09-16] MEDS: LOSARTAN 50 MG TABLET PO SCH (10:15)
[2023-09-16] MEDS: PROPRANOLOL 10 MG TABLET PO SCH ×3 (10:15→17:59)
[2023-09-16] MEDS: MAGNESIUM OXIDE 400 MG TABLET PO SCH (10:15)
[2023-09-16] MEDS: METOCLOPRAMIDE 10 MG TABLET PO SCH ×3 (10:15→17:59)
[2023-09-16] MEDS: SUCRALFATE 1 GM/10 ML UDC PO SCH ×2 (10:15→10:24)
[2023-09-16] MEDS: metFORMIN 500 MG TABLET PO SCH ×2 (10:15→17:59)
[2023-09-16] MEDS: ASPIRIN EC 81 MG TABLET PO SCH (10:15)
[2023-09-16] MEDS: METHYLPHENIDATE HCL 20 MG PO SCH ×2 (10:24→16:27)
[2023-09-16] MEDS: IPRATROPIUM/ALBUTEROL 3 ML NEB INH SCH ×3 (11:12→20:00)
--- NOTE | 2023-09-16 13:30 | PROVIDER PROGRESS NOTE ---
Assessment/Plan - Problem List (1) AMS (altered mental status) Assessment/Plan: (1) Cerebrovascular accident (CVA) Assessment/Plan: -- CT showing evidence of temporal stroke. does not want an MRI or any vascular imaging. --PT/OT consulted. Patient will likely benefit from SNF on discharge. --Continue aspirin with Carafate. --Continue atorvastatin 80 mg daily. (2) Diabetes Mellitus, Type 2 Conclusion/Plan: -- A1c is 8.7. --Continue diabetic diet. --Sliding scale insulin. --Continue home metformin. (3) Diabetic gastroparesis Conclusion/Plan: --Continue home medications. 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 -- Patient mostly lays in bed but can walk, feeds himself, do stairs but she walks with him using a gait belt. She has been suffering from caregiver fatigue. --Palliative care did evaluate. --Ativan as needed ordered for anxiety. --Continue home Seroquel. Trazodone scheduled for sleep and nightly memantine. (5) Chronic pain Conclusion/Plan: -- Patient is on a pain contract. Continue scheduled narcotics. - Current Meds Current Meds: Current Medications Generic Name Dose Route Start Last Admin Trade Name [place] PRN Reason Stop Dose Admin Albuterol/Ipratropium 3 ml 09/16/23 11:00 09/16/23 11:12 Ipratropium/Albuterol 3 Ml Neb INH 3 ml RTQID ISELA Administration Aspirin 81 mg 09/14/23 09:00 09/16/23 10:15 Aspirin Ec 81 Mg Tablet PO 81 mg DAILY ISELA Administration Atorvastatin Calcium 80 mg 09/13/23 21:00 09/15/23 21:43 Atorvastatin 40 Mg Tablet PO 80 mg QPM ISELA Administration Famotidine 20 mg 09/13/23 21:00 09/15/23 21:35 Famotidine 20 Mg Tablet PO 20 mg QPM ISELA Administration Losartan Potassium 12.5 mg 09/14/23 11:00 09/16/23 10:15 Losartan 50 Mg Tablet PO 12.5 mg DAILY ISELA Administration Magnesium Oxide 400 mg 09/14/23 09:00 09/16/23 10:15 Magnesium Oxide 400 Mg Tablet PO 400 mg DAILY ISELA Administration Memantine 5 mg 12/18/23 21:00 09/15/23 21:38 Memantine 5 Mg Tablet PO 5 mg QPM ISELA Administration Metformin HCl 500 mg 09/16/23 08:00 09/16/23 10:15 Metformin 500 Mg Tablet PO 500 mg BIDWM ISELA Administration Metoclopramide HCl 5 mg 09/13/23 17:00 09/16/23 12:36 Metoclopramide 10 Mg Tablet PO 5 mg TIDWM ISELA Administration Morphine Sulfate 15 mg 09/13/23 15:00 09/16/23 11:45 Morphine Ir 15 Mg Tablet PO 15 mg Q4H ISELA Administration Pantoprazole Sodium 40 mg 09/14/23 07:00 09/16/23 06:33 Pantoprazole 40 Mg Tablet PO 40 mg QDAC ISELA Administration Methylphenidate 1 each 09/14/23 09:00 09/16/23 10:24 Hcl [Ritalin La] 20 PO Not Given Mg Er Tab 0900,1100,1300 [facility] Propranolol HCl 10 mg 09/13/23 17:00 09/16/23 12:36 Propranolol 10 Mg Tablet PO 10 mg TIDWM ISELA Administration Sodium Chloride 10 ml 09/12/23 17:00 09/16/23 10:16 Sodium Chloride Flush 0.9% 10 Ml Syringe IVP 10 ml 0100,0900,1700 ISELA Administration Sucralfate 1 gm 09/14/23 08:00 09/16/23 10:24 Sucralfate 1 Gm/10 Ml Udc PO Not Given 0800 ISELA Tamsulosin HCl 0.4 mg 09/13/23 21:00 09/15/23 21:38 Tamsulosin 0.4 Mg Capsule PO 0.4 mg HS ISELA Administration Trazodone HCl 50 mg 09/15/23 21:00 09/15/23 21:38 Trazodone 50 Mg Tablet PO 50 mg QPM ISELA Administration - Lab Result Fish Bone Diagrams: 09/12/23 09:55 09/14/23 06:15 - Additional Planning My Orders: My Active Orders 09/16/23 09:10 Nebulizer/MDI Tx. [RC] QID Resp Teach Nebulizer/MDI [RC] .ONCE 09/16/23 11:00 Ipratropium/Albuterol [Duoneb] 3 ml INH RTQID 09/16/23 17:00 Insulin Lispro [Humalog Kwikpen U-100] 1 - 9 unit SUBQ 0800,1200,1700,2100 Subjective - Subjective Patient Reports: Feeling Better (Continues to have some confusion in regards to orientation. He is having some left upper extremity weakness. Has chronic spasticity in that hand.) Objective Vital Signs: Vital Signs - 24 hr 09/15/23 09/15/23 09/16/23 15:41 21:00 00:07 Temperature 36.4 C L 36.6 C 36.3 C L Heart Rate Heart Rate [ 62 69 69 Brachial] Respiratory 18 18 16 Rate Blood Pressure 116/61 123/74 102/61 [Right Brachial artery] O2 Saturation 96 96 93 09/16/23 09/16/23 09/16/23 05:37 07:32 11:14 Temperature 36.3 C L 36.1 C L Heart Rate 66 Heart Rate [ 66 60 Brachial] Respiratory 18 18 18 Rate Blood Pressure 132/70 H 106/65 [Right Brachial artery] O2 Saturation 97 92 Oxygen O2 Source Room air I&O (Last 24 Hrs): Intake and Output Totals x24h 09/14/23 09/15/23 09/16/23 23:59 23:59 23:59 Intake Total 1731 1931 598 Output Total 1500 150 Balance 231 1781 598 General: Other (AOx2) HEENT: Atraumatic Neuro: Alert, Other (Left sided weakness in UE and LE.) Cardiovascular: Regular rate, Normal S1, Normal S2 Respiratory: Chest non-tender, No respiratory distress - Results Results: Laboratory Results WBC 8.0 x10^3/uL (4.8-10.8) 09/12/23 09:55 RBC 5.41 10^6/uL (4.70-6.10) 09/12/23 09:55 Hgb 15.8 g/dL (14.0-18.0) 09/12/23 09:55 Hct 47.9 % (42.0-52.0) 09/12/23 09:55 MCV 88.5 fL (80.0-94.0) 09/12/23 09:55 MCH 29.2 pg (27.0-31.0) 09/12/23 09:55 MCHC 33.0 g/dL (32.0-36.0) 09/12/23 09:55 RDW 12.6 % (12.0-15.0) 09/12/23 09:55 Plt Count 380 10^3/uL (130-450) 09/12/23 09:55 MPV 9.8 fL (7.4-11.4) 09/12/23 09:55 Neut # (Auto) 6.0 10^3/uL (1.5-6.6) 09/12/23 09:55 Lymph # (Auto) 1.3 10^3/uL (1.5-3.5) L 09/12/23 09:55 [place] # (Auto) 0.5 10^3/uL (0.0-1.0) 09/12/23 09:55 Eos # (Auto) 0.1 10^3/uL (0.0-0.7) 09/12/23 09:55 Baso # (Auto) 0.1 10^3/uL (0.0-0.1) 09/12/23 09:55 Absolute Nucleated RBC 0.00 x10^3/uL 09/12/23 09:55 Nucleated RBC % 0.0 /100WBC 09/12/23 09:55 VBG pH 7.437 (7.31-7.41) H 09/12/23 09:55 VBG pCO2 34.6 mmHg (41-51) L 09/12/23 09:55 VBG pO2 60.7 mmHg (25-47) H 09/12/23 09:55 VBG HCO3 22.8 mmol/L (23-28) L 09/12/23 09:55 VBG Total CO2 23.9 mmol/L (24-29) L 09/12/23 09:55 VBG O2 Saturation 92.5 % (60-80) H 09/12/23 09:55 VBG Base Excess -0.6 mmol/L (-2 - +2) 09/12/23 09:55 Sodium 138 mmol/L (135-145) 09/14/23 06:15 Potassium 3.8 mmol/L (3.5-4.5) 09/14/23 06:15 Chloride 108 mmol/L (101-111) 09/14/23 06:15 Carbon Dioxide 25 mmol/L (21-32) 09/14/23 06:15 Anion Gap 5.0 (6-13) L 09/14/23 06:15 BUN 11 mg/dL (6-20) 09/14/23 06:15 Creatinine 0.8 mg/dL (0.6-1.3) 09/14/23 06:15 Estimated GFR (MDRD) 95 (>89) 09/14/23 06:15 Glucose 164 mg/dL (74-104) H 09/14/23 06:15 POC Whole Bld Glucose 222 mg/dL (70 - 100) H 09/16/23 11:23 Estimat Average Glucose 203 mg/dL (70-100) H 09/13/23 05:52 Hemoglobin A1c % 8.7 % (4.27-6.07) H 09/13/23 05:52 Lactic Acid 0.9 mmol/L (0.5-2.2) 09/12/23 09:55 Calcium 8.5 mg/dL (8.5-10.3) 09/14/23 06:15 Magnesium 1.8 mg/dL (1.7-2.3) 09/13/23 05:52 Total Bilirubin 1.3 mg/dL (0.2-1.0) H 09/12/23 09:55 AST 11 IU/L (10-42) 09/12/23 09:55 ALT 8 IU/L (10-60) L 09/12/23 09:55 Alkaline Phosphatase 86 IU/L (42-121) 09/12/23 09:55 Total Protein 6.3 g/dL (6.4-8.9) L 09/12/23 09:55 Albumin 3.5 g/dL (3.2-5.5) 09/12/23 09:55 Globulin 2.8 g/dL (2.1-4.2) 09/12/23 09:55 Albumin/Globulin Ratio 1.3 (1.0-2.2) 09/12/23 09:55 Triglycerides 114 mg/dL (48-352) 09/13/23 05:52 Cholesterol 162 mg/dL (-200) 09/13/23 05:52 LDL Cholesterol, Calc 110 mg/dL (-129) 09/13/23 05:52 VLDL Cholesterol 23 mg/dL 09/13/23 05:52 HDL Cholesterol 29 mg/dL (60-) L 09/13/23 05:52 LDL/HDL Ratio 3.8 (<3.6) 09/13/23 05:52 Cholesterol/HDL Ratio 5.6 (<5.0) 09/13/23 05:52 Lipase < 10 U/L (11-82) L 09/12/23 09:55 Serum Ketones SMALL (NEGATIVE) H 09/12/23 09:55 Current Medications - Current Medications Current Medications: Active Medications Generic Name Dose Route Start Last Admin Trade Name Freq PRN Reason Stop Dose Admin Albuterol/Ipratropium 3 ml 09/16/23 11:00 09/16/23 11:12 Ipratropium/Albuterol 3 Ml Neb INH 3 ml RTQID ISELA Administration Aspirin 81 mg 09/14/23 09:00 09/16/23 10:15 Aspirin Ec 81 Mg Tablet PO 81 mg DAILY ISELA Administration Atorvastatin Calcium 80 mg 09/13/23 21:00 09/15/23 21:43 Atorvastatin 40 Mg Tablet PO 80 mg QPM ISELA Administration Clonazepam 1 mg 09/13/23 14:48 Clonazepam 0.5 Mg Tablet PO HS PRN Insomnia Famotidine 20 mg 09/13/23 21:00 09/15/23 21:35 Famotidine 20 Mg Tablet PO 20 mg QPM ISELA Administration Insulin Human Lispro 1 - 9 unit 09/16/23 17:00 Insulin Lispro 300 Unit/3 Ml Pen SUBQ 0800,1200,1700,2100 ISELA Protocol Lorazepam 0.5 mg 09/12/23 16:55 Lorazepam 2 Mg/Ml Vial IVP Q4H PRN Anxiety Losartan Potassium 12.5 mg 09/14/23 11:00 09/16/23 10:15 Losartan 50 Mg Tablet PO 12.5 mg DAILY ISELA Administration Magnesium Oxide 400 mg 09/14/23 09:00 09/16/23 10:15 Magnesium Oxide 400 Mg Tablet PO 400 mg DAILY ISELA Administration Memantine 5 mg 09/15/23 21:00 09/15/23 21:38 Memantine 5 Mg Tablet PO 5 mg QPM ISELA Administration Metformin HCl 500 mg 09/16/23 08:00 09/16/23 10:15 Metformin 500 Mg Tablet PO 500 mg BIDWM ISELA Administration Metoclopramide HCl 5 mg 09/13/23 17:00 09/16/23 12:36 Metoclopramide 10 Mg Tablet PO 5 mg TIDWM ISELA Administration Morphine Sulfate 15 mg 09/13/23 15:00 09/16/23 11:45 Morphine Ir 15 Mg Tablet PO 15 mg Q4H ISELA Administration Ondansetron HCl 4 mg 09/12/23 16:48 Ondansetron 4 Mg/2 Ml Vial IVP Q6HR PRN Nausea / Vomiting Ondansetron HCl 4 mg 09/13/23 14:28 Ondansetron Odt 4 Mg Tablet TL Q6H PRN Nausea / Vomiting Pantoprazole Sodium 40 mg 09/14/23 07:00 09/16/23 06:33 Pantoprazole 40 Mg Tablet PO 40 mg QDAC ISELA Administration Methylphenidate 1 each 09/14/23 09:00 09/16/23 10:24 Hcl [Ritalin La] 20 PO Not Given Mg Er Tab 0900,1100,1300 ISELA Propranolol HCl 10 mg 09/13/23 17:00 09/16/23 12:36 Propranolol 10 Mg Tablet PO 10 mg TIDWM ISELA Administration Quetiapine Fumarate 50 mg 09/13/23 14:28 Quetiapine 25 Mg Tablet PO QPM PRN hallucinations Senna 8.6 mg 09/13/23 14:28 Senna 8.6 Mg Tablet PO BID PRN Constipation Sodium Chloride 10 ml 09/12/23 16:48 Sodium Chloride Flush 0.9% 10 Ml Syringe IVP PRN PRN NEEDED PER PROVIDER ORDERS Sodium Chloride 10 ml 09/12/23 17:00 09/16/23 10:16 Sodium Chloride Flush 0.9% 10 Ml Syringe IVP 10 ml 0100,0900,1700 ISELA Administration Sucralfate 1 gm 09/14/23 08:00 09/16/23 10:24 Sucralfate 1 Gm/10 Ml Udc PO Not Given 0800 ISELA Tamsulosin HCl 0.4 mg 09/13/23 21:00 09/15/23 21:38 Tamsulosin 0.4 Mg Capsule PO 0.4 mg HS ISELA Administration Trazodone HCl 50 mg 09/15/23 21:00 09/15/23 21:38 Trazodone 50 Mg Tablet PO 50 mg QPM ISELA Administration Atorvastatin Calcium [Lipitor] 80 mg PO DAILY 04/01/23 Empagliflozin [Jardiance] 10 mg ORAL DAILY 04/01/23 Insulin NPH Human [HumuLIN N] 7 unit SUBQ BID 04/01/23 Insulin Regular Human [NovoLIN R] 10 - 30 units SUBQ TIDWM 04/01/23 Magnesium Oxide [Mag Ox] 400 mg PO DAILY 04/01/23 Metformin HCl 1,000 mg PO BID 04/01/23 Omeprazole Magnesium 20 mg PO BID 04/01/23 Senna [Senokot] 8.6 mg PO BID PRN 04/01/23 Tamsulosin HCl [Flomax] 0.4 mg PO HS 04/01/23 Terbinafine HCl [Lamisil At] 1 applic TP BID 04/01/23 Cholecalciferol (Vitamin D3) [Vitamin D3] 50 mcg PO DAILY 04/30/23 Methylphenidate HCl [Ritalin LA] 20 mg PO TID 04/30/23 Propranolol [Inderal] 10 mg ORAL TID 04/30/23 QUEtiapine [SEROquel] 25 - 50 mg PO QPM PRN 04/30/23 clonazePAM [Clonazepam] 1 - 2 tab PO HS PRN 04/30/23 Famotidine [Pepcid] 20 mg ORAL QPM 09/13/23 Losartan Potassium 12.5 mg ORAL DAILY 09/13/23 Metoclopramide [Reglan] 5 mg PO TID 09/13/23 Morphine Ir [Ms Ir] 15 mg ORAL Q4H 09/13/23 Potassium Chloride 20 meq ORAL DAILY 09/13/23
[2023-09-16] MEDS: ATORVASTATIN 40 MG TABLET PO SCH (20:41)
[2023-09-16] MEDS: traZODone 50 MG TABLET PO SCH (20:41)
[2023-09-16] MEDS: FAMOTIDINE 20 MG TABLET PO SCH (20:41)
[2023-09-16] MEDS: TAMSULOSIN 0.4 MG CAPSULE PO SCH (20:42)
[2023-09-16] MEDS: MEMANTINE 5 MG TABLET PO SCH (20:42)
[2023-09-17] MEDS: MORPHINE IR 15 MG TABLET PO SCH ×6 (01:41→21:12)
[2023-09-17] MEDS: SODIUM CHLORIDE FLUSH 0.9% 10 ML SYRINGE IVP SCH ×3 (01:49→17:17)
[2023-09-17] MEDS: PANTOPRAZOLE 40 MG TABLET PO SCH (06:02)
[2023-09-17] MEDS: IPRATROPIUM/ALBUTEROL 3 ML NEB INH SCH ×4 (07:06→19:25)
[2023-09-17] MEDS: METOCLOPRAMIDE 10 MG TABLET PO SCH ×3 (10:16→17:15)
[2023-09-17] MEDS: MAGNESIUM OXIDE 400 MG TABLET PO SCH (10:16)
[2023-09-17] MEDS: metFORMIN 500 MG TABLET PO SCH ×2 (10:16→17:15)
[2023-09-17] MEDS: ASPIRIN EC 81 MG TABLET PO SCH (10:16)
[2023-09-17] MEDS: PROPRANOLOL 10 MG TABLET PO SCH ×3 (10:16→17:18)
[2023-09-17] MEDS: LOSARTAN 50 MG TABLET PO SCH (10:17)
[2023-09-17] MEDS: INSULIN LISPRO 300 UNIT/3 ML PEN SUBQ SCH ×4 (10:17→21:10)
[2023-09-17] MEDS: SUCRALFATE 1 GM/10 ML UDC PO SCH (10:17)
[2023-09-17] MEDS: METHYLPHENIDATE HCL 20 MG PO SCH ×3 (11:48→17:14)
--- NOTE | 2023-09-17 12:00 | Discharge Plan ---
"Discharge Plan for SNF / ANTHONY - Discharge Plan And Transition Orders Problem Reviewed?: Yes Disposition: 03 SNF DC/Xfer Condition: Stable Allergies and Adverse Reactions: Allergies Allergy/AdvReac Type Severity Reaction Status Date / Time iodine Allergy Itching Verified 09/09/23 08:07 ketorolac [From Toradol] Allergy Rash Verified 09/09/23 08:07 Plan of Treatment: Improve functional status. - SNF / CORRECTION Transition Orders Admit to (Facility): [facility] Certification Statement: I certify that [facility] is medically necessary on a continuing basis for any of the conditions for which she/he is receiving care during hospitalization. Notify PCP of admission and forward orders to primary provider for signature. Weight on admission and: Daily Call PCP immediately if weight increases by: 5 kg Other Notification Orders: Call PCP immediately if patient develops dyspnea, chest pain/tightness or edema. House Bowel Program: Yes Additional Bowel Program Orders: If no BM after 2 days, nurse may give M.O.M. 30ml PO PRN and/or ducolax Supp 1 MI and/or RHETT 250mg P.O., and/or senna 1-2 tabs PO. On day 3 nurse may give repeat above order until residents constipation is resolved. Annual Influenza Vaccine (between May 30 and December 27): Yes Two-step PPD per [facility] [phone] or approved exception documents: Yes Oxygen Orders: Maintain O2 greater than 90% Medication Orders: PLEASE REFER TO THE DISCHARGE MEDICATION LIST. Insulin Orders?: Yes - Medications New Prescriptions: Sucralfate [Carafate] 1 gm PO 0800 30 Days ea traZODone [Desyrel] 50 mg PO QPM 30 Days #30 tab Aspirin EC [Ecotrin] 81 mg PO DAILY #30 tab Memantine [Namenda] 5 mg PO QPM #30 tab - Diet Texture: Mech soft Liquids: Thin May have monthly special meal: Yes - Therapies | Activity Therapy: Evaluation | Treat if indicated: PT, OT, Swallowing / ST Rehabilitation Potential: Maximize functional status Activity: Activity as Tolerated Weight Bearing: Full Weight Assistance Devices: Walker Follow Up: Follow-up with Aurelia Castrejon in 3-5 days. Insulin Orders - SNF Basal | Correction | Custom Orders: Diagnosis: Diabetes Initiate hypo and hyperglycemia protocols for BG <70 and BG >375. May check BG PRN for signs/symptoms of dysglycemia. Frequency of BG checks: [AC/Meal/HS] Basal Insulin: [] Lantus 100 units / ml inject subq as follows: [] [X] Other: [Insulin NPH 7 units subQ twice daily] Correction Insulin: - Select the type of insulin below [Choose: Novolog/Humalog]100 units /ml insulin inject subq per orders indicate below [] LOW DOSE [] MODERATE DOSE [] MODERATE/HIGH DOSE [] HIGH DOSE GB UNITS GB UNITS GB UNITS GB UNITS 61-140 0 UNITS 61-140 0 UNITS 61-140 0 UNITS 61-140 0 UNITS 141-175 1 UNITS 141-175 1 UNITS 141-175 2 UNITS 141-175 3 UNITS 176-225 2 UNITS 176-225 3 UNITS 176-225 4 UNITS 176-225 5 UNITS 226-275 3 UNITS 226-275 5 UNITS 226-275 6 UNITS 226-275 7 UNITS 276-325 4 UNITS 276-325 7 UNITS 276-325 8 UNITS 276-325 9 UNITS 326-375 5 UNITS 326-375 9 UNITS 326-375 10 UNITS 326-375 11 UNITS >375 CONTACT MD >375 CONTACT MD >375 CONTACT MD >375 CONTACT MD Custom Dosing: [Choose: Novolog/Humalog] 100 units/ml Insulin inject subq as follows: GB Units 61-140 [] Units 141-175 [] Units 176-225 [] Units 226-275 [] Units 276-325 []Units 326-375 [] Units >375 Contact MD"
[2023-09-17] MEDS: ATORVASTATIN 40 MG TABLET PO SCH (21:12)
[2023-09-17] MEDS: FAMOTIDINE 20 MG TABLET PO SCH (21:12)
[2023-09-17] MEDS: MEMANTINE 5 MG TABLET PO SCH (21:14)
[2023-09-17] MEDS: traZODone 50 MG TABLET PO SCH (21:14)
[2023-09-17] MEDS: TAMSULOSIN 0.4 MG CAPSULE PO SCH (21:14)
--- NOTE | 2023-09-17 21:42 | PROVIDER PROGRESS NOTE ---
Assessment/Plan - Problem List (1) AMS (altered mental status) Assessment/Plan: (1) Cerebrovascular accident (CVA) Assessment/Plan: -- CT showing evidence of temporal stroke. does not want an MRI or any vascular imaging. --PT/OT consulted. Patient will likely benefit from SNF on discharge. He was supposed to discharge today but did not provide a ride. --Continue aspirin with Carafate. --Continue atorvastatin 80 mg daily. (2) Diabetes Mellitus, Type 2 Conclusion/Plan: -- A1c is 8.7. --Continue diabetic diet. --Sliding scale insulin. --Continue home metformin. (3) Diabetic gastroparesis Conclusion/Plan: --Continue home medications. 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 -- Patient mostly lays in bed but can walk, feeds himself, do stairs but she walks with him using a gait belt. She has been suffering from caregiver fatigue. --Palliative care did evaluate. --Ativan as needed ordered for anxiety. --Continue home Seroquel. Trazodone scheduled for sleep and nightly memantine. --Tapering off clonazepam as an outpatient once acute phase of illness is complete. (5) Chronic pain Conclusion/Plan: -- Patient is on a pain contract. Continue scheduled narcotics. - Current Meds Current Meds: Current Medications Generic Name Dose Route Start Last Admin Trade Name Tylerq PRN Reason Stop Dose Admin Albuterol/Ipratropium 3 ml 09/16/23 11:00 09/17/23 19:25 Ipratropium/Albuterol 3 Ml Neb INH 3 ml RTQID ISELA Administration Aspirin 81 mg 09/14/23 09:00 09/17/23 10:16 Aspirin Ec 81 Mg Tablet PO 81 mg DAILY ISELA Administration Atorvastatin Calcium 80 mg 09/13/23 21:00 09/17/23 21:12 Atorvastatin 40 Mg Tablet PO 80 mg QPM ISELA Administration Famotidine 20 mg 09/13/23 21:00 09/17/23 21:12 Famotidine 20 Mg Tablet PO 20 mg QPM ISELA Administration Losartan Potassium 12.5 mg 09/14/23 11:00 09/17/23 10:17 Losartan 50 Mg Tablet PO 12.5 mg DAILY ISELA Administration Magnesium Oxide 400 mg 09/14/23 09:00 09/17/23 10:16 Magnesium Oxide 400 Mg Tablet PO 400 mg DAILY ISELA Administration Memantine 5 mg 09/15/23 21:00 09/17/23 21:14 Memantine 5 Mg Tablet PO 5 mg QPM ISELA Administration Metformin HCl 500 mg 09/16/23 08:00 09/17/23 17:15 Metformin 500 Mg Tablet PO 500 mg BIDWM ISELA Administration Metoclopramide HCl 5 mg 09/13/23 17:00 09/17/23 17:15 Metoclopramide 10 Mg Tablet PO 5 mg TIDWM ISELA Administration Morphine Sulfate 15 mg 09/17/23 10:00 09/17/23 21:12 Morphine Ir 15 Mg Tablet PO 15 mg Q4H ISELA Administration Pantoprazole Sodium 40 mg 09/14/23 07:00 09/17/23 06:02 Pantoprazole 40 Mg Tablet PO 40 mg QDAC ISELA Administration Methylphenidate 1 each 09/14/23 09:00 09/17/23 17:14 Hcl [Ritalin La] 20 PO Not Given Mg Er Tab 0900,1100,1300 ISELA Propranolol HCl 10 mg 09/13/23 17:00 09/17/23 17:18 Propranolol 10 Mg Tablet PO 10 mg TIDWM ISELA Administration Sodium Chloride 10 ml 09/12/23 17:00 09/17/23 17:17 Sodium Chloride Flush 0.9% 10 Ml Syringe IVP 10 ml 0100,0900,1700 ISELA Administration Sucralfate 1 gm 09/14/23 08:00 09/17/23 10:17 Sucralfate 1 Gm/10 Ml Udc PO 1 gm 0800 ISELA Administration Tamsulosin HCl 0.4 mg 09/13/23 21:00 09/17/23 21:14 Tamsulosin 0.4 Mg Capsule PO 0.4 mg HS ISELA Administration Trazodone HCl 50 mg 09/15/23 21:00 09/17/23 21:14 Trazodone 50 Mg Tablet PO 50 mg QPM ISELA Administration - Lab Result Fish Bone Diagrams: 09/12/23 09:55 09/14/23 06:15 - Additional Planning My Orders: My Active Orders 09/18/23 05:00 BMP - BASIC METABOLIC PANEL [CHEM] DAILYLAB CBC [CBC - COMP BLD CT W/AUTO DIFF] [HEME] DAILYLAB 09/18/23 08:00 Insulin Lispro [Humalog Kwikpen U-100] 2 - 10 unit SUBQ 0800,1200,1700,2100 09/19/23 05:00 BMP - BASIC METABOLIC PANEL [CHEM] DAILYLAB CBC [CBC - COMP BLD CT W/AUTO DIFF] [HEME] DAILYLAB 09/20/23 05:00 BMP - BASIC METABOLIC PANEL [CHEM] DAILYLAB CBC [CBC - COMP BLD CT W/AUTO DIFF] [HEME] DAILYLAB 09/21/23 05:00 BMP - BASIC METABOLIC PANEL [CHEM] DAILYLAB CBC [CBC - COMP BLD CT W/AUTO DIFF] [HEME] DAILYLAB 09/22/23 05:00 BMP - BASIC METABOLIC PANEL [CHEM] DAILYLAB CBC [CBC - COMP BLD CT W/AUTO DIFF] [HEME] DAILYLAB Subjective - Subjective Patient Reports: Resting Comfortably, No Complaints Objective Vital Signs: Vital Signs - 24 hr 09/17/23 09/17/23 09/17/23 01:20 01:44 07:08 Temperature 36.7 C Heart Rate 70 Heart Rate [ 60 Brachial] Heart Rate [ Monitoring electrodes] Respiratory 16 18 Rate Blood Pressure 113/51 L 106/56 L [Right Brachial artery] O2 Saturation 96 If not protocol : Oxygen Flow, liters/minute 09/17/23 09/17/23 09/17/23 08:00 09:00 11:13 Temperature 36.6 C 37 C Heart Rate 68 Heart Rate [ 63 Brachial] Heart Rate [ 69 Monitoring electrodes] Respiratory 18 18 18 Rate Blood Pressure 106/62 103/65 [Right Brachial artery] O2 Saturation 92 94 If not protocol : Oxygen Flow, liters/minute 09/17/23 09/17/23 09/17/23 15:15 15:30 19:25 Temperature 36.5 C Heart Rate 74 64 Heart Rate [ 67 Brachial] Heart Rate [ Monitoring electrodes] Respiratory 18 18 16 Rate Blood Pressure 125/84 H [Right Brachial artery] O2 Saturation 93 If not protocol 94 : Oxygen Flow, liters/minute Oxygen O2 Source Room air I&O (Last 24 Hrs): Intake and Output Totals x24h 09/15/23 09/16/23 09/17/23 23:59 23:59 23:59 Intake Total 1931 648 458 Output Total 150 Balance 1781 648 458 General: Alert, Oriented x3, Cooperative, No acute distress Neuro: Alert, Disoriented Cardiovascular: Regular rate, Normal S1, Normal S2 Respiratory: Chest non-tender, No respiratory distress, Breath sounds nml - Results Results: Laboratory Results WBC 8.0 x10^3/uL (4.8-10.8) 09/12/23 09:55 RBC 5.41 10^6/uL (4.70-6.10) 09/12/23 09:55 Hgb 15.8 g/dL (14.0-18.0) 09/12/23 09:55 Hct 47.9 % (42.0-52.0) 09/12/23 09:55 MCV 88.5 fL (80.0-94.0) 09/12/23 09:55 MCH 29.2 pg (27.0-31.0) 09/12/23 09:55 MCHC 33.0 g/dL (32.0-36.0) 09/12/23 09:55 RDW 12.6 % (12.0-15.0) 09/12/23 09:55 Plt Count 380 10^3/uL (130-450) 09/12/23 09:55 MPV 9.8 fL (7.4-11.4) 09/12/23 09:55 Neut # (Auto) 6.0 10^3/uL (1.5-6.6) 09/12/23 09:55 Lymph # (Auto) 1.3 10^3/uL (1.5-3.5) L 09/12/23 09:55 [place] # (Auto) 0.5 10^3/uL (0.0-1.0) 09/12/23 09:55 Eos # (Auto) 0.1 10^3/uL (0.0-0.7) 09/12/23 09:55 Baso # (Auto) 0.1 10^3/uL (0.0-0.1) 09/12/23 09:55 Absolute Nucleated RBC 0.00 x10^3/uL 09/12/23 09:55 Nucleated RBC % 0.0 /100WBC 09/12/23 09:55 VBG pH 7.437 (7.31-7.41) H 09/12/23 09:55 VBG pCO2 34.6 mmHg (41-51) L 09/12/23 09:55 VBG pO2 60.7 mmHg (25-47) H 09/12/23 09:55 VBG HCO3 22.8 mmol/L (23-28) L 09/12/23 09:55 VBG Total CO2 23.9 mmol/L (24-29) L 09/12/23 09:55 VBG O2 Saturation 92.5 % (60-80) H 09/12/23 09:55 VBG Base Excess -0.6 mmol/L (-2 - +2) 09/12/23 09:55 Sodium 138 mmol/L (135-145) 09/14/23 06:15 Potassium 3.8 mmol/L (3.5-4.5) 09/14/23 06:15 Chloride 108 mmol/L (101-111) 09/14/23 06:15 Carbon Dioxide 25 mmol/L (21-32) 09/14/23 06:15 Anion Gap 5.0 (6-13) L 09/14/23 06:15 BUN 11 mg/dL (6-20) 09/14/23 06:15 Creatinine 0.8 mg/dL (0.6-1.3) 09/14/23 06:15 Estimated GFR (MDRD) 95 (>89) 09/14/23 06:15 Glucose 164 mg/dL (74-104) H 09/14/23 06:15 POC Whole Bld Glucose 200 mg/dL (70 - 100) H 09/17/23 21:09 Estimat Average Glucose 203 mg/dL (70-100) H 09/13/23 05:52 Hemoglobin A1c % 8.7 % (4.27-6.07) H 09/13/23 05:52 Lactic Acid 0.9 mmol/L (0.5-2.2) 09/12/23 09:55 Calcium 8.5 mg/dL (8.5-10.3) 09/14/23 06:15 Magnesium 1.8 mg/dL (1.7-2.3) 09/13/23 05:52 Total Bilirubin 1.3 mg/dL (0.2-1.0) H 09/12/23 09:55 AST 11 IU/L (10-42) 09/12/23 09:55 ALT 8 IU/L (10-60) L 09/12/23 09:55 Alkaline Phosphatase 86 IU/L (42-121) 09/12/23 09:55 Total Protein 6.3 g/dL (6.4-8.9) L 09/12/23 09:55 Albumin 3.5 g/dL (3.2-5.5) 09/12/23 09:55 Globulin 2.8 g/dL (2.1-4.2) 09/12/23 09:55 Albumin/Globulin Ratio 1.3 (1.0-2.2) 09/12/23 09:55 Triglycerides 114 mg/dL (48-352) 09/13/23 05:52 Cholesterol 162 mg/dL (-200) 09/13/23 05:52 LDL Cholesterol, Calc 110 mg/dL (-129) 09/13/23 05:52 VLDL Cholesterol 23 mg/dL 09/13/23 05:52 HDL Cholesterol 29 mg/dL (60-) L 09/13/23 05:52 LDL/HDL Ratio 3.8 (<3.6) 09/13/23 05:52 Cholesterol/HDL Ratio 5.6 (<5.0) 09/13/23 05:52 Lipase < 10 U/L (11-82) L 09/12/23 09:55 Serum Ketones SMALL (NEGATIVE) H 09/12/23 09:55 ABX Reporting Has patient been on IV antibiotics over the past 48 hours?: No Current Medications - Current Medications Current Medications: Active Medications Generic Name Dose Route Start Last Admin Trade Name Freq PRN Reason Stop Dose Admin Albuterol/Ipratropium 3 ml 09/16/23 11:00 09/17/23 19:25 Ipratropium/Albuterol 3 Ml Neb INH 3 ml RTQID ISELA Administration Aspirin 81 mg 09/14/23 09:00 09/17/23 10:16 Aspirin Ec 81 Mg Tablet PO 81 mg DAILY ISELA Administration Atorvastatin Calcium 80 mg 09/13/23 21:00 09/17/23 21:12 Atorvastatin 40 Mg Tablet PO 80 mg QPM ISELA Administration Clonazepam 1 mg 09/13/23 14:48 Clonazepam 0.5 Mg Tablet PO HS PRN Insomnia Famotidine 20 mg 09/13/23 21:00 09/17/23 21:12 Famotidine 20 Mg Tablet PO 20 mg QPM ISELA Administration Insulin Human Lispro 2 - 10 unit 09/18/23 08:00 Insulin Lispro 300 Unit/3 Ml Pen SUBQ 0800,1200,1700,2100 [facility] Protocol Lorazepam 0.5 mg 09/12/23 16:55 Lorazepam 2 Mg/Ml Vial IVP Q4H PRN Anxiety Losartan Potassium 12.5 mg 09/14/23 11:00 09/17/23 10:17 Losartan 50 Mg Tablet PO 12.5 mg DAILY ISELA Administration Magnesium Oxide 400 mg 09/14/23 09:00 09/17/23 10:16 Magnesium Oxide 400 Mg Tablet PO 400 mg DAILY ISELA Administration Memantine 5 mg 09/15/23 21:00 09/17/23 21:14 Memantine 5 Mg Tablet PO 5 mg QPM ISELA Administration Metformin HCl 500 mg 09/16/23 08:00 09/17/23 17:15 Metformin 500 Mg Tablet PO 500 mg BIDWM ISELA Administration Metoclopramide HCl 5 mg 09/13/23 17:00 09/17/23 17:15 Metoclopramide 10 Mg Tablet PO 5 mg TIDWM ISELA Administration Morphine Sulfate 15 mg 09/17/23 10:00 09/17/23 21:12 Morphine Ir 15 Mg Tablet PO 15 mg Q4H ISELA Administration Ondansetron HCl 4 mg 09/12/23 16:48 Ondansetron 4 Mg/2 Ml Vial IVP Q6HR PRN Nausea / Vomiting Ondansetron HCl 4 mg 09/13/23 14:28 Ondansetron Odt 4 Mg Tablet TL Q6H PRN Nausea / Vomiting Pantoprazole Sodium 40 mg 09/14/23 07:00 09/17/23 06:02 Pantoprazole 40 Mg Tablet PO 40 mg QDAC ISELA Administration Methylphenidate 1 each 09/14/23 09:00 09/17/23 17:14 Hcl [Ritalin La] 20 PO Not Given Mg Er Tab 0900,1100,1300 ISELA Propranolol HCl 10 mg 09/13/23 17:00 09/17/23 17:18 Propranolol 10 Mg Tablet PO 10 mg TIDWM ISELA Administration Quetiapine Fumarate 50 mg 09/13/23 14:28 Quetiapine 25 Mg Tablet PO QPM PRN hallucinations Senna 8.6 mg 09/13/23 14:28 Senna 8.6 Mg Tablet PO BID PRN Constipation Sodium Chloride 10 ml 09/12/23 16:48 Sodium Chloride Flush 0.9% 10 Ml Syringe IVP PRN PRN NEEDED PER PROVIDER ORDERS Sodium Chloride 10 ml 09/12/23 17:00 09/17/23 17:17 Sodium Chloride Flush 0.9% 10 Ml Syringe IVP 10 ml 0100,0900,1700 ISELA Administration Sucralfate 1 gm 09/14/23 08:00 09/17/23 10:17 Sucralfate 1 Gm/10 Ml Udc PO 1 gm 0800 ISLEA Administration Tamsulosin HCl 0.4 mg 09/13/23 21:00 09/17/23 21:14 Tamsulosin 0.4 Mg Capsule PO 0.4 mg HS ISELA Administration Trazodone HCl 50 mg 09/15/23 21:00 09/17/23 21:14 Trazodone 50 Mg Tablet PO 50 mg QPM ISELA Administration
[2023-09-18] MEDS: SODIUM CHLORIDE FLUSH 0.9% 10 ML SYRINGE IVP SCH ×2 (01:37→08:43)
[2023-09-18] MEDS: MORPHINE IR 15 MG TABLET PO SCH ×3 (01:37→11:16)
[2023-09-18 05:47] LABS: CALCIUM 8.5 mg/dL (8.5-10.3); CREATININE 0.7 mg/dL (0.6-1.3); POTASSIUM 3.7 mmol/L (3.5-4.5)
[2023-09-18] MEDS: IPRATROPIUM/ALBUTEROL 3 ML NEB INH SCH ×2 (06:21→10:29)
[2023-09-18] MEDS: PANTOPRAZOLE 40 MG TABLET PO SCH (06:31)
[2023-09-18 07:24] LABS: BASOPHILS # (AUTO) 0.1 10^3/uL (0.0-0.1); BASOPHILS % (AUTO) 0.7 %; EOSINOPHILS # (AUTO) 0.3 10^3/uL (0.0-0.7); EOSINOPHILS % (AUTO) 4.1 %; HCT - HEMATOCRIT 44.3 % (42.0-52.0); HGB - HEMOGLOBIN 14.3 g/dL (14.0-18.0); LYMPHOCYTES # (AUTO) 1.9 10^3/uL (1.5-3.5); LYMPHOCYTES % (AUTO) 27.6 %; MEAN CORPUSCULAR HEMOGLOBIN 29.4 pg (27.0-31.0); MEAN CORPUSCULAR HGB CONC 32.3 g/dL (32.0-36.0); MEAN CORPUSCULAR VOLUME 91.2 fL (80.0-94.0); MEAN PLATELET VOLUME 10.2 fL (7.4-11.4); MONOCYTES # (AUTO) 0.8 10^3/uL (0.0-1.0); MONOCYTES % (AUTO) 12.1 %; NEUTROPHILS # (AUTO) 3.8 10^3/uL (1.5-6.6); NEUTROPHILS % (AUTO) 55.4 %; PLT - PLATELET COUNT 313 10^3/uL (130-450); RED BLOOD COUNT 4.86 10^6/uL (4.70-6.10); RED CELL DISTRIBUTION WIDTH 12.8 % (12.0-15.0); WHITE BLOOD COUNT 6.8 x10^3/uL (4.8-10.8)
[2023-09-18] MEDS: LOSARTAN 50 MG TABLET PO SCH (08:42)
[2023-09-18] MEDS: MAGNESIUM OXIDE 400 MG TABLET PO SCH (08:42)
[2023-09-18] MEDS: metFORMIN 500 MG TABLET PO SCH (08:42)
[2023-09-18] MEDS: METOCLOPRAMIDE 10 MG TABLET PO SCH ×2 (08:42→11:16)
[2023-09-18] MEDS: PROPRANOLOL 10 MG TABLET PO SCH ×2 (08:42→11:15)
[2023-09-18] MEDS: ASPIRIN EC 81 MG TABLET PO SCH (08:42)
[2023-09-18] MEDS: INSULIN LISPRO 300 UNIT/3 ML PEN SUBQ SCH ×2 (08:43→12:15)
[2023-09-18] MEDS: SUCRALFATE 1 GM/10 ML UDC PO SCH (08:50)
[2023-09-18] MEDS: METHYLPHENIDATE HCL 20 MG PO SCH ×3 (08:50→12:15)
[2023-09-18 10:47] LABS: BILIRUBIN,URINE NEGATIVE (NEGATIVE); GLUCOSE, URINE (UA) 500 mg/dL (NEGATIVE); KETONES,URINE (UA) NEGATIVE (NEGATIVE); LEUKOCYTE ESTERASE, URINE NEGATIVE (NEGATIVE); NITRITE,URINE NEGATIVE (NEGATIVE); OCCULT BLOOD,URINE TRACE-INTA (NEGATIVE); PH,URINE 5.5 PH (5.0-7.5); PROTEIN,URINE NEGATIVE (NEGATIVE); UROBILINOGEN,URINE 0.2 (NORMAL) E.U./dL (NORMAL)
[2023-09-18 10:49] LABS: CLARITY,URINE HAZY (CLEAR)
[2023-09-18 10:59] LABS: BACTERIA,URINE Moderate /HPF (None Seen); RBC,URINE 0-5 /HPF (0-5); SQUAMOUS EPITHELIAL CELL,UR RARE Squamous (<= Few); WBC,URINE >25 /HPF (0-3)
[2023-09-18 12:43] VITALS: BP 162/78; O2SAT 98
--- NOTE | 2023-09-18 18:29 | Discharge Plan ---
Discharge Plan for SNF / ANTHONY - Discharge Plan And Transition Orders Disposition: 03 SNF DC/Xfer Condition: Stable Allergies and Adverse Reactions: Allergies Allergy/AdvReac Type Severity Reaction Status Date / Time iodine Allergy Itching Verified 09/09/23 08:07 ketorolac [From Toradol] Allergy Rash Verified 09/09/23 08:07 Plan of Treatment: Improve functional status. - SNF / [facility] Transition Orders Medicare Certification Statement: I certify that Post Hospital care home care is medically necessary on a continuing basis for any of the conditions for which she/he is receiving care d uring hospitalization. Notify PCP of admission and forward orders to primary provider for signature. Other Notification Orders: Call PCP immediately if patient develops dyspnea, chest pain/tightness or edema. Additional Bowel Program Orders: If no BM after 2 days, nurse may give M.O.M. 30ml PO PRN and/or ducolax Supp 1 TX and/or RHETT 250mg P.O., and/or senna 1-2 tabs PO. On day 3 nurse may give repeat above order until residents constipation is resolved. Medication Orders: PLEASE REFER TO THE DISCHARGE MEDICATION LIST. - Medications New Prescriptions: Sucralfate [Carafate] 1 gm PO 0800 30 Days ea clonazePAM [Clonazepam] 1 - 2 tab PO HS PRN #30 tab PRN Reason: Insomnia traZODone [Desyrel] 50 mg PO QPM 30 Days #30 tab Aspirin EC [Ecotrin] 81 mg PO DAILY #30 tab Morphine Ir [Ms Ir] 15 mg ORAL Q4H #30 tab Memantine [Namenda] 5 mg PO QPM #30 tab Methylphenidate HCl [Ritalin LA] 20 mg PO TID #30 cap
--- NOTE | 2023-09-19 18:19 | DISCHARGE SUMMARY ---
"Discharge Summary Discharge Date: 09/18/23 Discharging Provider: Frandy Pina Status: Do Not Attempt Resuscitation Condition at Discharge: Stable Discharge Disposition: SNF DC/Xfer Discharge Facility Name: [facility] - DIAGNOSES Discharge Diagnoses with Status of Each Condition: (1) Cerebrovascular accident (CVA) Assessment/Plan: -- CT showing evidence of temporal stroke. does not want an MRI or any vascular imaging. --PT/OT consulted. Patient will likely benefit from SNF on discharge. He was supposed to discharge today but did not provide a ride. --Continue aspirin with Carafate. --Continue atorvastatin 80 mg daily. (2) Diabetes Mellitus, Type 2 Conclusion/Plan: -- A1c is 8.7. --Continue diabetic diet. --Sliding scale insulin. --Continue home metformin. (3) Diabetic gastroparesis Conclusion/Plan: --Continue home medications. 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 -- Patient mostly lays in bed but can walk, feeds himself, do stairs but she walks with him using a gait belt. She has been suffering from caregiver fatigue. --Palliative care did evaluate. --Ativan as needed ordered for anxiety. --Continue home Seroquel. Trazodone scheduled for sleep and nightly memantine. --Tapering off clonazepam as an outpatient once acute phase of illness is complete. (5) Chronic pain Conclusion/Plan: -- Patient is on a pain contract. Continue scheduled narcotics. - HPI History of Present Illness: This is a 73-year-old male with Parkinson's dementia. He and his have ca regivers. The noticed that he was somehow not as interactive yesterday and today noticed that he had weakness on one side and was speaking differently. He was brought to the ER greater than 24 hours from the onset of when he first had a change in mentation. In the ER he had workup for stroke. The CT had showed an evolving right temporal stroke. His exam was significant for left-sided wea kness and speaking gibberish. The was at bedside and spoke to the ED provider that he would not want a feeding tube and she would not want workup for diagnoses that would require interventions such as a carotid Doppler for carotid endarterectomy. The ED provider spoke to me about this patient. He will be admitted for treating a stroke that is in evolution. The states that the patient is a DNR/DNI. - CONSULTS | PROCEDURES Consultations: Palliative care - HOSPITAL COURSE Hospital Course: Patient is a 73-year-old male who presented to the ED due to complaints of left- sided weakness and word finding difficulties. A CT scan of his head was performed which revealed evidence of a right temporal stroke. reported that she did not want any aggressive measures including vascular studies or an MRI. Patient was admitted to the floor and started on aspirin. As did not want any aggressive intervention or studies, palliative care was consulted and evaluated the patient. They recommended trialing memantine at 5 mg for 1 week and possibly increasing it to 10 mg to help improve his hallucinations. They also recommended tapering off Klonopin after discharge as it has not proven to be effective. They recommended starting trazodone 50 mg at bedtime to help with sleep. He was evaluated by physical therapy and Occupational Therapy who recommended a group home facility to help with improvement of his left sided weakness. He was subsequently discharged to [facility]. On day of discharge his mental status had improved and he was able to answer simple questions. - ALLERGIES Allergies/Adverse Reactions: Allergies Allergy/AdvReac Type Severity Reaction Status Date / Time iodine Allergy Itching Verified 09/09/23 08:07 ketorolac [From Toradol] Allergy Rash Verified 09/09/23 08:07 tositumomab Allergy Unknown Verified 09/19/23 02:46 - MEDICATIONS Home Medications: Ambulatory Orders Medication Instructions Recorded Confirmed Ondansetron Odt [Zofran Odt] 4 mg TL Q6H PRN #10 tablet 09/09/23 09/13/23 Aspirin EC [Ecotrin] 81 mg PO DAILY #30 tab 09/17/23 Atorvastatin Calcium [Lipitor] 80 mg PO DAILY #30 09/17/23 09/13/23 Cholecalciferol (Vitamin D3) 50 mcg PO DAILY 30 Days #30 09/17/23 09/13/23 [Vitamin D3] Empagliflozin [Jardiance] 10 mg ORAL DAILY 30 Days #30 09/17/23 09/13/23 Famotidine [Pepcid] 20 mg ORAL QPM #30 tab 09/17/23 09/13/23 Insulin NPH Human [HumuLIN N] 7 unit SUBQ BID 30 Days #0 09/17/23 09/13/23 Insulin Regular Human [NovoLIN R] 10 - 30 units SUBQ TIDWM 30 Days #0 09/17/23 09/13/23 Losartan Potassium 12.5 mg ORAL DAILY #30 09/17/23 09/13/23 Magnesium Oxide [Mag Ox] 400 mg PO DAILY #30 09/17/23 09/13/23 Memantine [Namenda] 5 mg PO QPM #30 tab 09/17/23 Metformin HCl 1,000 mg PO BID 30 Days #0 09/17/23 09/13/23 Metoclopramide [Reglan] 5 mg PO TID 30 Days #0 09/17/23 09/13/23 Omeprazole Magnesium 20 mg PO BID #30 09/17/23 09/13/23 Potassium Chloride 20 meq ORAL DAILY 30 Days #0 09/17/23 09/13/23 Propranolol [Inderal] 10 mg ORAL TID 30 Days #0 09/17/23 09/13/23 QUEtiapine [SEROquel] 25 - 50 mg PO QPM PRN 30 Days #0 09/17/23 09/13/23 Senna [Senokot] 8.6 mg PO BID PRN 30 Days 09/17/23 09/13/23 Sucralfate [Carafate] 1 gm PO 0800 30 Days ea 09/17/23 Tamsulosin HCl [Flomax] 0.4 mg PO HS 30 Days #0 09/17/23 09/13/23 Terbinafine HCl [Lamisil At] 1 applic TP BID 30 Days #0 09/17/23 09/13/23 metFORMIN [Glucophage] 500 mg PO BIDWM #30 tab 09/17/23 traZODone [Desyrel] 50 mg PO QPM 30 Days #30 tab 09/17/23 Methylphenidate HCl [Ritalin LA] 20 mg PO TID #30 cap 09/18/23 Morphine Ir [Ms Ir] 15 mg ORAL Q4H #30 tab 09/18/23 clonazePAM [Clonazepam] 1 - 2 tab PO HS PRN #30 tab 09/18/23 - PHYSICAL EXAM AT DISCHARGE General Appearance: positive: No acute distress, Alert Respiratory: positive: Chest non-tender, No respiratory distress, Breath sounds nml Cardiovascular: positive: Regular rate & rhythm, No murmur, No gallop Abdomen: positive: Non-tender, No organomegaly, Nml bowel sounds Neurologic/Psychiatric: positive: Oriented x3 - LABS Result Diagrams: 09/18/23 07:20 09/18/23 04:41 - FOLLOW UP Follow Up: Follow-up with PCP and Palliative care. Will need a tapering regimen outpatient for his Clonazepam. Can consider increasing memantine to 10 mg. - TIME SPENT Time Spent in Discharge (Minutes): 35"
== END 2023-09-18 12:37 | DRG 65 ==
LOC: EDUNIT# → ED 09:20 → MS2 16:48
PROVIDERS: ADMIT Internal Medicine; ATTEND Family Medicine
DX: I63.9 Cerebral infarction, unspecified (principal); G81.94 Hemiplegia, unspecified affecting left nondominant side; Z79.4 Long term (current) use of insulin; Z79.84 Long term (current) use of oral hypoglycemic drugs; E11.43 Type 2 diabetes mellitus with diabetic autonomic (poly)neuropathy; K31.84 Gastroparesis; E11.9 Type 2 diabetes mellitus without complications; I44.7 Left bundle-branch block, unspecified; I49.3 Ventricular premature depolarization; G20.A1 Parkinson's disease without dyskinesia, without mention of fluctuations; F02.80 Dementia in other diseases classified elsewhere, unspecified severity, without behavioral disturbance, psychotic disturbance, mood disturbance, and anxiety; Z66 Do not resuscitate; G89.29 Other chronic pain; Z88.8 Allergy status to other drugs, medicaments and biological substances; I11.0 Hypertensive heart disease with heart failure; I50.9 Heart failure, unspecified; E78.00 Pure hypercholesterolemia, unspecified; I25.10 Atherosclerotic heart disease of native coronary artery without angina pectoris; I25.2 Old myocardial infarction; J44.9 Chronic obstructive pulmonary disease, unspecified; N40.0 Benign prostatic hyperplasia without lower urinary tract symptoms; F32.A Depression, unspecified; F41.9 Anxiety disorder, unspecified; M19.90 Unspecified osteoarthritis, unspecified site; M54.9 Dorsalgia, unspecified; Z79.899 Other long term (current) drug therapy; R47.9 Unspecified speech disturbances; E87.6 Hypokalemia; Z89.422 Acquired absence of other left toe(s); R13.10 Dysphagia, unspecified
CPT/HCPCS: 36415; 51702; 70450; 80048; 80053; 80061; 81001; 82009; 82803; 83036; 83605; 83690; 83735; 85025; 87077; 87086; 87181; 92610; 93005; 94640; 96361; 96374; 97116; 97163; 97166; 97530; 97535; 99285; A9270; J1815; J7120; 83721

== ENCOUNTER 2023-09-19 02:29 | Outpatient (CLI) | payer MEDICARE, MEDICAID | END 2023-09-19 02:30 | disposition critical access hospital (66) | LOC: EMS 02:29 | DX: M54.2 Cervicalgia (principal); M54.50 Low back pain, unspecified; W19.XXXA Unspecified fall, initial encounter; Y92.098 Other place in other non-institutional residence as the place of occurrence of the external cause | CPT/HCPCS: A0425; A0429 ==

== ENCOUNTER 2023-09-19 02:37 | Emergency (ER) | payer MEDICARE, MEDICAID ==
[2023-09-19] MEDS ORDERED: ACETAMINOPHEN 325 MG TABLET PO STA (03:29)
--- NOTE | 2023-09-19 03:57 | ED Physician Documentation ---
History of Present Illness - Stated complaint Stated Complaint: FALL - Chief complaint Chief Complaint: Trauma Ch/Bk - History obtained from History obtained from: Patient, EMS - Additonal information Additional information: 73yM with dementia presents from [facility] s/p unwitnessed fall with possible HT and unknown LOC. patient also c/o lower back pain s/p fall. no visible injuries. history limited by patient dementia. AOX1 Review of Systems Unable to obtain: Dementia PD PAST MEDICAL HISTORY - Past Medical History Cardiovascular: Congestive heart failure, Hypertension, High cholesterol, Coronary artery disease, [place] Respiratory: COPD Neuro: Dementia, CVA, TIA, Parkinson's Endocrine/Autoimmune: Type 2 diabetes GI: Ulcers : Benign prostate hypertrophy HEENT: Other Psych: Depression, Anxiety, Panic attacks, ADD/ADHD, Other (hallucinations) Musculoskeletal: Osteoarthritis, Chronic back pain, Other (amputation of all toes) - Past Surgical History Past Surgical History: Yes General: Bowel surgery Ortho: Spine surgery, Amputation, Other - Present Medications Home Medications: Ambulatory Orders Medication Instructions Recorded Confirmed Ondansetron Odt [Zofran Odt] 4 mg TL Q6H PRN #10 tablet 09/09/23 09/13/23 Aspirin EC [Ecotrin] 81 mg PO DAILY #30 tab 09/17/23 Atorvastatin Calcium [Lipitor] 80 mg PO DAILY #30 09/17/23 09/13/23 Cholecalciferol (Vitamin D3) 50 mcg PO DAILY 30 Days #30 09/17/23 09/13/23 [Vitamin D3] Empagliflozin [Jardiance] 10 mg ORAL DAILY 30 Days #30 09/17/23 09/13/23 Famotidine [Pepcid] 20 mg ORAL QPM #30 tab 09/17/23 09/13/23 Insulin NPH Human [HumuLIN N] 7 unit SUBQ BID 30 Days #0 09/17/23 09/13/23 Insulin Regular Human [NovoLIN R] 10 - 30 units SUBQ TIDWM 30 Days #0 09/17/23 09/13/23 Losartan Potassium 12.5 mg ORAL DAILY #30 09/17/23 09/13/23 Magnesium Oxide [Mag Ox] 400 mg PO DAILY #30 09/17/23 09/13/23 Memantine [Namenda] 5 mg PO QPM #30 tab 09/17/23 Metformin HCl 1,000 mg PO BID 30 Days #0 09/17/23 09/13/23 Metoclopramide [Reglan] 5 mg PO TID 30 Days #0 09/17/23 09/13/23 Omeprazole Magnesium 20 mg PO BID #30 09/17/23 09/13/23 Potassium Chloride 20 meq ORAL DAILY 30 Days #0 09/17/23 09/13/23 Propranolol [Inderal] 10 mg ORAL TID 30 Days #0 09/17/23 09/13/23 QUEtiapine [SEROquel] 25 - 50 mg PO QPM PRN 30 Days #0 09/17/23 09/13/23 Senna [Senokot] 8.6 mg PO BID PRN 30 Days 09/17/23 09/13/23 Sucralfate [Carafate] 1 gm PO 0800 30 Days ea 09/17/23 Tamsulosin HCl [Flomax] 0.4 mg PO HS 30 Days #0 09/17/23 09/13/23 Terbinafine HCl [Lamisil At] 1 applic TP BID 30 Days #0 09/17/23 09/13/23 metFORMIN [Glucophage] 500 mg PO BIDWM #30 tab 09/17/23 traZODone [Desyrel] 50 mg PO QPM 30 Days #30 tab 09/17/23 Methylphenidate HCl [Ritalin LA] 20 mg PO TID #30 cap 09/18/23 Morphine Ir [Ms Ir] 15 mg ORAL Q4H #30 tab 09/18/23 clonazePAM [Clonazepam] 1 - 2 tab PO HS PRN #30 tab 09/18/23 - Allergies Allergies/Adverse Reactions: Allergies Allergy/AdvReac Type Severity Reaction Status Date / Time iodine Allergy Itching Verified 09/09/23 08:07 ketorolac [From Toradol] Allergy Rash Verified 09/09/23 08:07 tositumomab Allergy Unknown Verified 09/19/23 02:46 - Social History Does the pt smoke?: No Smoking Status: Unknown if ever smoked Does the pt drink ETOH?: No Does the pt have substance abuse?: No - Immunizations Immunizations are current?: Yes - POLST Patient has POLST: Yes PD ED PE NORMAL - Vitals Vital signs reviewed: Yes - General General: No acute distress, Well developed/nourished, Other (AOX1) - HEENT HEENT: Atraumatic, PERRL, EOMI, Moist mucous membranes, Pharynx benign - Neck Neck: No bony TTP, Other (soft blanket collar in place) - Cardiac Cardiac: RRR - Respiratory Respiratory: No respiratory distress, Clear bilaterally - Abdomen Abdomen: Non tender, Non distended - Back Back: No spinal TTP - Derm Derm: Normal color, Warm and dry - Extremities Extremities: No deformity, Normal ROM s pain Results - Vitals Vitals: Vital Signs - 24 hr 09/19/23 09/19/23 09/19/23 02:42 03:00 06:38 Temperature 36.5 C Heart Rate 92 84 67 Respiratory 17 18 16 Rate Blood Pressure 145/82 H 159/98 H 142/89 H O2 Saturation 97 97 98 Oxygen O2 Source Room air PD Medical Decision Making - ED course ED course: 73yM DNR / DNI selective measures only presents from [facility] with unwitnessed fall and reported back pain. Patient with severe dementia and unable to give a history. He appears to have no complaints at this time. CT head/c spine and cxr/pelvic xrays undertaken. No acute findings. plan to f/u outpatient with pcp. Departure - Departure Disposition: 01 Home, Self Care Clinical Impression: Fall, Dementia Condition: Stable Instructions: Patient When Falls Comments: You were seen in the emergency department for fall. Your CT head and neck and chest and pelvis xrays looked okay, with no signs of acute injury. Please follow-up with your primary care provider and return to the emergency department if you have any new or worsening symptoms or other concerns. Forms: PCP List
--- NOTE | 2023-09-19 07:40 | CT Report ---
PROCEDURE: CERVICAL SPINE WO INDICATIONS: fall, unwitnessed. patient with dementia TECHNIQUE: Noncontrast 3 mm thick sections acquired from the skull base to the T4 level. Sagittal and coronal r eformats were then constructed. For radiation dose reduction, the following was used: automated exp osure control, adjustment of mA and/or kV according to patient size. COMPARISON: None. FINDINGS: Image quality: Excellent. Bones: No fractures or dislocations. Visualized superior ribs are intact. Cervical spondylitic victoriano nge. Peripheral calcified disc protrusions at C3-C4 and C4-C5. Uncovertebral joint hypertrophy result s in bony foraminal narrowing from C3-C4 through C5-C6. Soft tissues: Prevertebral soft tissues are normal in thickness. No paravertebral hematomas. No ap ical pneumothoraces. IMPRESSION: 1. No acute cervical fracture or dislocation. 2. Cervical spondylosis. Findings are concordant with preliminary interpretation provided by [facility]. Reviewed by: Van Hutchison MD on 09/19/2023 7:39 AM PST Approved by: Van Hutchison MD on 09/19/2023 7:39 AM PST Station ID: [id number]
--- NOTE | 2023-09-19 07:44 | CT Report ---
PROCEDURE: HEAD WO INDICATIONS: fall, unwitnessed. patient with dementia TECHNIQUE: Noncontrast 4.5 mm thick angled axial sections acquired from the foramen magnum to the vertex. For r adiation dose reduction, the following was used: automated exposure control, adjustment of mA and/or kV according to patient size. COMPARISON: 09/12/2023. FINDINGS: Image quality: Excellent. CSF spaces: Basal cisterns are patent. No extra-axial fluid collections. Ventricles are normal in size and shape. Brain: No midline shift. No intracranial masses or hemorrhage. Again noted is a subacute infarct in volving a moderately large portion of the right MCA territory, involving temporal lobe and frontopari etal cortex with possible minimal involvement of the right occipital lobe. Cytotoxic edema is present . There is no significant mass effect on the right lateral ventricle. Skull and face: Calvarium and visualized facial bones are intact, without suspicious lesions. Sinuses: Visualized sinuses and mastoids are clear. IMPRESSION: 1. Moderately large subacute right MCA distribution infarct. No hemorrhage or significant mass effect . Infarct was noted on previous study, as well. Findings are concordant with preliminary interpretation provided by [facility]. Reviewed by: Van Hutchison MD on 09/19/2023 7:42 AM PST Approved by: Van Hutchison MD on 09/19/2023 7:42 AM PST Station ID: [id number]
[2023-09-19 08:16] VITALS: BP 128/81; O2SAT 96
--- NOTE | 2023-09-19 08:25 | XRAY Report ---
PROCEDURE: Chest 1 View X-Ray INDICATIONS: fall, unwitnessed. patient with dementia TECHNIQUE: One view of the chest was acquired. COMPARISON: None. FINDINGS: Surgical changes and devices: Spinal fusion hardware. Lungs and pleura: No pleural effusions or pneumothorax. Lungs are clear. Mediastinum: Mediastinal contours appear normal. Heart size is large. Bones and chest wall: No suspicious bony lesions. Overlying soft tissues appear unremarkable. Chr onic appearing right humeral neck fracture. IMPRESSION: No acute cardiopulmonary process. Cardiomegaly. Findings are concordant with preliminary interpretation provided by [facility]. Reviewed by: Elvin Barnes MD on 09/19/2023 8:23 AM PST Approved by: Elvin Barnes MD on 09/19/2023 8:23 AM PST Station ID: [id number]
--- NOTE | 2023-09-19 08:28 | XRAY Report ---
PROCEDURE: Pelvis 3 View INDICATIONS: fall, unwitnessed. patient with dementia TECHNIQUE: 3 view(s) of the pelvis acquired. COMPARISON: None. FINDINGS: Bones: No fractures or dislocations. No suspicious bony lesions. Soft tissues: Visualized bowel gas pattern is normal. No suspicious soft tissue calcifications. IMPRESSION: No acute bony abnormality. If there remains a high clinical concern for fracture, including inability to bear weight, consider cross-sectional imaging to exclude an occult fracture. Reviewed by: Elvin Barnes MD on 09/19/2023 8:27 AM PST Approved by: Elvin Barnes MD on 09/19/2023 8:27 AM PST Station ID: [id number]
== END 2023-09-19 09:03 | disposition home or self-care (01) ==
LOC: ED 02:37
DX: M54.50 Low back pain, unspecified (principal); W19.XXXA Unspecified fall, initial encounter; G20.A1 Parkinson's disease without dyskinesia, without mention of fluctuations; F02.80 Dementia in other diseases classified elsewhere, unspecified severity, without behavioral disturbance, psychotic disturbance, mood disturbance, and anxiety; Z66 Do not resuscitate; I11.0 Hypertensive heart disease with heart failure; I50.9 Heart failure, unspecified; E78.00 Pure hypercholesterolemia, unspecified; I25.10 Atherosclerotic heart disease of native coronary artery without angina pectoris; J44.9 Chronic obstructive pulmonary disease, unspecified; E11.9 Type 2 diabetes mellitus without complications; Z86.73 Personal history of transient ischemic attack (TIA), and cerebral infarction without residual deficits; Z79.899 Other long term (current) drug therapy; Z79.82 Long term (current) use of aspirin; Z79.4 Long term (current) use of insulin; Z79.84 Long term (current) use of oral hypoglycemic drugs
CPT/HCPCS: 70450; 71045; 72125; 72190; 99283; 99284; A9270

== ENCOUNTER 2023-09-19 08:40 | Outpatient (CLI) | payer MEDICARE, MEDICAID | END 2023-09-19 08:41 | LOC: EMS 08:40 | DX: R41.0 Disorientation, unspecified (principal); F03.90 Unspecified dementia, unspecified severity, without behavioral disturbance, psychotic disturbance, mood disturbance, and anxiety | CPT/HCPCS: A0425; A0428 ==

== ENCOUNTER 2023-09-23 16:00 | Outpatient (CLI) | payer MEDICARE, MEDICAID | END 2023-09-23 23:59 | disposition critical access hospital (66) | LOC: EMS 16:00 | DX: R53.1 Weakness (principal); R41.82 Altered mental status, unspecified | CPT/HCPCS: A0425; A0429 ==

== ENCOUNTER 2023-09-23 16:10 | Inpatient (IN) | payer MEDICARE, MEDICAID ==
[2023-09-23] MEDS ORDERED: NALOXONE 0.4 MG/ML VIAL ONE ×2 (16:24→17:13)
[2023-09-23 16:53] LABS: BASOPHILS % (AUTO) 0.3 %; EOSINOPHILS # (AUTO) 0.1 10^3/uL (0.0-0.7); EOSINOPHILS % (AUTO) 0.6 %; HCT - HEMATOCRIT 52.6 % (42.0-52.0); HGB - HEMOGLOBIN 16.1 g/dL (14.0-18.0); LYMPHOCYTES % (AUTO) 8.9 %; MEAN CORPUSCULAR HEMOGLOBIN 28.2 pg (27.0-31.0); MEAN CORPUSCULAR HGB CONC 30.6 g/dL (32.0-36.0); MEAN CORPUSCULAR VOLUME 92.3 fL (80.0-94.0); MEAN PLATELET VOLUME 10.4 fL (7.4-11.4); MONOCYTES % (AUTO) 8.5 %; NEUTROPHILS # (AUTO) 9.5 10^3/uL (1.5-6.6); NEUTROPHILS % (AUTO) 81.4 %; PLT - PLATELET COUNT 369 10^3/uL (130-450); WHITE BLOOD COUNT 11.7 x10^3/uL (4.8-10.8)
[2023-09-23 16:55] LABS: VBG HCO3 28.5 mmol/L (23-28); VBG PCO2 55.6 mmHg (41-51); VBG PH 7.328 (7.31-7.41); VBG PO2 22.1 mmHg (25-47)
[2023-09-23 16:56] LABS: VBG BASE EXCESS 1.1 mmol/L (-2 - +2); VBG OXYGEN SATURATION 38.6 % (60-80); VBG TOTAL CO2 30.2 mmol/L (24-29)
[2023-09-23 17:04] LABS: INR 1.4 (0.8-1.2)
[2023-09-23 17:08] LABS: ALBUMIN/GLOBULIN RATIO 1.3 (1.0-2.2); ALKALINE PHOSPHATASE 148 IU/L (42-121); ALT ALANINE AMINOTRANSFERASE 10 IU/L (10-60); AST ASPARTATE AMINOTRANSFERASE 22 IU/L (10-42); BILIRUBIN,TOTAL 1.5 mg/dL (0.2-1.0); BUN - BLOOD UREA NITROGEN 13 mg/dL (6-20); CALCIUM 9.7 mg/dL (8.5-10.3); CARBON DIOXIDE - CO2 27 mmol/L (21-32); CHLORIDE 99 mmol/L (101-111); CREATININE 1.1 mg/dL (0.6-1.3); ETOH - ETHANOL < 10.0 mg/dL; GFR - MDRD 66 (>89); GLUCOSE 144 mg/dL (74-104); MAGNESIUM 1.5 mg/dL (1.7-2.3); POTASSIUM 5.1 mmol/L (3.5-4.5); SODIUM 138 mmol/L (135-145)
[2023-09-23] MEDS ORDERED: NALOXONE 0.4 MG/ML VIAL IVP STA ×3 (17:20→22:22)
[2023-09-23 17:25] LABS: LIPASE < 10 U/L (11-82)
--- NOTE | 2023-09-23 17:26 | CT Report ---
PROCEDURE: HEAD WO INDICATIONS: AMS TECHNIQUE: Noncontrast 4.5 mm thick angled axial sections acquired from the foramen magnum to the vertex. For r adiation dose reduction, the following was used: automated exposure control, adjustment of mA and/or kV according to patient size. COMPARISON: 09/19/2023. FINDINGS: Image quality: Diagnostic. CSF spaces: Basal cisterns are patent. No extra-axial fluid collections. Ventricles are normal in size and shape. Brain: No midline shift. No intracranial masses or hemorrhage. No mass effect. There is persistent mild asymmetric hypoattenuation and minimal loss of bell-white matter differentiation involving the right MCA territory. Findings are again consistent with moderate sized subacute infarction. No acute intracranial hemorrhage in this region. There cerebral volume loss for age with resultant ventricular and sulcal prominence. There are periventricular and deep white matter chronic small vessel ischemic changes. Atherosclerotic calcifications are noted in the intracranial segments of the bilateral inte rnal carotid arteries. Skull and face: Calvarium and visualized facial bones are intact, without suspicious lesions. Sinuses: Visualized sinuses and mastoids are clear. IMPRESSION: Redemonstration of moderately large subacute right MCA distribution infarction without acute hemorrha ge or increased mass effect. No new acute findings identified. If there is persistent clinical concern for new cerebral infarction, consider further evaluation with MRI. Reviewed by: Vishal Vera MD on 09/23/2023 5:25 PM PST Approved by: Vishal Vera MD on 09/23/2023 5:25 PM PST Station ID: [id number]
--- NOTE | 2023-09-23 17:27 | XRAY Report ---
PROCEDURE: Chest 1V INDICATIONS: chest pain TECHNIQUE: One view of the chest was acquired. COMPARISON: 09/19/2023 FINDINGS: Surgical changes and devices: Stable partially visualized lower thoracic thoracic spinal fusion hard grimes. Lungs and pleura: No pleural effusions or pneumothorax. Lungs are clear. Mediastinum: Mediastinal contours appear normal. Heart size is normal. Bones and chest wall: No suspicious bony lesions. Overlying soft tissues appear unremarkable. IMPRESSION: No acute cardiopulmonary process. No acute airspace disease. Reviewed by: Vishal Vera MD on 09/23/2023 5:26 PM PST Approved by: Vishal Vera MD on 09/23/2023 5:26 PM PST Station ID: [id number]
--- NOTE | 2023-09-23 18:07 | ED Physician Documentation ---
History of Present Illness - Stated complaint Stated Complaint: WEAKNESS - Chief complaint Chief Complaint: Neuro - Additonal information Additional information: Patient 73-year-old male presenting from [facility] for altered mental status and extremity weakness. Past medical significant for recent stroke which is left him with significant deficits in his left upper and left lower extremity. Per EMS report he was working with physical therapy and they believe that he became more confused and possibly has been demonstrating increased weakness in his left arm and leg. On arrival to the emergency department he was found to have oxygen saturations in the 80s. History is limited by his altered mentation. Review of Systems Unable to obtain: Confused, Dementia PD PAST MEDICAL HISTORY - Past Medical History Past Medical History: Yes Cardiovascular: Congestive heart failure, Hypertension, High cholesterol, Coronary artery disease, [place] Respiratory: COPD Neuro: Dementia, CVA, TIA, Parkinson's Endocrine/Autoimmune: Type 2 diabetes GI: Ulcers : Benign prostate hypertrophy HEENT: Other Psych: Depression, Anxiety, Panic attacks, ADD/ADHD, Other Musculoskeletal: Osteoarthritis, Chronic back pain, Other - Past Surgical History Past Surgical History: Yes General: Bowel surgery Ortho: Spine surgery, Amputation, Other - Present Medications Home Medications: Ambulatory Orders Medication Instructions Recorded Confirmed Ondansetron Odt [Zofran Odt] 4 mg TL Q6H PRN #10 tablet 09/09/23 09/23/23 Aspirin EC [Ecotrin] 81 mg PO DAILY #30 tab 09/17/23 09/23/23 Atorvastatin Calcium [Lipitor] 80 mg PO DAILY #30 09/17/23 09/23/23 Cholecalciferol (Vitamin D3) 50 mcg PO DAILY 30 Days #30 09/17/23 09/23/23 [Vitamin D3] Empagliflozin [Jardiance] 10 mg ORAL DAILY 30 Days #30 09/17/23 09/23/23 Famotidine [Pepcid] 20 mg ORAL QPM #30 tab 09/17/23 09/23/23 Insulin Regular Human [NovoLIN R] 10 - 30 units SUBQ TIDWM 30 Days #0 09/17/23 09/23/23 Losartan Potassium 12.5 mg ORAL DAILY #30 09/17/23 09/23/23 Magnesium Oxide [Mag Ox] 400 mg PO DAILY #30 09/17/23 09/23/23 Memantine [Namenda] 5 mg PO QPM #30 tab 09/17/23 09/23/23 Metoclopramide [Reglan] 5 mg PO TID 30 Days #0 09/17/23 09/23/23 Omeprazole Magnesium 20 mg PO BID #30 09/17/23 09/23/23 Potassium Chloride 20 meq ORAL DAILY 30 Days #0 09/17/23 09/23/23 Propranolol [Inderal] 10 mg ORAL TID 30 Days #0 09/17/23 09/23/23 QUEtiapine [SEROquel] 25 - 50 mg PO QPM PRN 30 Days #0 09/17/23 09/23/23 Senna [Senokot] 8.6 mg PO BID PRN 30 Days 09/17/23 09/23/23 Sucralfate [Carafate] 1 gm PO 0800 30 Days ea 09/17/23 09/23/23 Tamsulosin HCl [Flomax] 0.4 mg PO HS 30 Days #0 09/17/23 09/23/23 Terbinafine HCl [Lamisil At] 1 applic TP BID 30 Days #0 09/17/23 09/23/23 metFORMIN [Glucophage] 500 mg PO BIDWM #30 tab 09/17/23 09/23/23 traZODone [Desyrel] 50 mg PO QPM 30 Days #30 tab 09/17/23 09/23/23 Methylphenidate HCl [Ritalin LA] 20 mg PO TID #30 cap 09/18/23 09/23/23 Morphine Ir [Ms Ir] 15 mg ORAL Q4H #30 tab 09/18/23 09/23/23 clonazePAM [Clonazepam] 1 - 2 tab PO HS PRN #30 tab 09/18/23 09/23/23 - Allergies Allergies/Adverse Reactions: Allergies Allergy/AdvReac Type Severity Reaction Status Date / Time iodine Allergy Itching Verified 09/23/23 16:19 ketorolac [From Toradol] Allergy Rash Verified 09/23/23 16:19 tositumomab Allergy Unknown Verified 09/23/23 16:19 - Social History Does the pt smoke?: No Smoking Status: Never smoker Does the pt drink ETOH?: No Does the pt have substance abuse?: No - Immunizations Immunizations are current?: Yes - POLST Patient has POLST: Yes PD ED PE NORMAL - Vitals Vital signs reviewed: Yes - General General: No acute distress - HEENT HEENT: Atraumatic, Other (Pinpoint pupils) - Neck Neck: Supple, no meningeal sign - Cardiac Cardiac: RRR - Respiratory Respiratory: No respiratory distress - Abdomen Abdomen: Normal bowel sounds, Non tender - Male Male : Deferred - Rectal Rectal: Deferred - Extremities Extremities: No deformity - Neuro Neuro: Other (Slight left-sided facial droop, left upper and left lower extremity weakness consistent with known history CVA.) Results - Vitals Vitals: Vital Signs - 24 hr 09/23/23 09/23/23 09/23/23 16:13 16:18 16:30 Temperature 36.5 C Heart Rate 69 Respiratory 15 Rate Blood Pressure 99/53 L O2 Saturation 81 L 93 If not protocol 15 : Oxygen Flow, liters/minute 09/23/23 09/23/23 17:29 18:29 Temperature Heart Rate 78 72 Respiratory 20 18 Rate Blood Pressure 146/84 H 100/61 O2 Saturation 95 98 If not protocol 5 5 : Oxygen Flow, liters/minute Oxygen O2 Source Nasal cannula - EKG (time done) 1724 EKG releavant findings:: EKG personally interpreted by author of this note. Relevant findings are: Sinus rhythm with rate 86 bpm. Right axis deviation. Right bundle branch block. Frequent premature ventricular complexes. QTc is prolonged at 540 ms. There is no significant change in comparison to previous EKG from earlier this month. - Labs Labs: Laboratory Tests 09/23/23 09/23/23 09/23/23 16:46 16:46 16:46 WBC 11.7 H RBC 5.70 Hgb 16.1 Hct 52.6 H MCV 92.3 MCH 28.2 MCHC 30.6 L RDW 13.0 Plt Count 369 MPV 10.4 Neut # (Auto) 9.5 H Lymph # (Auto) 1.0 L [place] # (Auto) 1.0 Eos # (Auto) 0.1 Baso # (Auto) 0.0 Absolute Nucleated RBC 0.00 Nucleated RBC % 0.0 PT 15.0 H INR 1.4 H VBG pH VBG pCO2 VBG pO2 VBG HCO3 VBG Total CO2 VBG O2 Saturation VBG Base Excess Sodium 138 Potassium 5.1 H Chloride 99 L Carbon Dioxide 27 Anion Gap 12.0 BUN 13 Creatinine 1.1 Estimated GFR (MDRD) 66 L Glucose 144 H Calcium 9.7 Magnesium 1.5 L Total Bilirubin 1.5 H AST 22 ALT 10 Alkaline Phosphatase 148 H Troponin I High Sens Total Protein 7.0 Albumin 4.0 Globulin 3.0 Albumin/Globulin Ratio 1.3 Lipase < 10 L Ethyl Alcohol < 10.0 09/23/23 09/23/23 16:46 16:46 WBC RBC Hgb Hct MCV MCH MCHC RDW Plt Count MPV Neut # (Auto) Lymph # (Auto) [place] # (Auto) Eos # (Auto) Baso # (Auto) Absolute Nucleated RBC Nucleated RBC % PT INR VBG pH 7.328 VBG pCO2 55.6 H VBG pO2 22.1 L VBG HCO3 28.5 H VBG Total CO2 30.2 H VBG O2 Saturation 38.6 L VBG Base Excess 1.1 Sodium Potassium Chloride Carbon Dioxide Anion Gap BUN Creatinine Estimated GFR (MDRD) Glucose Calcium Magnesium Total Bilirubin AST ALT Alkaline Phosphatase Troponin I High Sens 55.5 H* Total Protein Albumin Globulin Albumin/Globulin Ratio Lipase Ethyl Alcohol PD Medical Decision Making - ED course Complexity details: reviewed results, considered differential, d/w patient, d/w family ED course: Patient 73-year-old male presenting to the emergency department with altered mentation. He is coming from [facility] where he is currently in treatment for right MCA infarct with significant left-sided deficits. On arrival to the emergency department identified is hypoxic with oxygen saturations in the 80s. Notable pinpoint pupils. Patient confused on arrival. Given Narcan with almost immediate improvement in mentation and spontaneous respiration. He was able to maintain saturations in the 98Percent after his ini tial dose of Narcan however shortly thereafter he began to desat again and was given a second dose here in the emergency department. His EKG demonstrates a right bundle branch block that is unchanged from previous.CT head was nonacute.He was mildly hypomagnesemic and had a minimal elevation in high-sensitivity troponin. A 2-hour repeat is pending now. Overall my clinical impression at this time is inadvertent opiate overdose. Discharge view does demonstrate that he is on immediate release morphine. Will be signing him out to the oncoming physician, please see their documentation for further detail. Departure - Departure Clinical Impression: Hypomagnesemia Opiate overdose Qualifiers: Encounter type: initial encounter Injury intent: accidental or unintentional Qualified Code(s): T40.601A - Poisoning by unspecified narcotics, accidental (unintentional), initial encounter Forms: PCP List
[2023-09-23 18:53] LABS: B. PARAPERTUSSIS- RESP PCR PAN NOT DETECTED; B. PERTUSSIS- RESP PCR PANEL NOT DETECTED; C. PNEUMONIAE- RESP PCR PANEL NOT DETECTED; CORONAVIRUS 229E-RESP PCR NOT DETECTED; CORONAVIRUS HKU1-RESP PCR NOT DETECTED; CORONAVIRUS NL63-RESP PCR NOT DETECTED; CORONAVIRUS OC43-RESP PCR NOT DETECTED; HUMAN METAPNEUMOVIRUS NOT DETECTED; INFLUENZA A- RESP PCR PANEL NOT DETECTED; INFLUENZA B - RESP PCR PANEL NOT DETECTED; M. PNEUMONIAE- RESP PCR PANEL NOT DETECTED; PARAINFLUENZA VIRUS 1 NOT DETECTED; PARAINFLUENZA VIRUS 2 NOT DETECTED; PARAINFLUENZA VIRUS 3 NOT DETECTED; PARAINFLUENZA VIRUS 4 NOT DETECTED; RHINOVIRUS/ENTEROVIRUS NOT DETECTED; RSV- RESP PCR PANEL NOT DETECTED; SARS-CoV-2 -RESP PCR PANEL NOT DETECTED
[2023-09-23 19:44] LABS: GLUCOSE, URINE (UA) >=1000 mg/dL (NEGATIVE); KETONES,URINE (UA) 15 mg/dL (NEGATIVE); LEUKOCYTE ESTERASE, URINE NEGATIVE (NEGATIVE); NITRITE,URINE NEGATIVE (NEGATIVE); OCCULT BLOOD,URINE NEGATIVE (NEGATIVE); PH,URINE 5.5 PH (5.0-7.5); PROTEIN,URINE NEGATIVE (NEGATIVE); UROBILINOGEN,URINE 0.2 (NORMAL) E.U./dL (NORMAL)
[2023-09-23 19:53] LABS: BILIRUBIN,URINE NEGATIVE (NEGATIVE); CLARITY,URINE CLEAR (CLEAR); ICTOTEST,URINE NEGATIVE
[2023-09-23 19:55] LABS: AMPHETAMINE SCREEN,URINE NEGATIVE (NEGATIVE); BARBITURATE SCREEN,UR NEGATIVE (NEGATIVE); BENZODIAZEPINES SCREEN, URINE NEGATIVE (NEGATIVE); COCAINE SCREEN URINE NEGATIVE (NEGATIVE); METHADONE SCREEN, URINE NEGATIVE (NEGATIVE); METHAMPHETAMINES SCREEN, URINE NEGATIVE (NEGATIVE); OPIATE SCREEN, URINE POSITIVE (NEGATIVE); THC CANNABINOID SCREEN, URINE NEGATIVE (NEGATIVE); TRICYCLIC ANTIDEPRESSANT,URINE POSITIVE (NEGATIVE)
[2023-09-23 19:56] LABS: BUPRENORPHINE SCREEN, URINE NEGATIVE (NEGATIVE); OXYCODONE SCREEN, URINE NEGATIVE (NEGATIVE)
[2023-09-23] MEDS ORDERED: QUEtiapine 25 MG TABLET PO STA (20:53)
[2023-09-23] MEDS ORDERED: SODIUM CHLORIDE 0.9% 1,000 ML IV STA (22:11)
--- NOTE | 2023-09-23 22:44 | ED Physician Documentation ---
ED Addendum - Addendum Addendum: 09/23/23 22:41 Patient endorsed to me by Dr. Loera at 10 PM shift change. Patient has required multiple doses of IV Merrem Narcan for inadvertent opiate overdose at his snf. His medication list states that he takes morphine 50 mg orally every 4 hours as needed. Just prior to my taking over, nursing staff reported to us that he was desaturating into the 80s with decreased respiratory rate. He responded well to 1 mg IV Narcan. Decision made to admit to the nighttime telehealth hospitalist at this time. Impression 1. morphine overdose Disposition admit Condition stable
[2023-09-23] MEDS ORDERED: IPRATROPIUM/ALBUTEROL 3 ML NEB INH STA (22:49)
--- NOTE | 2023-09-23 23:09 | HISTORY & PHYSICAL EXAMINATION ---
Chief Complaint - Chief Complaint Chief Complaint: AMS History of Present Illness - Admitted From Admitted From:: ER - History Obtained From Records Reviewed: Yes History obtained from: Staff, chart Exam Limitations: Virtual exam, pt's condition - History of Present Illness HPI Comment/Other: H&P was conducted via video remotely, using Access Cart. [place] is in [place]. Physician [place] in [place]. No one is at bedside. Unable to obtain history from pt d/t pt's clinical condition. History obtained from staff, chart. 73 yo M with PMH of Parkinson's with Dementia, Chronic pain, DM type 2 with DM Gastroparesis, HTN, HLD, BPH, GERD and recent CVA with L HP presented from SNF for c/o 1 day h/o AMS. Pt was hospitalized from 09/12-09/19/23 for CVA with resulting L sided HP. He was discharged to SNF for PT/OT. Pt had been seeing Dayanna Robles and had a pain mgmt contract for his Morphine and this was continued at the SNF. Today, while he was doing PT, he seemed more confused than before and had increased diffuse weakness. Pt thinks that it is 1998. He does not know where he is. He does not know why he is here. He is unable to voice any complaints, when asked. In the ER, SpO2 81% RA, 98% 2L NC O2, BP 73/37-99/53, WBC 11.7, K 5.1, Gcl 144, Mg 1.5, Trop 55.5-57.7, UA: WBC bact, UDS: +opiates Pt also found to have pin-point pupils. Pt was given Narcan and his O2 sats improved. Later, his O2 sats dropped to 85% RA and he was given another Narcan with good result. Pt has been in the ER for 7 hours and has been given 5 dose of Narcan. History - Past Medical History Cardiovascular: reports: Congestive heart failure, Hypertension, High cholesterol, Coronary artery disease, [place] Respiratory: reports: COPD Neuro: reports: Dementia, CVA, TIA, Parkinson's Endocrine/Autoimmune: reports: Type 2 diabetes GI: reports: Ulcers : reports: Benign prostate hypertrophy HEENT: reports: Other Psych: reports: Depression, Anxiety, Panic attacks, ADD/ADHD, Other Musculoskeletal: reports: Osteoarthritis, Chronic back pain, Other MRSA Hx?: No - Past Surgical History General: reports: Bowel surgery Ortho: reports: Spine surgery, Amputation, Other - Family & Social History Family History: Mother: Alive and Well, Father: Alive and Well, Brother: Living Situation: With spouse/s.o. - POLST Patient has POLST: Yes Meds/Allgy - Home Medications Home Medications: Ambulatory Orders Medication Instructions Recorded Confirmed Ondansetron Odt [Zofran Odt] 4 mg TL Q6H PRN #10 tablet 09/09/23 09/23/23 Aspirin EC [Ecotrin] 81 mg PO DAILY #30 tab 09/17/23 09/23/23 Atorvastatin Calcium [Lipitor] 80 mg PO DAILY #30 09/17/23 09/23/23 Cholecalciferol (Vitamin D3) 50 mcg PO DAILY 30 Days #30 09/17/23 09/23/23 [Vitamin D3] Empagliflozin [Jardiance] 10 mg ORAL DAILY 30 Days #30 09/17/23 09/23/23 Famotidine [Pepcid] 20 mg ORAL QPM #30 tab 09/17/23 09/23/23 Insulin Regular Human [NovoLIN R] 10 - 30 units SUBQ TIDWM 30 Days #0 09/17/23 09/23/23 Losartan Potassium 12.5 mg ORAL DAILY #30 09/17/23 09/23/23 Magnesium Oxide [Mag Ox] 400 mg PO DAILY #30 09/17/23 09/23/23 Memantine [Namenda] 5 mg PO QPM #30 tab 09/17/23 09/23/23 Metoclopramide [Reglan] 5 mg PO TID 30 Days #0 09/17/23 09/23/23 Omeprazole Magnesium 20 mg PO BID #30 09/17/23 09/23/23 Potassium Chloride 20 meq ORAL DAILY 30 Days #0 09/17/23 09/23/23 Propranolol [Inderal] 10 mg ORAL TID 30 Days #0 09/17/23 09/23/23 QUEtiapine [SEROquel] 25 - 50 mg PO QPM PRN 30 Days #0 09/17/23 09/23/23 Senna [Senokot] 8.6 mg PO BID PRN 30 Days 09/17/23 09/23/23 Sucralfate [Carafate] 1 gm PO 0800 30 Days ea 09/17/23 09/23/23 Tamsulosin HCl [Flomax] 0.4 mg PO HS 30 Days #0 09/17/23 09/23/23 Terbinafine HCl [Lamisil At] 1 applic TP BID 30 Days #0 09/17/23 09/23/23 metFORMIN [Glucophage] 500 mg PO BIDWM #30 tab 09/17/23 09/23/23 traZODone [Desyrel] 50 mg PO QPM 30 Days #30 tab 09/17/23 09/23/23 Methylphenidate HCl [Ritalin LA] 20 mg PO TID #30 cap 09/18/23 09/23/23 Morphine Ir [Ms Ir] 15 mg ORAL Q4H #30 tab 09/18/23 09/23/23 clonazePAM [Clonazepam] 1 - 2 tab PO HS PRN #30 tab 09/18/23 09/23/23 - Allergies Allergies/Adverse Reactions: Allergies Allergy/AdvReac Type Severity Reaction Status Date / Time iodine Allergy Itching Verified 09/23/23 16:19 ketorolac [From Toradol] Allergy Rash Verified 09/23/23 16:19 [email or web address] Allergy Unknown Verified 09/23/23 16:19 Review of Systems - All Other Systems All Other Systems: reports: Other (Unable to obtain d/t patient's clinical condition) Exam - Vital Signs Reviewed Vital Signs: Yes Vital Signs: Vital Signs x48h Temp Pulse Resp BP Pulse Ox O2 Flow Rate 09/23/23 22:31 68 18 122/68 95 2 09/23/23 22:00 77 15 73/37 L 85 L 09/23/23 21:54 73 18 91/52 L 97 09/23/23 20:00 70 19 105/60 97 2 09/23/23 18:29 72 18 100/61 98 5 09/23/23 17:29 78 20 146/84 H 95 5 09/23/23 16:30 93 15 09/23/23 16:18 81 L 09/23/23 16:13 36.5 C 69 15 99/53 L - Physical Exam General Appearance: positive: No acute distress, Alert Eyes Bilateral: positive: EOMI, No scleral icterus, Other (per ER Provider: pin- point pupils) Respiratory: positive: Other (Access cart stethoscope not working; per ER Provider: CTA B/L) Cardiovascular: positive: Other (Access cart stethoscope not working; per ER Provider: RRR, no murmurs) Abdomen: positive: Other (per ER Provider: non-distended, NT, Soft) Neurologic/Psychiatric: positive: Disoriented to place, Disoriented to time, Other (L sided weakness) Conclusion/Plan - Problem List (1) Opiate overdose Conclusion/Plan: AMS Hypoxia Hypotension Increased Weakness Opiate Overdose Chronic pain -SpO2 81% RA, 98% 2L NC O2, BP 73/37-99/53, UDS: +opiates -Pt also found to have pin-point pupils. -Pt was given Narcan and his O2 sats improved. Later, his O2 sats dropped to 85% RA and he was given another Narcan with good result. Pt has been in the ER for 7 hours and has been given 5 dose of Narcan. -admit to Obs/Med tele -continue O2 support -IVF -Narcan PRN -hold home medications: Morphine IR 15 mg PO Q4 hr, Losartan -recommend changing Morphine to less potent narcotic or reducing dose Elevated Troponin -Trop 55.5-57.7 -EKG: NSR at 86 bpm, +PVCs, no STTw changes -no c/o Chest pain -most likely demand ischemia -continue to trend Troponins UTI Leukocytosis -WBC 11.7, UA: WBC bact, UC pending -Rocephin until UC back Low Mag -Mg 1.5 -supplement now and PRN S/P recent CVA with L HP -continue home medications: ASA, statin -PT/OT consults -back to SNF on discharge Parkinson's with Dementia -continue home medications: Trazodone, Memantine, Ritalin, Propranolol, Seroquel DM type 2 with DM Gastroparesis -Glc 144 -hold home medications: Metformin, Jardiance -continue home medications: Reglan -accuchecks, SS Insulin, Hypoglycemic protocol -recent Hgba1c 8.7 CHF CAD HTN HLD -continue home medications: ASA, statin -hold home medications: Losartan d/t low BP BPH -continue home medications: Flomax GERD -continue home medications: PPI, Pepcid VTE Prophylaxis: Lovenox Code Status: DNR/DNI ~Ashwini Storm MD Hospitalist Qualifiers: Encounter type: initial encounter Injury intent: accidental or unintentional Qualified Code(s): T40.601A - Poisoning by unspecified narcotics, accidental (unintentional), initial encounter - Lab Results Lab results reviewed: Yes Fish Bones: 09/23/23 16:46 09/23/23 16:46
[2023-09-23] MEDS ORDERED: METOCLOPRAMIDE 10 MG TABLET PO PRN (23:12)
[2023-09-23] MEDS ORDERED: ONDANSETRON ODT 4 MG TABLET TL PRN ×2 (23:12→23:17)
[2023-09-23] MEDS ORDERED: SENNA 8.6 MG TABLET PO PRN (23:12)
[2023-09-23] MEDS ORDERED: QUEtiapine 25 MG TABLET PO PRN (23:12)
[2023-09-23] MEDS ORDERED: ACETAMINOPHEN 325 MG TABLET PO PRN (23:17)
[2023-09-23] MEDS ORDERED: ONDANSETRON 4 MG/2 ML VIAL IVP PRN (23:17)
[2023-09-23] MEDS ORDERED: cefTRIAXone 1 GM in SODIUM CHLORIDE 0.9% MINIBAG 100 ML IV SCH (23:42)
[2023-09-23] MEDS ORDERED: SODIUM CHLORIDE 0.9% 1,000 ML IV SCH (23:45)
[2023-09-24] MEDS: NALOXONE 0.4 MG/ML VIAL IVP PRN ×2 (00:10→03:03)
[2023-09-24] MEDS ORDERED: SODIUM CHLORIDE 0.9% 500 ML IV ONE (02:23)
[2023-09-24] MEDS ORDERED: NALOXONE 0.4 MG/ML VIAL ONE (02:26)
[2023-09-24] MEDS: SODIUM CHLORIDE 0.9% 1,000 ML IV SCH ×2 (03:02→12:01)
[2023-09-24] MEDS: NALOXONE 2 MG in SODIUM CHLORIDE 0.9% 495 ML IV SCH ×4 (03:04→18:54)
[2023-09-24] MEDS: SODIUM CHLORIDE FLUSH 0.9% 10 ML SYRINGE IVP PRN (03:05)
[2023-09-24] MEDS: cefTRIAXone 1 GM in SODIUM CHLORIDE 0.9% MINIBAG 100 ML IV SCH (03:32)
[2023-09-24] MEDS: SODIUM CHLORIDE FLUSH 0.9% 10 ML SYRINGE IVP SCH ×3 (03:34→18:09)
[2023-09-24 05:06] LABS: BASOPHILS % (AUTO) 0.2 %; EOSINOPHILS # (AUTO) 0.1 10^3/uL (0.0-0.7); HCT - HEMATOCRIT 39.7 % (42.0-52.0); HGB - HEMOGLOBIN 12.6 g/dL (14.0-18.0); LYMPHOCYTES # (AUTO) 1.4 10^3/uL (1.5-3.5); LYMPHOCYTES % (AUTO) 15.3 %; MEAN CORPUSCULAR HEMOGLOBIN 29.7 pg (27.0-31.0); MEAN CORPUSCULAR HGB CONC 31.7 g/dL (32.0-36.0); MEAN CORPUSCULAR VOLUME 93.6 fL (80.0-94.0); MEAN PLATELET VOLUME 10.2 fL (7.4-11.4); MONOCYTES # (AUTO) 0.8 10^3/uL (0.0-1.0); MONOCYTES % (AUTO) 9.3 %; NEUTROPHILS # (AUTO) 6.6 10^3/uL (1.5-6.6); NEUTROPHILS % (AUTO) 73.9 %; PLT - PLATELET COUNT 278 10^3/uL (130-450); RED BLOOD COUNT 4.24 10^6/uL (4.70-6.10); RED CELL DISTRIBUTION WIDTH 13.2 % (12.0-15.0); WHITE BLOOD COUNT 8.9 x10^3/uL (4.8-10.8)
[2023-09-24 05:12] LABS: CALCIUM, IONIZED 1.02 mmol/L (1.15-1.33); VBG PH 7.406 (7.31-7.41)
[2023-09-24 05:33] LABS: TROPONIN I HIGH SENSITIVITY 55.4 ng/L (2.3-19.7)
[2023-09-24 05:36] LABS: ALBUMIN 2.9 g/dL (3.2-5.5); ALBUMIN/GLOBULIN RATIO 1.5 (1.0-2.2); CREATININE 0.9 mg/dL (0.6-1.3); MAGNESIUM 1.4 mg/dL (1.7-2.3); POTASSIUM 3.7 mmol/L (3.5-4.5); TOTAL PROTEIN 4.8 g/dL (6.4-8.9)
[2023-09-24] MEDS ORDERED: POTASSIUM CHLORIDE 20 MEQ TABLET PO ONE (05:52)
[2023-09-24] MEDS ORDERED: METHYLPHENIDATE HCL 20 MG PO SCH (06:00)
[2023-09-24] MEDS: CALCIUM CARBONATE CHEW 500 MG TABLET PO SCH ×2 (06:26→11:07)
[2023-09-24] MEDS: MAGNESIUM SULFATE 2 GRAM 2 GM/50 ML BAG IV SCH ×2 (06:26→09:24)
[2023-09-24] MEDS: PROPRANOLOL 10 MG TABLET PO SCH ×2 (06:38→14:17)
[2023-09-24] MEDS ORDERED: PANTOPRAZOLE 40 MG TABLET PO SCH (07:00)
[2023-09-24] MEDS ORDERED: POTASSIUM CHLORIDE 20 MEQ TABLET PO SCH (08:00)
[2023-09-24] MEDS ORDERED: SUCRALFATE 1 GM/10 ML UDC PO SCH (08:00)
[2023-09-24] MEDS ORDERED: MAGNESIUM OXIDE 400 MG TABLET PO SCH (09:00)
[2023-09-24] MEDS ORDERED: LOSARTAN 50 MG TABLET PO SCH (09:00)
[2023-09-24] MEDS ORDERED: CHOLECALCIFEROL 25 MCG TABLET PO SCH (09:00)
[2023-09-24] MEDS ORDERED: ATORVASTATIN 40 MG TABLET PO SCH (09:00)
[2023-09-24] MEDS ORDERED: ASPIRIN EC 81 MG TABLET PO SCH (09:00)
[2023-09-24] MEDS: INSULIN LISPRO 300 UNIT/3 ML PEN SUBQ SCH ×2 (09:27→12:02)
[2023-09-24] MEDS: METHYLPHENIDATE HCL 20 MG PO SCH ×2 (11:06→11:16)
[2023-09-24] MEDS: ENOXAPARIN 40 MG/0.4 ML SYRINGE SUBQ SCH (11:15)
[2023-09-24] MEDS ORDERED: SODIUM CHLORIDE 0.9% 1,000 ML IV SCH (12:31)
[2023-09-24 13:19] LABS: CALCIUM, IONIZED 1.09 mmol/L (1.15-1.33); VBG PH 7.397 (7.31-7.41)
[2023-09-24] MEDS ORDERED: ZINC OXIDE 20% OINT 30 GM TUBE TOP PRN (13:23)
[2023-09-24 13:31] LABS: MAGNESIUM 2.3 mg/dL (1.7-2.3)
[2023-09-24 13:32] LABS: POTASSIUM 4.2 mmol/L (3.5-4.5)
--- NOTE | 2023-09-24 14:06 | PROVIDER PROGRESS NOTE ---
Subjective - Subjective Pt reports feeling: Worse (RN reports that he was able to awaken this morning, by noon he was too somnolent to swallow any meds, despite being on a Narcan drip) Objective - Vital Signs/Intake & Output Reviewed Vital Signs: Yes Vital Signs: Vital Signs Temp Pulse Resp BP Pulse Ox O2 Flow Rate 09/24/23 13:00 69 19 138/69 H 98 2 09/24/23 12:00 36.8 C 68 14 136/79 H 97 09/24/23 11:00 66 17 158/81 H 97 09/24/23 10:00 68 12 136/67 H 95 2 Intake & Output: Intake & Output 09/21/23 09/22/23 09/23/23 09/24/23 23:59 23:59 23:59 23:59 Intake Total 1000 2441.000 Output Total 1450 Balance 1000 991.000 - Objective General Appearance: positive: Other (Obtunded, moves R extremities spont, responds to pain only) Eyes Bilateral: positive: Other (Has lid inflammation) ENT: positive: ENT inspection nml, No signs of dehydration Neck: positive: Nml inspection, No JVD Respiratory: positive: No respiratory distress Cardiovascular: positive: Regular rate & rhythm, No murmur Abdomen: positive: Non-tender, No distention Skin: positive: Warm, Dry Extremities: positive: Non-tender, No pedal edema Neurologic/Psychiatric: positive: Other (Obtunded, moves R-sided extrem spont, responds to pain) - Lab Results Fish Bones: 09/24/23 04:25 09/24/23 13:13 Other Labs: Lab Results x24hrs 09/24/23 09/24/23 09/24/23 Range/Units 13:13 13:13 04:25 WBC (4.8-10.8) x10^3/uL RBC (4.70-6.10) 10^6/uL Hgb (14.0-18.0) g/dL Hct (42.0-52.0) % MCV (80.0-94.0) fL MCH (27.0-31.0) pg MCHC (32.0-36.0) g/dL RDW (12.0-15.0) % Plt Count (130-450) 10^3/uL MPV (7.4-11.4) fL Neut # (Auto) (1.5-6.6) 10^3/uL Lymph # (Auto) (1.5-3.5) 10^3/uL [place] # (Auto) (0.0-1.0) 10^3/uL Eos # (Auto) (0.0-0.7) 10^3/uL Baso # (Auto) (0.0-0.1) 10^3/uL Absolute Nucleated RBC x10^3/uL Nucleated RBC % /100WBC PT (9.9-12.6) secs INR (0.8-1.2) VBG pH 7.397 7.406 (7.31-7.41) VBG pCO2 (41-51) mmHg VBG pO2 (25-47) mmHg VBG HCO3 (23-28) mmol/L VBG Total CO2 (24-29) mmol/L VBG O2 Saturation (60-80) % VBG Base Excess (-2 - +2) mmol/L Ionized Calcium 1.09 L 1.02 L (1.15-1.33) mmol/L Sodium (135-145) mmol/L Potassium 4.2 (3.5-4.5) mmol/L Chloride (101-111) mmol/L Carbon Dioxide (21-32) mmol/L Anion Gap (6-13) BUN (6-20) mg/dL Creatinine (0.6-1.3) mg/dL Estimated GFR (MDRD) (>89) Glucose (74-104) mg/dL Calcium (8.5-10.3) mg/dL Phosphorus (2.5-5.0) mg/dL Magnesium 2.3 (1.7-2.3) mg/dL Total Bilirubin (0.2-1.0) mg/dL AST (10-42) IU/L ALT (10-60) IU/L Alkaline Phosphatase (42-121) IU/L Troponin I High Sens (2.3-19.7) ng/L Total Protein (6.4-8.9) g/dL Albumin (3.2-5.5) g/dL Globulin (2.1-4.2) g/dL Albumin/Globulin Ratio (1.0-2.2) Lipase (11-82) U/L Urine Color Urine Clarity (CLEAR) Urine pH (5.0-7.5) PH Ur Specific [place] (1.002-1.030) Urine Protein (NEGATIVE) mg/dL Urine Glucose (UA) (NEGATIVE) mg/dL Urine Ketones (NEGATIVE) mg/dL Urine Occult Blood (NEGATIVE) Urine Nitrite (NEGATIVE) Urine Bilirubin (NEGATIVE) Urine Urobilinogen (NORMAL) E.U./dL Ur Leukocyte Esterase (NEGATIVE) Ur Microscopic Review Urine Culture Comments Nasal Adenovirus (PCR) Nasal B. parapertussis DNA (PCR) Nasal Coronavir 229E PCR Nasal Coronavir HKU1 PCR Nasal Coronavir NL63 PCR Nasal Coronavir OC43 PCR Nasal Enterovir/Rhinovir PCR Nasal Influenza B PCR Nasal Influenza A PCR Nasal Parainfluen 1 PCR Nasal Parainfluen 2 PCR Nasal Parainfluen 3 PCR Nasal Parainfluen 4 PCR Nasal RSV (PCR) Nasal Screen MRSA (PCR) (NEGATIVE) Nasal B.pertussis DNA PCR Nasal C.pneumoniae (PCR) Iain Human Metapneumo PCR Nasal M.pneumoniae (PCR) Nasal SARS-CoV-2 (PCR) Urine Opiates Screen (NEGATIVE) Ur Buprenorphine Scrn (NEGATIVE) Ur Oxycodone Screen (NEGATIVE) Urine Methadone Screen (NEGATIVE) Ur Barbiturates Screen (NEGATIVE) Ur Tricyclics Screen (NEGATIVE) Ur Phencyclidine Scrn (NEGATIVE) Ur Amphetamine Screen (NEGATIVE) U Methamphetamines Scrn (NEGATIVE) U Benzodiazepines Scrn (NEGATIVE) Urine Cocaine Screen (NEGATIVE) U Cannabinoids Screen (NEGATIVE) Ur Drug Screen Comment Ethyl Alcohol mg/dL 09/24/23 09/24/23 09/24/23 Range/Units 04:25 04:25 04:25 WBC 8.9 (4.8-10.8) x10^3/uL RBC 4.24 L (4.70-6.10) 10^6/uL Hgb 12.6 L (14.0-18.0) g/dL Hct 39.7 L (42.0-52.0) % MCV 93.6 (80.0-94.0) fL MCH 29.7 (27.0-31.0) pg MCHC 31.7 L (32.0-36.0) g/dL RDW 13.2 (12.0-15.0) % Plt Count 278 (130-450) 10^3/uL MPV 10.2 (7.4-11.4) fL Neut # (Auto) 6.6 (1.5-6.6) 10^3/uL Lymph # (Auto) 1.4 L (1.5-3.5) 10^3/uL [place] # (Auto) 0.8 (0.0-1.0) 10^3/uL Eos # (Auto) 0.1 (0.0-0.7) 10^3/uL Baso # (Auto) 0.0 (0.0-0.1) 10^3/uL Absolute Nucleated RBC 0.00 x10^3/uL Nucleated RBC % 0.0 /100WBC PT (9.9-12.6) secs INR (0.8-1.2) VBG pH (7.31-7.41) VBG pCO2 (41-51) mmHg VBG pO2 (25-47) mmHg VBG HCO3 (23-28) mmol/L VBG Total CO2 (24-29) mmol/L VBG O2 Saturation (60-80) % VBG Base Excess (-2 - +2) mmol/L Ionized Calcium (1.15-1.33) mmol/L Sodium 136 (135-145) mmol/L Potassium 3.7 (3.5-4.5) mmol/L Chloride 103 (101-111) mmol/L Carbon Dioxide 25 (21-32) mmol/L Anion Gap 8.0 (6-13) BUN 14 (6-20) mg/dL Creatinine 0.9 (0.6-1.3) mg/dL Estimated GFR (MDRD) 83 L (>89) Glucose 115 H (74-104) mg/dL Calcium 8.0 L (8.5-10.3) mg/dL Phosphorus 3.0 (2.5-5.0) mg/dL Magnesium 1.4 L (1.7-2.3) mg/dL Total Bilirubin 1.0 (0.2-1.0) mg/dL AST 12 (10-42) IU/L ALT 6 L (10-60) IU/L Alkaline Phosphatase 89 (42-121) IU/L Troponin I High Sens 55.4 H* (2.3-19.7) ng/L Total Protein 4.8 L (6.4-8.9) g/dL Albumin 2.9 L (3.2-5.5) g/dL Globulin 1.9 L (2.1-4.2) g/dL Albumin/Globulin Ratio 1.5 (1.0-2.2) Lipase (11-82) U/L Urine Color Urine Clarity (CLEAR) Urine pH (5.0-7.5) PH Ur Specific [place] (1.002-1.030) Urine Protein (NEGATIVE) mg/dL Urine Glucose (UA) (NEGATIVE) mg/dL Urine Ketones (NEGATIVE) mg/dL Urine Occult Blood (NEGATIVE) Urine Nitrite (NEGATIVE) Urine Bilirubin (NEGATIVE) Urine Urobilinogen (NORMAL) E.U./dL Ur Leukocyte Esterase (NEGATIVE) Ur Microscopic Review Urine Culture Comments Nasal Adenovirus (PCR) Nasal B. parapertussis DNA (PCR) Nasal Coronavir 229E PCR Nasal Coronavir HKU1 PCR Nasal Coronavir NL63 PCR Nasal Coronavir OC43 PCR Nasal Enterovir/Rhinovir PCR Nasal Influenza B PCR Nasal Influenza A PCR Nasal Parainfluen 1 PCR Nasal Parainfluen 2 PCR Nasal Parainfluen 3 PCR Nasal Parainfluen 4 PCR Nasal RSV (PCR) Nasal Screen MRSA (PCR) (NEGATIVE) Nasal B.pertussis DNA PCR Nasal C.pneumoniae (PCR) Iain Human Metapneumo PCR Nasal M.pneumoniae (PCR) Nasal SARS-CoV-2 (PCR) Urine Opiates Screen (NEGATIVE) Ur Buprenorphine Scrn (NEGATIVE) Ur Oxycodone Screen (NEGATIVE) Urine Methadone Screen (NEGATIVE) Ur Barbiturates Screen (NEGATIVE) Ur Tricyclics Screen (NEGATIVE) Ur Phencyclidine Scrn (NEGATIVE) Ur Amphetamine Screen (NEGATIVE) U Methamphetamines Scrn (NEGATIVE) U Benzodiazepines Scrn (NEGATIVE) Urine Cocaine Screen (NEGATIVE) U Cannabinoids Screen (NEGATIVE) Ur Drug Screen Comment Ethyl Alcohol mg/dL 09/24/23 09/24/23 09/23/23 Range/Units 03:08 01:42 19:42 WBC (4.8-10.8) x10^3/uL RBC (4.70-6.10) 10^6/uL Hgb (14.0-18.0) g/dL Hct (42.0-52.0) % MCV (80.0-94.0) fL MCH (27.0-31.0) pg MCHC (32.0-36.0) g/dL RDW (12.0-15.0) % Plt Count (130-450) 10^3/uL MPV (7.4-11.4) fL Neut # (Auto) (1.5-6.6) 10^3/uL Lymph # (Auto) (1.5-3.5) 10^3/uL [place] # (Auto) (0.0-1.0) 10^3/uL Eos # (Auto) (0.0-0.7) 10^3/uL Baso # (Auto) (0.0-0.1) 10^3/uL Absolute Nucleated RBC x10^3/uL Nucleated RBC % /100WBC PT (9.9-12.6) secs INR (0.8-1.2) VBG pH (7.31-7.41) VBG pCO2 (41-51) mmHg VBG pO2 (25-47) mmHg VBG HCO3 (23-28) mmol/L VBG Total CO2 (24-29) mmol/L VBG O2 Saturation (60-80) % VBG Base Excess (-2 - +2) mmol/L Ionized Calcium (1.15-1.33) mmol/L Sodium (135-145) mmol/L Potassium (3.5-4.5) mmol/L Chloride (101-111) mmol/L Carbon Dioxide (21-32) mmol/L Anion Gap (6-13) BUN (6-20) mg/dL Creatinine (0.6-1.3) mg/dL Estimated GFR (MDRD) (>89) Glucose (74-104) mg/dL Calcium (8.5-10.3) mg/dL Phosphorus (2.5-5.0) mg/dL Magnesium (1.7-2.3) mg/dL Total Bilirubin (0.2-1.0) mg/dL AST (10-42) IU/L ALT (10-60) IU/L Alkaline Phosphatase (42-121) IU/L Troponin I High Sens 61.2 H* (2.3-19.7) ng/L Total Protein (6.4-8.9) g/dL Albumin (3.2-5.5) g/dL Globulin (2.1-4.2) g/dL Albumin/Globulin Ratio (1.0-2.2) Lipase (11-82) U/L Urine Color LT. YELLOW Urine Clarity CLEAR (CLEAR) Urine pH 5.5 (5.0-7.5) PH Ur Specific [place] 1.020 (1.002-1.030) Urine Protein NEGATIVE (NEGATIVE) mg/dL Urine Glucose (UA) >=1000 H (NEGATIVE) mg/dL Urine Ketones 15 H (NEGATIVE) mg/dL Urine Occult Blood NEGATIVE (NEGATIVE) Urine Nitrite NEGATIVE (NEGATIVE) Urine Bilirubin NEGATIVE (NEGATIVE) Urine Urobilinogen 0.2 (NORMAL) (NORMAL) E.U./dL Ur Leukocyte Esterase NEGATIVE (NEGATIVE) Ur Microscopic Review NOT INDICATED Urine Culture Comments NOT INDICATED Nasal Adenovirus (PCR) Nasal B. parapertussis DNA (PCR) Nasal Coronavir 229E PCR Nasal Coronavir HKU1 PCR Nasal Coronavir NL63 PCR Nasal Coronavir OC43 PCR Nasal Enterovir/Rhinovir PCR Nasal Influenza B PCR Nasal Influenza A PCR Nasal Parainfluen 1 PCR Nasal Parainfluen 2 PCR Nasal Parainfluen 3 PCR Nasal Parainfluen 4 PCR Nasal RSV (PCR) Nasal Screen MRSA (PCR) NEGATIVE (NEGATIVE) Nasal B.pertussis DNA PCR Nasal C.pneumoniae (PCR) Iain Human Metapneumo PCR Nasal M.pneumoniae (PCR) Nasal SARS-CoV-2 (PCR) Urine Opiates Screen POSITIVE H (NEGATIVE) Ur Buprenorphine Scrn NEGATIVE (NEGATIVE) Ur Oxycodone Screen NEGATIVE (NEGATIVE) Urine Methadone Screen NEGATIVE (NEGATIVE) Ur Barbiturates Screen NEGATIVE (NEGATIVE) Ur Tricyclics Screen POSITIVE H (NEGATIVE) Ur Phencyclidine Scrn NEGATIVE (NEGATIVE) Ur Amphetamine Screen NEGATIVE (NEGATIVE) U Methamphetamines Scrn NEGATIVE (NEGATIVE) U Benzodiazepines Scrn NEGATIVE (NEGATIVE) Urine Cocaine Screen NEGATIVE (NEGATIVE) U Cannabinoids Screen NEGATIVE (NEGATIVE) Ur Drug Screen Comment CUTOFF CONC BELOW: Ethyl Alcohol mg/dL 09/23/23 09/23/23 09/23/23 Range/Units 18:32 17:25 16:46 WBC (4.8-10.8) x10^3/uL RBC (4.70-6.10) 10^6/uL Hgb (14.0-18.0) g/dL Hct (42.0-52.0) % MCV (80.0-94.0) fL MCH (27.0-31.0) pg MCHC (32.0-36.0) g/dL RDW (12.0-15.0) % Plt Count (130-450) 10^3/uL MPV (7.4-11.4) fL Neut # (Auto) (1.5-6.6) 10^3/uL Lymph # (Auto) (1.5-3.5) 10^3/uL [place] # (Auto) (0.0-1.0) 10^3/uL Eos # (Auto) (0.0-0.7) 10^3/uL Baso # (Auto) (0.0-0.1) 10^3/uL Absolute Nucleated RBC x10^3/uL Nucleated RBC % /100WBC PT (9.9-12.6) secs INR (0.8-1.2) VBG pH (7.31-7.41) VBG pCO2 (41-51) mmHg VBG pO2 (25-47) mmHg VBG HCO3 (23-28) mmol/L VBG Total CO2 (24-29) mmol/L VBG O2 Saturation (60-80) % VBG Base Excess (-2 - +2) mmol/L Ionized Calcium (1.15-1.33) mmol/L Sodium (135-145) mmol/L Potassium (3.5-4.5) mmol/L Chloride (101-111) mmol/L Carbon Dioxide (21-32) mmol/L Anion Gap (6-13) BUN (6-20) mg/dL Creatinine (0.6-1.3) mg/dL Estimated GFR (MDRD) (>89) Glucose (74-104) mg/dL Calcium (8.5-10.3) mg/dL Phosphorus (2.5-5.0) mg/dL Magnesium (1.7-2.3) mg/dL Total Bilirubin (0.2-1.0) mg/dL AST (10-42) IU/L ALT (10-60) IU/L Alkaline Phosphatase (42-121) IU/L Troponin I High Sens 57.7 H* 55.5 H* (2.3-19.7) ng/L Total Protein (6.4-8.9) g/dL Albumin (3.2-5.5) g/dL Globulin (2.1-4.2) g/dL Albumin/Globulin Ratio (1.0-2.2) Lipase (11-82) U/L Urine Color Urine Clarity (CLEAR) Urine pH (5.0-7.5) PH Ur Specific [place] (1.002-1.030) Urine Protein (NEGATIVE) mg/dL Urine Glucose (UA) (NEGATIVE) mg/dL Urine Ketones (NEGATIVE) mg/dL Urine Occult Blood (NEGATIVE) Urine Nitrite (NEGATIVE) Urine Bilirubin (NEGATIVE) Urine Urobilinogen (NORMAL) E.U./dL Ur Leukocyte Esterase (NEGATIVE) Ur Microscopic Review Urine Culture Comments Nasal Adenovirus (PCR) NOT DETECTED Nasal B. parapertussis DNA (PCR) NOT DETECTED Nasal Coronavir 229E PCR NOT DETECTED Nasal Coronavir HKU1 PCR NOT DETECTED Nasal Coronavir NL63 PCR NOT DETECTED Nasal Coronavir OC43 PCR NOT DETECTED Nasal Enterovir/Rhinovir PCR NOT DETECTED Nasal Influenza B PCR NOT DETECTED Nasal Influenza A PCR NOT DETECTED Nasal Parainfluen 1 PCR NOT DETECTED Nasal Parainfluen 2 PCR NOT DETECTED Nasal Parainfluen 3 PCR NOT DETECTED Nasal Parainfluen 4 PCR NOT DETECTED Nasal RSV (PCR) NOT DETECTED Nasal Screen MRSA (PCR) (NEGATIVE) Nasal B.pertussis DNA PCR NOT DETECTED Nasal C.pneumoniae (PCR) NOT DETECTED Iain Human Metapneumo PCR NOT DETECTED Nasal M.pneumoniae (PCR) NOT DETECTED Nasal SARS-CoV-2 (PCR) NOT DETECTED Urine Opiates Screen (NEGATIVE) Ur Buprenorphine Scrn (NEGATIVE) Ur Oxycodone Screen (NEGATIVE) Urine Methadone Screen (NEGATIVE) Ur Barbiturates Screen (NEGATIVE) Ur Tricyclics Screen (NEGATIVE) Ur Phencyclidine Scrn (NEGATIVE) Ur Amphetamine Screen (NEGATIVE) U Methamphetamines Scrn (NEGATIVE) U Benzodiazepines Scrn (NEGATIVE) Urine Cocaine Screen (NEGATIVE) U Cannabinoids Screen (NEGATIVE) Ur Drug Screen Comment Ethyl Alcohol mg/dL 09/23/23 09/23/23 09/23/23 Range/Units 16:46 16:46 16:46 WBC (4.8-10.8) x10^3/uL RBC (4.70-6.10) 10^6/uL Hgb (14.0-18.0) g/dL Hct (42.0-52.0) % MCV (80.0-94.0) fL MCH (27.0-31.0) pg MCHC (32.0-36.0) g/dL RDW (12.0-15.0) % Plt Count (130-450) 10^3/uL MPV (7.4-11.4) fL Neut # (Auto) (1.5-6.6) 10^3/uL Lymph # (Auto) (1.5-3.5) 10^3/uL [place] # (Auto) (0.0-1.0) 10^3/uL Eos # (Auto) (0.0-0.7) 10^3/uL Baso # (Auto) (0.0-0.1) 10^3/uL Absolute Nucleated RBC x10^3/uL Nucleated RBC % /100WBC PT 15.0 H (9.9-12.6) secs INR 1.4 H (0.8-1.2) VBG pH 7.328 (7.31-7.41) VBG pCO2 55.6 H (41-51) mmHg VBG pO2 22.1 L (25-47) mmHg VBG HCO3 28.5 H (23-28) mmol/L VBG Total CO2 30.2 H (24-29) mmol/L VBG O2 Saturation 38.6 L (60-80) % VBG Base Excess 1.1 (-2 - +2) mmol/L Ionized Calcium (1.15-1.33) mmol/L Sodium 138 (135-145) mmol/L Potassium 5.1 H (3.5-4.5) mmol/L Chloride 99 L (101-111) mmol/L Carbon Dioxide 27 (21-32) mmol/L Anion Gap 12.0 (6-13) BUN 13 (6-20) mg/dL Creatinine 1.1 (0.6-1.3) mg/dL Estimated GFR (MDRD) 66 L (>89) Glucose 144 H (74-104) mg/dL Calcium 9.7 (8.5-10.3) mg/dL Phosphorus (2.5-5.0) mg/dL Magnesium 1.5 L (1.7-2.3) mg/dL Total Bilirubin 1.5 H (0.2-1.0) mg/dL AST 22 (10-42) IU/L ALT 10 (10-60) IU/L Alkaline Phosphatase 148 H (42-121) IU/L Troponin I High Sens (2.3-19.7) ng/L Total Protein 7.0 (6.4-8.9) g/dL Albumin 4.0 (3.2-5.5) g/dL Globulin 3.0 (2.1-4.2) g/dL Albumin/Globulin Ratio 1.3 (1.0-2.2) Lipase < 10 L (11-82) U/L Urine Color Urine Clarity (CLEAR) Urine pH (5.0-7.5) PH Ur Specific [place] (1.002-1.030) Urine Protein (NEGATIVE) mg/dL Urine Glucose (UA) (NEGATIVE) mg/dL Urine Ketones (NEGATIVE) mg/dL Urine Occult Blood (NEGATIVE) Urine Nitrite (NEGATIVE) Urine Bilirubin (NEGATIVE) Urine Urobilinogen (NORMAL) E.U./dL Ur Leukocyte Esterase (NEGATIVE) Ur Microscopic Review Urine Culture Comments Nasal Adenovirus (PCR) Nasal B. parapertussis DNA (PCR) Nasal Coronavir 229E PCR Nasal Coronavir HKU1 PCR Nasal Coronavir NL63 PCR Nasal Coronavir OC43 PCR Nasal Enterovir/Rhinovir PCR Nasal Influenza B PCR Nasal Influenza A PCR Nasal Parainfluen 1 PCR Nasal Parainfluen 2 PCR Nasal Parainfluen 3 PCR Nasal Parainfluen 4 PCR Nasal RSV (PCR) Nasal Screen MRSA (PCR) (NEGATIVE) Nasal B.pertussis DNA PCR Nasal C.pneumoniae (PCR) Iain Human Metapneumo PCR Nasal M.pneumoniae (PCR) Nasal SARS-CoV-2 (PCR) Urine Opiates Screen (NEGATIVE) Ur Buprenorphine Scrn (NEGATIVE) Ur Oxycodone Screen (NEGATIVE) Urine Methadone Screen (NEGATIVE) Ur Barbiturates Screen (NEGATIVE) Ur Tricyclics Screen (NEGATIVE) Ur Phencyclidine Scrn (NEGATIVE) Ur Amphetamine Screen (NEGATIVE) U Methamphetamines Scrn (NEGATIVE) U Benzodiazepines Scrn (NEGATIVE) Urine Cocaine Screen (NEGATIVE) U Cannabinoids Screen (NEGATIVE) Ur Drug Screen Comment Ethyl Alcohol < 10.0 mg/dL 09/23/23 Range/Units 16:46 WBC 11.7 H (4.8-10.8) x10^3/uL RBC 5.70 (4.70-6.10) 10^6/uL Hgb 16.1 (14.0-18.0) g/dL Hct 52.6 H (42.0-52.0) % MCV 92.3 (80.0-94.0) fL MCH 28.2 (27.0-31.0) pg MCHC 30.6 L (32.0-36.0) g/dL RDW 13.0 (12.0-15.0) % Plt Count 369 (130-450) 10^3/uL MPV 10.4 (7.4-11.4) fL Neut # (Auto) 9.5 H (1.5-6.6) 10^3/uL Lymph # (Auto) 1.0 L (1.5-3.5) 10^3/uL [place] # (Auto) 1.0 (0.0-1.0) 10^3/uL Eos # (Auto) 0.1 (0.0-0.7) 10^3/uL Baso # (Auto) 0.0 (0.0-0.1) 10^3/uL Absolute Nucleated RBC 0.00 x10^3/uL Nucleated RBC % 0.0 /100WBC PT (9.9-12.6) secs INR (0.8-1.2) VBG pH (7.31-7.41) VBG pCO2 (41-51) mmHg VBG pO2 (25-47) mmHg VBG HCO3 (23-28) mmol/L VBG Total CO2 (24-29) mmol/L VBG O2 Saturation (60-80) % VBG Base Excess (-2 - +2) mmol/L Ionized Calcium (1.15-1.33) mmol/L Sodium (135-145) mmol/L Potassium (3.5-4.5) mmol/L Chloride (101-111) mmol/L Carbon Dioxide (21-32) mmol/L Anion Gap (6-13) BUN (6-20) mg/dL Creatinine (0.6-1.3) mg/dL Estimated GFR (MDRD) (>89) Glucose (74-104) mg/dL Calcium (8.5-10.3) mg/dL Phosphorus (2.5-5.0) mg/dL Magnesium (1.7-2.3) mg/dL Total Bilirubin (0.2-1.0) mg/dL AST (10-42) IU/L ALT (10-60) IU/L Alkaline Phosphatase (42-121) IU/L Troponin I High Sens (2.3-19.7) ng/L Total Protein (6.4-8.9) g/dL Albumin (3.2-5.5) g/dL Globulin (2.1-4.2) g/dL Albumin/Globulin Ratio (1.0-2.2) Lipase (11-82) U/L Urine Color Urine Clarity (CLEAR) Urine pH (5.0-7.5) PH Ur Specific [place] (1.002-1.030) Urine Protein (NEGATIVE) mg/dL Urine Glucose (UA) (NEGATIVE) mg/dL Urine Ketones (NEGATIVE) mg/dL Urine Occult Blood (NEGATIVE) Urine Nitrite (NEGATIVE) Urine Bilirubin (NEGATIVE) Urine Urobilinogen (NORMAL) E.U./dL Ur Leukocyte Esterase (NEGATIVE) Ur Microscopic Review Urine Culture Comments Nasal Adenovirus (PCR) Nasal B. parapertussis DNA (PCR) Nasal Coronavir 229E PCR Nasal Coronavir HKU1 PCR Nasal Coronavir NL63 PCR Nasal Coronavir OC43 PCR Nasal Enterovir/Rhinovir PCR Nasal Influenza B PCR Nasal Influenza A PCR Nasal Parainfluen 1 PCR Nasal Parainfluen 2 PCR Nasal Parainfluen 3 PCR Nasal Parainfluen 4 PCR Nasal RSV (PCR) Nasal Screen MRSA (PCR) (NEGATIVE) Nasal B.pertussis DNA PCR Nasal C.pneumoniae (PCR) Iain Human Metapneumo PCR Nasal M.pneumoniae (PCR) Nasal SARS-CoV-2 (PCR) Urine Opiates Screen (NEGATIVE) Ur Buprenorphine Scrn (NEGATIVE) Ur Oxycodone Screen (NEGATIVE) Urine Methadone Screen (NEGATIVE) Ur Barbiturates Screen (NEGATIVE) Ur Tricyclics Screen (NEGATIVE) Ur Phencyclidine Scrn (NEGATIVE) Ur Amphetamine Screen (NEGATIVE) U Methamphetamines Scrn (NEGATIVE) U Benzodiazepines Scrn (NEGATIVE) Urine Cocaine Screen (NEGATIVE) U Cannabinoids Screen (NEGATIVE) Ur Drug Screen Comment Ethyl Alcohol mg/dL Assessment/Plan - Problem List (1) AMS (altered mental status) Impression: He required transfer from [facility] to ICU to be on a Narcan drip, started overnight. Pharmacy informed me that this hospital is running out of its Narcan supply, there is only 1 more bag left for continuous drip and only several more injections to give as IV push Plan: I will stop all medications that could be causing oversedation: pain meds, Ritalin, sleeping meds Will obtain head MRI>> The screen was done and he cannot have an MRI because he has metal in his spine and also his implanted pain pump made of metal, according to the Will obtain head CT to check for enlarging or new stroke or brain bleed. Cont ASA per rectum if no bleed Remain in ICU I will stop his diet, cont iv fluids, change necessary po meds to iv form I will order neuro checks q4h I updated his at bedside today (2) Opiate Overdose AT adm: SpO2 81% RA, 98% 2L NC O2, BP 73/37-99/53, UDS: +opiates and found to have pin-point pupils. Pt was given Narcan and his O2 sats improved. Later, his O2 sats dropped to 85% RA and he was given another Narcan with good result. Pt has been in the ER for 7 hours and has been given 5 dose of Narcan. Patient has a pain pump implanted in the left lower quadrant of abdomen many years ago, it gets replaced every several years Today spoke to the Neurologist who orders his narcotic meds, Dr. Vera at [facility] who said that it was supposed to be explanted in March 2023 and it is empty and it is also beeping because the battery is dying. Dr. Vera spoke to [employer], Jace Bassett, who is supposed to come and interrogate the device and turn off the beeping. Dr. Vera said there is probably none or negligible narcotics infusing from this pain pump into the patient Plan: Continue O2 support Cont IVF Since the hospital is running out of Narcan, I may need to have him transferred to a larger facility, or if he becomes hypopneic, would start BIPAP. He is a DNR and a DNI. CRITICAL CARE TIME SPENT: 65 min (Reviewing chart and lab results, changing oral to IV meds, speaking to Dr. Vera, reordering meds, rechecking in on patient, speaking to , arranging for transfer) (3) UTI Leukocytosis with WBC 11.7, UA: WBC bact, UC pending Plan: Cont empiric iv Rocephin until Ur Cx back (4) S/P recent CVA with L hemiparesis, he went to SNF for rehab Plan: Will continue with ASA per rectum if no bleed on today's repeat brain imaging PT/OT consults will be cancelled due to obtundation (5) Parkinson's disease Dementia Plan was to continue home medications: Trazodone, Memantine, Ritalin, Propranolol, Seroquel All are on hold now (6) DM type 2 Recent Hgba1c was 8.7 Plan: Will give D5 in the peripheral IV fluids since he cannot eat Will change diet to npo Will order fingerstick checks every 6 hours, not ac/hs and sliding scale insulin coverage (7) Diabetic Gastroparesis Plan: Reglan will be stopped (8) Chronic pain Has pain pump. Concern that it is leaking onto body Plan: As in #2 (9) Hypomagnesemia Mg 1.5 and was supplemented (10) CAD Will continue with ASA per rectum if no bleed on imaging Will cont and change necessary po meds to iv form (11) HTN Will cont and change necessary po meds to iv form (12) BPH Plan was to continue home medications: Flomax Will order Vidales inserted (13) GERD Plan was to continue po medications: PPI, Pepcid Will cont and change necessary po meds to iv form
[2023-09-24] MEDS ORDERED: CALCIUM GLUC 1,000MG/50ML-NACL 1,000 MG/50 ML BAG IV ONE ×2 (15:07→21:37)
--- NOTE | 2023-09-24 17:21 | CT Report ---
PROCEDURE: HEAD WO INDICATIONS: More obtunded, concern for new stroke or bleed TECHNIQUE: Noncontrast 4.5 mm thick angled axial sections acquired from the foramen magnum to the vertex. For r adiation dose reduction, the following was used: automated exposure control, adjustment of mA and/or kV according to patient size. COMPARISON: 09/23/2023, 09/19/2023 FINDINGS: Image quality: Diagnostic CSF spaces: Basal cisterns are patent. Lateral ventricles are symmetric. Volume: Vascular calcifications. Periventricular white matter disease is commonly seen with chronic m icroangiopathy. Volume loss is present. These findings are moderate. Brain: No new intracranial hemorrhage. Evolving hypoattenuation in the right MCA territory. Suspected old lacunar infarction are also present. Craniofacial structures: No significant paranasal sinus opacification. IMPRESSION: Evolving hypoattenuation in the right MCA territory without new large loss of bell-white differentiat ion by CT. No new hemorrhage. Consider MRI if there is further concern. Reviewed by: Dwight Hernandez MD on 09/24/2023 5:20 PM PST Approved by: Dwight Hernandez MD on 09/24/2023 5:20 PM PST Station ID: [id number]
[2023-09-24] MEDS ORDERED: ASPIRIN 300 MG SUPP PR STA (17:29)
[2023-09-24 18:42] LABS: CALCIUM, IONIZED 1.07 mmol/L (1.15-1.33); VBG PH 7.37 (7.31-7.41)
[2023-09-24] MEDS ORDERED: ACETAMINOPHEN 1,000 MG/100 ML 1,000 MG/100 ML BAG IV PRN (19:30)
[2023-09-24] MEDS ORDERED: LIDOCAINE 2% URO-JET 5 ML SYRINGE UR ONE (19:44)
[2023-09-24] MEDS: DEXTROSE 5%-0.9% NACL 1,000 ML IV SCH (20:24)
[2023-09-24] MEDS ORDERED: FAMOTIDINE 20 MG TABLET PO SCH (21:00)
[2023-09-24] MEDS ORDERED: MEMANTINE 5 MG TABLET PO SCH (21:00)
[2023-09-24] MEDS ORDERED: traZODone 50 MG TABLET PO SCH (21:00)
[2023-09-24] MEDS ORDERED: TAMSULOSIN 0.4 MG CAPSULE PO SCH (21:00)
[2023-09-24] MEDS: FAMOTIDINE 20 MG/2 ML VIAL IVP SCH (21:04)
[2023-09-25] MEDS: NALOXONE 2 MG in SODIUM CHLORIDE 0.9% 495 ML IV SCH ×3 (00:15→08:31)
[2023-09-25] MEDS: SODIUM CHLORIDE FLUSH 0.9% 10 ML SYRINGE IVP SCH ×4 (00:39→20:25)
[2023-09-25 04:43] LABS: BASOPHILS % (AUTO) 0.2 %; EOSINOPHILS # (AUTO) 0.2 10^3/uL (0.0-0.7); HCT - HEMATOCRIT 43.9 % (42.0-52.0); HGB - HEMOGLOBIN 14.1 g/dL (14.0-18.0); LYMPHOCYTES % (AUTO) 12.2 %; MEAN CORPUSCULAR HEMOGLOBIN 29.9 pg (27.0-31.0); MEAN CORPUSCULAR HGB CONC 32.1 g/dL (32.0-36.0); MEAN PLATELET VOLUME 10.1 fL (7.4-11.4); MONOCYTES # (AUTO) 0.6 10^3/uL (0.0-1.0); NEUTROPHILS # (AUTO) 6.7 10^3/uL (1.5-6.6); NEUTROPHILS % (AUTO) 78.2 %; PLT - PLATELET COUNT 314 10^3/uL (130-450); RED BLOOD COUNT 4.72 10^6/uL (4.70-6.10); RED CELL DISTRIBUTION WIDTH 13.2 % (12.0-15.0); WHITE BLOOD COUNT 8.5 x10^3/uL (4.8-10.8)
[2023-09-25 05:05] LABS: MAGNESIUM 1.7 mg/dL (1.7-2.3); PHOSPHORUS 2.7 mg/dL (2.5-5.0)
[2023-09-25] MEDS ORDERED: MAGNESIUM SULFATE 2 GRAM 2 GM/50 ML BAG IV ONE (05:08)
[2023-09-25 05:09] LABS: CALCIUM 8.4 mg/dL (8.5-10.3); CREATININE 0.8 mg/dL (0.6-1.3); POTASSIUM 3.9 mmol/L (3.5-4.5)
[2023-09-25 05:22] LABS: CALCIUM, IONIZED 1.09 mmol/L (1.15-1.33); VBG PH 7.378 (7.31-7.41)
[2023-09-25] MEDS ORDERED: CALCIUM GLUC 1,000MG/50ML-NACL 1,000 MG/50 ML BAG IV ONE (05:35)
[2023-09-25] MEDS: POTASSIUM CHLOR 10 MEQ/100 ML 10 MEQ/100 ML BAG IV SCH ×2 (05:51→07:05)
[2023-09-25] MEDS: FAMOTIDINE 20 MG/2 ML VIAL IVP SCH ×2 (08:15→20:25)
[2023-09-25] MEDS: cefTRIAXone 1 GM in SODIUM CHLORIDE 0.9% MINIBAG 100 ML IV SCH (08:16)
[2023-09-25] MEDS: ENOXAPARIN 40 MG/0.4 ML SYRINGE SUBQ SCH (08:21)
[2023-09-25] MEDS ORDERED: ASPIRIN 300 MG SUPP PR SCH (09:00)
[2023-09-25 11:32] LABS: CALCIUM, IONIZED 1.18 mmol/L (1.15-1.33); VBG PH 7.352 (7.31-7.41)
[2023-09-25] MEDS ORDERED: GADOTERATE MEGLUMINE 10 MMOL/20 ML VIAL ONE (11:46)
[2023-09-25 11:55] LABS: MAGNESIUM 1.9 mg/dL (1.7-2.3); POTASSIUM 4.3 mmol/L (3.5-4.5)
[2023-09-25] MEDS ORDERED: LORazepam 2 MG/ML VIAL IVP STA (12:12)
[2023-09-25] MEDS ORDERED: GADOTERATE MEGLUMINE 10 MMOL/20 ML VIAL IVP ONE (12:58)
--- NOTE | 2023-09-25 13:22 | PHARMACY PROGRESS NOTE ---
- Best Possible Medication History Admit Date and Time: 09/24/23 0204 Processed by: Pharmacy Medication History completed: Yes Patient Interview: Pt unable to participate Secondary Source(s): Spouse/Significant other, Insurance records As the person ultimately responsible for medication therapy, providers are able to order a medication from an existing home medication list in [facility] via the "Reconcile Routine" prior to Confirmation of that medication by support director. Such practice is discouraged except when the physician, in their clinical judgment, deems that a medical need exists for a medication without regard to previous use.
[2023-09-25] MEDS: DEXTROSE 5%-0.9% NACL 1,000 ML IV SCH ×2 (13:46→14:27)
--- NOTE | 2023-09-25 14:02 | MRI Report ---
PROCEDURE: BRAIN W/WO INDICATIONS: Obtunded, recent CVA 2 weeks ago CONTRAST: CLAIRISCAN 17.4ML TECHNIQUE: Noncontrast axial T1 spin echo, axial T2 fast spin echo, sagittal and axial FLAIR, coronal T2 fast sp in echo, axial gradient echo, axial diffusion and ADC through the brain. After the administration of contrast, axial and coronal T1 spin echo with fat saturation through the brain. COMPARISON: Multiple serial CT head examinations, from 09/12/2023, 09/19/2023, 09/23/2023, and 09/24 FINDINGS: Image quality: Excellent. CSF spaces: Basal cisterns are patent. No extra-axial fluid collections. Ventricles are normal in size and shape. Brain: No midline shift. No intracranial bleeds or masses. There is cerebral volume loss for age. There is periventricular white matter chronic small vessel ischemic change. The brainstem appears n ormal. Late subacute large right MCA distribution infarct with associated very minimal restricted amy er diffusion and diffuse cortical enhancement infarct in region. There is very mild residual restrict ed water diffusion present. No acute infarct noted. There is associated enhancement of the infarcted cortex of the right temporal lobe, as well as extending to involve the precentral and postcentral gyr us. There is minimal enhancement of the body of the right caudate. Normal intravascular flow voids ar e present. Skull and face: Calvarial marrow is normal in signal. Orbits appear normal. Sinuses: Sinuses and mastoids appear clear. IMPRESSION: 1. Expected evolution of large right MCA infarct. At this point, there is minimal residual restricted water diffusion present. There is cortical enhancement of the infarct in parenchyma predominantly in volving the right temporal lobe, but also involving the precentral gyrus and postcentral gyrus, and a lso a small area of the body of the right caudate. 2. No acute infarcts. Reviewed by: Van Hutchison MD on 09/25/2023 2:00 PM PST Approved by: Van Hutchison MD on 09/25/2023 2:00 PM PST Station ID: [id number]
--- NOTE | 2023-09-25 15:50 | PROVIDER PROGRESS NOTE ---
Subjective - Subjective Pt reports feeling: Improved (Awake, smiled when spoke to him and answered in a whisper) Objective - Vital Signs/Intake & Output Vital Signs: Vital Signs Temp Pulse Resp BP Pulse Ox 09/25/23 15:00 64 15 120/93 H 96 09/25/23 14:00 66 15 123/59 L 97 09/25/23 13:19 37.3 C 71 14 131/63 H 96 Intake & Output: Intake & Output 09/22/23 09/23/23 09/24/23 09/25/23 23:59 23:59 23:59 23:59 Intake Total 1000 4103.000 1950 Output Total 2325 1614 Balance 1000 1778.000 336 - Objective General Appearance: positive: No acute distress, Lethargic Eyes Bilateral: positive: Normal inspection, No lid inflammation ENT: positive: No signs of dehydration Neck: positive: Nml inspection Respiratory: positive: No respiratory distress, Breath sounds nml Cardiovascular: positive: Regular rate & rhythm, No murmur Abdomen: positive: Non-tender, No distention Skin: positive: Warm, Dry Neurologic/Psychiatric: positive: Other (Lethargic, R gaze neglect, speaks in a whisper) - Lab Results Fish Bones: 09/25/23 04:21 09/25/23 11:25 Other Labs: Lab Results x24hrs 09/25/23 09/25/23 09/25/23 Range/Units 11:25 11:25 04:21 WBC (4.8-10.8) x10^3/uL RBC (4.70-6.10) 10^6/uL Hgb (14.0-18.0) g/dL Hct (42.0-52.0) % MCV (80.0-94.0) fL MCH (27.0-31.0) pg MCHC (32.0-36.0) g/dL RDW (12.0-15.0) % Plt Count (130-450) 10^3/uL MPV (7.4-11.4) fL Neut # (Auto) (1.5-6.6) 10^3/uL Lymph # (Auto) (1.5-3.5) 10^3/uL [place] # (Auto) (0.0-1.0) 10^3/uL Eos # (Auto) (0.0-0.7) 10^3/uL Baso # (Auto) (0.0-0.1) 10^3/uL Absolute Nucleated RBC x10^3/uL Nucleated RBC % /100WBC VBG pH 7.352 7.378 (7.31-7.41) Ionized Calcium 1.18 1.09 L (1.15-1.33) mmol/L Sodium (135-145) mmol/L Potassium 4.3 (3.5-4.5) mmol/L Chloride (101-111) mmol/L Carbon Dioxide (21-32) mmol/L Anion Gap (6-13) BUN (6-20) mg/dL Creatinine (0.6-1.3) mg/dL Estimated GFR (MDRD) (>89) Glucose (74-104) mg/dL Calcium (8.5-10.3) mg/dL Phosphorus (2.5-5.0) mg/dL Magnesium 1.9 (1.7-2.3) mg/dL 09/25/23 09/25/23 09/24/23 Range/Units 04:21 04:21 18:33 WBC 8.5 (4.8-10.8) x10^3/uL RBC 4.72 (4.70-6.10) 10^6/uL Hgb 14.1 (14.0-18.0) g/dL Hct 43.9 (42.0-52.0) % MCV 93.0 (80.0-94.0) fL MCH 29.9 (27.0-31.0) pg MCHC 32.1 (32.0-36.0) g/dL RDW 13.2 (12.0-15.0) % Plt Count 314 (130-450) 10^3/uL MPV 10.1 (7.4-11.4) fL Neut # (Auto) 6.7 H (1.5-6.6) 10^3/uL Lymph # (Auto) 1.0 L (1.5-3.5) 10^3/uL [place] # (Auto) 0.6 (0.0-1.0) 10^3/uL Eos # (Auto) 0.2 (0.0-0.7) 10^3/uL Baso # (Auto) 0.0 (0.0-0.1) 10^3/uL Absolute Nucleated RBC 0.00 x10^3/uL Nucleated RBC % 0.0 /100WBC VBG pH 7.370 (7.31-7.41) Ionized Calcium 1.07 L (1.15-1.33) mmol/L Sodium 140 (135-145) mmol/L Potassium 3.9 (3.5-4.5) mmol/L Chloride 107 (101-111) mmol/L Carbon Dioxide 16 L (21-32) mmol/L Anion Gap 17.0 H (6-13) BUN 14 (6-20) mg/dL Creatinine 0.8 (0.6-1.3) mg/dL Estimated GFR (MDRD) 95 (>89) Glucose 131 H (74-104) mg/dL Calcium 8.4 L (8.5-10.3) mg/dL Phosphorus 2.7 (2.5-5.0) mg/dL Magnesium 1.7 (1.7-2.3) mg/dL Assessment/Plan - Problem List (1) AMS (altered mental status) Impression: He required transfer from [facility] to ICU to be on a Narcan drip, this hospital ran out of its Narcan supply at 0400 today. Last evening he had a CT which showed the recent stroke, no bleed or midline shift Last evening the [employer] Rep reviewed the pump and informed me that there could be leaking of narcotic. I the started to have him transferred to [facility] This morning, he is awake but appears weak, follows commands, but has R-sided neglect, speaks with a whisper. Today we obtained head MRI>> The evolving stroke was described Plan: Remain off all medications that could be causing oversedation: pain meds, Ritalin, sleeping meds Remain in ICU I will restart his diet after today's iv Ativan, given for claustrophobia, wears off, but will cont iv fluids, and cont necessary po meds now in iv form Cont neuro checks q4h I will cont to try to get him transferred, since we have no Neurol here at this [facility], and I still suspect a leaking narcotic pump caused the obtundation (2) Opiate Overdose At adm he was obtunded, had pinpoint pupils and UDS: +opiates. Pt was given Narcan 5 dose in ER, each helped. He has been in ICU to be on a Narcan drip, but this hospital ran out of its Narcan supply at 0400 today. Patient has a pain pump implanted in the left lower quadrant of abdomen many years ago, it gets replaced every several years. On 09/24, I spoke to the Neurologist who orders his narcotic meds, Dr. Vera at [facility] who said that it was supposed to be explanted in March 2023 and it is empty and it was beeping because the battery is dying. Dr. Vera said there is probably none or negligible narcotics infusing from this pain pump into the patient. Last evening the [employer] Rep reviewed the pump and informed me that there could possibly be leaking of narcotic. I the started to have him transferred to larger hospital Plan: Continue O2 support Cont IVF I will cont to work on having him transferred to a larger facility, due to concern over the narcotics coming from his implanted pump. If he becomes hypopneic, would start BIPAP. He is a DNR and a DNI, so no ventilator. (3) UTI Leukocytosis with WBC 11.7, UA: had WBC and bact, but ur cx "not indicated" Plan: Cont empiric iv Rocephin until final blood Cx result is back (4) S/P recent CVA with L hemiparesis, he went to SNF for rehab sev wks ago Plan: Will cont daily ASA per rectum until po ASA resumed when he can reliably swallow PT/OT consults were cancelled due to obtundation (5) Parkinson's disease Dementia Plan was to continue home medications: Trazodone, Memantine, Ritalin, Propranolol, Seroquel All are on hold now until he definitely can swallow (6) DM type 2 Recent Hgba1c was 8.7 Plan: Will cont iv w/ D5 in the peripheral IV fluids since he could not swallow until this a.m. Will resume his diet Cont fingerstick checks every 6 hours, then ac/hs when he can take a diet reliably and cont sliding scale insulin coverage (7) Diabetic Gastroparesis Plan: Reglan on hold til he can take a diet reliably (8) Chronic pain Has pain pump. Concern that it is leaking onto body Plan: As in #2 (9) Hypomagnesemia Mg 1.5 and was supplemented (10) CAD Will continue with ASA per rectum if no bleed on imaging Will cont necessary po meds in iv form (11) HTN Will cont necessary po meds in iv form (12) BPH Plan was to continue home medications: Flomax Vidales inserted yesterday when he was obtunded (13) GERD Plan was to continue po medications: PPI, Pepcid Will cont necessary po meds in iv form
[2023-09-25] MEDS: INSULIN LISPRO 300 UNIT/3 ML PEN SUBQ SCH (20:25)
[2023-09-25] MEDS ORDERED: traZODone 50 MG TABLET PO STA (21:02)
[2023-09-26] MEDS: QUEtiapine 25 MG TABLET PO SCH ×2 (03:30→20:36)
[2023-09-26 05:13] LABS: BASOPHILS % (AUTO) 0.5 %; EOSINOPHILS # (AUTO) 0.5 10^3/uL (0.0-0.7); EOSINOPHILS % (AUTO) 6.2 %; HCT - HEMATOCRIT 40.2 % (42.0-52.0); HGB - HEMOGLOBIN 12.8 g/dL (14.0-18.0); LYMPHOCYTES # (AUTO) 1.8 10^3/uL (1.5-3.5); LYMPHOCYTES % (AUTO) 23.8 %; MEAN CORPUSCULAR HEMOGLOBIN 29.3 pg (27.0-31.0); MEAN CORPUSCULAR HGB CONC 31.8 g/dL (32.0-36.0); MEAN PLATELET VOLUME 9.6 fL (7.4-11.4); MONOCYTES # (AUTO) 0.6 10^3/uL (0.0-1.0); MONOCYTES % (AUTO) 8.3 %; NEUTROPHILS # (AUTO) 4.6 10^3/uL (1.5-6.6); NEUTROPHILS % (AUTO) 60.7 %; PLT - PLATELET COUNT 282 10^3/uL (130-450); RED BLOOD COUNT 4.37 10^6/uL (4.70-6.10); RED CELL DISTRIBUTION WIDTH 13.2 % (12.0-15.0); WHITE BLOOD COUNT 7.6 x10^3/uL (4.8-10.8)
[2023-09-26 05:27] LABS: CALCIUM, IONIZED 1.08 mmol/L (1.15-1.33); VBG PH 7.42 (7.31-7.41)
[2023-09-26 05:36] LABS: CREATININE 0.8 mg/dL (0.6-1.3); MAGNESIUM 1.5 mg/dL (1.7-2.3); POTASSIUM 3.7 mmol/L (3.5-4.5)
[2023-09-26] MEDS ORDERED: CALCIUM GLUC 1,000MG/50ML-NACL 1,000 MG/50 ML BAG IV ONE (06:04)
[2023-09-26] MEDS ORDERED: MAGNESIUM SULFATE 2 GRAM 2 GM/50 ML BAG IV ONE (06:04)
[2023-09-26] MEDS: DEXTROSE 5%-0.9% NACL 1,000 ML IV SCH (06:20)
[2023-09-26] MEDS: POTASSIUM CHLOR 10 MEQ/100 ML 10 MEQ/100 ML BAG IV SCH ×2 (06:21→08:10)
[2023-09-26] MEDS: SODIUM CHLORIDE FLUSH 0.9% 10 ML SYRINGE IVP SCH ×2 (08:11→16:18)
[2023-09-26] MEDS: FAMOTIDINE 20 MG/2 ML VIAL IVP SCH (08:11)
[2023-09-26] MEDS: cefTRIAXone 1 GM in SODIUM CHLORIDE 0.9% MINIBAG 100 ML IV SCH (08:14)
[2023-09-26] MEDS: INSULIN LISPRO 300 UNIT/3 ML PEN SUBQ SCH ×4 (08:53→20:45)
[2023-09-26] MEDS: ENOXAPARIN 40 MG/0.4 ML SYRINGE SUBQ SCH (08:54)
[2023-09-26 09:34] LABS: CALCIUM, IONIZED 1.14 mmol/L (1.15-1.33); VBG PH 7.421 (7.31-7.41)
[2023-09-26 09:48] LABS: MAGNESIUM 1.9 mg/dL (1.7-2.3); POTASSIUM 4.1 mmol/L (3.5-4.5)
[2023-09-26] MEDS ORDERED: ACETAMINOPHEN 325 MG TABLET PO PRN (11:14)
[2023-09-26] MEDS: ASPIRIN EC 81 MG TABLET PO SCH (11:44)
[2023-09-26] MEDS: METOCLOPRAMIDE 10 MG TABLET PO SCH ×2 (11:44→16:18)
[2023-09-26] MEDS: PROPRANOLOL 10 MG TABLET PO SCH ×2 (13:25→21:38)
[2023-09-26] MEDS: MORPHINE IR 15 MG TABLET PO SCH ×3 (13:25→20:35)
[2023-09-26] MEDS: METHYLPHENIDATE 10 MG TABLET PO SCH ×2 (13:25→22:03)
--- NOTE | 2023-09-26 15:21 | PROVIDER PROGRESS NOTE ---
Subjective - Subjective Pt reports feeling: Improved (Awake, able to swallow. Currently HOB elevated and eyes are open. RN and tell me he was in a chair, with PT, and was just returned back to bed.) Objective - Vital Signs/Intake & Output Vital Signs: Vital Signs Temp Pulse Resp BP Pulse Ox 09/26/23 15:00 65 12 142/74 H 96 09/26/23 14:00 70 16 156/91 H 98 09/26/23 13:00 75 18 137/86 H 97 09/26/23 12:00 37.6 C 73 16 141/75 H 100 Intake & Output: Intake & Output 09/23/23 09/24/23 09/25/23 09/26/23 23:59 23:59 23:59 23:59 Intake Total 1000 4103.000 2850 2710 Output Total 2325 2404 1460 Balance 1000 1778.366 888 7848 - Objective General Appearance: positive: No acute distress, Other (Awake, watching TV) Eyes Bilateral: positive: No lid inflammation ENT: positive: ENT inspection nml Neck: positive: Nml inspection Respiratory: positive: No respiratory distress Cardiovascular: positive: Regular rate & rhythm Skin: positive: Warm, Dry Neurologic/Psychiatric: positive: Other (Awake, interacts and able to swallow. Generalized weakness.) - Lab Results Fish Bones: 09/26/23 04:59 09/27/23 04:37 Other Labs: Lab Results x24hrs 09/26/23 09/26/23 09/26/23 Range/Units 09:23 09:23 04:59 WBC (4.8-10.8) x10^3/uL RBC (4.70-6.10) 10^6/uL Hgb (14.0-18.0) g/dL Hct (42.0-52.0) % MCV (80.0-94.0) fL MCH (27.0-31.0) pg MCHC (32.0-36.0) g/dL RDW (12.0-15.0) % Plt Count (130-450) 10^3/uL MPV (7.4-11.4) fL Neut # (Auto) (1.5-6.6) 10^3/uL Lymph # (Auto) (1.5-3.5) 10^3/uL [place] # (Auto) (0.0-1.0) 10^3/uL Eos # (Auto) (0.0-0.7) 10^3/uL Baso # (Auto) (0.0-0.1) 10^3/uL Absolute Nucleated RBC x10^3/uL Nucleated RBC % /100WBC VBG pH 7.421 H 7.420 H (7.31-7.41) Ionized Calcium 1.14 L 1.08 L (1.15-1.33) mmol/L Sodium (135-145) mmol/L Potassium 4.1 (3.5-4.5) mmol/L Chloride (101-111) mmol/L Carbon Dioxide (21-32) mmol/L Anion Gap (6-13) BUN (6-20) mg/dL Creatinine (0.6-1.3) mg/dL Estimated GFR (MDRD) (>89) Glucose (74-104) mg/dL Calcium (8.5-10.3) mg/dL Phosphorus (2.5-5.0) mg/dL Magnesium 1.9 (1.7-2.3) mg/dL 09/26/23 09/26/23 09/26/23 Range/Units 04:59 04:59 04:59 WBC 7.6 (4.8-10.8) x10^3/uL RBC 4.37 L (4.70-6.10) 10^6/uL Hgb 12.8 L (14.0-18.0) g/dL Hct 40.2 L (42.0-52.0) % MCV 92.0 (80.0-94.0) fL MCH 29.3 (27.0-31.0) pg MCHC 31.8 L (32.0-36.0) g/dL RDW 13.2 (12.0-15.0) % Plt Count 282 (130-450) 10^3/uL MPV 9.6 (7.4-11.4) fL Neut # (Auto) 4.6 (1.5-6.6) 10^3/uL Lymph # (Auto) 1.8 (1.5-3.5) 10^3/uL [place] # (Auto) 0.6 (0.0-1.0) 10^3/uL Eos # (Auto) 0.5 (0.0-0.7) 10^3/uL Baso # (Auto) 0.0 (0.0-0.1) 10^3/uL Absolute Nucleated RBC 0.00 x10^3/uL Nucleated RBC % 0.0 /100WBC VBG pH (7.31-7.41) Ionized Calcium (1.15-1.33) mmol/L Sodium 137 (135-145) mmol/L Potassium 3.7 (3.5-4.5) mmol/L Chloride 106 (101-111) mmol/L Carbon Dioxide 22 (21-32) mmol/L Anion Gap 9.0 (6-13) BUN 11 (6-20) mg/dL Creatinine 0.8 (0.6-1.3) mg/dL Estimated GFR (MDRD) 95 (>89) Glucose 148 H (74-104) mg/dL Calcium 8.0 L (8.5-10.3) mg/dL Phosphorus 2.5 (2.5-5.0) mg/dL Magnesium 1.5 L (1.7-2.3) mg/dL Assessment/Plan - Problem List (1) AMS (altered mental status) Impression: He required transfer from [facility] to ICU to be on a Narcan drip, then hospital ran out of its Narcan supply at 0400 on 09/25, but pt was waking up at that point, eyes opening. The repeat head CT and the brain MRI both should the recent stroke in evolution. I updated the about these results today, she was at bedside. When the [employer] Rep came here on 09/25 and reviewed the pump, she informed me that there could possibly be leaking of narcotic and that the tubing was tunneled into his intrathecal space. On 09/25 I then started calling to have him transferred to larger hospital, no beds were open. Today he is awake but appears weak, follows commands, but has R-sided neglect, speaks with a whisper, is able to swallow. Plan: Resume meds, staggering the ones that could be causing oversedation: pain meds, Ritalin, sleeping meds. I told his this plan I will cancel neuro checks q4h Remain in ICU for close monitoring for recurrent oversedation I will cont to try to get him transferred, since we have no Neurol here at this [facility], and I still suspect a leaking narcotic pump caused the obtundation (2) Opiate Overdose At adm he was obtunded, had pinpoint pupils and UDS: +opiates. Pt was given Narcan 5 dose in ER, each helped. He has been in ICU to be on a Narcan drip, but this hospital ran out of its Narcan supply at 0400 today. Patient has a pain pump implanted in the left lower quadrant of abdomen many years ago, it gets replaced every several years. On 09/24, I spoke to the Neurologist who orders his narcotic meds, Dr. Vera at [facility] who said that it was supposed to be explanted in March 2023 and it is empty and it was beeping because the battery is dying. Dr. Vera said there is probably none or negligible narcotics infusing from this pain pump into the patient. On 09/25 the [employer] Rep reviewed the pump and informed me that there could possibly be leaking of n arcotic. I the started to have him transferred to larger hospital Plan: As in #1 I will cont to work on having him transferred to a larger facility, due to concern over the narcotics coming from his implanted pump. If he becomes hypopneic, would start BIPAP. He is a DNR and a DNI, so no ventilator. (3) UTI Leukocytosis with WBC 11.7, UA: had WBC and bact, but ur cx "not indicated" Plan: Cont empiric iv Rocephin until final blood Cx result is back (4) S/P recent CVA with L hemiparesis, he went to SNF for rehab sev wks ago Plan: Will change daily ASA per rectum to daily po ASA today PT/OT ordered to start today (5) Chronic pain Has pain pump. Concern that it is leaking onto body Plan: As in #1 & #2 (6) Parkinson's disease Dementia Plan was to continue home medications: Trazodone, Memantine, Ritalin, Propranolol, Seroquel Resume meds staggering the ones that could be causing oversedation: pain meds, Ritalin, sleeping meds. I told his this plan (7) DM type 2 Recent Hgba1c was 8.7 Plan: Will stop iv w/ D5, since he can swallow and is taking a DM diet Cont fingerstick checks ac/hs since he is taking a diet reliably, and cont sliding scale insulin coverage (8) Diabetic Gastroparesis Plan: Reglan will be resumed (9) Thrush Plan: Will start Nystatin swish and swallow (10) Hypomagnesemia Follow Ng level and supplement if needed (11) CAD Will change daily ASA per rectum to daily po ASA today Will resume his po meds (12) HTN Will resume his po meds (13) BPH Will resume his po Flomax Vidales inserted when he was obtunded, and I will order to remove it today (14) GERD Will resume his po meds
[2023-09-26] MEDS: NYSTATIN 500000 UNITS/5 ML UDC PO SCH ×2 (16:18→20:35)
[2023-09-26] MEDS: FAMOTIDINE 20 MG TABLET PO SCH (20:35)
[2023-09-26] MEDS: MEMANTINE 5 MG TABLET PO SCH (20:35)
[2023-09-26] MEDS: TAMSULOSIN 0.4 MG CAPSULE PO SCH (20:35)
[2023-09-26] MEDS: APIXABAN 5 MG TABLET PO SCH (20:36)
[2023-09-27] MEDS: MORPHINE IR 15 MG TABLET PO SCH ×6 (00:01→21:09)
[2023-09-27] MEDS: traZODone 50 MG TABLET PO SCH ×2 (00:01→21:10)
[2023-09-27] MEDS: SODIUM CHLORIDE FLUSH 0.9% 10 ML SYRINGE IVP SCH ×3 (00:02→17:45)
[2023-09-27] MEDS: SODIUM CHLORIDE FLUSH 0.9% 10 ML SYRINGE IVP PRN ×2 (00:02→23:12)
[2023-09-27 05:08] LABS: CALCIUM 8.2 mg/dL (8.5-10.3); CREATININE 0.7 mg/dL (0.6-1.3); MAGNESIUM 1.5 mg/dL (1.7-2.3); PHOSPHORUS 2.3 mg/dL (2.5-5.0); POTASSIUM 3.5 mmol/L (3.5-4.5)
[2023-09-27 05:09] LABS: CALCIUM, IONIZED 1.07 mmol/L (1.15-1.33); VBG PH 7.421 (7.31-7.41)
[2023-09-27] MEDS ORDERED: CALCIUM GLUC 1,000MG/50ML-NACL 1,000 MG/50 ML BAG IV ONE (05:39)
[2023-09-27] MEDS ORDERED: MAGNESIUM SULFATE 2 GRAM 2 GM/50 ML BAG IV ONE (05:39)
[2023-09-27] MEDS: PROPRANOLOL 10 MG TABLET PO SCH ×3 (06:15→21:09)
[2023-09-27] MEDS: NEUTRA-PHOS 250 MG TABLET PO SCH ×2 (06:15→08:16)
[2023-09-27] MEDS: METOCLOPRAMIDE 10 MG TABLET PO SCH ×3 (06:15→16:56)
[2023-09-27] MEDS: METHYLPHENIDATE 10 MG TABLET PO SCH (06:24)
[2023-09-27] MEDS: FAMOTIDINE 20 MG TABLET PO SCH ×2 (08:15→20:31)
[2023-09-27] MEDS: INSULIN LISPRO 300 UNIT/3 ML PEN SUBQ SCH ×4 (08:15→21:04)
[2023-09-27] MEDS: metFORMIN 500 MG TABLET PO SCH ×2 (08:16→17:43)
[2023-09-27] MEDS: NYSTATIN 500000 UNITS/5 ML UDC PO SCH ×4 (08:16→21:03)
[2023-09-27] MEDS: ASPIRIN EC 81 MG TABLET PO SCH (08:16)
[2023-09-27] MEDS: APIXABAN 5 MG TABLET PO SCH ×2 (08:16→20:33)
[2023-09-27] MEDS: cefTRIAXone 1 GM in SODIUM CHLORIDE 0.9% MINIBAG 100 ML IV SCH (08:22)
[2023-09-27] MEDS ORDERED: LORazepam 2 MG/ML VIAL IVP PRN (10:20)
--- NOTE | 2023-09-27 13:46 | XRAY Report ---
PROCEDURE: Chest 1V INDICATIONS: SOB and severe hypoxia TECHNIQUE: One view of the chest was acquired. COMPARISON: 09/23/2023 FINDINGS: Surgical changes and devices: Partially seen spinal fusion hardware Lungs and pleura: Low lung volumes. Possible left lung base opacity and small effusion. Mediastinum: Borderline cardiomegaly Bones and chest wall: Degenerative changes. Possible deformity of the right humerus partially seen. IMPRESSION: Suspected left lung base opacity and small effusion may be infectious/inflammatory. Single view portable radiograph limits evaluation. Consider future imaging surveillance to assess for resolution. Reviewed by: Dwight Hernandez MD on 09/27/2023 1:45 PM PST Approved by: Dwight Hernandez MD on 09/27/2023 1:45 PM PST Station ID: [id number]
--- NOTE | 2023-09-27 18:10 | PROVIDER PROGRESS NOTE ---
Assessment/Plan - Problem List (1) AMS (altered mental status) Assessment/Plan: Cause of his obtundation was not clear. We first thought it was opiate overdose since he improved on Narcan, and his repeat head CT and the brain MRI both showed the recent stroke in evolution, but no new findings. I started resuming his meds, staggering the ones that could be causing oversedation: pain meds, Ritalin, sleeping meds. For the past 2 days and today he is awake, communicates but is bradykinetic (which is his baseline due to Parkinson's), he is feeding himself, is able to swallow, but speaks with a whisper Plan: Resume PT and OT and transfer back to [facility] for rehab, however if he has obtundation again, I will re-try to get him transferred, since we have no Neurol here at this [facility], and I still suspect a leaking narcotic pump caused the obtundation. I updated the pt and at bedside today (2) Opiate Overdose At adm he was obtunded, had pinpoint pupils and UDS: +opiates. Pt was given Narcan 5 dose in ER, each helped. He was in ICU to be on a Narcan drip, but this hospital ran out of its Narcan supply on 09/25, but pt was waking up at that point, eyes opening. Patient has a pain pump implanted in the left lower quadrant of abdomen many years ago, it gets replaced every several years. On 09/24, I spoke to the Neurologist who orders his narcotic meds, Dr. Vera at [facility] who said that it was supposed to be explanted in March 2023 and it is empty and it was beeping because the battery is dying. Dr. Vera said there is probably none or negligible narcotics infusing from this pain pump into the patient. On 09/25 the [employer] Rep interrogated the pump and informed me that there could possibly be leaking of narcotic if there had been trauma to the pump Plan: As in #1 If he becomes hypopneic, would start BIPAP. He is a DNR and a DNI, so no ventilator. (3) S/P recent CVA with L hemiparesis, he went to SNF for rehab sev wks ago Plan: Cont daily ASA po PT/OT ordered to start (4) Chronic pain Has pain pump. Concern that it is leaking onto body Plan: As in #1 & #2 (5) Parkinson's disease Dementia Plan was to continue home medications: Trazodone, Memantine, Ritalin, Propran olol, Seroquel Resume meds staggering the ones that could be causing oversedation: pain meds, Ritalin, sleeping meds. I told his this plan (6) Abn EKG His EKG is very abnormal showing RBBB and extreme Right axis deviation He never had an Echo at this hospital, even when he had the CVA several weeks ago, because the said she would not have him undergo any interventions (so he never had carotid W/U either) Plan: Will get Echo to [facility] for [facility] (but today is Sat and we have no Echo service here until ) (7) DM type 2 Recent Hgba1c was 8.7 Plan: Will stop iv w/ D5, since he can swallow and is taking a DM diet Cont fingerstick checks ac/hs since he is taking a diet reliably, and cont sliding scale insulin coverage (8) Diabetic Gastroparesis Plan: Reglan will be resumed (9) Thrush Plan: Will start Nystatin swish and swallow (10) Hypomagnesemia Follow Ng level and supplement if needed (11) CAD Once he was awake and cpould swalow, I changed daily ASA per rectum to daily po ASA and resumed his po meds (12) HTN I resumed his po meds (13) BPH Iresumed his po Flomax Vidales inserted when he was obtunded, was ordered to be removed 09/26 (14) GERD I resumed his po meds (15) Bacteriuria At adm WBC 11.7, UA had WBC and bacteria, but ur cx "not indicated". He was started on empiric Ceftriaxone Blood cx final shows no growth Plan: Stop Rocephin - Current Meds Current Meds: Current Medications Generic Name Dose Route Start Last Admin Trade Name Freq PRN Reason Stop Dose Admin Acetaminophen 650 mg 09/26/23 11:14 09/26/23 12:30 Acetaminophen 325 Mg Tablet PO 650 mg Q4HR PRN Administration Pain or Fever > 38C (100.4F) Apixaban 5 mg 09/26/23 21:00 09/27/23 08:16 Apixaban 5 Mg Tablet PO 5 mg BID ISELA Administration Aspirin 81 mg 09/26/23 12:00 09/27/23 08:16 Aspirin Ec 81 Mg Tablet PO 81 mg DAILY ISELA Administration Famotidine 20 mg 09/26/23 21:00 09/27/23 08:15 Famotidine 20 Mg Tablet PO 20 mg BID ISELA Administration Ceftriaxone Sodium 1 gm/ 100 mls @ 200 mls/hr 09/24/23 04:00 09/27/23 08:56 Sodium Chloride IV Infused DAILY ISELA Infusion Insulin Human Lispro 1 - 5 unit 09/25/23 21:00 09/27/23 17:42 Insulin Lispro 300 Unit/3 Ml Pen SUBQ 2 unit 0800,1200,1700,2100 ISELA Administration Protocol Memantine 5 mg 09/26/23 21:00 09/26/23 20:35 Memantine 5 Mg Tablet PO 5 mg QPM ISELA Administration Metformin HCl 1,000 mg 09/27/23 08:00 09/27/23 17:43 Metformin 500 Mg Tablet PO 1,000 mg BIDWM ISELA Administration Metoclopramide HCl 5 mg 09/26/23 11:30 09/27/23 16:56 Metoclopramide 10 Mg Tablet PO 5 mg AC ISELA Administration Morphine Sulfate 15 mg 09/26/23 13:02 09/27/23 17:43 Morphine Ir 15 Mg Tablet PO 15 mg Q4H ISELA Administration Nystatin 5 ml 09/26/23 17:00 09/27/23 17:45 Nystatin 261927 Units/5 Ml Udc PO 5 ml QID ISELA Administration Propranolol HCl 10 mg 09/26/23 14:00 09/27/23 13:10 Propranolol 10 Mg Tablet PO 10 mg TID ISELA Administration Quetiapine Fumarate 50 mg 09/26/23 03:04 09/26/23 20:36 Quetiapine 25 Mg Tablet PO 50 mg QPM ISELA Administration Sodium Chloride 10 ml 09/23/23 23:17 09/27/23 00:02 Sodium Chloride Flush 0.9% 10 Ml Syringe IVP 10 ml PRN PRN Administration NEEDED PER PROVIDER ORDERS Sodium Chloride 10 ml 09/24/23 01:00 09/27/23 17:45 Sodium Chloride Flush 0.9% 10 Ml Syringe IVP 10 ml 0100,0900,1700 ISELA Administration Tamsulosin HCl 0.4 mg 09/26/23 21:00 09/26/23 20:35 Tamsulosin 0.4 Mg Capsule PO 0.4 mg QPM ISELA Administration Trazodone HCl 50 mg 09/26/23 23:00 09/27/23 00:01 Trazodone 50 Mg Tablet PO 50 mg QPM ISELA Administration - Lab Result Fish Bone Diagrams: 09/26/23 04:59 09/27/23 04:37 - Additional Planning My Orders: My Active Orders 09/26/23 21:00 Apixaban [Eliquis] 5 mg PO BID Famotidine [Pepcid] 20 mg PO BID Memantine [Namenda] 5 mg PO QPM Tamsulosin [Flomax] 0.4 mg PO QPM 09/27/23 TROPONIN I HIGH SENSITIVITY [CHEM] Routine 09/27/23 08:00 metFORMIN [Glucophage] 1,000 mg PO BIDWM 09/27/23 10:20 LORazepam INJ [Ativan Inj (Vial)] 0.5 mg IVP Q4H PRN 09/27/23 22:00 Methylphenidate [Ritalin] 20 mg PO TID 09/28/23 05:00 CALCIUM, IONIZED ([facility]) [BG] DAILYLAB MAGNESIUM [CHEM] DAILYLAB PHOSPHORUS [CHEM] DAILYLAB 09/30/23 07:00 Echo Complete w/Bubble Study [ECHO] Routine Subjective - Subjective Patient Reports: Feeling Better, Resting Comfortably Objective Vital Signs: Vital Signs - 24 hr 09/26/23 09/26/23 09/26/23 19:00 20:00 21:00 Temperature 36.9 C Heart Rate [ 72 66 73 Monitoring electrodes] Respiratory 12 16 15 Rate Blood Pressure 126/73 134/85 H 163/91 H [Left Brachial artery] O2 Saturation 95 95 97 09/26/23 09/26/23 09/27/23 22:00 23:00 00:00 Temperature 36.9 C Heart Rate [ 72 67 63 Monitoring electrodes] Respiratory 14 11 L 13 Rate Blood Pressure 143/96 H 131/71 H 133/85 H [Left Brachial artery] O2 Saturation 97 96 97 09/27/23 09/27/23 09/27/23 01:00 02:00 03:00 Temperature Heart Rate [ 70 88 64 Monitoring electrodes] Respiratory 14 22 15 Rate Blood Pressure 128/78 147/97 H 150/92 H [Left Brachial artery] O2 Saturation 95 96 97 09/27/23 09/27/23 09/27/23 04:00 05:00 06:00 Temperature 36.7 C Heart Rate [ 64 63 73 Monitoring electrodes] Respiratory 14 14 23 Rate Blood Pressure 142/86 H 128/66 140/89 H [Left Brachial artery] O2 Saturation 96 97 96 09/27/23 09/27/23 09/27/23 07:00 09:00 13:00 Temperature Heart Rate [ 73 66 65 Monitoring electrodes] Respiratory 15 12 17 Rate Blood Pressure 138/66 H 126/79 101/56 L [Left Brachial artery] O2 Saturation 94 97 97 09/27/23 16:27 Temperature 36.2 C L Heart Rate [ 57 L Monitoring electrodes] Respiratory 15 Rate Blood Pressure 126/70 [Left Brachial artery] O2 Saturation 95 Oxygen O2 Source Room air Oxygen Flow Rate 2 I&O (Last 24 Hrs): Intake and Output Totals x24h 09/25/23 09/26/23 09/27/23 23:59 23:59 23:59 Intake Total 2850 3710 1310 Output Total 2404 2485 900 Balance 446 1225 410 General: Alert, No acute distress, Other (Bradykinetic. Speaks in short sentences, voice very soft) HEENT: Mucous membr. moist/pink Neuro: Alert, Other (Bradykinetic, R arm and hand 4/5 strength) Cardiovascular: No murmurs Respiratory: No respiratory distress, Breath sounds nml Abdomen: Normal bowel sounds, Soft Extremities: No clubbing, No edema, No tenderness/swelling - Results Results: Laboratory Results WBC 7.6 x10^3/uL (4.8-10.8) 09/26/23 04:59 RBC 4.37 10^6/uL (4.70-6.10) L 09/26/23 04:59 Hgb 12.8 g/dL (14.0-18.0) L 09/26/23 04:59 Hct 40.2 % (42.0-52.0) L 09/26/23 04:59 MCV 92.0 fL (80.0-94.0) 09/26/23 04:59 MCH 29.3 pg (27.0-31.0) 09/26/23 04:59 MCHC 31.8 g/dL (32.0-36.0) L 09/26/23 04:59 RDW 13.2 % (12.0-15.0) 09/26/23 04:59 Plt Count 282 10^3/uL (130-450) 09/26/23 04:59 MPV 9.6 fL (7.4-11.4) 09/26/23 04:59 Neut # (Auto) 4.6 10^3/uL (1.5-6.6) 09/26/23 04:59 Lymph # (Auto) 1.8 10^3/uL (1.5-3.5) 09/26/23 04:59 [place] # (Auto) 0.6 10^3/uL (0.0-1.0) 09/26/23 04:59 Eos # (Auto) 0.5 10^3/uL (0.0-0.7) 09/26/23 04:59 Baso # (Auto) 0.0 10^3/uL (0.0-0.1) 09/26/23 04:59 Absolute Nucleated RBC 0.00 x10^3/uL 09/26/23 04:59 Nucleated RBC % 0.0 /100WBC 09/26/23 04:59 PT 15.0 secs (9.9-12.6) H 09/23/23 16:46 INR 1.4 (0.8-1.2) H 09/23/23 16:46 VBG pH 7.421 (7.31-7.41) H 09/27/23 04:37 VBG pCO2 55.6 mmHg (41-51) H 09/23/23 16:46 VBG pO2 22.1 mmHg (25-47) L 09/23/23 16:46 VBG HCO3 28.5 mmol/L (23-28) H 09/23/23 16:46 VBG Total CO2 30.2 mmol/L (24-29) H 09/23/23 16:46 VBG O2 Saturation 38.6 % (60-80) L 09/23/23 16:46 VBG Base Excess 1.1 mmol/L (-2 - +2) 09/23/23 16:46 Ionized Calcium 1.07 mmol/L (1.15-1.33) L 09/27/23 04:37 Sodium 137 mmol/L (135-145) 09/27/23 04:37 Potassium 3.5 mmol/L (3.5-4.5) 09/27/23 04:37 Chloride 105 mmol/L (101-111) 09/27/23 04:37 Carbon Dioxide 26 mmol/L (21-32) 09/27/23 04:37 Anion Gap 6.0 (6-13) 09/27/23 04:37 BUN 9 mg/dL (6-20) 09/27/23 04:37 Creatinine 0.7 mg/dL (0.6-1.3) 09/27/23 04:37 Estimated GFR (MDRD) 111 (>89) 09/27/23 04:37 Glucose 167 mg/dL (74-104) H 09/27/23 04:37 Calcium 8.2 mg/dL (8.5-10.3) L 09/27/23 04:37 Phosphorus 2.3 mg/dL (2.5-5.0) L 09/27/23 04:37 Magnesium 1.5 mg/dL (1.7-2.3) L 09/27/23 04:37 Total Bilirubin 1.0 mg/dL (0.2-1.0) 09/24/23 04:25 AST 12 IU/L (10-42) 09/24/23 04:25 ALT 6 IU/L (10-60) L 09/24/23 04:25 Alkaline Phosphatase 89 IU/L (42-121) 09/24/23 04:25 Troponin I High Sens 40.2 ng/L (2.3-19.7) H* 09/27/23 13:26 Total Protein 4.8 g/dL (6.4-8.9) L 09/24/23 04:25 Albumin 2.9 g/dL (3.2-5.5) L 09/24/23 04:25 Globulin 1.9 g/dL (2.1-4.2) L 09/24/23 04:25 Albumin/Globulin Ratio 1.5 (1.0-2.2) 09/24/23 04:25 Lipase < 10 U/L (11-82) L 09/23/23 16:46 Urine Color LT. YELLOW 09/23/23 19:42 Urine Clarity CLEAR (CLEAR) 09/23/23 19:42 Urine pH 5.5 PH (5.0-7.5) 09/23/23 19:42 Ur Specific [place] 1.020 (1.002-1.030) 09/23/23 19:42 Urine Protein NEGATIVE mg/dL (NEGATIVE) 09/23/23 19:42 Urine Glucose (UA) >=1000 mg/dL (NEGATIVE) H 09/23/23 19:42 Urine Ketones 15 mg/dL (NEGATIVE) H 09/23/23 19:42 Urine Occult Blood NEGATIVE (NEGATIVE) 09/23/23 19:42 Urine Nitrite NEGATIVE (NEGATIVE) 09/23/23 19:42 Urine Bilirubin NEGATIVE (NEGATIVE) 09/23/23 19:42 Urine Urobilinogen 0.2 (NORMAL) E.U./dL (NORMAL) 09/23/23 19:42 Ur Leukocyte Esterase NEGATIVE (NEGATIVE) 09/23/23 19:42 Ur Microscopic Review NOT INDICATED 09/23/23 19:42 Urine Culture Comments NOT INDICATED 09/23/23 19:42 Nasal Adenovirus (PCR) NOT DETECTED 09/23/23 17:25 Nasal B. parapertussis DNA (PCR) NOT DETECTED 09/23/23 17:25 Nasal Coronavir 229E PCR NOT DETECTED 09/23/23 17:25 Nasal Coronavir HKU1 PCR NOT DETECTED 09/23/23 17:25 Nasal Coronavir NL63 PCR NOT DETECTED 09/23/23 17:25 Nasal Coronavir OC43 PCR NOT DETECTED 09/23/23 17:25 Nasal Enterovir/Rhinovir PCR NOT DETECTED 09/23/23 17:25 Nasal Influenza B PCR NOT DETECTED 09/23/23 17:25 Nasal Influenza A PCR NOT DETECTED 09/23/23 17:25 Nasal Parainfluen 1 PCR NOT DETECTED 09/23/23 17:25 Nasal Parainfluen 2 PCR NOT DETECTED 09/23/23 17:25 Nasal Parainfluen 3 PCR NOT DETECTED 09/23/23 17:25 Nasal Parainfluen 4 PCR NOT DETECTED 09/23/23 17:25 Nasal RSV (PCR) NOT DETECTED 09/23/23 17:25 Nasal Screen MRSA (PCR) NEGATIVE (NEGATIVE) 09/24/23 03:08 Nasal B.pertussis DNA PCR NOT DETECTED 09/23/23 17:25 Nasal C.pneumoniae (PCR) NOT DETECTED 09/23/23 17:25 Iain Human Metapneumo PCR NOT DETECTED 09/23/23 17:25 Nasal M.pneumoniae (PCR) NOT DETECTED 09/23/23 17:25 Nasal SARS-CoV-2 (PCR) NOT DETECTED 09/23/23 17:25 Urine Opiates Screen POSITIVE (NEGATIVE) H 09/23/23 19:42 Ur Buprenorphine Scrn NEGATIVE (NEGATIVE) 09/23/23 19:42 Ur Oxycodone Screen NEGATIVE (NEGATIVE) 09/23/23 19:42 Urine Methadone Screen NEGATIVE (NEGATIVE) 09/23/23 19:42 Ur Barbiturates Screen NEGATIVE (NEGATIVE) 09/23/23 19:42 Ur Tricyclics Screen POSITIVE (NEGATIVE) H 09/23/23 19:42 Ur Phencyclidine Scrn NEGATIVE (NEGATIVE) 09/23/23 19:42 Ur Amphetamine Screen NEGATIVE (NEGATIVE) 09/23/23 19:42 U Methamphetamines Scrn NEGATIVE (NEGATIVE) 09/23/23 19:42 U Benzodiazepines Scrn NEGATIVE (NEGATIVE) 09/23/23 19:42 Urine Cocaine Screen NEGATIVE (NEGATIVE) 09/23/23 19:42 U Cannabinoids Screen NEGATIVE (NEGATIVE) 09/23/23 19:42 Ur Drug Screen Comment CUTOFF CONC BELOW: 09/23/23 19:42 Ethyl Alcohol < 10.0 mg/dL 09/23/23 16:46
[2023-09-27] MEDS: QUEtiapine 25 MG TABLET PO SCH (20:32)
[2023-09-27] MEDS: TAMSULOSIN 0.4 MG CAPSULE PO SCH (20:32)
[2023-09-27] MEDS: MEMANTINE 5 MG TABLET PO SCH (20:33)
[2023-09-27] MEDS ORDERED: METHYLPHENIDATE 5 MG TABLET PO SCH (22:00)
[2023-09-28] MEDS: MORPHINE IR 15 MG TABLET PO SCH ×7 (00:44→23:43)
[2023-09-28] MEDS: SODIUM CHLORIDE FLUSH 0.9% 10 ML SYRINGE IVP SCH ×4 (00:45→23:43)
[2023-09-28] MEDS: PROPRANOLOL 10 MG TABLET PO SCH (06:05)
[2023-09-28 06:28] LABS: CALCIUM, IONIZED 1.14 mmol/L (1.15-1.33); VBG PH 7.347 (7.31-7.41)
[2023-09-28 06:40] LABS: MAGNESIUM 1.5 mg/dL (1.7-2.3); PHOSPHORUS 3.1 mg/dL (2.5-5.0)
[2023-09-28] MEDS: INSULIN LISPRO 300 UNIT/3 ML PEN SUBQ SCH ×4 (08:05→20:23)
[2023-09-28] MEDS: metFORMIN 500 MG TABLET PO SCH ×2 (08:06→17:50)
[2023-09-28] MEDS: METHYLPHENIDATE 5 MG TABLET PO SCH ×3 (08:07→14:56)
[2023-09-28] MEDS: METOCLOPRAMIDE 10 MG TABLET PO SCH ×3 (08:07→17:39)
[2023-09-28] MEDS ORDERED: PROPRANOLOL 10 MG TABLET PO SCH (08:40)
[2023-09-28] MEDS ORDERED: LORazepam 2 MG/ML VIAL IVP PRN (08:41)
--- NOTE | 2023-09-28 08:49 | PROVIDER PROGRESS NOTE ---
Assessment/Plan - Problem List (1) AMS (altered mental status) Assessment/Plan: Cause of his obtundation was not clear. We first thought it was opiate overdose since he improved on Narcan, and his repeat head CT and the brain MRI both showed the recent stroke in evolution, but no new findings. I started resuming his meds, staggering the ones that could be causing oversedation: pain meds, Ritalin, sleeping meds. Yesterday, he wanted Ativen at bedtime for anxiety which was given and it oversedated him, to the point that he could not swallow his scheduled Morphine at 0100, per SBAR message from his [facility] t RN Jocelyne. His combination of meds are over-sedating him therefore. I reviewed this with his at bedside Plan: Stop prn Ativan. Cont the other 4 meds he was already on: scheduled Morphine po q4h, scheduled Ritalin po TID, scheduled Seroquel po qpm, and scheduled Trazadone po qpm. Cont the resumed PT and OT and transfer back to [facility] for rehab when he is not oversedated (2) Opiate Overdose At adm he was obtunded, had pinpoint pupils and UDS: +opiates. Pt was given Narcan 5 dose in ER, each helped. He was in ICU to be on a Narcan drip, but this hospital ran out of its Narcan supply on 09/25, but pt was waking up at that point, eyes opening. Patient has a pain pump implanted in the left lower quadrant of abdomen many years ago, it gets replaced every several years. On 09/24, I spoke to the Neurologist who orders his narcotic meds, Dr. Vera at [facility] who said that it was supposed to be explanted in March 2023 and it is empty and it was beeping because the battery is dying. Dr. Vera said there is probably none or negligible narcotics infusing from this pain pump into the patient. On 09/25 the scanR Rep interrogated the pump and informed me that there could possibly be leaking of narcotic if there had been trauma to the pump Plan: The pump needs to be removed/replaced or filled and managed per Dr Vera. However, I feel his current po meds are controlling his pain already. If he becomes hypopneic, would start BIPAP. He is a DNR and a DNI, so no ventilator. (3) Wenckebach heart block Last night when he was very sleepy/obtunded, and had received his usual propranolol, his heart rate went to the 40s Today on telemetry he is showing episodes of Wenkebach, type I second-degree heart block Plan: I will decrease his propranolol TID down to propranolol twice daily with meals. Start that tomorrow am, no further Propranolol today. Parameters for holding of already been placed if heart rate is below 60 (4) S/P recent CVA With L hemiparesis, and he went to SNF for rehab several wks ago Plan: Cont daily ASA po Cont the resumed PT and OT and transfer back to [facility] for rehab when he is not oversedated (5) Chronic pain Has pain pump. Concern that it is leaking onto body Plan: As in #1 & #2 (6) Parkinson's disease Dementia Continue home medications: Trazodone, Memantine, Ritalin, Propranolol, Seroquel Yesterday he got Propranolol as scheduled and then last night, after getting Ativan causing oversedation, his HR was 40. Plan: Stop Ativan Cont his other meds, and will decrease propranolol dose and place parameters when to hold Propranolol for severe tuyet For his anxiety, OK to give the Morphine IR 2 hours early, then retime the next dose q4h apart. I spoke to RN about this I will move up his Desyrel and his Seroquel doses, and stagger them. I updated the at [facility] today with this plan (7) Abn EKG His EKG is very abnormal showing RBBB and extreme Right axis deviation He never had an Echo at this hospital, even when he had the CVA several weeks ago, because the said she would not have him undergo any interventions (so he never had carotid W/U either) Plan: Will get Echo to [facility] for Cor Pulmonale (but today is Sun and we have no Echo service here until ) (8) DM type 2 Recent Hgba1c was 8.7 Plan: I stopped iv w/ D5, since he could swallow a DM diet Cont fingerstick checks ac/hs since he is taking a diet reliably, and cont sliding scale insulin coverage (9) Diabetic Gastroparesis Plan: Reglan was resumed (10) Thrush Plan: Cont Nystatin swish and swallow (11) Hypomagnesemia Follow Mg level and supplement if needed (12) CAD Cont daily po ASA and resumed his po meds (13) HTN I resumed his po meds (14) BPH I resumed his po Flomax Vidales inserted when he was obtunded, was ordered to be removed 09/26 (15) GERD I resumed his po meds (16) Bacteriuria At adm WBC 11.7, UA had WBC and bacteria, but ur cx "not indicated". He was started on empiric Ceftriaxone Blood cx final shows no growth I stopped empiric Rocephin - Current Meds Current Meds: Current Medications Generic Name Dose Route Start Last Admin Trade Name Freq PRN Reason Stop Dose Admin Acetaminophen 650 mg 09/26/23 11:14 09/26/23 12:30 Acetaminophen 325 Mg Tablet PO 650 mg Q4HR PRN Administration Pain or Fever > 38C (100.4F) Apixaban 5 mg 09/26/23 21:00 09/27/23 20:33 Apixaban 5 Mg Tablet PO 5 mg BID ISELA Administration Aspirin 81 mg 09/26/23 12:00 09/27/23 08:16 Aspirin Ec 81 Mg Tablet PO 81 mg DAILY ISELA Administration Famotidine 20 mg 09/26/23 21:00 09/27/23 20:31 Famotidine 20 Mg Tablet PO 20 mg BID ISELA Administration Insulin Human Lispro 1 - 9 unit 09/27/23 21:00 09/28/23 08:05 Insulin Lispro 300 Unit/3 Ml Pen SUBQ 1 unit 0800,1200,1700,2100 ISELA Administration Protocol Memantine 5 mg 09/26/23 21:00 09/27/23 20:33 Memantine 5 Mg Tablet PO 5 mg QPM ISELA Administration Metformin HCl 1,000 mg 09/27/23 08:00 09/28/23 08:06 Metformin 500 Mg Tablet PO 1,000 mg BIDWM ISELA Administration Methylphenidate HCl 20 mg 09/28/23 07:09 09/28/23 08:07 Methylphenidate 5 Mg Tablet PO 20 mg 0800 ISELA Administration Metoclopramide HCl 5 mg 09/26/23 11:30 09/28/23 08:07 Metoclopramide 10 Mg Tablet PO 5 mg AC ISELA Administration Morphine Sulfate 15 mg 09/26/23 13:02 09/28/23 05:02 Morphine Ir 15 Mg Tablet PO 15 mg Q4H ISELA Administration Nystatin 5 ml 09/26/23 17:00 09/27/23 21:03 Nystatin 079748 Units/5 Ml Udc PO 5 ml QID ISELA Administration Quetiapine Fumarate 50 mg 09/26/23 03:04 09/27/23 20:32 Quetiapine 25 Mg Tablet PO 50 mg QPM ISELA Administration Sodium Chloride 10 ml 09/23/23 23:17 09/27/23 23:12 Sodium Chloride Flush 0.9% 10 Ml Syringe IVP 10 ml PRN PRN Administration NEEDED PER PROVIDER ORDERS Sodium Chloride 10 ml 09/24/23 01:00 09/28/23 00:45 Sodium Chloride Flush 0.9% 10 Ml Syringe IVP 10 ml 0100,0900,1700 ISELA Administration Tamsulosin HCl 0.4 mg 09/26/23 21:00 09/27/23 20:32 Tamsulosin 0.4 Mg Capsule PO 0.4 mg QPM ISELA Administration Trazodone HCl 50 mg 09/26/23 23:00 09/27/23 21:10 Trazodone 50 Mg Tablet PO 50 mg QPM ISELA Administration - Lab Result Fish Bone Diagrams: 09/26/23 04:59 09/27/23 04:37 - Additional Planning My Orders: My Active Orders 09/27/23 08:00 metFORMIN [Glucophage] 1,000 mg PO BIDWM 09/27/23 21:00 Insulin Lispro [Humalog Kwikpen U-100] 1 - 9 unit SUBQ 0800,1200,1700,2100 09/28/23 07:09 Methylphenidate [Ritalin] 20 mg PO 0800 09/28/23 08:40 Propranolol [Inderal] 10 mg PO TID 09/28/23 08:41 LORazepam INJ [Ativan Inj (Vial)] 0.5 mg IVP QPM PRN 09/28/23 11:00 Methylphenidate [Ritalin] 20 mg PO 1100 09/28/23 14:00 Methylphenidate [Ritalin] 20 mg PO 1400 09/30/23 07:00 Echo Complete w/Bubble Study [ECHO] Routine Subjective - Subjective Patient Reports: Feeling Better Nursing Reports: Other (Feeding himself, more alert. Last night he was "anxious") Objective Vital Signs: Vital Signs - 24 hr 09/27/23 09/27/23 09/27/23 09:00 13:00 16:27 Temperature 36.2 C L Heart Rate [ Brachial] Heart Rate [ 66 65 57 L Monitoring electrodes] Respiratory 12 17 15 Rate Blood Pressure 126/79 101/56 L 126/70 [Left Brachial artery] Blood Pressure [Right Brachial artery] O2 Saturation 97 97 95 09/27/23 09/28/23 09/28/23 19:39 00:48 04:46 Temperature 36.2 C L 36.5 C 36.4 C L Heart Rate [ 54 L 57 L Brachial] Heart Rate [ 65 Monitoring electrodes] Respiratory 16 18 16 Rate Blood Pressure 134/75 H [Left Brachial artery] Blood Pressure 108/60 121/69 [Right Brachial artery] O2 Saturation 95 95 96 09/28/23 08:27 Temperature 36.4 C L Heart Rate [ 57 L Brachial] Heart Rate [ Monitoring electrodes] Respiratory 18 Rate Blood Pressure [Left Brachial artery] Blood Pressure 134/80 H [Right Brachial artery] O2 Saturation 98 Oxygen O2 Source Room air Oxygen Flow Rate 2 I&O (Last 24 Hrs): Intake and Output Totals x24h 09/26/23 09/27/23 09/28/23 23:59 23:59 23:59 Intake Total 3710 1750 Output Total 2485 1375 575 Balance 1225 375 -575 General: Alert, No acute distress HEENT: EOMI Neck: Supple Neuro: Alert, Other (L arm and hand weakness. Short sentences with slow bu appropriate speech) Cardiovascular: Regular rate Respiratory: No respiratory distress Abdomen: Soft Extremities: No clubbing, No edema, No tenderness/swelling - Results Results: Laboratory Results WBC 7.6 x10^3/uL (4.8-10.8) 09/26/23 04:59 RBC 4.37 10^6/uL (4.70-6.10) L 09/26/23 04:59 Hgb 12.8 g/dL (14.0-18.0) L 09/26/23 04:59 Hct 40.2 % (42.0-52.0) L 09/26/23 04:59 MCV 92.0 fL (80.0-94.0) 09/26/23 04:59 MCH 29.3 pg (27.0-31.0) 09/26/23 04:59 MCHC 31.8 g/dL (32.0-36.0) L 09/26/23 04:59 RDW 13.2 % (12.0-15.0) 09/26/23 04:59 Plt Count 282 10^3/uL (130-450) 09/26/23 04:59 MPV 9.6 fL (7.4-11.4) 09/26/23 04:59 Neut # (Auto) 4.6 10^3/uL (1.5-6.6) 09/26/23 04:59 Lymph # (Auto) 1.8 10^3/uL (1.5-3.5) 09/26/23 04:59 [place] # (Auto) 0.6 10^3/uL (0.0-1.0) 09/26/23 04:59 Eos # (Auto) 0.5 10^3/uL (0.0-0.7) 09/26/23 04:59 Baso # (Auto) 0.0 10^3/uL (0.0-0.1) 09/26/23 04:59 Absolute Nucleated RBC 0.00 x10^3/uL 09/26/23 04:59 Nucleated RBC % 0.0 /100WBC 09/26/23 04:59 PT 15.0 secs (9.9-12.6) H 09/23/23 16:46 INR 1.4 (0.8-1.2) H 09/23/23 16:46 VBG pH 7.347 (7.31-7.41) 09/28/23 05:58 VBG pCO2 55.6 mmHg (41-51) H 09/23/23 16:46 VBG pO2 22.1 mmHg (25-47) L 09/23/23 16:46 VBG HCO3 28.5 mmol/L (23-28) H 09/23/23 16:46 VBG Total CO2 30.2 mmol/L (24-29) H 09/23/23 16:46 VBG O2 Saturation 38.6 % (60-80) L 09/23/23 16:46 VBG Base Excess 1.1 mmol/L (-2 - +2) 09/23/23 16:46 Ionized Calcium 1.14 mmol/L (1.15-1.33) L 09/28/23 05:58 Sodium 137 mmol/L (135-145) 09/27/23 04:37 Potassium 3.5 mmol/L (3.5-4.5) 09/27/23 04:37 Chloride 105 mmol/L (101-111) 09/27/23 04:37 Carbon Dioxide 26 mmol/L (21-32) 09/27/23 04:37 Anion Gap 6.0 (6-13) 09/27/23 04:37 BUN 9 mg/dL (6-20) 09/27/23 04:37 Creatinine 0.7 mg/dL (0.6-1.3) 09/27/23 04:37 Estimated GFR (MDRD) 111 (>89) 09/27/23 04:37 Glucose 167 mg/dL (74-104) H 09/27/23 04:37 Calcium 8.2 mg/dL (8.5-10.3) L 09/27/23 04:37 Phosphorus 3.1 mg/dL (2.5-5.0) 09/28/23 05:58 Magnesium 1.5 mg/dL (1.7-2.3) L 09/28/23 05:58 Total Bilirubin 1.0 mg/dL (0.2-1.0) 09/24/23 04:25 AST 12 IU/L (10-42) 09/24/23 04:25 ALT 6 IU/L (10-60) L 09/24/23 04:25 Alkaline Phosphatase 89 IU/L (42-121) 09/24/23 04:25 Troponin I High Sens 38.3 ng/L (2.3-19.7) H* 09/27/23 Unknown Total Protein 4.8 g/dL (6.4-8.9) L 09/24/23 04:25 Albumin 2.9 g/dL (3.2-5.5) L 09/24/23 04:25 Globulin 1.9 g/dL (2.1-4.2) L 09/24/23 04:25 Albumin/Globulin Ratio 1.5 (1.0-2.2) 09/24/23 04:25 Lipase < 10 U/L (11-82) L 09/23/23 16:46 Urine Color LT. YELLOW 09/23/23 19:42 Urine Clarity CLEAR (CLEAR) 09/23/23 19:42 Urine pH 5.5 PH (5.0-7.5) 09/23/23 19:42 Ur Specific [place] 1.020 (1.002-1.030) 09/23/23 19:42 Urine Protein NEGATIVE mg/dL (NEGATIVE) 09/23/23 19:42 Urine Glucose (UA) >=1000 mg/dL (NEGATIVE) H 09/23/23 19:42 Urine Ketones 15 mg/dL (NEGATIVE) H 09/23/23 19:42 Urine Occult Blood NEGATIVE (NEGATIVE) 09/23/23 19:42 Urine Nitrite NEGATIVE (NEGATIVE) 09/23/23 19:42 Urine Bilirubin NEGATIVE (NEGATIVE) 09/23/23 19:42 Urine Urobilinogen 0.2 (NORMAL) E.U./dL (NORMAL) 09/23/23 19:42 Ur Leukocyte Esterase NEGATIVE (NEGATIVE) 09/23/23 19:42 Ur Microscopic Review NOT INDICATED 09/23/23 19:42 Urine Culture Comments NOT INDICATED 09/23/23 19:42 Nasal Adenovirus (PCR) NOT DETECTED 09/23/23 17:25 Nasal B. parapertussis DNA (PCR) NOT DETECTED 09/23/23 17:25 Nasal Coronavir 229E PCR NOT DETECTED 09/23/23 17:25 Nasal Coronavir HKU1 PCR NOT DETECTED 09/23/23 17:25 Nasal Coronavir NL63 PCR NOT DETECTED 09/23/23 17:25 Nasal Coronavir OC43 PCR NOT DETECTED 09/23/23 17:25 Nasal Enterovir/Rhinovir PCR NOT DETECTED 09/23/23 17:25 Nasal Influenza B PCR NOT DETECTED 09/23/23 17:25 Nasal Influenza A PCR NOT DETECTED 09/23/23 17:25 Nasal Parainfluen 1 PCR NOT DETECTED 09/23/23 17:25 Nasal Parainfluen 2 PCR NOT DETECTED 09/23/23 17:25 Nasal Parainfluen 3 PCR NOT DETECTED 09/23/23 17:25 Nasal Parainfluen 4 PCR NOT DETECTED 09/23/23 17:25 Nasal RSV (PCR) NOT DETECTED 09/23/23 17:25 Nasal Screen MRSA (PCR) NEGATIVE (NEGATIVE) 09/24/23 03:08 Nasal B.pertussis DNA PCR NOT DETECTED 09/23/23 17:25 Nasal C.pneumoniae (PCR) NOT DETECTED 09/23/23 17:25 Iain Human Metapneumo PCR NOT DETECTED 09/23/23 17:25 Nasal M.pneumoniae (PCR) NOT DETECTED 09/23/23 17:25 Nasal SARS-CoV-2 (PCR) NOT DETECTED 09/23/23 17:25 Urine Opiates Screen POSITIVE (NEGATIVE) H 09/23/23 19:42 Ur Buprenorphine Scrn NEGATIVE (NEGATIVE) 09/23/23 19:42 Ur Oxycodone Screen NEGATIVE (NEGATIVE) 09/23/23 19:42 Urine Methadone Screen NEGATIVE (NEGATIVE) 09/23/23 19:42 Ur Barbiturates Screen NEGATIVE (NEGATIVE) 09/23/23 19:42 Ur Tricyclics Screen POSITIVE (NEGATIVE) H 09/23/23 19:42 Ur Phencyclidine Scrn NEGATIVE (NEGATIVE) 09/23/23 19:42 Ur Amphetamine Screen NEGATIVE (NEGATIVE) 09/23/23 19:42 U Methamphetamines Scrn NEGATIVE (NEGATIVE) 09/23/23 19:42 U Benzodiazepines Scrn NEGATIVE (NEGATIVE) 09/23/23 19:42 Urine Cocaine Screen NEGATIVE (NEGATIVE) 09/23/23 19:42 U Cannabinoids Screen NEGATIVE (NEGATIVE) 09/23/23 19:42 Ur Drug Screen Comment CUTOFF CONC BELOW: 09/23/23 19:42 Ethyl Alcohol < 10.0 mg/dL 09/23/23 16:46
[2023-09-28] MEDS: FAMOTIDINE 20 MG TABLET PO SCH ×2 (10:10→20:13)
[2023-09-28] MEDS: APIXABAN 5 MG TABLET PO SCH ×2 (10:10→20:13)
[2023-09-28] MEDS: NYSTATIN 500000 UNITS/5 ML UDC PO SCH ×4 (10:12→20:13)
[2023-09-28] MEDS: ASPIRIN EC 81 MG TABLET PO SCH (10:12)
[2023-09-28] MEDS: TAMSULOSIN 0.4 MG CAPSULE PO SCH (20:13)
[2023-09-28] MEDS: MEMANTINE 5 MG TABLET PO SCH (20:14)
[2023-09-28] MEDS: QUEtiapine 25 MG TABLET PO SCH (20:20)
[2023-09-28] MEDS: traZODone 50 MG TABLET PO SCH (21:57)
[2023-09-29] MEDS: MORPHINE IR 15 MG TABLET PO SCH ×5 (04:26→20:51)
--- NOTE | 2023-09-29 08:47 | PROVIDER PROGRESS NOTE ---
Assessment/Plan - Problem List (1) AMS (altered mental status) Assessment/Plan: Cause of his obtundation was not clear. We first thought it was opiate overdose since he improved on Narcan, and his repeat head CT and the brain MRI both showed the recent stroke in evolution, but no new findings. I started resuming his meds, staggering the ones that could be causing oversedation: pain meds, Ritalin, sleeping meds. When he got a dose of Ativan prn anxiety, it oversedated him, and he could not swallow his scheduled meds. Thus, his combination of meds were over-sedating him. I reviewed that with his at bedside yesterday 09/28, but she was not in room when I rounded on pt today. Plan: Remain off prn Ativan. Cont the other 4 meds he was already on: scheduled Morphine po q4h, scheduled Ritalin po TID, scheduled Seroquel po qpm, and scheduled Trazadone po qpm. Cont the resumed PT and OT and transfer back to [facility] for rehab when he is not oversedated, and after Echo is done (see #4 & #7) (2) Opiate Overdose At adm he was obtunded, had pinpoint pupils and UDS: +opiates. Pt was given Narcan 5 dose in ER, each helped. He was in ICU to be on a Narcan drip, but this hospital ran out of its Narcan supply on 09/25, but pt was waking up at that point, eyes opening. Patient has a pain pump implanted in the left lower quadrant of abdomen many years ago, it gets replaced every several years. On 09/24, I spoke to the Neurologist who orders his narcotic meds, Dr. Vera at [facility] who said that it was supposed to be explanted in March 2023 and it is empty and it was beeping because the battery is dying. Dr. Vera said there is probably none or negligible narcotics infusing from this pain pump into the patient. On 09/25 the [employer] Rep interrogated the pump and informed me that there could possibly be leaking of narcotic if there had been trauma to the pump Plan: The pump needs to be removed/replaced or filled and managed per Dr Vera. However, I feel his current po meds are controlling his pain already. If he becomes hypopneic, would start BIPAP. He is a DNR and a DNI, so no ventilator. (3) Wenckebach heart block During sleep, and after getting his usual propranolol, his heart rate went to the 40s in sinus tuyet. Telemetry also showed episodes of Wenckebach block, type I, Mobitz 2, second-degree heart block Plan: I decreased his propranolol TID down to propranolol BID and changed dosing to with meals. Parameters for holding of already been placed if heart rate is below 60 (4) S/P recent CVA Several weeks ago he was adm here with L hemiparesis, and he went to SNF for rehab Plan: Awaiting an Echo w/ bubble study, before he is discharged. An Echo was not done during that CVA admission because it would not have changed his management, since the wished no intervention. However, given the new bradycardia and heart block and need for Propranolol for his Parkinson tremor, Echo was ord ered, and currently we are waiting for Echo service which is only here Friday through , today is Friday). Cont daily ASA po Cont the resumed PT and OT and transfer back to [facility] for rehab when he is not oversedated (5) Chronic pain Has pain pump. Concern that it is leaking onto body Plan: As in #1 & #2 (6) Parkinson's disease Dementia Continue home medications: Trazodone, Memantine, Ritalin, an Propranolol for tremors, Seroquel. He is not on Carbidopa/Levodopa per his Neurologist. He gets panicky from dementia when gone for long period of time He got Propranolol as scheduled and then after getting Ativan as well, his HR was 40. Plan: Remain off Ativan Cont his other meds, and I decreased Propranolol dose and placed parameters when to hold Propranolol for severe tuyet. For his anxiety, I ordered OK to give the Morphine IR 2 hours early at bedtime, then re-time the next dose q4h apart. I spoke to his evening RN in detail about this when I made the changes on 09/28/23. I moved up his Desyrel and his Seroquel doses, and staggered them. (7) Abn EKG His EKG is very abnormal showing RBBB and extreme Right axis deviation He never had an Echo at this hospital, even when he had the CVA several weeks ago, because the said she would not have him undergo any interventions (so he never had carotid W/U either) Plan: Will get Echo to eval for Cor Pulmonale (but today is Mon and we have no Echo service here until ) (8) DM type 2 Recent Hgba1c was 8.7 Plan: I stopped iv w/ D5, since he could swallow a DM diet Cont fingerstick checks ac/hs since he is taking a diet reliably, and cont sliding scale insulin coverage (9) Diabetic Gastroparesis Plan: Reglan was resumed (10) Thrush Plan: Cont Nystatin swish and swallow (11) Hypomagnesemia Follow Mg level intermittently and supplement Mg if low (12) CAD Cont daily po ASA and resumed his po meds (13) HTN I resumed his po meds (14) BPH I resumed his po Flomax Vidales inserted when he was obtunded, was ordered to be removed 09/26 (15) GERD I resumed his po meds (16) Bacteriuria At adm WBC 11.7, UA had WBC and bacteria, but ur cx "not indicated". He was started on empiric Ceftriaxone Blood cx final shows no growth I stopped empiric Rocephin - Current Meds Current Meds: Current Medications Generic Name Dose Route Start Last Admin Trade Name Freq PRN Reason Stop Dose Admin Acetaminophen 650 mg 09/26/23 11:14 09/26/23 12:30 Acetaminophen 325 Mg Tablet PO 650 mg Q4HR PRN Administration Pain or Fever > 38C (100.4F) Apixaban 5 mg 09/26/23 21:00 09/28/23 20:13 Apixaban 5 Mg Tablet PO 5 mg BID ISELA Administration Aspirin 81 mg 09/26/23 12:00 09/28/23 10:12 Aspirin Ec 81 Mg Tablet PO 81 mg DAILY ISELA Administration Famotidine 20 mg 09/26/23 21:00 09/28/23 20:13 Famotidine 20 Mg Tablet PO 20 mg BID ISELA Administration Insulin Human Lispro 1 - 9 unit 09/27/23 21:00 09/28/23 20:23 Insulin Lispro 300 Unit/3 Ml Pen SUBQ 3 unit 0800,1200,1700,2100 ISELA Administration Protocol Memantine 5 mg 09/26/23 21:00 09/28/23 20:14 Memantine 5 Mg Tablet PO 5 mg QPM ISELA Administration Metformin HCl 1,000 mg 09/27/23 08:00 09/28/23 17:50 Metformin 500 Mg Tablet PO 1,000 mg BIDWM ISELA Administration Methylphenidate HCl 20 mg 09/28/23 07:09 09/28/23 08:07 Methylphenidate 5 Mg Tablet PO 20 mg 0800 ISELA Administration Methylphenidate HCl 20 mg 09/28/23 11:00 09/28/23 11:55 Methylphenidate 5 Mg Tablet PO 20 mg 1100 ISELA Administration Methylphenidate HCl 20 mg 09/28/23 14:00 09/28/23 14:56 Methylphenidate 5 Mg Tablet PO 20 mg 1400 ISELA Administration Metoclopramide HCl 5 mg 09/26/23 11:30 09/28/23 17:39 Metoclopramide 10 Mg Tablet PO 5 mg AC ISELA Administration Morphine Sulfate 15 mg 09/28/23 20:00 09/29/23 04:26 Morphine Ir 15 Mg Tablet PO 15 mg Q4H ISELA Administration Nystatin 5 ml 09/26/23 17:00 09/28/23 20:13 Nystatin 640207 Units/5 Ml Udc PO 5 ml QID ISELA Administration Ondansetron HCl 4 mg 09/23/23 23:12 09/28/23 23:43 Ondansetron Odt 4 Mg Tablet TL 4 mg Q6H PRN Administration Nausea / Vomiting Quetiapine Fumarate 50 mg 09/28/23 20:00 09/28/23 20:20 Quetiapine 25 Mg Tablet PO 50 mg 2000 ISELA Administration Sodium Chloride 10 ml 09/23/23 23:17 09/27/23 23:12 Sodium Chloride Flush 0.9% 10 Ml Syringe IVP 10 ml PRN PRN Administration NEEDED PER PROVIDER ORDERS Sodium Chloride 10 ml 09/24/23 01:00 09/28/23 23:43 Sodium Chloride Flush 0.9% 10 Ml Syringe IVP 10 ml 0100,0900,1700 ISELA Administration Tamsulosin HCl 0.4 mg 09/26/23 21:00 09/28/23 20:13 Tamsulosin 0.4 Mg Capsule PO 0.4 mg QPM ISELA Administration Trazodone HCl 50 mg 09/28/23 21:00 09/28/23 21:57 Trazodone 50 Mg Tablet PO 50 mg 2100 [facility] Administration - Lab Result Fish Bone Diagrams: 09/26/23 04:59 09/27/23 04:37 - Additional Planning My Orders: My Active Orders 09/28/23 11:00 Methylphenidate [Ritalin] 20 mg PO 1100 09/28/23 14:00 Methylphenidate [Ritalin] 20 mg PO 1400 09/28/23 20:00 Morphine Ir [Ms Ir] 15 mg PO Q4H QUEtiapine [SEROquel] 50 mg PO 199909/28/23 21:00 traZODone [Desyrel] 50 mg PO 2100 09/29/23 08:00 Propranolol [Inderal] 10 mg PO BIDWM 09/30/23 05:00 BMP - BASIC METABOLIC PANEL [CHEM] DAILYLAB CBC - COMP BLD CT W/AUTO DIFF [HEME] DAILYLAB MAGNESIUM [CHEM] DAILYLAB 09/30/23 07:00 Echo Complete w/Bubble Study [ECHO] Routine Subjective - Subjective Patient Reports: Resting Comfortably, No Complaints Objective Vital Signs: Vital Signs - 24 hr 09/28/23 09/28/23 09/28/23 09:00 13:00 16:09 Temperature 36.6 C 36.5 C Heart Rate [ 59 L 65 Brachial] Respiratory 16 18 15 Rate Blood Pressure 115/72 137/77 H [Right Brachial artery] O2 Saturation 94 09/28/23 09/29/23 09/29/23 20:15 00:06 03:55 Temperature 36.4 C L 36.4 C L 36.4 C L Heart Rate [ 67 73 70 Brachial] Respiratory 16 16 16 Rate Blood Pressure 133/71 H 129/74 126/69 [Right Brachial artery] O2 Saturation 95 94 96 09/29/23 07:25 Temperature 36.3 C L Heart Rate [ 71 Brachial] Respiratory 16 Rate Blood Pressure 134/81 H [Right Brachial artery] O2 Saturation 97 Oxygen O2 Source Room air Oxygen Flow Rate 2 I&O (Last 24 Hrs): Intake and Output Totals x24h 09/27/23 09/28/23 09/29/23 23:59 23:59 23:59 Intake Total 1750 1790 Output Total 1375 1775 Balance 375 15 General: Alert HEENT: EOMI, Mucous membr. moist/pink Neck: Supple, No JVD Neuro: Alert, Other (L arm and hand weakness, poor memory) Cardiovascular: No murmurs Respiratory: No respiratory distress, Breath sounds nml Abdomen: Normal bowel sounds, Soft Extremities: No clubbing, No edema, No tenderness/swelling - Results Results: Laboratory Results WBC 7.6 x10^3/uL (4.8-10.8) 09/26/23 04:59 RBC 4.37 10^6/uL (4.70-6.10) L 09/26/23 04:59 Hgb 12.8 g/dL (14.0-18.0) L 09/26/23 04:59 Hct 40.2 % (42.0-52.0) L 09/26/23 04:59 MCV 92.0 fL (80.0-94.0) 09/26/23 04:59 MCH 29.3 pg (27.0-31.0) 09/26/23 04:59 MCHC 31.8 g/dL (32.0-36.0) L 09/26/23 04:59 RDW 13.2 % (12.0-15.0) 09/26/23 04:59 Plt Count 282 10^3/uL (130-450) 09/26/23 04:59 MPV 9.6 fL (7.4-11.4) 09/26/23 04:59 Neut # (Auto) 4.6 10^3/uL (1.5-6.6) 09/26/23 04:59 Lymph # (Auto) 1.8 10^3/uL (1.5-3.5) 09/26/23 04:59 [place] # (Auto) 0.6 10^3/uL (0.0-1.0) 09/26/23 04:59 Eos # (Auto) 0.5 10^3/uL (0.0-0.7) 09/26/23 04:59 Baso # (Auto) 0.0 10^3/uL (0.0-0.1) 09/26/23 04:59 Absolute Nucleated RBC 0.00 x10^3/uL 09/26/23 04:59 Nucleated RBC % 0.0 /100WBC 09/26/23 04:59 PT 15.0 secs (9.9-12.6) H 09/23/23 16:46 INR 1.4 (0.8-1.2) H 09/23/23 16:46 VBG pH 7.347 (7.31-7.41) 09/28/23 05:58 VBG pCO2 55.6 mmHg (41-51) H 09/23/23 16:46 VBG pO2 22.1 mmHg (25-47) L 09/23/23 16:46 VBG HCO3 28.5 mmol/L (23-28) H 09/23/23 16:46 VBG Total CO2 30.2 mmol/L (24-29) H 09/23/23 16:46 VBG O2 Saturation 38.6 % (60-80) L 09/23/23 16:46 VBG Base Excess 1.1 mmol/L (-2 - +2) 09/23/23 16:46 Ionized Calcium 1.14 mmol/L (1.15-1.33) L 09/28/23 05:58 Sodium 137 mmol/L (135-145) 09/27/23 04:37 Potassium 3.5 mmol/L (3.5-4.5) 09/27/23 04:37 Chloride 105 mmol/L (101-111) 09/27/23 04:37 Carbon Dioxide 26 mmol/L (21-32) 09/27/23 04:37 Anion Gap 6.0 (6-13) 09/27/23 04:37 BUN 9 mg/dL (6-20) 09/27/23 04:37 Creatinine 0.7 mg/dL (0.6-1.3) 09/27/23 04:37 Estimated GFR (MDRD) 111 (>89) 09/27/23 04:37 Glucose 167 mg/dL (74-104) H 09/27/23 04:37 Calcium 8.2 mg/dL (8.5-10.3) L 09/27/23 04:37 Phosphorus 3.1 mg/dL (2.5-5.0) 09/28/23 05:58 Magnesium 1.5 mg/dL (1.7-2.3) L 09/28/23 05:58 Total Bilirubin 1.0 mg/dL (0.2-1.0) 09/24/23 04:25 AST 12 IU/L (10-42) 09/24/23 04:25 ALT 6 IU/L (10-60) L 09/24/23 04:25 Alkaline Phosphatase 89 IU/L (42-121) 09/24/23 04:25 Troponin I High Sens 38.3 ng/L (2.3-19.7) H* 09/27/23 Unknown Total Protein 4.8 g/dL (6.4-8.9) L 09/24/23 04:25 Albumin 2.9 g/dL (3.2-5.5) L 09/24/23 04:25 Globulin 1.9 g/dL (2.1-4.2) L 09/24/23 04:25 Albumin/Globulin Ratio 1.5 (1.0-2.2) 09/24/23 04:25 Lipase < 10 U/L (11-82) L 09/23/23 16:46 Urine Color LT. YELLOW 09/23/23 19:42 Urine Clarity CLEAR (CLEAR) 09/23/23 19:42 Urine pH 5.5 PH (5.0-7.5) 09/23/23 19:42 Ur Specific [place] 1.020 (1.002-1.030) 09/23/23 19:42 Urine Protein NEGATIVE mg/dL (NEGATIVE) 09/23/23 19:42 Urine Glucose (UA) >=1000 mg/dL (NEGATIVE) H 09/23/23 19:42 Urine Ketones 15 mg/dL (NEGATIVE) H 09/23/23 19:42 Urine Occult Blood NEGATIVE (NEGATIVE) 09/23/23 19:42 Urine Nitrite NEGATIVE (NEGATIVE) 09/23/23 19:42 Urine Bilirubin NEGATIVE (NEGATIVE) 09/23/23 19:42 Urine Urobilinogen 0.2 (NORMAL) E.U./dL (NORMAL) 09/23/23 19:42 Ur Leukocyte Esterase NEGATIVE (NEGATIVE) 09/23/23 19:42 Ur Microscopic Review NOT INDICATED 09/23/23 19:42 Urine Culture Comments NOT INDICATED 09/23/23 19:42 Nasal Adenovirus (PCR) NOT DETECTED 09/23/23 17:25 Nasal B. parapertussis DNA (PCR) NOT DETECTED 09/23/23 17:25 Nasal Coronavir 229E PCR NOT DETECTED 09/23/23 17:25 Nasal Coronavir HKU1 PCR NOT DETECTED 09/23/23 17:25 Nasal Coronavir NL63 PCR NOT DETECTED 09/23/23 17:25 Nasal Coronavir OC43 PCR NOT DETECTED 09/23/23 17:25 Nasal Enterovir/Rhinovir PCR NOT DETECTED 09/23/23 17:25 Nasal Influenza B PCR NOT DETECTED 09/23/23 17:25 Nasal Influenza A PCR NOT DETECTED 09/23/23 17:25 Nasal Parainfluen 1 PCR NOT DETECTED 09/23/23 17:25 Nasal Parainfluen 2 PCR NOT DETECTED 09/23/23 17:25 Nasal Parainfluen 3 PCR NOT DETECTED 09/23/23 17:25 Nasal Parainfluen 4 PCR NOT DETECTED 09/23/23 17:25 Nasal RSV (PCR) NOT DETECTED 09/23/23 17:25 Nasal Screen MRSA (PCR) NEGATIVE (NEGATIVE) 09/24/23 03:08 Nasal B.pertussis DNA PCR NOT DETECTED 09/23/23 17:25 Nasal C.pneumoniae (PCR) NOT DETECTED 09/23/23 17:25 Iain Human Metapneumo PCR NOT DETECTED 09/23/23 17:25 Nasal M.pneumoniae (PCR) NOT DETECTED 09/23/23 17:25 Nasal SARS-CoV-2 (PCR) NOT DETECTED 09/23/23 17:25 Urine Opiates Screen POSITIVE (NEGATIVE) H 09/23/23 19:42 Ur Buprenorphine Scrn NEGATIVE (NEGATIVE) 09/23/23 19:42 Ur Oxycodone Screen NEGATIVE (NEGATIVE) 09/23/23 19:42 Urine Methadone Screen NEGATIVE (NEGATIVE) 09/23/23 19:42 Ur Barbiturates Screen NEGATIVE (NEGATIVE) 09/23/23 19:42 Ur Tricyclics Screen POSITIVE (NEGATIVE) H 09/23/23 19:42 Ur Phencyclidine Scrn NEGATIVE (NEGATIVE) 09/23/23 19:42 Ur Amphetamine Screen NEGATIVE (NEGATIVE) 09/23/23 19:42 U Methamphetamines Scrn NEGATIVE (NEGATIVE) 09/23/23 19:42 U Benzodiazepines Scrn NEGATIVE (NEGATIVE) 09/23/23 19:42 Urine Cocaine Screen NEGATIVE (NEGATIVE) 09/23/23 19:42 U Cannabinoids Screen NEGATIVE (NEGATIVE) 09/23/23 19:42 Ur Drug Screen Comment CUTOFF CONC BELOW: 09/23/23 19:42 Ethyl Alcohol < 10.0 mg/dL 09/23/23 16:46
[2023-09-29] MEDS: INSULIN LISPRO 300 UNIT/3 ML PEN SUBQ SCH ×4 (09:07→20:57)
[2023-09-29] MEDS: ASPIRIN EC 81 MG TABLET PO SCH (09:08)
[2023-09-29] MEDS: APIXABAN 5 MG TABLET PO SCH ×2 (09:08→20:50)
[2023-09-29] MEDS: FAMOTIDINE 20 MG TABLET PO SCH ×2 (09:08→20:51)
[2023-09-29] MEDS: SODIUM CHLORIDE FLUSH 0.9% 10 ML SYRINGE IVP SCH ×2 (09:08→17:24)
[2023-09-29] MEDS: METHYLPHENIDATE 5 MG TABLET PO SCH ×3 (09:08→15:04)
[2023-09-29] MEDS: PROPRANOLOL 10 MG TABLET PO SCH ×2 (09:11→17:23)
[2023-09-29] MEDS: metFORMIN 500 MG TABLET PO SCH ×2 (09:11→17:51)
[2023-09-29] MEDS: METOCLOPRAMIDE 10 MG TABLET PO SCH ×3 (09:11→16:09)
[2023-09-29] MEDS: NYSTATIN 500000 UNITS/5 ML UDC PO SCH ×4 (09:12→20:55)
[2023-09-29] MEDS: QUEtiapine 25 MG TABLET PO SCH (20:50)
[2023-09-29] MEDS: MEMANTINE 5 MG TABLET PO SCH (20:50)
[2023-09-29] MEDS: TAMSULOSIN 0.4 MG CAPSULE PO SCH (20:50)
[2023-09-29] MEDS: traZODone 50 MG TABLET PO SCH (20:51)
[2023-09-30] MEDS: MORPHINE IR 15 MG TABLET PO SCH ×7 (00:11→23:56)
[2023-09-30] MEDS: SODIUM CHLORIDE FLUSH 0.9% 10 ML SYRINGE IVP SCH ×4 (00:13→23:56)
[2023-09-30 05:51] LABS: BASOPHILS # (AUTO) 0.1 10^3/uL (0.0-0.1); EOSINOPHILS # (AUTO) 0.4 10^3/uL (0.0-0.7); EOSINOPHILS % (AUTO) 7.2 %; HCT - HEMATOCRIT 47.4 % (42.0-52.0); HGB - HEMOGLOBIN 14.9 g/dL (14.0-18.0); LYMPHOCYTES # (AUTO) 2.7 10^3/uL (1.5-3.5); LYMPHOCYTES % (AUTO) 44.9 %; MEAN CORPUSCULAR HEMOGLOBIN 28.8 pg (27.0-31.0); MEAN CORPUSCULAR HGB CONC 31.4 g/dL (32.0-36.0); MEAN CORPUSCULAR VOLUME 91.5 fL (80.0-94.0); MEAN PLATELET VOLUME 9.8 fL (7.4-11.4); MONOCYTES # (AUTO) 0.7 10^3/uL (0.0-1.0); MONOCYTES % (AUTO) 11.1 %; NEUTROPHILS # (AUTO) 2.1 10^3/uL (1.5-6.6); NEUTROPHILS % (AUTO) 35.5 %; PLT - PLATELET COUNT 248 10^3/uL (130-450); RED BLOOD COUNT 5.18 10^6/uL (4.70-6.10); RED CELL DISTRIBUTION WIDTH 12.9 % (12.0-15.0)
[2023-09-30 06:06] LABS: CREATININE 0.7 mg/dL (0.6-1.3); MAGNESIUM 1.3 mg/dL (1.7-2.3); POTASSIUM 3.9 mmol/L (3.5-4.5)
[2023-09-30] MEDS: METHYLPHENIDATE 5 MG TABLET PO SCH ×3 (09:37→13:59)
[2023-09-30] MEDS: INSULIN LISPRO 300 UNIT/3 ML PEN SUBQ SCH ×4 (09:37→21:26)
[2023-09-30] MEDS: ASPIRIN EC 81 MG TABLET PO SCH (09:38)
[2023-09-30] MEDS: metFORMIN 500 MG TABLET PO SCH ×2 (09:38→17:56)
[2023-09-30] MEDS: PROPRANOLOL 10 MG TABLET PO SCH ×2 (09:38→17:56)
[2023-09-30] MEDS: NYSTATIN 500000 UNITS/5 ML UDC PO SCH ×4 (09:38→20:12)
[2023-09-30] MEDS: FAMOTIDINE 20 MG TABLET PO SCH ×2 (09:38→20:12)
[2023-09-30] MEDS: APIXABAN 5 MG TABLET PO SCH ×2 (09:39→20:12)
[2023-09-30] MEDS: METOCLOPRAMIDE 10 MG TABLET PO SCH ×3 (09:39→16:40)
--- NOTE | 2023-09-30 16:06 | PROVIDER PROGRESS NOTE ---
Assessment/Plan - Problem List (1) AMS (altered mental status) Assessment/Plan: Assessment/Plan: Most likely related to treatment with benzodiazpenes and narcotics. Mental status has improved after decreasing pain and anxiety medications. (2) Opiate Overdose Improved after decreasing pain and medicatons Consider removing pain pump. (3) Wenckebach heart block Beta block changed to twice daily. Continue to follow. (4) S/P recent CVA Echo with bubble study. Continue aspirin Several weeks ago he was adm here with L hemiparesis, and he went to SNF for rehab Plan: Awaiting an Echo w/ bubble study, before he is discharged. An Echo was not done during that CVA admission because it would not have changed his management, since the wished no intervention. However, given the new bradycardia and heart block and need for Propranolol for his Parkinson tremor, Echo was ordered, and currently we are waiting for Echo service which is only here Friday through , today is Friday). Cont daily ASA po Cont the resumed PT and OT and transfer back to [facility] for rehab when he is not oversedated (5) Chronic pain Has a pain pump which may be leaking. Consider removing pain pump. (6) Parkinson's disease Dementia Conintue trazodone, Memantine, Ritalin and propranolol (7) Abn EKG Right bundle brance block. He has not undergone an echo because he would not wish to undergo these recommendatons. His EKG is very abnormal showing RBBB and extreme Right axis deviation (8) DM type 2 Continue sliding scale insulin. (9) Diabetic Gastroparesis Plan: Continue Reglan (10) Thrush Plan: Resolved. treated with nystatin (11) Hypomagnesemia Replace as needed. (12) CAD Cont daily po ASA and resumed his po meds (13) HTN Continue propranolol (14) BPH Continue flomax (15) GERD Continue Pepcid (16) Bacteriuria No grow on culture and antibiotics discotinued. - Current Meds Current Meds: Current Medications Generic Name Dose Route Start Last Admin Trade Name Freq PRN Reason Stop Dose Admin Acetaminophen 650 mg 09/26/23 11:14 09/26/23 12:30 Acetaminophen 325 Mg Tablet PO 650 mg Q4HR PRN Administration Pain or Fever > 38C (100.4F) Apixaban 5 mg 09/26/23 21:00 09/30/23 09:39 Apixaban 5 Mg Tablet PO 5 mg BID ISELA Administration Aspirin 81 mg 09/26/23 12:00 09/30/23 09:38 Aspirin Ec 81 Mg Tablet PO 81 mg DAILY ISELA Administration Famotidine 20 mg 09/26/23 21:00 09/30/23 09:38 Famotidine 20 Mg Tablet PO 20 mg BID ISELA Administration Insulin Human Lispro 1 - 9 unit 09/27/23 21:00 09/30/23 12:42 Insulin Lispro 300 Unit/3 Ml Pen SUBQ 5 unit 0800,1200,1700,2100 ISELA Administration Protocol Memantine 5 mg 09/26/23 21:00 09/29/23 20:50 Memantine 5 Mg Tablet PO 5 mg QPM ISELA Administration Metformin HCl 1,000 mg 09/27/23 08:00 09/30/23 09:38 Metformin 500 Mg Tablet PO 1,000 mg BIDWM ISELA Administration Methylphenidate HCl 20 mg 09/28/23 07:09 09/30/23 09:37 Methylphenidate 5 Mg Tablet PO 20 mg 0800 ISELA Administration Methylphenidate HCl 20 mg 09/28/23 11:00 09/30/23 12:42 Methylphenidate 5 Mg Tablet PO 20 mg 1100 ISELA Administration Methylphenidate HCl 20 mg 09/28/23 14:00 09/30/23 13:59 Methylphenidate 5 Mg Tablet PO 20 mg 1400 ISELA Administration Metoclopramide HCl 5 mg 09/26/23 11:30 09/30/23 12:41 Metoclopramide 10 Mg Tablet PO 5 mg AC ISELA Administration Morphine Sulfate 15 mg 09/28/23 20:00 09/30/23 12:41 Morphine Ir 15 Mg Tablet PO 15 mg Q4H ISELA Administration Multi-Ingredient Ointment 1 applic 09/24/23 13:23 09/29/23 13:46 Zinc Oxide 20% Oint 30 Gm Tube TOP 1 applic PRN PRN Administration Skin Care Nystatin 5 ml 09/26/23 17:00 09/30/23 12:41 Nystatin 103986 Units/5 Ml Udc PO 5 ml QID ISELA Administration Ondansetron HCl 4 mg 09/23/23 23:12 09/28/23 23:43 Ondansetron Odt 4 Mg Tablet TL 4 mg Q6H PRN Administration Nausea / Vomiting Propranolol HCl 10 mg 09/29/23 08:00 09/30/23 09:38 Propranolol 10 Mg Tablet PO 10 mg BIDWM ISELA Administration Quetiapine Fumarate 50 mg 09/28/23 20:00 09/29/23 20:50 Quetiapine 25 Mg Tablet PO 50 mg 2000 ISELA Administration Sodium Chloride 10 ml 09/23/23 23:17 09/27/23 23:12 Sodium Chloride Flush 0.9% 10 Ml Syringe IVP 10 ml PRN PRN Administration NEEDED PER PROVIDER ORDERS Sodium Chloride 10 ml 09/24/23 01:00 09/30/23 09:39 Sodium Chloride Flush 0.9% 10 Ml Syringe IVP 10 ml 0100,0900,1700 ISELA Administration Tamsulosin HCl 0.4 mg 09/26/23 21:00 09/29/23 20:50 Tamsulosin 0.4 Mg Capsule PO 0.4 mg QPM ISELA Administration Trazodone HCl 50 mg 09/28/23 21:00 09/29/23 20:51 Trazodone 50 Mg Tablet PO 50 mg 2100 ISELA Administration - Lab Result Fish Bone Diagrams: 09/30/23 05:11 09/30/23 05:11 - Additional Planning My Orders: My Active Orders 10/01/23 09:00 Docusate Sodium 250Mg Capsule [Colace 250Mg Capsule] 250 - 500 mg PO DAILY Senna [Senokot] 8.6 - 17.2 mg PO DAILY polyethylene glycoL 3350 [Miralax] 17 gm PO DAILY Objective Vital Signs: Vital Signs - 24 hr 09/29/23 09/29/23 09/30/23 16:44 19:46 00:04 Temperature 36.4 C L 35.9 C L 36.7 C Heart Rate [ 62 65 67 Brachial] Respiratory 16 16 14 Rate Blood Pressure 127/75 108/60 135/77 H [Right Brachial artery] O2 Saturation 95 92 96 09/30/23 09/30/23 09/30/23 04:55 07:40 11:15 Temperature 36.5 C 36.1 C L 36.4 C L Heart Rate [ 62 69 58 L Brachial] Respiratory 16 18 18 Rate Blood Pressure 115/77 142/85 H 153/69 H [Right Brachial artery] O2 Saturation 96 96 98 09/30/23 15:38 Temperature 36.3 C L Heart Rate [ 56 L Brachial] Respiratory 16 Rate Blood Pressure 133/82 H [Right Brachial artery] O2 Saturation 96 Oxygen O2 Source Room air Oxygen Flow Rate 2 I&O (Last 24 Hrs): Intake and Output Totals x24h 09/28/23 09/29/23 09/30/23 23:59 23:59 23:59 Intake Total 1790 1060 880 Output Total 1775 1625 300 Balance 15 -565 580 General: Other (GENERAL: In no acute distress HEENT: Normocephalic, atraumatic, Anicteric Sclera. Posterior Oropharynx Clear NECK: No lymphadenopathy, no thryoidomegaly, trachea midline, No carotid bruit LUNGS: Good air exchange, no wheezing, no crackles CV: Positive S1, S2 No extra heart sounds ABDOMEN: Soft, nontender, Positive bowel sounds EXTREMITIES: No cyanosis, No pedal edema SKIN: no rash) - Results Results: Laboratory Results WBC 6.0 x10^3/uL (4.8-10.8) 09/30/23 05:11 RBC 5.18 10^6/uL (4.70-6.10) 09/30/23 05:11 Hgb 14.9 g/dL (14.0-18.0) 09/30/23 05:11 Hct 47.4 % (42.0-52.0) 09/30/23 05:11 MCV 91.5 fL (80.0-94.0) 09/30/23 05:11 MCH 28.8 pg (27.0-31.0) 09/30/23 05:11 MCHC 31.4 g/dL (32.0-36.0) L 09/30/23 05:11 RDW 12.9 % (12.0-15.0) 09/30/23 05:11 Plt Count 248 10^3/uL (130-450) 09/30/23 05:11 MPV 9.8 fL (7.4-11.4) 09/30/23 05:11 Neut # (Auto) 2.1 10^3/uL (1.5-6.6) 09/30/23 05:11 Lymph # (Auto) 2.7 10^3/uL (1.5-3.5) 09/30/23 05:11 [place] # (Auto) 0.7 10^3/uL (0.0-1.0) 09/30/23 05:11 Eos # (Auto) 0.4 10^3/uL (0.0-0.7) 09/30/23 05:11 Baso # (Auto) 0.1 10^3/uL (0.0-0.1) 09/30/23 05:11 Absolute Nucleated RBC 0.00 x10^3/uL 09/30/23 05:11 Nucleated RBC % 0.0 /100WBC 09/30/23 05:11 PT 15.0 secs (9.9-12.6) H 09/23/23 16:46 INR 1.4 (0.8-1.2) H 09/23/23 16:46 VBG pH 7.347 (7.31-7.41) 09/28/23 05:58 VBG pCO2 55.6 mmHg (41-51) H 09/23/23 16:46 VBG pO2 22.1 mmHg (25-47) L 09/23/23 16:46 VBG HCO3 28.5 mmol/L (23-28) H 09/23/23 16:46 VBG Total CO2 30.2 mmol/L (24-29) H 09/23/23 16:46 VBG O2 Saturation 38.6 % (60-80) L 09/23/23 16:46 VBG Base Excess 1.1 mmol/L (-2 - +2) 09/23/23 16:46 Ionized Calcium 1.14 mmol/L (1.15-1.33) L 09/28/23 05:58 Sodium 138 mmol/L (135-145) 09/30/23 05:11 Potassium 3.9 mmol/L (3.5-4.5) 09/30/23 05:11 Chloride 101 mmol/L (101-111) 09/30/23 05:11 Carbon Dioxide 31 mmol/L (21-32) 09/30/23 05:11 Anion Gap 6.0 (6-13) 09/30/23 05:11 BUN 9 mg/dL (6-20) 09/30/23 05:11 Creatinine 0.7 mg/dL (0.6-1.3) 09/30/23 05:11 Estimated GFR (MDRD) 111 (>89) 09/30/23 05:11 Glucose 148 mg/dL (74-104) H 09/30/23 05:11 Calcium 9.0 mg/dL (8.5-10.3) 09/30/23 05:11 Phosphorus 3.1 mg/dL (2.5-5.0) 09/28/23 05:58 Magnesium 1.3 mg/dL (1.7-2.3) L 09/30/23 05:11 Total Bilirubin 1.0 mg/dL (0.2-1.0) 09/24/23 04:25 AST 12 IU/L (10-42) 09/24/23 04:25 ALT 6 IU/L (10-60) L 09/24/23 04:25 Alkaline Phosphatase 89 IU/L (42-121) 09/24/23 04:25 Troponin I High Sens 38.3 ng/L (2.3-19.7) H* 09/27/23 Unknown Total Protein 4.8 g/dL (6.4-8.9) L 09/24/23 04:25 Albumin 2.9 g/dL (3.2-5.5) L 09/24/23 04:25 Globulin 1.9 g/dL (2.1-4.2) L 09/24/23 04:25 Albumin/Globulin Ratio 1.5 (1.0-2.2) 09/24/23 04:25 Lipase < 10 U/L (11-82) L 09/23/23 16:46 Urine Color LT. YELLOW 09/23/23 19:42 Urine Clarity CLEAR (CLEAR) 09/23/23 19:42 Urine pH 5.5 PH (5.0-7.5) 09/23/23 19:42 Ur Specific [place] 1.020 (1.002-1.030) 09/23/23 19:42 Urine Protein NEGATIVE mg/dL (NEGATIVE) 09/23/23 19:42 Urine Glucose (UA) >=1000 mg/dL (NEGATIVE) H 09/23/23 19:42 Urine Ketones 15 mg/dL (NEGATIVE) H 09/23/23 19:42 Urine Occult Blood NEGATIVE (NEGATIVE) 09/23/23 19:42 Urine Nitrite NEGATIVE (NEGATIVE) 09/23/23 19:42 Urine Bilirubin NEGATIVE (NEGATIVE) 09/23/23 19:42 Urine Urobilinogen 0.2 (NORMAL) E.U./dL (NORMAL) 09/23/23 19:42 Ur Leukocyte Esterase NEGATIVE (NEGATIVE) 09/23/23 19:42 Ur Microscopic Review NOT INDICATED 09/23/23 19:42 Urine Culture Comments NOT INDICATED 09/23/23 19:42 Nasal Adenovirus (PCR) NOT DETECTED 09/23/23 17:25 Nasal B. parapertussis DNA (PCR) NOT DETECTED 09/23/23 17:25 Nasal Coronavir 229E PCR NOT DETECTED 09/23/23 17:25 Nasal Coronavir HKU1 PCR NOT DETECTED 09/23/23 17:25 Nasal Coronavir NL63 PCR NOT DETECTED 09/23/23 17:25 Nasal Coronavir OC43 PCR NOT DETECTED 09/23/23 17:25 Nasal Enterovir/Rhinovir PCR NOT DETECTED 09/23/23 17:25 Nasal Influenza B PCR NOT DETECTED 09/23/23 17:25 Nasal Influenza A PCR NOT DETECTED 09/23/23 17:25 Nasal Parainfluen 1 PCR NOT DETECTED 09/23/23 17:25 Nasal Parainfluen 2 PCR NOT DETECTED 09/23/23 17:25 Nasal Parainfluen 3 PCR NOT DETECTED 09/23/23 17:25 Nasal Parainfluen 4 PCR NOT DETECTED 09/23/23 17:25 Nasal RSV (PCR) NOT DETECTED 09/23/23 17:25 Nasal Screen MRSA (PCR) NEGATIVE (NEGATIVE) 09/24/23 03:08 Nasal B.pertussis DNA PCR NOT DETECTED 09/23/23 17:25 Nasal C.pneumoniae (PCR) NOT DETECTED 09/23/23 17:25 Iain Human Metapneumo PCR NOT DETECTED 09/23/23 17:25 Nasal M.pneumoniae (PCR) NOT DETECTED 09/23/23 17:25 Nasal SARS-CoV-2 (PCR) NOT DETECTED 09/23/23 17:25 Urine Opiates Screen POSITIVE (NEGATIVE) H 09/23/23 19:42 Ur Buprenorphine Scrn NEGATIVE (NEGATIVE) 09/23/23 19:42 Ur Oxycodone Screen NEGATIVE (NEGATIVE) 09/23/23 19:42 Urine Methadone Screen NEGATIVE (NEGATIVE) 09/23/23 19:42 Ur Barbiturates Screen NEGATIVE (NEGATIVE) 09/23/23 19:42 Ur Tricyclics Screen POSITIVE (NEGATIVE) H 09/23/23 19:42 Ur Phencyclidine Scrn NEGATIVE (NEGATIVE) 09/23/23 19:42 Ur Amphetamine Screen NEGATIVE (NEGATIVE) 09/23/23 19:42 U Methamphetamines Scrn NEGATIVE (NEGATIVE) 09/23/23 19:42 U Benzodiazepines Scrn NEGATIVE (NEGATIVE) 09/23/23 19:42 Urine Cocaine Screen NEGATIVE (NEGATIVE) 09/23/23 19:42 U Cannabinoids Screen NEGATIVE (NEGATIVE) 09/23/23 19:42 Ur Drug Screen Comment CUTOFF CONC BELOW: 09/23/23 19:42 Ethyl Alcohol < 10.0 mg/dL 09/23/23 16:46 ABX Reporting Has patient been on IV antibiotics over the past 48 hours?: No Current Medications - Current Medications Current Medications: Active Medications Acetaminophen (Acetaminophen 325 Mg Tablet) 650 mg PO Q4HR PRN PRN Reason: Pain or Fever > 38C (100.4F) Last Admin: 09/26/23 12:30 Dose: 650 mg Apixaban (Apixaban 5 Mg Tablet) 5 mg PO BID [facility] Last Admin: 09/30/23 09:39 Dose: 5 mg Aspirin (Aspirin Ec 81 Mg Tablet) 81 mg PO DAILY [facility] Last Admin: 09/30/23 09:38 Dose: 81 mg Docusate Sodium (Docusate Sodium 250 Mg Capsule) 250 - 500 mg PO DAILY [facility] Famotidine (Famotidine 20 Mg Tablet) 20 mg PO BID [facility] Last Admin: 09/30/23 09:38 Dose: 20 mg Insulin Human Lispro (Insulin Lispro 300 Unit/3 Ml Pen) 1 - 9 unit SUBQ 0800,1200,1700,2100 [facility]; Protocol Last Admin: 09/30/23 12:42 Dose: 5 unit Memantine (Memantine 5 Mg Tablet) 5 mg PO QPM [facility] Last Admin: 09/29/23 20:50 Dose: 5 mg Metformin HCl (Metformin 500 Mg Tablet) 1,000 mg PO BIDWM [facility] Last Admin: 09/30/23 09:38 Dose: 1,000 mg Methylphenidate HCl (Methylphenidate 5 Mg Tablet) 20 mg PO 0800 [facility] Last Admin: 09/30/23 09:37 Dose: 20 mg Methylphenidate HCl (Methylphenidate 5 Mg Tablet) 20 mg PO 1100 [facility] Last Admin: 09/30/23 12:42 Dose: 20 mg Methylphenidate HCl (Methylphenidate 5 Mg Tablet) 20 mg PO 1400 [facility] Last Admin: 09/30/23 13:59 Dose: 20 mg Metoclopramide HCl (Metoclopramide 10 Mg Tablet) 5 mg PO AC [facility] Last Admin: 09/30/23 12:41 Dose: 5 mg Morphine Sulfate (Morphine Ir 15 Mg Tablet) 15 mg PO Q4H [facility] Last Admin: 09/30/23 12:41 Dose: 15 mg Multi-Ingredient Ointment (Zinc Oxide 20% Oint 30 Gm Tube) 1 applic TOP PRN PRN PRN Reason: Skin Care Last Admin: 09/29/23 13:46 Dose: 1 applic Nystatin (Nystatin 568424 Units/5 Ml Udc) 5 ml PO QID [facility] Last Admin: 09/30/23 12:41 Dose: 5 ml Ondansetron HCl (Ondansetron Odt 4 Mg Tablet) 4 mg TL Q6H PRN PRN Reason: Nausea / Vomiting Last Admin: 09/28/23 23:43 Dose: 4 mg Ondansetron HCl (Ondansetron 4 Mg/2 Ml Vial) 4 mg IVP Q6HR PRN PRN Reason: Nausea / Vomiting Polyethylene Glycol (Polyethylene Glycol 3350 17 Gm Packet) 17 gm PO DAILY [facility] Propranolol HCl (Propranolol 10 Mg Tablet) 10 mg PO BIDWM [facility] Last Admin: 09/30/23 09:38 Dose: 10 mg Quetiapine Fumarate (Quetiapine 25 Mg Tablet) 50 mg PO 2000 [facility] Last Admin: 09/29/23 20:50 Dose: 50 mg Senna (Senna 8.6 Mg Tablet) 8.6 - 17.2 mg PO DAILY [facility] Sodium Chloride (Sodium Chloride Flush 0.9% 10 Ml Syringe) 10 ml IVP PRN PRN PRN Reason: NEEDED PER PROVIDER ORDERS Last Admin: 09/27/23 23:12 Dose: 10 ml Sodium Chloride (Sodium Chloride Flush 0.9% 10 Ml Syringe) 10 ml IVP 0100,0900,1700 [facility] Last Admin: 09/30/23 09:39 Dose: 10 ml Tamsulosin HCl (Tamsulosin 0.4 Mg Capsule) 0.4 mg PO QPM [facility] Last Admin: 09/29/23 20:50 Dose: 0.4 mg Trazodone HCl (Trazodone 50 Mg Tablet) 50 mg PO 2100 [facility] Last Admin: 09/29/23 20:51 Dose: 50 mg Atorvastatin Calcium [Lipitor] 80 mg PO HS 09/25/23 Dabigatran Etexilate Mesylate [Dabigatran Etexilate] 150 mg PO BID 09/25/23 Insulin NPH Human Isophane [Humulin N Kwikpen] 7 unit SUBQ BIDAC 09/25/23 Insulin Regular Human [Humulin R] 0 - 30 unit SUBQ TID PRN 09/25/23 Melatonin/Pyridoxine HCl (B6) [Melatonin Tr 10 mg Tablet] 1 each PO HS 09/25/23 Metformin HCl 1,000 mg PO BID 09/25/23 Omeprazole Magnesium 20 mg PO TID 09/25/23 Ondansetron HCl 4 mg PO TID PRN 09/25/23 QUEtiapine [SEROquel] 50 mg PO QPM 09/25/23 Terbinafine HCl [Lamisil At] 1 applic TP BID PRN 09/25/23 clonazePAM [Clonazepam] 1 mg PO HS 09/25/23
[2023-09-30] MEDS: traZODone 50 MG TABLET PO SCH (20:12)
[2023-09-30] MEDS: TAMSULOSIN 0.4 MG CAPSULE PO SCH (20:12)
[2023-09-30] MEDS: QUEtiapine 25 MG TABLET PO SCH (20:12)
[2023-09-30] MEDS: POTASSIUM CHLORIDE 20 MEQ TABLET PO SCH (20:27)
[2023-09-30] MEDS: MAGNESIUM OXIDE 400 MG TABLET PO SCH (20:28)
[2023-09-30] MEDS: MEMANTINE 5 MG TABLET PO SCH (20:28)
[2023-10-01] MEDS: MORPHINE IR 15 MG TABLET PO SCH ×5 (04:15→21:30)
[2023-10-01 05:29] LABS: CREATININE 0.6 mg/dL (0.6-1.3)
[2023-10-01] MEDS: METOCLOPRAMIDE 10 MG TABLET PO SCH ×3 (06:17→16:20)
[2023-10-01] MEDS: INSULIN LISPRO 300 UNIT/3 ML PEN SUBQ SCH ×4 (08:19→21:31)
[2023-10-01] MEDS: METHYLPHENIDATE 5 MG TABLET PO SCH ×4 (08:20→15:33)
[2023-10-01] MEDS: SENNA 8.6 MG TABLET PO SCH (08:21)
[2023-10-01] MEDS: FAMOTIDINE 20 MG TABLET PO SCH ×2 (08:21→21:30)
[2023-10-01] MEDS: ASPIRIN EC 81 MG TABLET PO SCH (08:21)
[2023-10-01] MEDS: APIXABAN 5 MG TABLET PO SCH ×2 (08:21→21:31)
[2023-10-01] MEDS: POTASSIUM CHLORIDE 20 MEQ TABLET PO SCH (08:21)
[2023-10-01] MEDS: PROPRANOLOL 10 MG TABLET PO SCH ×2 (08:21→16:20)
[2023-10-01] MEDS: MAGNESIUM OXIDE 400 MG TABLET PO SCH (08:21)
[2023-10-01] MEDS: SODIUM CHLORIDE FLUSH 0.9% 10 ML SYRINGE IVP SCH ×3 (08:22→23:58)
[2023-10-01] MEDS: DOCUSATE SODIUM 250 MG CAPSULE PO SCH (08:22)
[2023-10-01] MEDS: NYSTATIN 500000 UNITS/5 ML UDC PO SCH ×4 (08:22→21:31)
[2023-10-01] MEDS: polyethylene glycoL 3350 17 GM PACKET PO SCH (08:22)
[2023-10-01] MEDS: metFORMIN 500 MG TABLET PO SCH ×2 (08:55→16:51)
--- NOTE | 2023-10-01 12:54 | PROVIDER PROGRESS NOTE ---
Assessment/Plan - Problem List (1) AMS (altered mental status) Assessment/Plan: Assessment/Plan: Most likely related to treatment with benzodiazpenes and narcotics. Mental status has improved after decreasing pain and anxiety medications. (2) Opiate Overdose Improved after decreasing pain medicatons Consider removing pain pump. (3) Wenckebach heart block Beta block changed to twice daily. EKG today. (4) S/P recent CVA Echo with bubble study: Echo performed on September 30, 2023 revealed a left ventricular ejection fraction of 20% with global hypokinesis mild to moderate right ventricular enlargement and decreased right ventricular systolic function. The RVSP is 60 mmHg. Continue aspirin Several weeks ago he was adm here with L hemiparesis, and he went to SNF for rehab Plan: Currently waiting for a bed. (5) Chronic pain Has a pain pump which may be leaking. Consider removing pain pump once an outpatient. (6) Parkinson's disease Dementia Conintue trazodone, Memantine, Ritalin and propranolol (7) Abn EKG Right bundle branch block. He has not undergone an echo because he would not wish to undergo these recommendatons. His EKG is very abnormal showing RBBB and extreme Right axis deviation (8) DM type 2 Continue sliding scale insulin. (9) Diabetic Gastroparesis Plan: Continue Reglan (10) Thrush Plan: Resolved. treated with nystatin (11) Hypomagnesemia Replace as needed. (12) CAD Cont daily po ASA and resumed his po meds (13) HTN Continue propranolol (14) BPH Continue flomax (15) GERD Continue Pepcid (16) Bacteriuria No grow on culture and antibiotics discotinued. - Current Meds Current Meds: Current Medications Generic Name Dose Route Start Last Admin Trade Name Freq PRN Reason Stop Dose Admin Acetaminophen 650 mg 09/26/23 11:14 09/26/23 12:30 Acetaminophen 325 Mg Tablet PO 650 mg Q4HR PRN Administration Pain or Fever > 38C (100.4F) Apixaban 5 mg 09/26/23 21:00 10/01/23 08:21 Apixaban 5 Mg Tablet PO 5 mg BID ISELA Administration Aspirin 81 mg 09/26/23 12:00 10/01/23 08:21 Aspirin Ec 81 Mg Tablet PO 81 mg DAILY ISELA Administration Docusate Sodium 250 - 500 mg 10/01/23 09:00 10/01/23 08:22 Docusate Sodium 250 Mg Capsule PO 250 mg DAILY ISELA Administration Famotidine 20 mg 09/26/23 21:00 10/01/23 08:21 Famotidine 20 Mg Tablet PO 20 mg BID ISELA Administration Insulin Human Lispro 1 - 9 unit 09/27/23 21:00 10/01/23 12:26 Insulin Lispro 300 Unit/3 Ml Pen SUBQ 3 unit 0800,1200,1700,2100 [facility] Administration Protocol Magnesium Oxide 400 mg 09/30/23 19:00 10/01/23 08:21 Magnesium Oxide 400 Mg Tablet PO 400 mg DAILYWM [facility] Administration Memantine 5 mg 09/26/23 21:00 09/30/23 20:28 Memantine 5 Mg Tablet PO 5 mg QPM [facility] Administration Metformin HCl 1,000 mg 09/27/23 08:00 10/01/23 08:55 Metformin 500 Mg Tablet PO Not Given BIDWM [facility] Methylphenidate HCl 20 mg 09/28/23 07:09 10/01/23 08:20 Methylphenidate 5 Mg Tablet PO 20 mg 0800 ISELA Administration Methylphenidate HCl 20 mg 09/28/23 11:00 10/01/23 12:25 Methylphenidate 5 Mg Tablet PO 20 mg 1100 ISELA Administration Methylphenidate HCl 20 mg 09/28/23 14:00 09/30/23 13:59 Methylphenidate 5 Mg Tablet PO 20 mg 1400 ISELA Administration Metoclopramide HCl 5 mg 09/26/23 11:30 10/01/23 12:26 Metoclopramide 10 Mg Tablet PO 5 mg AC [facility] Administration Morphine Sulfate 15 mg 09/28/23 20:00 10/01/23 12:26 Morphine Ir 15 Mg Tablet PO 15 mg Q4H ISELA Administration Multi-Ingredient Ointment 1 applic 09/24/23 13:23 09/29/23 13:46 Zinc Oxide 20% Oint 30 Gm Tube TOP 1 applic PRN PRN Administration Skin Care Nystatin 5 ml 09/26/23 17:00 10/01/23 08:22 Nystatin 057283 Units/5 Ml Udc PO 5 ml QID ISELA Administration Ondansetron HCl 4 mg 09/23/23 23:12 09/28/23 23:43 Ondansetron Odt 4 Mg Tablet TL 4 mg Q6H PRN Administration Nausea / Vomiting Polyethylene Glycol 17 gm 10/01/23 09:00 10/01/23 08:22 Polyethylene Glycol 3350 17 Gm Packet PO Not Given DAILY ISELA Potassium Chloride 20 meq 09/30/23 19:00 10/01/23 08:21 Potassium Chloride 20 Meq Tablet PO 20 meq DAILYWM ISELA Administration Propranolol HCl 10 mg 09/29/23 08:00 10/01/23 08:21 Propranolol 10 Mg Tablet PO 10 mg BIDWM ISELA Administration Quetiapine Fumarate 50 mg 09/28/23 20:00 09/30/23 20:12 Quetiapine 25 Mg Tablet PO 50 mg 2000 ISELA Administration Senna 8.6 - 17.2 mg 10/01/23 09:00 10/01/23 08:21 Senna 8.6 Mg Tablet PO 8.6 mg DAILY ISELA Administration Sodium Chloride 10 ml 09/23/23 23:17 09/27/23 23:12 Sodium Chloride Flush 0.9% 10 Ml Syringe IVP 10 ml PRN PRN Administration NEEDED PER PROVIDER ORDERS Sodium Chloride 10 ml 09/24/23 01:00 10/01/23 08:22 Sodium Chloride Flush 0.9% 10 Ml Syringe IVP 10 ml 0100,0900,1700 ISELA Administration Tamsulosin HCl 0.4 mg 09/26/23 21:00 09/30/23 20:12 Tamsulosin 0.4 Mg Capsule PO 0.4 mg QPM ISELA Administration Trazodone HCl 50 mg 09/28/23 21:00 09/30/23 20:12 Trazodone 50 Mg Tablet PO 50 mg 2100 ISELA Administration - Lab Result Fish Bone Diagrams: 09/30/23 05:11 10/01/23 05:05 - Additional Planning My Orders: My Active Orders 09/30/23 19:00 Magnesium Oxide [Mag Ox] 400 mg PO DAILYWM Potassium Chloride [K-Dur] 20 meq PO DAILYWM 10/01/23 09:00 Docusate Sodium 250Mg Capsule [Colace 250Mg Capsule] 250 - 500 mg PO DAILY Senna [Senokot] 8.6 - 17.2 mg PO DAILY polyethylene glycoL 3350 [Miralax] 17 gm PO DAILY 10/02/23 05:00 BMP - BASIC METABOLIC PANEL [CHEM] DAILYLAB Subjective - Subjective Patient Reports: Other (Alert. Following commands. Denies shortness of breath, nausea, vomiting and chest pain. He does complain of some anxiousness when his is not around.) Objective Vital Signs: Vital Signs - 24 hr 09/30/23 09/30/23 10/01/23 15:38 20:43 00:10 Temperature 36.3 C L 36.5 C 36.4 C L Heart Rate [ 56 L 62 52 L Brachial] Heart Rate [ Monitoring electrodes] Respiratory 16 16 14 Rate Blood Pressure [Left Brachial artery] Blood Pressure 133/82 H 134/75 H 116/77 [Right Brachial artery] O2 Saturation 96 94 96 10/01/23 10/01/23 10/01/23 04:14 08:00 09:00 Temperature 36.4 C L Heart Rate [ 62 64 Brachial] Heart Rate [ 73 Monitoring electrodes] Respiratory 15 16 16 Rate Blood Pressure 151/82 H 151/82 H [Left Brachial artery] Blood Pressure 140/80 H [Right Brachial artery] O2 Saturation 93 92 97 Oxygen O2 Source Room air Oxygen Flow Rate 2 I&O (Last 24 Hrs): Intake and Output Totals x24h 09/29/23 09/30/23 10/01/23 23:59 23:59 23:59 Intake Total 1060 1280 240 Output Total 1625 850 950 Balance -565 430 -710 General: Alert, Oriented x3, No acute distress HEENT: Atraumatic, PERRLA, EOMI, Mucous membr. moist/pink Neck: Supple, No JVD, No thyromegaly Lymphatic: no adenopathy Neuro: Alert, Non Focal Cardiovascular: Regular rate, Normal S1, Normal S2, No murmurs Respiratory: Chest non-tender, No respiratory distress, Breath sounds nml, Other (No wheezing or crackles) Abdomen: Normal bowel sounds, Soft, No tenderness, No hepatospenomegaly Extremities: No clubbing, No cyanosis Skin: No rashes - Results Results: Laboratory Results WBC 6.0 x10^3/uL (4.8-10.8) 09/30/23 05:11 RBC 5.18 10^6/uL (4.70-6.10) 09/30/23 05:11 Hgb 14.9 g/dL (14.0-18.0) 09/30/23 05:11 Hct 47.4 % (42.0-52.0) 09/30/23 05:11 MCV 91.5 fL (80.0-94.0) 09/30/23 05:11 MCH 28.8 pg (27.0-31.0) 09/30/23 05:11 MCHC 31.4 g/dL (32.0-36.0) L 09/30/23 05:11 RDW 12.9 % (12.0-15.0) 09/30/23 05:11 Plt Count 248 10^3/uL (130-450) 09/30/23 05:11 MPV 9.8 fL (7.4-11.4) 09/30/23 05:11 Neut # (Auto) 2.1 10^3/uL (1.5-6.6) 09/30/23 05:11 Lymph # (Auto) 2.7 10^3/uL (1.5-3.5) 09/30/23 05:11 [place] # (Auto) 0.7 10^3/uL (0.0-1.0) 09/30/23 05:11 Eos # (Auto) 0.4 10^3/uL (0.0-0.7) 09/30/23 05:11 Baso # (Auto) 0.1 10^3/uL (0.0-0.1) 09/30/23 05:11 Absolute Nucleated RBC 0.00 x10^3/uL 09/30/23 05:11 Nucleated RBC % 0.0 /100WBC 09/30/23 05:11 PT 15.0 secs (9.9-12.6) H 09/23/23 16:46 INR 1.4 (0.8-1.2) H 09/23/23 16:46 VBG pH 7.347 (7.31-7.41) 09/28/23 05:58 VBG pCO2 55.6 mmHg (41-51) H 09/23/23 16:46 VBG pO2 22.1 mmHg (25-47) L 09/23/23 16:46 VBG HCO3 28.5 mmol/L (23-28) H 09/23/23 16:46 VBG Total CO2 30.2 mmol/L (24-29) H 09/23/23 16:46 VBG O2 Saturation 38.6 % (60-80) L 09/23/23 16:46 VBG Base Excess 1.1 mmol/L (-2 - +2) 09/23/23 16:46 Ionized Calcium 1.14 mmol/L (1.15-1.33) L 09/28/23 05:58 Sodium 137 mmol/L (135-145) 10/01/23 05:05 Potassium 4.0 mmol/L (3.5-4.5) 10/01/23 05:05 Chloride 100 mmol/L (101-111) L 10/01/23 05:05 Carbon Dioxide 31 mmol/L (21-32) 10/01/23 05:05 Anion Gap 6.0 (6-13) 10/01/23 05:05 BUN 10 mg/dL (6-20) 10/01/23 05:05 Creatinine 0.6 mg/dL (0.6-1.3) 10/01/23 05:05 Estimated GFR (MDRD) 132 (>89) 10/01/23 05:05 Glucose 152 mg/dL (74-104) H 10/01/23 05:05 Calcium 9.0 mg/dL (8.5-10.3) 10/01/23 05:05 Phosphorus 3.1 mg/dL (2.5-5.0) 09/28/23 05:58 Magnesium 1.3 mg/dL (1.7-2.3) L 09/30/23 05:11 Total Bilirubin 1.0 mg/dL (0.2-1.0) 09/24/23 04:25 AST 12 IU/L (10-42) 09/24/23 04:25 ALT 6 IU/L (10-60) L 09/24/23 04:25 Alkaline Phosphatase 89 IU/L (42-121) 09/24/23 04:25 Troponin I High Sens 38.3 ng/L (2.3-19.7) H* 09/27/23 Unknown Total Protein 4.8 g/dL (6.4-8.9) L 09/24/23 04:25 Albumin 2.9 g/dL (3.2-5.5) L 09/24/23 04:25 Globulin 1.9 g/dL (2.1-4.2) L 09/24/23 04:25 Albumin/Globulin Ratio 1.5 (1.0-2.2) 09/24/23 04:25 Lipase < 10 U/L (11-82) L 09/23/23 16:46 Urine Color LT. YELLOW 09/23/23 19:42 Urine Clarity CLEAR (CLEAR) 09/23/23 19:42 Urine pH 5.5 PH (5.0-7.5) 09/23/23 19:42 Ur Specific Watson 1.020 (1.002-1.030) 09/23/23 19:42 Urine Protein NEGATIVE mg/dL (NEGATIVE) 09/23/23 19:42 Urine Glucose (UA) >=1000 mg/dL (NEGATIVE) H 09/23/23 19:42 Urine Ketones 15 mg/dL (NEGATIVE) H 09/23/23 19:42 Urine Occult Blood NEGATIVE (NEGATIVE) 09/23/23 19:42 Urine Nitrite NEGATIVE (NEGATIVE) 09/23/23 19:42 Urine Bilirubin NEGATIVE (NEGATIVE) 09/23/23 19:42 Urine Urobilinogen 0.2 (NORMAL) E.U./dL (NORMAL) 09/23/23 19:42 Ur Leukocyte Esterase NEGATIVE (NEGATIVE) 09/23/23 19:42 Ur Microscopic Review NOT INDICATED 09/23/23 19:42 Urine Culture Comments NOT INDICATED 09/23/23 19:42 Nasal Adenovirus (PCR) NOT DETECTED 09/23/23 17:25 Nasal B. parapertussis DNA (PCR) NOT DETECTED 09/23/23 17:25 Nasal Coronavir 229E PCR NOT DETECTED 09/23/23 17:25 Nasal Coronavir HKU1 PCR NOT DETECTED 09/23/23 17:25 Nasal Coronavir NL63 PCR NOT DETECTED 09/23/23 17:25 Nasal Coronavir OC43 PCR NOT DETECTED 09/23/23 17:25 Nasal Enterovir/Rhinovir PCR NOT DETECTED 09/23/23 17:25 Nasal Influenza B PCR NOT DETECTED 09/23/23 17:25 Nasal Influenza A PCR NOT DETECTED 09/23/23 17:25 Nasal Parainfluen 1 PCR NOT DETECTED 09/23/23 17:25 Nasal Parainfluen 2 PCR NOT DETECTED 09/23/23 17:25 Nasal Parainfluen 3 PCR NOT DETECTED 09/23/23 17:25 Nasal Parainfluen 4 PCR NOT DETECTED 09/23/23 17:25 Nasal RSV (PCR) NOT DETECTED 09/23/23 17:25 Nasal Screen MRSA (PCR) NEGATIVE (NEGATIVE) 09/24/23 03:08 Nasal B.pertussis DNA PCR NOT DETECTED 09/23/23 17:25 Nasal C.pneumoniae (PCR) NOT DETECTED 09/23/23 17:25 Iain Human Metapneumo PCR NOT DETECTED 09/23/23 17:25 Nasal M.pneumoniae (PCR) NOT DETECTED 09/23/23 17:25 Nasal SARS-CoV-2 (PCR) NOT DETECTED 09/23/23 17:25 Urine Opiates Screen POSITIVE (NEGATIVE) H 09/23/23 19:42 Ur Buprenorphine Scrn NEGATIVE (NEGATIVE) 09/23/23 19:42 Ur Oxycodone Screen NEGATIVE (NEGATIVE) 09/23/23 19:42 Urine Methadone Screen NEGATIVE (NEGATIVE) 09/23/23 19:42 Ur Barbiturates Screen NEGATIVE (NEGATIVE) 09/23/23 19:42 Ur Tricyclics Screen POSITIVE (NEGATIVE) H 09/23/23 19:42 Ur Phencyclidine Scrn NEGATIVE (NEGATIVE) 09/23/23 19:42 Ur Amphetamine Screen NEGATIVE (NEGATIVE) 09/23/23 19:42 U Methamphetamines Scrn NEGATIVE (NEGATIVE) 09/23/23 19:42 U Benzodiazepines Scrn NEGATIVE (NEGATIVE) 09/23/23 19:42 Urine Cocaine Screen NEGATIVE (NEGATIVE) 09/23/23 19:42 U Cannabinoids Screen NEGATIVE (NEGATIVE) 09/23/23 19:42 Ur Drug Screen Comment CUTOFF CONC BELOW: 09/23/23 19:42 Ethyl Alcohol < 10.0 mg/dL 09/23/23 16:46 ABX Reporting Has patient been on IV antibiotics over the past 48 hours?: No Current Medications - Current Medications Current Medications: Active Medications Acetaminophen (Acetaminophen 325 Mg Tablet) 650 mg PO Q4HR PRN PRN Reason: Pain or Fever > 38C (100.4F) Last Admin: 09/26/23 12:30 Dose: 650 mg Apixaban (Apixaban 5 Mg Tablet) 5 mg PO BID [facility] Last Admin: 10/01/23 08:21 Dose: 5 mg Aspirin (Aspirin Ec 81 Mg Tablet) 81 mg PO DAILY [facility] Last Admin: 10/01/23 08:21 Dose: 81 mg Docusate Sodium (Docusate Sodium 250 Mg Capsule) 250 - 500 mg PO DAILY [facility] Last Admin: 10/01/23 08:22 Dose: 250 mg Famotidine (Famotidine 20 Mg Tablet) 20 mg PO BID [facility] Last Admin: 10/01/23 08:21 Dose: 20 mg Insulin Human Lispro (Insulin Lispro 300 Unit/3 Ml Pen) 1 - 9 unit SUBQ 0800,1200,1700,2100 [facility]; Protocol Last Admin: 10/01/23 12:26 Dose: 3 unit Magnesium Oxide (Magnesium Oxide 400 Mg Tablet) 400 mg PO DAILYWM [facility] Last Admin: 10/01/23 08:21 Dose: 400 mg Memantine (Memantine 5 Mg Tablet) 5 mg PO QPM [facility] Last Admin: 09/30/23 20:28 Dose: 5 mg Metformin HCl (Metformin 500 Mg Tablet) 1,000 mg PO BIDWM [facility] Last Admin: 10/01/23 08:55 Dose: Not Given Methylphenidate HCl (Methylphenidate 5 Mg Tablet) 20 mg PO 0800 [facility] Last Admin: 10/01/23 08:20 Dose: 20 mg Methylphenidate HCl (Methylphenidate 5 Mg Tablet) 20 mg PO 1100 [facility] Last Admin: 10/01/23 12:25 Dose: 20 mg Methylphenidate HCl (Methylphenidate 5 Mg Tablet) 20 mg PO 1400 [facility] Last Admin: 09/30/23 13:59 Dose: 20 mg Metoclopramide HCl (Metoclopramide 10 Mg Tablet) 5 mg PO AC [facility] Last Admin: 10/01/23 12:26 Dose: 5 mg Morphine Sulfate (Morphine Ir 15 Mg Tablet) 15 mg PO Q4H [facility] Last Admin: 10/01/23 12:26 Dose: 15 mg Multi-Ingredient Ointment (Zinc Oxide 20% Oint 30 Gm Tube) 1 applic TOP PRN PRN PRN Reason: Skin Care Last Admin: 09/29/23 13:46 Dose: 1 applic Nystatin (Nystatin 722968 Units/5 Ml Udc) 5 ml PO QID [facility] Last Admin: 10/01/23 08:22 Dose: 5 ml Ondansetron HCl (Ondansetron Odt 4 Mg Tablet) 4 mg TL Q6H PRN PRN Reason: Nausea / Vomiting Last Admin: 09/28/23 23:43 Dose: 4 mg Ondansetron HCl (Ondansetron 4 Mg/2 Ml Vial) 4 mg IVP Q6HR PRN PRN Reason: Nausea / Vomiting Polyethylene Glycol (Polyethylene Glycol 3350 17 Gm Packet) 17 gm PO DAILY [facility] Last Admin: 10/01/23 08:22 Dose: Not Given Potassium Chloride (Potassium Chloride 20 Meq Tablet) 20 meq PO DAILYWM [facility] Last Admin: 10/01/23 08:21 Dose: 20 meq Propranolol HCl (Propranolol 10 Mg Tablet) 10 mg PO BIDWM [facility] Last Admin: 10/01/23 08:21 Dose: 10 mg Quetiapine Fumarate (Quetiapine 25 Mg Tablet) 50 mg PO 2000 [facility] Last Admin: 09/30/23 20:12 Dose: 50 mg Senna (Senna 8.6 Mg Tablet) 8.6 - 17.2 mg PO DAILY [facility] Last Admin: 10/01/23 08:21 Dose: 8.6 mg Sodium Chloride (Sodium Chloride Flush 0.9% 10 Ml Syringe) 10 ml IVP PRN PRN PRN Reason: NEEDED PER PROVIDER ORDERS Last Admin: 09/27/23 23:12 Dose: 10 ml Sodium Chloride (Sodium Chloride Flush 0.9% 10 Ml Syringe) 10 ml IVP 0100,0900,1700 [facility] Last Admin: 10/01/23 08:22 Dose: 10 ml Tamsulosin HCl (Tamsulosin 0.4 Mg Capsule) 0.4 mg PO QPM [facility] Last Admin: 09/30/23 20:12 Dose: 0.4 mg Trazodone HCl (Trazodone 50 Mg Tablet) 50 mg PO 2100 [facility] Last Admin: 09/30/23 20:12 Dose: 50 mg Atorvastatin Calcium [Lipitor] 80 mg PO HS 09/25/23 Dabigatran Etexilate Mesylate [Dabigatran Etexilate] 150 mg PO BID 09/25/23 Insulin NPH Human Isophane [Humulin N Kwikpen] 7 unit SUBQ BIDAC 09/25/23 Insulin Regular Human [Humulin R] 0 - 30 unit SUBQ TID PRN 09/25/23 Melatonin/Pyridoxine HCl (B6) [Melatonin Tr 10 mg Tablet] 1 each PO HS 09/25/23 Metformin HCl 1,000 mg PO BID 09/25/23 Omeprazole Magnesium 20 mg PO TID 09/25/23 Ondansetron HCl 4 mg PO TID PRN 09/25/23 QUEtiapine [SEROquel] 50 mg PO QPM 09/25/23 Terbinafine HCl [Lamisil At] 1 applic TP BID PRN 09/25/23 clonazePAM [Clonazepam] 1 mg PO HS 09/25/23
[2023-10-01] MEDS: TAMSULOSIN 0.4 MG CAPSULE PO SCH (21:31)
[2023-10-01] MEDS: MEMANTINE 5 MG TABLET PO SCH (21:36)
[2023-10-01] MEDS: traZODone 50 MG TABLET PO SCH (21:36)
[2023-10-01] MEDS: QUEtiapine 25 MG TABLET PO SCH (21:36)
[2023-10-02] MEDS: MORPHINE IR 15 MG TABLET PO SCH ×7 (01:11→23:39)
[2023-10-02 05:47] LABS: CREATININE 0.7 mg/dL (0.6-1.3); POTASSIUM 4.3 mmol/L (3.5-4.5)
[2023-10-02] MEDS: METOCLOPRAMIDE 10 MG TABLET PO SCH ×3 (06:04→16:31)
[2023-10-02] MEDS: INSULIN LISPRO 300 UNIT/3 ML PEN SUBQ SCH ×4 (08:10→21:40)
[2023-10-02] MEDS: DOCUSATE SODIUM 250 MG CAPSULE PO SCH (08:10)
[2023-10-02] MEDS: metFORMIN 500 MG TABLET PO SCH ×2 (08:11→16:32)
[2023-10-02] MEDS: MAGNESIUM OXIDE 400 MG TABLET PO SCH (08:11)
[2023-10-02] MEDS: PROPRANOLOL 10 MG TABLET PO SCH ×2 (08:11→16:32)
[2023-10-02] MEDS: SENNA 8.6 MG TABLET PO SCH (08:11)
[2023-10-02] MEDS: FAMOTIDINE 20 MG TABLET PO SCH ×2 (08:11→20:26)
[2023-10-02] MEDS: ASPIRIN EC 81 MG TABLET PO SCH (08:11)
[2023-10-02] MEDS: POTASSIUM CHLORIDE 20 MEQ TABLET PO SCH (08:11)
[2023-10-02] MEDS: APIXABAN 5 MG TABLET PO SCH ×2 (08:11→20:25)
[2023-10-02] MEDS: polyethylene glycoL 3350 17 GM PACKET PO SCH (08:12)
[2023-10-02] MEDS: METHYLPHENIDATE 5 MG TABLET PO SCH ×3 (08:19→15:17)
[2023-10-02] MEDS: NYSTATIN 500000 UNITS/5 ML UDC PO SCH ×4 (08:19→20:25)
[2023-10-02] MEDS: SODIUM CHLORIDE FLUSH 0.9% 10 ML SYRINGE IVP SCH ×3 (08:20→23:39)
--- NOTE | 2023-10-02 17:55 | PROVIDER PROGRESS NOTE ---
Assessment/Plan - Problem List (1) AMS (altered mental status) Assessment/Plan: Assessment/Plan: Assessment/Plan: Most likely related to treatment with benzodiazpenes and narcotics. Mental status has improved after decreasing pain and anxiety medications. (2) Opiate Overdose Improved after decreasing pain medicatons Consider removing pain pump. (3) Wenckebach heart block Beta block changed to twice daily (4) S/P recent CVA Echo with bubble study: Echo performed on September 30, 2023 revealed a left ventricular ejection fraction of 20% with global hypokinesis mild to moderate right ventricular enlargement a nd decreased right ventricular systolic function. The RVSP is 60 mmHg. Continue aspirin Several weeks ago he was adm here with L hemiparesis, and he went to SNF for rehab Plan: Currently waiting for a bed. (5) Chronic pain Has a pain pump which may be leaking. Consider removing pain pump once an outpatient. (6) Parkinson's disease Dementia Conintue trazodone, Memantine, Ritalin and propranolol (7) Abn EKG Continue to monitor EKG intermittently (8) DM type 2 Continue sliding scale insulin. (9) Diabetic Gastroparesis Plan: Continue Reglan (10) Thrush Plan: Resolved. treated with nystatin (11) Hypomagnesemia Replace as needed. Dispostion: Patient is medically stable for discharge is awaiting bed placement at a senior living. - Current Meds Current Meds: Current Medications Generic Name Dose Route Start Last Admin Trade Name Freq PRN Reason Stop Dose Admin Acetaminophen 650 mg 09/26/23 11:14 09/26/23 12:30 Acetaminophen 325 Mg Tablet PO 650 mg Q4HR PRN Administration Pain or Fever > 38C (100.4F) Apixaban 5 mg 09/26/23 21:00 10/02/23 08:11 Apixaban 5 Mg Tablet PO 5 mg BID ISELA Administration Aspirin 81 mg 09/26/23 12:00 10/02/23 08:11 Aspirin Ec 81 Mg Tablet PO 81 mg DAILY ISELA Administration Docusate Sodium 250 - 500 mg 10/01/23 09:00 10/02/23 08:10 Docusate Sodium 250 Mg Capsule PO 250 mg DAILY ISELA Administration Famotidine 20 mg 09/26/23 21:00 10/02/23 08:11 Famotidine 20 Mg Tablet PO 20 mg BID ISELA Administration Insulin Human Lispro 1 - 9 unit 12/30/23 21:00 10/02/23 16:37 Insulin Lispro 300 Unit/3 Ml Pen SUBQ 1 unit 0800,1200,1700,2100 ISELA Administration Protocol Magnesium Oxide 400 mg 09/30/23 19:00 10/02/23 08:11 Magnesium Oxide 400 Mg Tablet PO 400 mg DAILYWM ISELA Administration Memantine 5 mg 09/26/23 21:00 10/01/23 21:36 Memantine 5 Mg Tablet PO 5 mg QPM ISELA Administration Metformin HCl 1,000 mg 09/27/23 08:00 10/02/23 16:32 Metformin 500 Mg Tablet PO 1,000 mg BIDWM ISELA Administration Methylphenidate HCl 20 mg 09/28/23 07:09 10/02/23 08:19 Methylphenidate 5 Mg Tablet PO 20 mg 0800 ISELA Administration Methylphenidate HCl 20 mg 09/28/23 11:00 10/02/23 11:11 Methylphenidate 5 Mg Tablet PO 20 mg 1100 ISELA Administration Methylphenidate HCl 20 mg 09/28/23 14:00 10/02/23 15:17 Methylphenidate 5 Mg Tablet PO 20 mg 1400 ISELA Administration Metoclopramide HCl 5 mg 09/26/23 11:30 10/02/23 16:31 Metoclopramide 10 Mg Tablet PO 5 mg AC ISELA Administration Morphine Sulfate 15 mg 09/28/23 20:00 10/02/23 16:31 Morphine Ir 15 Mg Tablet PO 15 mg Q4H ISELA Administration Multi-Ingredient Ointment 1 applic 09/24/23 13:23 09/29/23 13:46 Zinc Oxide 20% Oint 30 Gm Tube TOP 1 applic PRN PRN Administration Skin Care Nystatin 5 ml 09/26/23 17:00 10/02/23 16:32 Nystatin 545123 Units/5 Ml Udc PO 5 ml QID ISELA Administration Ondansetron HCl 4 mg 09/23/23 23:12 09/28/23 23:43 Ondansetron Odt 4 Mg Tablet TL 4 mg Q6H PRN Administration Nausea / Vomiting Polyethylene Glycol 17 gm 10/01/23 09:00 10/02/23 08:12 Polyethylene Glycol 3350 17 Gm Packet PO 17 gm DAILY ISELA Administration Potassium Chloride 20 meq 09/30/23 19:00 10/02/23 08:11 Potassium Chloride 20 Meq Tablet PO 20 meq DAILYWM ISELA Administration Propranolol HCl 10 mg 09/29/23 08:00 10/02/23 16:32 Propranolol 10 Mg Tablet PO 10 mg BIDWM ISELA Administration Quetiapine Fumarate 50 mg 09/28/23 20:00 10/01/23 21:36 Quetiapine 25 Mg Tablet PO 50 mg 2000 ISELA Administration Senna 8.6 - 17.2 mg 10/01/23 09:00 10/02/23 08:11 Senna 8.6 Mg Tablet PO 8.6 mg DAILY ISELA Administration Sodium Chloride 10 ml 09/23/23 23:17 09/27/23 23:12 Sodium Chloride Flush 0.9% 10 Ml Syringe IVP 10 ml PRN PRN Administration NEEDED PER PROVIDER ORDERS Sodium Chloride 10 ml 09/24/23 01:00 10/02/23 16:37 Sodium Chloride Flush 0.9% 10 Ml Syringe IVP 10 ml 0100,0900,1700 ISELA Administration Tamsulosin HCl 0.4 mg 09/26/23 21:00 10/01/23 21:31 Tamsulosin 0.4 Mg Capsule PO 0.4 mg QPM ISELA Administration Trazodone HCl 50 mg 09/28/23 21:00 10/01/23 21:36 Trazodone 50 Mg Tablet PO 50 mg 2100 ISELA Administration - Lab Result Fish Bone Diagrams: 09/30/23 05:11 10/02/23 05:23 Objective Vital Signs: Vital Signs - 24 hr 10/01/23 10/02/23 10/02/23 20:42 00:01 04:35 Temperature 36.4 C L 36.3 C L 36.2 C L Heart Rate [ 62 51 L 65 Brachial] Respiratory 16 16 16 Rate Blood Pressure 144/84 H 103/48 L 157/88 H [Right Brachial artery] O2 Saturation 96 92 97 10/02/23 10/02/23 10/02/23 07:35 12:54 15:38 Temperature 36.2 C L 36.4 C L 36.4 C L Heart Rate [ 57 L 57 L 56 L Brachial] Respiratory 16 16 16 Rate Blood Pressure 145/69 H 109/64 119/71 [Right Brachial artery] O2 Saturation 97 96 96 Oxygen O2 Source Room air Oxygen Flow Rate 2 I&O (Last 24 Hrs): Intake and Output Totals x24h 09/30/23 10/01/23 10/02/23 23:59 23:59 23:59 Intake Total 1280 440 700 Output Total 850 5385 650 Balance 430 -1115 50 - Results Results: Laboratory Results WBC 6.0 x10^3/uL (4.8-10.8) 09/30/23 05:11 RBC 5.18 10^6/uL (4.70-6.10) 09/30/23 05:11 Hgb 14.9 g/dL (14.0-18.0) 09/30/23 05:11 Hct 47.4 % (42.0-52.0) 09/30/23 05:11 MCV 91.5 fL (80.0-94.0) 09/30/23 05:11 MCH 28.8 pg (27.0-31.0) 09/30/23 05:11 MCHC 31.4 g/dL (32.0-36.0) L 09/30/23 05:11 RDW 12.9 % (12.0-15.0) 09/30/23 05:11 Plt Count 248 10^3/uL (130-450) 09/30/23 05:11 MPV 9.8 fL (7.4-11.4) 09/30/23 05:11 Neut # (Auto) 2.1 10^3/uL (1.5-6.6) 09/30/23 05:11 Lymph # (Auto) 2.7 10^3/uL (1.5-3.5) 09/30/23 05:11 Door # (Auto) 0.7 10^3/uL (0.0-1.0) 09/30/23 05:11 Eos # (Auto) 0.4 10^3/uL (0.0-0.7) 09/30/23 05:11 Baso # (Auto) 0.1 10^3/uL (0.0-0.1) 09/30/23 05:11 Absolute Nucleated RBC 0.00 x10^3/uL 09/30/23 05:11 Nucleated RBC % 0.0 /100WBC 09/30/23 05:11 PT 15.0 secs (9.9-12.6) H 09/23/23 16:46 INR 1.4 (0.8-1.2) H 09/23/23 16:46 VBG pH 7.347 (7.31-7.41) 09/28/23 05:58 VBG pCO2 55.6 mmHg (41-51) H 09/23/23 16:46 VBG pO2 22.1 mmHg (25-47) L 09/23/23 16:46 VBG HCO3 28.5 mmol/L (23-28) H 09/23/23 16:46 VBG Total CO2 30.2 mmol/L (24-29) H 09/23/23 16:46 VBG O2 Saturation 38.6 % (60-80) L 09/23/23 16:46 VBG Base Excess 1.1 mmol/L (-2 - +2) 09/23/23 16:46 Ionized Calcium 1.14 mmol/L (1.15-1.33) L 09/28/23 05:58 Sodium 137 mmol/L (135-145) 10/02/23 05:23 Potassium 4.3 mmol/L (3.5-4.5) 10/02/23 05:23 Chloride 100 mmol/L (101-111) L 10/02/23 05:23 Carbon Dioxide 33 mmol/L (21-32) H 10/02/23 05:23 Anion Gap 4.0 (6-13) L 10/02/23 05:23 BUN 10 mg/dL (6-20) 10/02/23 05:23 Creatinine 0.7 mg/dL (0.6-1.3) 10/02/23 05:23 Estimated GFR (MDRD) 111 (>89) 10/02/23 05:23 Glucose 140 mg/dL (74-104) H 10/02/23 05:23 Calcium 9.0 mg/dL (8.5-10.3) 10/02/23 05:23 Phosphorus 3.1 mg/dL (2.5-5.0) 09/28/23 05:58 Magnesium 1.3 mg/dL (1.7-2.3) L 09/30/23 05:11 Total Bilirubin 1.0 mg/dL (0.2-1.0) 09/24/23 04:25 AST 12 IU/L (10-42) 09/24/23 04:25 ALT 6 IU/L (10-60) L 09/24/23 04:25 Alkaline Phosphatase 89 IU/L (42-121) 09/24/23 04:25 Troponin I High Sens 38.3 ng/L (2.3-19.7) H* 09/27/23 Unknown Total Protein 4.8 g/dL (6.4-8.9) L 09/24/23 04:25 Albumin 2.9 g/dL (3.2-5.5) L 09/24/23 04:25 Globulin 1.9 g/dL (2.1-4.2) L 09/24/23 04:25 Albumin/Globulin Ratio 1.5 (1.0-2.2) 09/24/23 04:25 Lipase < 10 U/L (11-82) L 09/23/23 16:46 Urine Color LT. YELLOW 09/23/23 19:42 Urine Clarity CLEAR (CLEAR) 09/23/23 19:42 Urine pH 5.5 PH (5.0-7.5) 09/23/23 19:42 Ur Specific [employer] 1.020 (1.002-1.030) 09/23/23 19:42 Urine Protein NEGATIVE mg/dL (NEGATIVE) 09/23/23 19:42 Urine Glucose (UA) >=1000 mg/dL (NEGATIVE) H 09/23/23 19:42 Urine Ketones 15 mg/dL (NEGATIVE) H 09/23/23 19:42 Urine Occult Blood NEGATIVE (NEGATIVE) 09/23/23 19:42 Urine Nitrite NEGATIVE (NEGATIVE) 09/23/23 19:42 Urine Bilirubin NEGATIVE (NEGATIVE) 09/23/23 19:42 Urine Urobilinogen 0.2 (NORMAL) E.U./dL (NORMAL) 09/23/23 19:42 Ur Leukocyte Esterase NEGATIVE (NEGATIVE) 09/23/23 19:42 Ur Microscopic Review NOT INDICATED 09/23/23 19:42 Urine Culture Comments NOT INDICATED 09/23/23 19:42 Nasal Adenovirus (PCR) NOT DETECTED 09/23/23 17:25 Nasal B. parapertussis DNA (PCR) NOT DETECTED 09/23/23 17:25 Nasal Coronavir 229E PCR NOT DETECTED 09/23/23 17:25 Nasal Coronavir HKU1 PCR NOT DETECTED 09/23/23 17:25 Nasal Coronavir NL63 PCR NOT DETECTED 09/23/23 17:25 Nasal Coronavir OC43 PCR NOT DETECTED 09/23/23 17:25 Nasal Enterovir/Rhinovir PCR NOT DETECTED 09/23/23 17:25 Nasal Influenza B PCR NOT DETECTED 09/23/23 17:25 Nasal Influenza A PCR NOT DETECTED 09/23/23 17:25 Nasal Parainfluen 1 PCR NOT DETECTED 09/23/23 17:25 Nasal Parainfluen 2 PCR NOT DETECTED 09/23/23 17:25 Nasal Parainfluen 3 PCR NOT DETECTED 09/23/23 17:25 Nasal Parainfluen 4 PCR NOT DETECTED 09/23/23 17:25 Nasal RSV (PCR) NOT DETECTED 09/23/23 17:25 Nasal Screen MRSA (PCR) NEGATIVE (NEGATIVE) 09/24/23 03:08 Nasal B.pertussis DNA PCR NOT DETECTED 09/23/23 17:25 Nasal C.pneumoniae (PCR) NOT DETECTED 09/23/23 17:25 Iain Human Metapneumo PCR NOT DETECTED 09/23/23 17:25 Nasal M.pneumoniae (PCR) NOT DETECTED 09/23/23 17:25 Nasal SARS-CoV-2 (PCR) NOT DETECTED 09/23/23 17:25 Urine Opiates Screen POSITIVE (NEGATIVE) H 09/23/23 19:42 Ur Buprenorphine Scrn NEGATIVE (NEGATIVE) 09/23/23 19:42 Ur Oxycodone Screen NEGATIVE (NEGATIVE) 09/23/23 19:42 Urine Methadone Screen NEGATIVE (NEGATIVE) 09/23/23 19:42 Ur Barbiturates Screen NEGATIVE (NEGATIVE) 09/23/23 19:42 Ur Tricyclics Screen POSITIVE (NEGATIVE) H 09/23/23 19:42 Ur Phencyclidine Scrn NEGATIVE (NEGATIVE) 09/23/23 19:42 Ur Amphetamine Screen NEGATIVE (NEGATIVE) 09/23/23 19:42 U Methamphetamines Scrn NEGATIVE (NEGATIVE) 09/23/23 19:42 U Benzodiazepines Scrn NEGATIVE (NEGATIVE) 09/23/23 19:42 Urine Cocaine Screen NEGATIVE (NEGATIVE) 09/23/23 19:42 U Cannabinoids Screen NEGATIVE (NEGATIVE) 09/23/23 19:42 Ur Drug Screen Comment CUTOFF CONC BELOW: 09/23/23 19:42 Ethyl Alcohol < 10.0 mg/dL 09/23/23 16:46
[2023-10-02] MEDS: QUEtiapine 25 MG TABLET PO SCH (20:25)
[2023-10-02] MEDS: TAMSULOSIN 0.4 MG CAPSULE PO SCH (20:25)
[2023-10-02] MEDS: MEMANTINE 5 MG TABLET PO SCH (20:25)
[2023-10-02] MEDS: traZODone 50 MG TABLET PO SCH (20:25)
[2023-10-03] MEDS: MORPHINE IR 15 MG TABLET PO SCH ×3 (04:51→12:17)
[2023-10-03] MEDS: METOCLOPRAMIDE 10 MG TABLET PO SCH ×2 (06:30→11:10)
[2023-10-03 07:46] VITALS: BP 117/66; O2SAT 93
[2023-10-03] MEDS: INSULIN LISPRO 300 UNIT/3 ML PEN SUBQ SCH ×2 (08:09→11:52)
[2023-10-03] MEDS: PROPRANOLOL 10 MG TABLET PO SCH (08:11)
[2023-10-03] MEDS: POTASSIUM CHLORIDE 20 MEQ TABLET PO SCH (08:11)
[2023-10-03] MEDS: metFORMIN 500 MG TABLET PO SCH (08:11)
[2023-10-03] MEDS: METHYLPHENIDATE 5 MG TABLET PO SCH ×3 (08:11→14:18)
[2023-10-03] MEDS: MAGNESIUM OXIDE 400 MG TABLET PO SCH (08:11)
[2023-10-03] MEDS: SODIUM CHLORIDE FLUSH 0.9% 10 ML SYRINGE IVP SCH (08:12)
[2023-10-03] MEDS: ASPIRIN EC 81 MG TABLET PO SCH (08:18)
[2023-10-03] MEDS: polyethylene glycoL 3350 17 GM PACKET PO SCH (08:18)
[2023-10-03] MEDS: NYSTATIN 500000 UNITS/5 ML UDC PO SCH ×2 (08:18→14:04)
[2023-10-03] MEDS: SENNA 8.6 MG TABLET PO SCH (08:18)
[2023-10-03] MEDS: APIXABAN 5 MG TABLET PO SCH (08:18)
[2023-10-03] MEDS: DOCUSATE SODIUM 250 MG CAPSULE PO SCH (08:18)
[2023-10-03] MEDS: FAMOTIDINE 20 MG TABLET PO SCH (08:18)
--- NOTE | 2023-10-03 12:30 | Discharge Plan ---
"Discharge Plan for SNF / ANTHONY - Discharge Plan And Transition Orders Problem Reviewed?: Yes Disposition: 03 SNF DC/Xfer Condition: Stable Allergies and Adverse Reactions: Allergies Allergy/AdvReac Type Severity Reaction Status Date / Time iodine Allergy Itching Verified 09/23/23 16:19 ketorolac [From Toradol] Allergy Rash Verified 09/23/23 16:19 tositumomab Allergy Unknown Verified 09/23/23 16:19 Health Concerns: Amanuel Valle is a 73-year-old man with a past medical history significant for Parkinson's disease with dementia, chronic pain, diabetes mellitus type 2, diabetes mellitus gastroparesis, hypertension, hyperlipidemia, benign prostatic hypertrophy, gastroesophageal reflux disease and history of stroke. He presented to the emergency room with complaints of altered mental status. In the emergency room, he was treated for narcotic overdose with Narcan and required multiple doses. He was admitted to the hospital and his frequency and dose of narcotics were decreased. After decreasing his frequency and dose of narcotics, patient's clinical condition improved and he is currently stable for discharge. During this hospitalization he underwent an echocardiogram which revealed an e jection fraction of 20% with global hypokinesis and moderate right ventricular enlargement. Right ventricular systolic pressure is estimated to be 60 mmHg. Patient is stable to transfer to nursing facility. CODE STATUS: DO NOT RESUSCITATE Plan of Treatment: Transfer to half-way facility for long-term care. Care Goals: Goals are to maintain current level of function and possibly increase functionality with rehab. Assessment: (1) AMS (altered mental status) Assessment/Plan: Altered mental status most likely secondary to narcotic overuse. Narcotic dose has been decreased and patient mental status has returned to baseline. (2) Opiate Overdose Resolved. (3) Wenckebach heart block Propranolol decreased to twice daily. (4) S/P recent CVA Stable (5) Chronic pain Patient's pain appears to be well-controlled on current regimen. (6) Parkinson's disease Dementia Continue trazodone, amantadine and Ritalin (7) Abn EKG Right bundle sarika block with right axis deviation. Continue to monitor. (8) DM type 2 Continue outpatient regiment for blood sugar control. (9) Diabetic Gastroparesis Plan: Reglan was resumed (10) Thrush Resolved (11) Hypomagnesemia Resolved (12) CAD Resolved (13) HTN Continue outpatient medications (14) BPH Continue Flomax (15) GERD Continue outpatient medications (16) Bacteriuria Resolved. - SNF / GROUP HOME Transition Orders Admit to (Facility): [facility] Discharge Diagnosis: 1. Altered mental status 2. Opiate overdose 3. We keep back heart block 4. Status post CVA 5. Chronic pain 6. Parkinson's disease dementia 7. Abnormal EKG 8. Diabetes mellitus type 2 9. Diabetic gastroparesis 10. Thrush 11. Hypomagnesia 12. Coronary artery disease 13. Benign prostatic hypertrophy 14. Gastroesophageal reflux disease 15. Bacturia Medicare Certification Statement: I certify that Post Hospital care home care is medically necessary on a continuing basis for any of the conditions for which she/he is receiving care during hospitalization. Notify PCP of admission and forward orders to primary provider for signature. Weight on admission and: Monthly Other Notification Orders: Call PCP immediately if patient develops dyspnea, chest pain/tightness or edema. Additional Bowel Program Orders: If no BM after 2 days, nurse may give M.O.M. 30ml PO PRN and/or ducolax Supp 1 SC and/or RHETT 250mg P.O., and/or senna 1-2 tabs PO. On day 3 nurse may give repeat above order until residents constipation is resolved. Annual Influenza Vaccine (between May 30 and December 27): Yes Two-step PPD per [facility] [phone] or approved exception documents: Yes Medication Orders: PLEASE REFER TO THE DISCHARGE MEDICATION LIST. Insulin Orders?: Yes - Diet Type: No added sugar Texture: Puree Liquids: Thin May have monthly special meal: Yes - Therapies | Activity Therapy: Evaluation | Treat if indicated: PT, OT Rehabilitation Potential: Maximize functional status Activity: Activity as Tolerated Weight Bearing: Full Weight Assistance Devices: Walker Additional Instructions: Extensive workup, including laboratory studies, tox screen, urinalysis, viral panel, and CT scan of the head were performed and overall, unremarkable. Mr. Valle's altered mental status responded very well to Narcan, a reversal agent for narcotic pain medication, indicating that his pain medication had built up too much in his system today. It is very important that his dosing be monitored very carefully and that he is not given further pain medication if he is already under the influence of prior doses."
--- NOTE | 2023-10-09 04:18 | DISCHARGE SUMMARY ---
"Discharge Summary Admit Date: 09/23/23 Discharge Date: 10/03/23 Discharging Provider: Amanuel Valenzuela Primary Care Provider: Aurelia Castrejon Condition at Discharge: Stable Discharge Disposition: 03 SNF DC/Xfer Discharge Facility Name: [facility] - DIAGNOSES Admission Diagnoses: 1. Opiate overdose 2. Elevated troponin 3. Urinary track infection 4. Hypomagnesia 5. Status of CVA 6. Parkinsons dementia 7. Type two diabetes with diabetic gastroparesis 8. Congestive heart failure 9. Coronary artery disease 10. Hypertension 11. Hyper lipidemia 12. Benign prostatic hypertrophy 13. GERD Discharge Diagnoses with Status of Each Condition: 1. Altered mental status 2. Opiate overdose 3. Wenkebsch heart block 4. Status post CVA 5. Chest pain 6. Parkinsons dementia 7. Abnormal EKG 8. Type two diabetes melodious 9. Diabetic gastroparesis 10. Thrush 11. Hypomagnesemia 12. Coronary artery disease 13. HypertensionL 14. Benign prostatic hypertrophy 15. GERD 16. Bacturia - HPI History of Present Illness: Amanuel Valle is a 73-year-old man with a past medical history significant for Parkinson's disease with dementia, chronic pain, diabetes mellitus type 2, diabetes mellitus gastroparesis, hypertension, hyperlipidemia, benign prostatic hypertrophy, gastroesophageal reflux disease and history of stroke. He presented to the emergency room with complaints of altered mental status. In the emergency room, he was treated for narcotic overdose with Narcan and required multiple doses. He was admitted to the hospital and his frequency and dose of narcotics were decreased. After decreasing his frequency and dose of narcotics, patient's clinical condition improved and he is currently stable for discharge. During this hospitalization he underwent an echocardiogram which revealed an ejection fraction of 20% with global hypokinesis and moderate right ventricular enlargement. Right ventricular systolic pressure is estimated to be 60 mmHg. Patient is stable to transfer to nursing facility. CODE STATUS: DO NOT RESUSCITATE - CONSULTS | PROCEDURES Procedures: Brain MRI 09/25/2023 Echocardiogram 09/30/2023 - HOSPITAL COURSE Hospital Course: See HPI - ALLERGIES Allergies/Adverse Reactions: Allergies Allergy/AdvReac Type Severity Reaction Status Date / Time iodine Allergy Itching Verified 09/23/23 16:19 ketorolac [From Toradol] Allergy Rash Verified 09/23/23 16:19 tositumomab Allergy Unknown Verified 09/23/23 16:19 - MEDICATIONS Home Medications: Ambulatory Orders Medication Instructions Recorded Confirmed Empagliflozin [Jardiance] 10 mg ORAL DAILY 30 Days #30 09/17/23 09/23/23 Magnesium Oxide [Mag Ox] 400 mg PO DAILY #30 09/17/23 09/23/23 Memantine [Namenda] 5 mg PO QPM #30 tab 09/17/23 09/23/23 Metoclopramide [Reglan] 5 mg PO TID 30 Days #0 09/17/23 09/23/23 Potassium Chloride 20 meq ORAL DAILY 30 Days #0 09/17/23 09/23/23 Tamsulosin HCl [Flomax] 0.4 mg PO HS 30 Days #0 09/17/23 09/23/23 traZODone [Desyrel] 50 mg PO QPM 30 Days #30 tab 09/17/23 09/23/23 Methylphenidate HCl [Ritalin LA] 20 mg PO TID #30 cap 09/18/23 09/23/23 Atorvastatin Calcium [Lipitor] 80 mg PO HS 09/25/23 09/25/23 Insulin NPH Human Isophane 7 unit SUBQ BIDAC 09/25/23 09/25/23 [Humulin N Kwikpen] Insulin Regular Human [Humulin R] 0 - 30 unit SUBQ TID PRN 09/25/23 09/25/23 Melatonin/Pyridoxine HCl (B6) 1 each PO HS 09/25/23 09/25/23 [Melatonin Tr 10 mg Tablet] Omeprazole Magnesium 20 mg PO TID 09/25/23 09/25/23 Ondansetron HCl 4 mg PO TID PRN 09/25/23 09/25/23 Terbinafine HCl [Lamisil At] 1 applic TP BID PRN 09/25/23 09/25/23 Acetaminophen [Tylenol] 650 mg PO Q4HR PRN tab 10/03/23 Apixaban [Eliquis] 5 mg PO BID tab 10/03/23 Aspirin EC [Ecotrin] 81 mg PO DAILY tab 10/03/23 Docusate Sodium 250Mg Capsule 250 - 500 mg PO DAILY cap 10/03/23 [Colace 250Mg Capsule] Famotidine [Pepcid] 20 mg PO BID tab 10/03/23 Memantine [Namenda] 5 mg PO QPM tab 10/03/23 Morphine Ir [Ms Ir] 15 mg ORAL Q4H #30 tab 10/03/23 Ondansetron Odt [Zofran Odt] 4 mg TL Q6H PRN tab 10/03/23 Propranolol [Inderal] 10 mg PO BIDWM tab 10/03/23 Senna [Senokot] 8.6 - 17.2 mg PO DAILY tab 10/03/23 Zinc Oxide 20% Oint [Zinc Oxide] 1 applic TOP PRN PRN each 10/03/23 metFORMIN [Glucophage] 1,000 mg PO BIDWM tab 10/03/23 - PHYSICAL EXAM AT DISCHARGE General Appearance: positive: No acute distress, Alert Eyes Bilateral: positive: Normal inspection, PERRL, EOMI Neck: positive: Thyroid nml, No JVD Respiratory: positive: Chest non-tender, No respiratory distress, Breath sounds nml Cardiovascular: positive: Regular rate & rhythm, No murmur Abdomen: positive: Non-tender, No organomegaly, Nml bowel sounds Neurologic/Psychiatric: positive: Oriented x3 - LABS Result Diagrams: 09/30/23 05:11 10/02/23 05:23 - FOLLOW UP Follow Up: Aurelia Castrejon - TIME SPENT Time Spent in Discharge (Minutes): 28"
== END 2023-10-03 14:58 | DRG 918 ==
LOC: EDSEX → EDUNIT# → ED 16:10 → MS2 23:17 → UNDOADMOB 23:17 → OBSVTOIN 09-24 02:04 → ICU 09-24 02:04 → MS2 09-24 02:21 → ICU 09-24 02:21 → MS2 09-27 14:07
PROVIDERS: ADMIT Internal Medicine; ATTEND Internal Medicine
DX: T40.2X1A Poisoning by other opioids, accidental (unintentional), initial encounter (principal); I69.354 Hemiplegia and hemiparesis following cerebral infarction affecting left non-dominant side; N39.0 Urinary tract infection, site not specified; R41.4 Neurologic neglect syndrome; R41.82 Altered mental status, unspecified; R09.02 Hypoxemia; I95.9 Hypotension, unspecified; I44.1 Atrioventricular block, second degree; I11.0 Hypertensive heart disease with heart failure; I50.9 Heart failure, unspecified; J44.9 Chronic obstructive pulmonary disease, unspecified; G20.A1 Parkinson's disease without dyskinesia, without mention of fluctuations; E78.00 Pure hypercholesterolemia, unspecified; F02.80 Dementia in other diseases classified elsewhere, unspecified severity, without behavioral disturbance, psychotic disturbance, mood disturbance, and anxiety; E11.43 Type 2 diabetes mellitus with diabetic autonomic (poly)neuropathy; K31.84 Gastroparesis; Z79.4 Long term (current) use of insulin; Z79.84 Long term (current) use of oral hypoglycemic drugs; B37.9 Candidiasis, unspecified; E83.42 Hypomagnesemia; I25.10 Atherosclerotic heart disease of native coronary artery without angina pectoris; N40.0 Benign prostatic hyperplasia without lower urinary tract symptoms; R79.89 Other specified abnormal findings of blood chemistry; K21.9 Gastro-esophageal reflux disease without esophagitis; G89.29 Other chronic pain; E78.5 Hyperlipidemia, unspecified; Z66 Do not resuscitate; I25.2 Old myocardial infarction; F32.A Depression, unspecified; F41.0 Panic disorder [episodic paroxysmal anxiety]; R53.1 Weakness; T85.9XXA Unspecified complication of internal prosthetic device, implant and graft, initial encounter; Z96.89 Presence of other specified functional implants; Z79.891 Long term (current) use of opiate analgesic; F40.240 Claustrophobia; Z79.82 Long term (current) use of aspirin; T42.4X5A Adverse effect of benzodiazepines, initial encounter; T40.605A Adverse effect of unspecified narcotics, initial encounter; I45.10 Unspecified right bundle-branch block
CPT/HCPCS: 36415; 70450; 70553; 71045; 80048; 80053; 80306; 81003; 82330; 82803; 83690; 83735; 84100; 84132; 84484; 85025; 85610; 87040; 87150; 87633; 93005; 93306; 94640; 96361; 96374; 96376; 97116; 97162; 97165; 97530; 99285; A9270; A9575; G0378; G0480; J0131; J1650; J2060; Q0162; 80320; 81001; 87086

== ENCOUNTER 2023-09-23 21:48 | Outpatient (CLI) | payer MEDICARE, MEDICAID | END 2023-09-23 23:59 | disposition EMS.NT | LOC: EMS 21:48 | DX: R03.1 Nonspecific low blood-pressure reading (principal); R09.89 Other specified symptoms and signs involving the circulatory and respiratory systems ==

== ENCOUNTER 2023-10-15 13:37 | Outpatient (CLI) | payer MEDICARE, MEDICAID ==
--- NOTE | 2023-10-15 14:12 | XRAY Report ---
PROCEDURE: Chest 2V INDICATIONS: PNEUMONIA TECHNIQUE: 2 views of the chest were acquired. COMPARISON: Chest x-ray 09/27/2023 FINDINGS: Surgical changes and devices: Partially visualized thoracolumbar fixation rods. Lungs and pleura: No pleural effusions or pneumothorax. Lungs are clear. Mediastinum: Mediastinal contours appear normal. Heart size is enlarged. Bones and chest wall: No suspicious bony lesions. Overlying soft tissues appear unremarkable. IMPRESSION: No acute cardiopulmonary process. Reviewed by: Sis Lui MD on 10/15/2023 2:10 PM PST Approved by: Sis Lui MD on 10/15/2023 2:10 PM PST Station ID: [id number]
== END 2023-10-15 13:38 | disposition home or self-care (01) ==
LOC: DI 13:37
PROVIDERS: ATTEND Registered Nurse
DX: R06.89 Other abnormalities of breathing (principal)

== ENCOUNTER 2023-10-22 16:49 | Outpatient (CLI) | payer MEDICARE, MEDICAID | END 2023-10-22 23:59 | disposition critical access hospital (66) | LOC: EMS 16:49 | DX: M54.50 Low back pain, unspecified (principal) | CPT/HCPCS: A0425; A0429 ==

== ENCOUNTER 2023-10-22 16:56 | Emergency (ER) | payer MEDICARE, MEDICAID ==
[2023-10-22 17:25] LABS: BASOPHILS # (AUTO) 0.1 10^3/uL (0.0-0.1); BASOPHILS % (AUTO) 0.8 %; EOSINOPHILS # (AUTO) 0.4 10^3/uL (0.0-0.7); EOSINOPHILS % (AUTO) 5.2 %; HCT - HEMATOCRIT 47.2 % (42.0-52.0); HGB - HEMOGLOBIN 15.5 g/dL (14.0-18.0); LYMPHOCYTES # (AUTO) 2.2 10^3/uL (1.5-3.5); MEAN CORPUSCULAR HEMOGLOBIN 29.2 pg (27.0-31.0); MEAN CORPUSCULAR HGB CONC 32.8 g/dL (32.0-36.0); MEAN CORPUSCULAR VOLUME 89.1 fL (80.0-94.0); MEAN PLATELET VOLUME 9.6 fL (7.4-11.4); MONOCYTES # (AUTO) 0.8 10^3/uL (0.0-1.0); MONOCYTES % (AUTO) 10.9 %; NEUTROPHILS # (AUTO) 3.7 10^3/uL (1.5-6.6); NEUTROPHILS % (AUTO) 51.8 %; PLT - PLATELET COUNT 303 10^3/uL (130-450); RED CELL DISTRIBUTION WIDTH 13.5 % (12.0-15.0); WHITE BLOOD COUNT 7.1 x10^3/uL (4.8-10.8)
[2023-10-22 17:44] LABS: ALBUMIN 4.2 g/dL (3.2-5.5); ALBUMIN/GLOBULIN RATIO 1.4 (1.0-2.2); BILIRUBIN,TOTAL 0.7 mg/dL (0.2-1.0); CALCIUM 9.8 mg/dL (8.5-10.3); CREATININE 0.9 mg/dL (0.6-1.3); POTASSIUM 4.5 mmol/L (3.5-4.5); TOTAL PROTEIN 7.2 g/dL (6.4-8.9)
--- NOTE | 2023-10-22 17:50 | ED Physician Documentation ---
History of Present Illness - Stated complaint Stated Complaint: RT FLANK PX - Chief complaint Chief Complaint: Abd Pain - History obtained from History obtained from: Patient - History of Present Illness Pain level max: 7 Pain level now: 1 - Additonal information Additional information: Patient is a 73-year-old male who states that he has had right flank pain since yesterday. He states that it feels like prior kidney stones. No fevers. No chills. No nausea. No vomiting. He has a pain pump in place that he states he has chronic back pain, states this feels different. He states that the pain has decreased now. No hematuria. No urinary symptoms. Review of Systems Constitutional: denies: Fever, Chills Respiratory: denies: Cough GI: denies: Diarrhea, Hematemesis, Bloody / black stool : denies: Dysuria Skin: denies: Rash Musculoskeletal: denies: Neck pain, Back pain Neurologic: denies: Headache PD PAST MEDICAL HISTORY - Past Medical History Cardiovascular: Congestive heart failure, Hypertension, High cholesterol, Coronary artery disease, [place] Respiratory: COPD Neuro: Dementia, CVA, TIA, Parkinson's Endocrine/Autoimmune: Type 2 diabetes GI: Ulcers : Benign prostate hypertrophy HEENT: Other Psych: Depression, Anxiety, Panic attacks, ADD/ADHD, Other Musculoskeletal: Osteoarthritis, Chronic back pain, Other - Past Surgical History Past Surgical History: Yes General: Bowel surgery Ortho: Spine surgery, Amputation, Other - Present Medications Home Medications: Ambulatory Orders Medication Instructions Recorded Confirmed Empagliflozin [Jardiance] 10 mg ORAL DAILY 30 Days #30 09/17/23 09/23/23 Magnesium Oxide [Mag Ox] 400 mg PO DAILY #30 09/17/23 09/23/23 Memantine [Namenda] 5 mg PO QPM #30 tab 09/17/23 09/23/23 Metoclopramide [Reglan] 5 mg PO TID 30 Days #0 09/17/23 09/23/23 Potassium Chloride 20 meq ORAL DAILY 30 Days #0 09/17/23 09/23/23 Tamsulosin HCl [Flomax] 0.4 mg PO HS 30 Days #0 09/17/23 09/23/23 traZODone [Desyrel] 50 mg PO QPM 30 Days #30 tab 09/17/23 09/23/23 Methylphenidate HCl [Ritalin LA] 20 mg PO TID #30 cap 09/18/23 09/23/23 Atorvastatin Calcium [Lipitor] 80 mg PO HS 09/25/23 09/25/23 Insulin NPH Human Isophane 7 unit SUBQ BIDAC 09/25/23 09/25/23 [Humulin N Kwikpen] Insulin Regular Human [Humulin R] 0 - 30 unit SUBQ TID PRN 09/25/23 09/25/23 Melatonin/Pyridoxine HCl (B6) 1 each PO HS 09/25/23 09/25/23 [Melatonin Tr 10 mg Tablet] Omeprazole Magnesium 20 mg PO TID 09/25/23 09/25/23 Ondansetron HCl 4 mg PO TID PRN 09/25/23 09/25/23 Terbinafine HCl [Lamisil At] 1 applic TP BID PRN 09/25/23 09/25/23 Acetaminophen [Tylenol] 650 mg PO Q4HR PRN tab 10/03/23 Apixaban [Eliquis] 5 mg PO BID tab 10/03/23 Aspirin EC [Ecotrin] 81 mg PO DAILY tab 10/03/23 Docusate Sodium 250Mg Capsule 250 - 500 mg PO DAILY cap 10/03/23 [Colace 250Mg Capsule] Famotidine [Pepcid] 20 mg PO BID tab 10/03/23 Memantine [Namenda] 5 mg PO QPM tab 10/03/23 Morphine Ir [Ms Ir] 15 mg ORAL Q4H #30 tab 10/03/23 Ondansetron Odt [Zofran Odt] 4 mg TL Q6H PRN tab 10/03/23 Propranolol [Inderal] 10 mg PO BIDWM tab 10/03/23 Senna [Senokot] 8.6 - 17.2 mg PO DAILY tab 10/03/23 Zinc Oxide 20% Oint [Zinc Oxide] 1 applic TOP PRN PRN each 10/03/23 metFORMIN [Glucophage] 1,000 mg PO BIDWM tab 10/03/23 - Allergies Allergies/Adverse Reactions: Allergies Allergy/AdvReac Type Severity Reaction Status Date / Time iodine Allergy Itching Verified 09/23/23 16:19 ketorolac [From Toradol] Allergy Rash Verified 09/23/23 16:19 tositumomab Allergy Unknown Verified 09/23/23 16:19 - Social History Does the pt smoke?: No Smoking Status: Never smoker Does the pt drink ETOH?: No Does the pt have substance abuse?: No - Immunizations Immunizations are current?: Yes - POLST Patient has POLST: Yes PD ED PE NORMAL - Vitals Vital signs reviewed: Yes - General General: Alert and oriented X 3, No acute distress - HEENT HEENT: PERRL, Moist mucous membranes - Neck Neck: Supple, no meningeal sign - Cardiac Cardiac: RRR, Strong equal pulses - Respiratory Respiratory: No respiratory distress, Clear bilaterally - Abdomen Abdomen: Soft, Non tender, Non distended - Back Back: No CVA TTP, No spinal TTP, Other (Spinal stimulator in the left lower quadrant. No signs of infection.) - Derm Derm: Warm and dry - Extremities Extremities: No edema - Neuro Neuro: Alert and oriented X 3 - Psych Psych: Normal mood, Normal affect Results - Vitals Vitals: Vital Signs - 24 hr 10/22/23 10/22/23 10/22/23 17:02 19:09 20:00 Temperature 36 C L Heart Rate 74 97 85 Respiratory 18 17 16 Rate Blood Pressure 145/75 H 161/98 H 98/64 O2 Saturation 98 97 93 10/22/23 21:45 Temperature Heart Rate 102 H Respiratory 17 Rate Blood Pressure 152/97 H O2 Saturation 96 Oxygen O2 Source Room air - Labs Labs: Laboratory Tests 10/22/23 10/22/23 10/22/23 17:17 17:17 18:11 WBC 7.1 RBC 5.30 Hgb 15.5 Hct 47.2 MCV 89.1 MCH 29.2 MCHC 32.8 RDW 13.5 Plt Count 303 MPV 9.6 Neut # (Auto) 3.7 Lymph # (Auto) 2.2 Mcmullen # (Auto) 0.8 Eos # (Auto) 0.4 Baso # (Auto) 0.1 Absolute Nucleated RBC 0.00 Nucleated RBC % 0.0 Sodium 136 Potassium 4.5 Chloride 98 L Carbon Dioxide 28 Anion Gap 10.0 BUN 19 Creatinine 0.9 Estimated GFR (MDRD) 83 L Glucose 186 H Calcium 9.8 Total Bilirubin 0.7 AST 26 ALT 23 Alkaline Phosphatase 84 Total Protein 7.2 Albumin 4.2 Globulin 3.0 Albumin/Globulin Ratio 1.4 Lipase 10 L Urine Color YELLOW Urine Clarity CLEAR Urine pH 5.5 Ur Specific [place] 1.020 Urine Protein NEGATIVE Urine Glucose (UA) >=1000 H Urine Ketones NEGATIVE Urine Occult Blood TRACE-INTA Urine Nitrite NEGATIVE Urine Bilirubin NEGATIVE Urine Urobilinogen 0.2 (NORMAL) Ur Leukocyte Esterase NEGATIVE Ur Microscopic Review NOT INDICATED Urine Culture Comments NOT INDICATED - Rads (name of study) CT abdomen pelvis Relevant Findings:: Final report received, See rad report PD Medical Decision Making - ED course Complexity details: reviewed results, considered differential, d/w patient ED course: 73-year-old male with right flank pain. Pain resolved with pain medication in the emergency department. Had 1 episode of emesis and this resolved with IV antiemetic, Zofran. The CT scan shows a mildly dilated right ureter, possible recently passed ureteral stone. No significant lab abnormalities. Urinalysis does not show signs of infection. Tolerating p.o. without difficulty here. Patient request to go home at this time. No evidence of sepsis. No bowel obstruction, no ureteral stone, pyelonephritis. Patient counseled regarding signs and symptoms for which I believe and urgent re-evaluation would be necessary. Patient with good understanding of and agreement to plan and is comfortable going home at this time This document was made in part using voice recognition software. While efforts are made to proofread this document, sound alike and grammatical errors may occur. Departure - Departure Disposition: 01 Home, Self Care Clinical Impression: Right sided abdominal pain Condition: Good Instructions: ED Abdominal Pain Unkn Cause Male Follow-Up: your,doctor in 1 week [Other] Comments: Your CT scan does not show any evidence of a kidney stone, however there is evidence of a possibly recently passed kidney stone. You do have some wall thickening on the left side of your colon, you are not having pain there however, you should have a colonoscopy with your doctor if you have not had one recently. I have copied your CT scan report below, you can go over the results with your doctor for any other concerns. Your pain is controlled tonight. Your laboratory studies do not show any acute abnormalities either. Please return if you worsen. PROCEDURE: Abdomen/Pelvis W INDICATIONS: R flank pain CONTRAST: 100mL Omni 300 TECHNIQUE: After the administration of intravenous contrast, a CT scan of the abdomen and pelvis was performed. Images were recorded and evaluated at appropriate window settings. Reformats: coronal and sagittal. For radiation dose reduction, the following was used: automated exposure control, adjustment of mA and/or kV according to patient size. COMPARISON: None. FINDINGS: Image quality: Excellent. Lung bases and heart: Left basilar scars and atelectasis. Small hiatal hernia. Liver: No solid mass. Gallbladder and biliary tree: Gallbladder is surgically absent. Mild. Dilation likely secondary to postsurgical change. Spleen: No splenomegaly. Pancreas: No pancreatic ductal dilation. Adrenals: No adrenal nodule. Kidneys and ureters: There is mild right hydronephrosis and mild right ureterectasis. No right renal or ureteral stones. There are 2 nonobstructive stone in the inferior pole of the left kidney. Trace left renal pelviectasis. No renal cystic lesion which requires follow up. No solid mass. Bowel and peritoneum: Duodenum may be mildly thickened. There is diffuse colonic wall thickening involving the descending and sigmoid colon, as well as rectum. No bowel distension. No pathologic free fluid. Lymph nodes: No central or retroperitoneal adenopathy. Vessels: No infrarenal aortic aneurysm. PELVIS Reproductive organs: Unremarkable. Bladder: No abnormal wall thickening, accounting for underdistention. Pelvic lymph nodes: No pelvic adenopathy by size criteria. Bones: No aggressive osseous abnormality. Mild wedge deformity of T12. There are postsurgical changes in thoracolumbar spine. Right 12th rib fracture. Spondylitic changes are noted. Osteopenia. Other: No significant ventral or inguinal hernia. There is a nerve stimulator in the left anterior abdominal wall. IMPRESSION: 1. There is mild right hydronephrosis and not right ureterectasis. No right renal or ureteral stones. The patient may have recently passed stones. Please correlate with urinalysis. 2. A couple of nonobstructive left renal stones are present in the inferior pole. Mild left renal pelviectasis. No obstructive left renal no stones. 3. Diffuse colonic wall thickening involving the descending and sigmoid colon, as well as rectum, consistent with colitis/proctitis. 4. Question of duodenal thickening. 5. Old right 12th rib fracture. 6. Mild wedge deformity of T12. 7. Degenerative and postsurgical changes in thoracic and lumbar spine. Forms: PCP List Discharge Date/Time: 10/22/23 21:45
[2023-10-22] MEDS ORDERED: iohexoL-300 100 ML VIAL ONE (17:55)
[2023-10-22 18:21] LABS: BILIRUBIN,URINE NEGATIVE (NEGATIVE); CLARITY,URINE CLEAR (CLEAR); GLUCOSE, URINE (UA) >=1000 mg/dL (NEGATIVE); KETONES,URINE (UA) NEGATIVE (NEGATIVE); LEUKOCYTE ESTERASE, URINE NEGATIVE (NEGATIVE); NITRITE,URINE NEGATIVE (NEGATIVE); OCCULT BLOOD,URINE TRACE-INTA (NEGATIVE); PH,URINE 5.5 PH (5.0-7.5); PROTEIN,URINE NEGATIVE (NEGATIVE); UROBILINOGEN,URINE 0.2 (NORMAL) E.U./dL (NORMAL)
[2023-10-22] MEDS ORDERED: ONDANSETRON 4 MG/2 ML VIAL IVP STA (18:55)
[2023-10-22] MEDS ORDERED: HYDROmorphone 1 MG/ML CARPUJECT IVP STA (18:55)
--- NOTE | 2023-10-22 20:44 | CT Report ---
PROCEDURE: Abdomen/Pelvis W INDICATIONS: R flank pain CONTRAST: 100mL Omni 300 TECHNIQUE: After the administration of intravenous contrast, a CT scan of the abdomen and pelvis was performed. Images were recorded and evaluated at appropriate window settings. Reformats: coronal and sagittal. F or radiation dose reduction, the following was used: automated exposure control, adjustment of mA and /or kV according to patient size. COMPARISON: None. FINDINGS: Image quality: Excellent. Lung bases and heart: Left basilar scars and atelectasis. Small hiatal hernia. Liver: No solid mass. Gallbladder and biliary tree: Gallbladder is surgically absent. Mild. Dilation likely secondary to po stsurgical change. Spleen: No splenomegaly. Pancreas: No pancreatic ductal dilation. Adrenals: No adrenal nodule. Kidneys and ureters: There is mild right hydronephrosis and mild right ureterectasis. No right renal or ureteral stones. There are 2 nonobstructive stone in the inferior pole of the left kidney. Trace left renal pelviectas is. No renal cystic lesion which requires follow up. No solid mass. Bowel and peritoneum: Duodenum may be mildly thickened. There is diffuse colonic wall thickening invo lving the descending and sigmoid colon, as well as rectum. No bowel distension. No pathologic free fl uid. Lymph nodes: No central or retroperitoneal adenopathy. Vessels: No infrarenal aortic aneurysm. PELVIS Reproductive organs: Unremarkable. Bladder: No abnormal wall thickening, accounting for underdistention. Pelvic lymph nodes: No pelvic adenopathy by size criteria. Bones: No aggressive osseous abnormality. Mild wedge deformity of T12. There are postsurgical changes in thoracolumbar spine. Right 12th rib fracture. Spondylitic changes are noted. Osteopenia. Other: No significant ventral or inguinal hernia. There is a nerve stimulator in the left anterior ab dominal wall. IMPRESSION: 1. There is mild right hydronephrosis and not right ureterectasis. No right renal or ureteral stones. The patient may have recently passed stones. Please correlate with urinalysis. 2. A couple of nonobstructive left renal stones are present in the inferior pole. Mild left renal pel viectasis. No obstructive left renal no stones. 3. Diffuse colonic wall thickening involving the descending and sigmoid colon, as well as rectum, con sistent with colitis/proctitis. 4. Question of duodenal thickening. 5. Old right 12th rib fracture. 6. Mild wedge deformity of T12. 7. Degenerative and postsurgical changes in thoracic and lumbar spine. Reviewed by: Marcy Delaney MD on 10/22/2023 8:42 PM PST Approved by: Marcy Delaney MD on 10/22/2023 8:42 PM PST Station ID: [id number]
[2023-10-22] MEDS ORDERED: iohexoL-300 100 ML VIAL IVP ONE (20:55)
[2023-10-22 23:34] VITALS: BP 152/97; O2SAT 96
== END 2023-10-22 21:45 | disposition home or self-care (01) ==
LOC: ED 16:56
DX: R10.9 Unspecified abdominal pain (principal); R11.10 Vomiting, unspecified; I10 Essential (primary) hypertension; E11.9 Type 2 diabetes mellitus without complications; Z79.4 Long term (current) use of insulin; Z79.01 Long term (current) use of anticoagulants; Z79.84 Long term (current) use of oral hypoglycemic drugs
CPT/HCPCS: 36415; 74177; 80053; 81003; 83690; 85025; 96374; 96375; 99283; 99284; J1170; Q9967; 81001; 87086

== ENCOUNTER 2023-10-22 22:21 | Outpatient (CLI) | payer MEDICARE, MEDICAID | END 2023-10-22 22:22 | LOC: EMS 22:21 | PROVIDERS: ATTEND Emergency Medicine | DX: M54.9 Dorsalgia, unspecified (principal); R10.9 Unspecified abdominal pain; N20.0 Calculus of kidney; F03.90 Unspecified dementia, unspecified severity, without behavioral disturbance, psychotic disturbance, mood disturbance, and anxiety | CPT/HCPCS: A0425; A0428 ==

== ENCOUNTER 2023-11-13 18:21 | Outpatient (CLI) | payer MEDICARE, MEDICAID | END 2023-11-13 18:22 | disposition EMS.NT | LOC: EMS 18:21 | DX: Z03.89 Encounter for observation for other suspected diseases and conditions ruled out (principal) ==

== ENCOUNTER 2023-11-17 22:46 | Outpatient (CLI) | payer MEDICARE, MEDICAID | END 2023-11-17 22:47 | disposition left against medical advice (07) | LOC: EMS 22:46 | DX: Z03.89 Encounter for observation for other suspected diseases and conditions ruled out (principal); W06.XXXA Fall from bed, initial encounter; Y92.013 Bedroom of single-family (private) house as the place of occurrence of the external cause; Z79.01 Long term (current) use of anticoagulants ==

== ENCOUNTER 2023-11-23 15:20 | Outpatient (CLI) | payer MEDICARE, MEDICAID | END 2023-11-23 23:59 | disposition EMS.NT | LOC: EMS 15:20 | DX: Z03.89 Encounter for observation for other suspected diseases and conditions ruled out (principal) ==

== ENCOUNTER 2023-12-14 15:17 | Outpatient (CLI) | payer MEDICARE, MEDICAID | END 2023-12-14 15:18 | disposition EMS.NT | LOC: EMS 15:17 | DX: Z04.3 Encounter for examination and observation following other accident (principal); W18.39XA Other fall on same level, initial encounter ==

== ENCOUNTER 2023-12-20 23:25 | Outpatient (CLI) | payer MEDICARE, MEDICAID | END 2023-12-20 23:59 | disposition EMS.NT | LOC: EMS 23:25 | DX: Z03.89 Encounter for observation for other suspected diseases and conditions ruled out (principal) ==

== ENCOUNTER 2023-12-23 08:00 | Outpatient (CLI) | payer MEDICARE, MEDICAID | END 2023-12-23 23:59 | disposition home or self-care (01) | LOC: PC 08:00 | PROVIDERS: ATTEND Nurse Practitioner Gerontology | DX: Z51.5 Encounter for palliative care (principal); G23.1 Progressive supranuclear ophthalmoplegia [Steele-Richardson-Olszewski]; E11.51 Type 2 diabetes mellitus with diabetic peripheral angiopathy without gangrene; Z79.4 Long term (current) use of insulin; I48.91 Unspecified atrial fibrillation; R29.6 Repeated falls; F32.A Depression, unspecified; I69.334 Monoplegia of upper limb following cerebral infarction affecting left non-dominant side; I13.0 Hypertensive heart and chronic kidney disease with heart failure and stage 1 through stage 4 chronic kidney disease, or unspecified chronic kidney disease; I50.82 Biventricular heart failure; E11.22 Type 2 diabetes mellitus with diabetic chronic kidney disease; N18.30 Chronic kidney disease, stage 3 unspecified; I69.319 Unspecified symptoms and signs involving cognitive functions following cerebral infarction; K31.84 Gastroparesis; J44.9 Chronic obstructive pulmonary disease, unspecified; G89.29 Other chronic pain; Z79.899 Other long term (current) drug therapy; R11.0 Nausea; Z79.84 Long term (current) use of oral hypoglycemic drugs; Z66 Do not resuscitate; H53.9 Unspecified visual disturbance; R44.3 Hallucinations, unspecified; R63.0 Anorexia; Z63.8 Other specified problems related to primary support group; Z62.890 Parent-child estrangement NEC; Z59.9 Problem related to housing and economic circumstances, unspecified; F51.05 Insomnia due to other mental disorder; E46 Unspecified protein-calorie malnutrition; Z79.891 Long term (current) use of opiate analgesic; R33.9 Retention of urine, unspecified; F41.9 Anxiety disorder, unspecified; R53.1 Weakness | CPT/HCPCS: 99345 ==

== ENCOUNTER 2023-12-23 15:02 | Outpatient (CLI) | payer MEDICARE, MEDICAID | END 2023-12-23 23:59 | disposition EMS.NT | LOC: EMS 15:02 | DX: Z03.89 Encounter for observation for other suspected diseases and conditions ruled out (principal) ==

== ENCOUNTER 2023-12-24 12:46 | Outpatient (CLI) | payer MEDICARE, MEDICAID | END 2023-12-24 23:59 | disposition EMS.NT | LOC: EMS 12:46 | DX: Z03.89 Encounter for observation for other suspected diseases and conditions ruled out (principal) ==

== ENCOUNTER 2023-12-29 08:00 | Outpatient (CLI) | payer MEDICARE, MEDICAID | END 2023-12-29 23:59 | disposition home or self-care (01) | LOC: PC 08:00 | PROVIDERS: ATTEND Nurse Practitioner Gerontology | DX: Z51.5 Encounter for palliative care (principal); G23.1 Progressive supranuclear ophthalmoplegia [Steele-Richardson-Olszewski]; E11.51 Type 2 diabetes mellitus with diabetic peripheral angiopathy without gangrene; Z79.4 Long term (current) use of insulin; I48.91 Unspecified atrial fibrillation; R26.9 Unspecified abnormalities of gait and mobility; F32.A Depression, unspecified; I69.334 Monoplegia of upper limb following cerebral infarction affecting left non-dominant side; I13.0 Hypertensive heart and chronic kidney disease with heart failure and stage 1 through stage 4 chronic kidney disease, or unspecified chronic kidney disease; I50.82 Biventricular heart failure; E11.22 Type 2 diabetes mellitus with diabetic chronic kidney disease; N18.30 Chronic kidney disease, stage 3 unspecified; I69.319 Unspecified symptoms and signs involving cognitive functions following cerebral infarction; K31.84 Gastroparesis; J44.9 Chronic obstructive pulmonary disease, unspecified; G89.29 Other chronic pain; Z79.899 Other long term (current) drug therapy; Z79.84 Long term (current) use of oral hypoglycemic drugs; Z66 Do not resuscitate; H53.9 Unspecified visual disturbance; R44.3 Hallucinations, unspecified; Z63.8 Other specified problems related to primary support group; Z62.890 Parent-child estrangement NEC; Z59.9 Problem related to housing and economic circumstances, unspecified; F51.05 Insomnia due to other mental disorder; E46 Unspecified protein-calorie malnutrition; Z79.891 Long term (current) use of opiate analgesic; F41.9 Anxiety disorder, unspecified; R53.1 Weakness; M25.522 Pain in left elbow | CPT/HCPCS: 99349 ==

== ENCOUNTER 2024-01-07 18:09 | Outpatient (CLI) | payer MEDICARE, MEDICAID | END 2024-01-07 23:59 | disposition EMS.NT | LOC: EMS 18:09 | DX: R53.1 Weakness (principal) ==

== ENCOUNTER 2024-01-08 02:14 | Outpatient (CLI) | payer MEDICARE, MEDICAID | END 2024-01-08 23:59 | disposition critical access hospital (66) | LOC: EMS 02:14 | DX: M54.9 Dorsalgia, unspecified (principal); R29.6 Repeated falls; R51.9 Headache, unspecified; M25.512 Pain in left shoulder; F03.90 Unspecified dementia, unspecified severity, without behavioral disturbance, psychotic disturbance, mood disturbance, and anxiety | CPT/HCPCS: A0425; A0429 ==

== ENCOUNTER 2024-01-08 02:44 | Emergency (ER) | payer MEDICARE, MEDICAID ==
--- NOTE | 2024-01-08 03:00 | ED Physician Documentation ---
History of Present Illness - Stated complaint Stated Complaint: COCCYX PAIN/ Injury - Chief complaint Chief Complaint: Trauma Ch/Bk - History obtained from History obtained from: EMS - Additonal information Additional information: BIBA. Limited HPI/ROS from patient due to dementia. Late in patient's stay, I also spoke with patient's via telephone and she was able to provide more HPI. Patient is brought to the ED due to recurrent and increasingly frequent falls, past few weeks but fell twice in the past 12 hours. Patient's says that the fall tonight prior to arrival involved falling one-step off of a porch. "He fell really, really hard", per patient's . No LOC, but she had great difficulty helping him get back up off the floor. The patient only complains to me of left forearm pain. The patient's (over the phone) indicates this is not a new pain complaint for him. On review of systems, the patient tells me he has neck pain, unclear as to acuity/chronicity. The patient is oriented to self, knows he is in the hospital but not which one, and does not have any idea what year it is. Review of Systems Unable to obtain: Dementia PD PAST MEDICAL HISTORY - Past Medical History Past Medical History: Yes Cardiovascular: Congestive heart failure, Hypertension, High cholesterol, Coronary artery disease, [place] Respiratory: COPD Neuro: Dementia, CVA, TIA, Parkinson's Endocrine/Autoimmune: Type 2 diabetes GI: Ulcers : Benign prostate hypertrophy HEENT: Other Psych: Depression, Anxiety, Panic attacks, ADD/ADHD, Other Musculoskeletal: Osteoarthritis, Chronic back pain, Other - Past Surgical History Past Surgical History: Yes General: Bowel surgery Ortho: Spine surgery, Amputation, Other - Present Medications Home Medications: Ambulatory Orders Medication Instructions Recorded Confirmed Empagliflozin [Jardiance] 10 mg ORAL DAILY 30 Days #30 09/17/23 09/23/23 Magnesium Oxide [Mag Ox] 400 mg PO DAILY #30 09/17/23 09/23/23 Memantine [Namenda] 5 mg PO QPM #30 tab 09/17/23 09/23/23 Metoclopramide [Reglan] 5 mg PO TID 30 Days #0 09/17/23 09/23/23 Potassium Chloride 20 meq ORAL DAILY 30 Days #0 09/17/23 09/23/23 Tamsulosin HCl [Flomax] 0.4 mg PO HS 30 Days #0 09/17/23 09/23/23 traZODone [Desyrel] 50 mg PO QPM 30 Days #30 tab 09/17/23 09/23/23 Methylphenidate HCl [Ritalin LA] 20 mg PO TID #30 cap 09/18/23 09/23/23 Atorvastatin Calcium [Lipitor] 80 mg PO HS 09/25/23 09/25/23 Insulin NPH Human Isophane 7 unit SUBQ BIDAC 09/25/23 09/25/23 [Humulin N Kwikpen] Insulin Regular Human [Humulin R] 0 - 30 unit SUBQ TID PRN 09/25/23 09/25/23 Melatonin/Pyridoxine HCl (B6) 1 each PO HS 09/25/23 09/25/23 [Melatonin Tr 10 mg Tablet] Omeprazole Magnesium 20 mg PO TID 09/25/23 09/25/23 Ondansetron HCl 4 mg PO TID PRN 09/25/23 09/25/23 Terbinafine HCl [Lamisil At] 1 applic TP BID PRN 09/25/23 09/25/23 Acetaminophen [Tylenol] 650 mg PO Q4HR PRN tab 10/03/23 Apixaban [Eliquis] 5 mg PO BID tab 10/03/23 Aspirin EC [Ecotrin] 81 mg PO DAILY tab 10/03/23 Docusate Sodium 250Mg Capsule 250 - 500 mg PO DAILY cap 10/03/23 [Colace 250Mg Capsule] Famotidine [Pepcid] 20 mg PO BID tab 10/03/23 Memantine [Namenda] 5 mg PO QPM tab 10/03/23 Morphine Ir [Ms Ir] 15 mg ORAL Q4H #30 tab 10/03/23 Ondansetron Odt [Zofran Odt] 4 mg TL Q6H PRN tab 10/03/23 Propranolol [Inderal] 10 mg PO BIDWM tab 10/03/23 Senna [Senokot] 8.6 - 17.2 mg PO DAILY tab 10/03/23 Zinc Oxide 20% Oint [Zinc Oxide] 1 applic TOP PRN PRN each 10/03/23 metFORMIN [Glucophage] 1,000 mg PO BIDWM tab 10/03/23 - Allergies Allergies/Adverse Reactions: Allergies Allergy/AdvReac Type Severity Reaction Status Date / Time iodine Allergy Itching Verified 01/08/24 03:31 ketorolac [From Toradol] Allergy Rash Verified 01/08/24 03:31 tositumomab Allergy Unknown Verified 01/08/24 03:31 - Social History Does the pt smoke?: No Smoking Status: Never smoker Does the pt drink ETOH?: No Does the pt have substance abuse?: No - Immunizations Immunizations are current?: Yes - POLST Patient has POLST: Yes PD ED PE NORMAL - Vitals Vital signs reviewed: Yes - General General: No acute distress, Well developed/nourished, Other (awake, alert, oriented to self. partially oriented to place (knows hospital but not where). cannot even guess at year) - HEENT HEENT: Atraumatic, PERRL, EOMI - Neck Neck: No bony TTP - Respiratory Respiratory: No respiratory distress, Clear bilaterally - Abdomen Abdomen: Soft, Non tender - Derm Derm: Normal color, Warm and dry - Extremities Extremities: No edema PD ED PE EXPANDED - Cardiac Cardiac: Irregularly irregular Results - Vitals Vitals: Vital Signs - 24 hr 01/08/24 01/08/24 02:44 06:30 Temperature 36.6 C Heart Rate 69 71 Respiratory 16 16 Rate Blood Pressure 105/67 128/97 H O2 Saturation 98 99 Oxygen O2 Source Room air - Labs Labs: Laboratory Tests 01/08/24 03:50 Urine Color YELLOW Urine Clarity CLEAR Urine pH 5.5 Ur Specific [place] 1.010 Urine Protein NEGATIVE Urine Glucose (UA) 100 H Urine Ketones NEGATIVE Urine Occult Blood NEGATIVE Urine Nitrite NEGATIVE Urine Bilirubin NEGATIVE Urine Urobilinogen 0.2 (NORMAL) Ur Leukocyte Esterase NEGATIVE Ur Microscopic Review NOT INDICATED Urine Culture Comments NOT INDICATED - Rads (name of study) CTH Relevant Findings:: Prelim report reviewed, See rad report CT cervical spine Relevant Findings:: Prelim report reviewed, See rad report pelvis xray Relevant Findings:: Prelim report reviewed, See rad report PD Medical Decision Making - ED course Complexity details: reviewed old records, reviewed results, re-evaluated patient, considered differential, d/w patient, d/w family ED course: Spoke with patient's by telephone to ascertain reason for tonight's visit as well as goals of treatment. A note in the computer that there is a POLST form from 2 months ago which indicates DNR, comfort measures only, and hospice care. However, I also find a note in [facility] from beginning of this month (approximately 1 week ago) which indicates he is no longer in hospice care, having been released through 12/15/23: "not currently terminally ill", "palliative care started." Patient's confirms this information to me. Given that the POLST form indicates he is hospice care but this is not longer accurate, I discussed with her weather he is still comfort-measures only. I explained that the general concept of comfort-measures only would typically contraindicate most emergent testing. Patient's says he has been falling with increasing frequency over the past several weeks, and that he fell twice in the past 12 hours. As noted in HPI, she says he fell particularly hard on this last fall several hours prior to arrival, and she tells me she wanted him to come to the emergency department to make sure that he does not have any serious injuries. The upshot of further discussion is that a CT head and neck will be undertaken at this time, as a well as a plain-film of the pelvis. Given that patient cannot effectively/reliably communicate secondary to dementia, I believe these would help look into some of the more serious potential injuries (such as ICH, cervical fracture, pelvic/hip fracture). She also tells me he was trying to get out of a moving vehicle 2 days ago, and that last night he woke her up in the middle of the night speaking oddly and asking her to do odd things like take him to the store in the middle of the night. She is uncertain as to whether she can continue to take care of him at home. The results of these tests are pending at the end of my shift and thus care of this patient is turned over to oncoming ED physician (Dr. Loera). SW consult is requested. Departure - Departure Forms: PCP List
[2024-01-08 04:28] LABS: BILIRUBIN,URINE NEGATIVE (NEGATIVE); GLUCOSE, URINE (UA) 100 mg/dL (NEGATIVE); KETONES,URINE (UA) NEGATIVE (NEGATIVE); LEUKOCYTE ESTERASE, URINE NEGATIVE (NEGATIVE); NITRITE,URINE NEGATIVE (NEGATIVE); OCCULT BLOOD,URINE NEGATIVE (NEGATIVE); PH,URINE 5.5 PH (5.0-7.5); PROTEIN,URINE NEGATIVE (NEGATIVE); UROBILINOGEN,URINE 0.2 (NORMAL) E.U./dL (NORMAL)
[2024-01-08 04:32] LABS: CLARITY,URINE CLEAR (CLEAR)
--- NOTE | 2024-01-08 07:38 | CT Report ---
PROCEDURE: Cervical Spine WO INDICATIONS: fall, neck pain TECHNIQUE: Noncontrast 3 mm thick sections acquired from the skull base to the T4 level. Sagittal and coronal r eformats were then constructed. For radiation dose reduction, the following was used: automated exp osure control, adjustment of mA and/or kV according to patient size. COMPARISON: None. FINDINGS: Image quality: Excellent. Bones: No fractures or dislocations. Visualized superior ribs are intact. Diffuse cervical spondyl itic change. Findings include a calcified moderate posterior disc protrusion at C3-C4 resulting in at least moderate canal stenosis as well as a calcified disc protrusion at C4-C5 resulting in at least mild canal stenosis. There is multilevel bony foraminal narrowing. Soft tissues: Prevertebral soft tissues are normal in thickness. No paravertebral hematomas. No ap ical pneumothoraces. IMPRESSION: 1. No acute cervical fracture or dislocation. 2. Diffuse cervical spondylitic change. Findings include canal stenosis at C3-C4 and C4-C5. Findings are concordant with preliminary interpretation provided by [facility]. Reviewed by: Van Hutchison MD on 01/08/2024 7:37 AM PDT Approved by: Van Hutchison MD on 01/08/2024 7:37 AM PDT Station ID: [id number]
--- NOTE | 2024-01-08 07:41 | CT Report ---
PROCEDURE: Head WO INDICATIONS: fall, AMS TECHNIQUE: Noncontrast 4.5 mm thick angled axial sections acquired from the foramen magnum to the vertex. For r adiation dose reduction, the following was used: automated exposure control, adjustment of mA and/or kV according to patient size. COMPARISON: CT head dated 09/24/2023. FINDINGS: Image quality: Excellent. CSF spaces: Basal cisterns are patent. No extra-axial fluid collections. Ventricles are normal in size and shape. Brain: Moderately large old right MCA distribution infarct. No midline shift. No intracranial justin s or hemorrhage. Juarez-white matter interface is normal. Skull and face: Calvarium and visualized facial bones are intact, without suspicious lesions. Sinuses: Visualized sinuses and mastoids are clear. IMPRESSION: 1. Moderately large old right MCA distribution infarct. 2. No acute intracranial process. Findings are concordant with preliminary interpretation provided by [facility]. Reviewed by: Van Hutchison MD on 01/08/2024 7:39 AM PDT Approved by: Van Hutchison MD on 01/08/2024 7:39 AM PDT Station ID: [id number]
--- NOTE | 2024-01-08 08:53 | XRAY Report ---
PROCEDURE: Pelvis 1-2V INDICATIONS: fall, low back pain TECHNIQUE: 2 view(s) of the pelvis acquired. COMPARISON: 09/19/2023 FINDINGS: Bones: No fractures or dislocations. Mild degenerative changes of bilateral hips. No suspicious bon y lesions. Soft tissues: Visualized bowel gas pattern is normal. No suspicious soft tissue calcifications. Par tially imaged neurostimulator. IMPRESSION: No acute bony abnormality. Findings are concordant with preliminary interpretation provided by [facility]. Reviewed by: Donta Salazar MD on 01/08/2024 8:51 AM PDT Approved by: Donta Salazar MD on 01/08/2024 8:51 AM PDT Station ID: [id number]
[2024-01-08] MEDS: oxyCODONE 5 MG TABLET PO STA (09:52)
[2024-01-08] MEDS: QUEtiapine 100 MG TABLET PO STA (10:58)
[2024-01-08] MEDS: LORazepam 1 MG TABLET PO STA (12:40)
[2024-01-08 13:05] VITALS: BP 124/62; O2SAT 97
--- NOTE | 2024-01-08 15:27 | ED Physician Documentation ---
ED Addendum - Addendum Addendum: 01/08/24 15:26 The patient was seen by psychosocial rehabilitation counselor and ultimately, after conversation with the patient and , was cleared for discharge home. The does not wish to have the patient go to assisted living and the patient does not want to go. They do desire to have increased home health services but the finances that this will have to be worked out. Social work is also started the process for the patient of looking into affordable housing. This point, the patient will go home with his . I have discharged final impression: See original note. Disposition: Home in stable condition.
--- NOTE | 2024-01-29 07:22 | ED Physician Documentation ---
ED Addendum - Addendum Addendum: 01/29/24 07:22 Final impression: Failure to thrive in an adult.
== END 2024-01-08 12:57 | disposition home or self-care (01) ==
LOC: EDUNIT# → ED 02:44
DX: R62.7 Adult failure to thrive (principal); F03.90 Unspecified dementia, unspecified severity, without behavioral disturbance, psychotic disturbance, mood disturbance, and anxiety; Z66 Do not resuscitate
CPT/HCPCS: 70450; 72125; 72170; 81003; 99284; A9270; J8499; 81001; 87086

== ENCOUNTER 2024-01-09 08:00 | Outpatient (CLI) | payer MEDICARE, MEDICAID | END 2024-01-09 23:59 | disposition home or self-care (01) | LOC: PC 08:00 | PROVIDERS: ATTEND Nurse Practitioner Gerontology | DX: Z51.5 Encounter for palliative care (principal); G23.1 Progressive supranuclear ophthalmoplegia [Steele-Richardson-Olszewski]; E11.51 Type 2 diabetes mellitus with diabetic peripheral angiopathy without gangrene; Z79.4 Long term (current) use of insulin; I48.91 Unspecified atrial fibrillation; F03.92 Unspecified dementia, unspecified severity, with psychotic disturbance; F03.94 Unspecified dementia, unspecified severity, with anxiety; R29.6 Repeated falls; F32.A Depression, unspecified; L89.611 Pressure ulcer of right heel, stage 1; G83.24 Monoplegia of upper limb affecting left nondominant side; I13.0 Hypertensive heart and chronic kidney disease with heart failure and stage 1 through stage 4 chronic kidney disease, or unspecified chronic kidney disease; I50.82 Biventricular heart failure; E11.22 Type 2 diabetes mellitus with diabetic chronic kidney disease; I69.354 Hemiplegia and hemiparesis following cerebral infarction affecting left non-dominant side; N18.30 Chronic kidney disease, stage 3 unspecified; I69.319 Unspecified symptoms and signs involving cognitive functions following cerebral infarction; K31.84 Gastroparesis; G47.00 Insomnia, unspecified; J44.9 Chronic obstructive pulmonary disease, unspecified; G89.29 Other chronic pain; Z79.899 Other long term (current) drug therapy; R11.0 Nausea; Z79.84 Long term (current) use of oral hypoglycemic drugs; Z66 Do not resuscitate | CPT/HCPCS: 99350 ==

== ENCOUNTER 2024-01-10 15:01 | Outpatient (CLI) | payer MEDICARE, MEDICAID | END 2024-01-10 23:59 | disposition EMS.NT | LOC: EMS 15:01 | DX: Z03.89 Encounter for observation for other suspected diseases and conditions ruled out (principal) ==

== ENCOUNTER 2024-01-27 08:00 | Outpatient (CLI) | payer MEDICARE, MEDICAID | END 2024-01-27 23:59 | disposition home or self-care (01) | LOC: PC 08:00 | PROVIDERS: ATTEND Nurse Practitioner Gerontology | DX: Z51.5 Encounter for palliative care (principal); G20.A1 Parkinson's disease without dyskinesia, without mention of fluctuations | CPT/HCPCS: 99426; 99427 ==

== ENCOUNTER 2024-02-01 21:16 | Outpatient (CLI) | payer MEDICARE, MEDICAID | END 2024-02-01 23:59 | disposition EMS.NT | LOC: EMS 21:16 | DX: R06.03 Acute respiratory distress (principal); Z66 Do not resuscitate ==

== ENCOUNTER 2024-02-02 14:03 | Outpatient (CLI) | payer MEDICARE, MEDICAID | END 2024-02-02 23:59 | disposition EMS.NT | LOC: EMS 14:03 | DX: M54.2 Cervicalgia (principal); W06.XXXA Fall from bed, initial encounter; Y92.003 Bedroom of unspecified non-institutional (private) residence as the place of occurrence of the external cause ==

== ENCOUNTER 2024-02-03 06:43 | Outpatient (CLI) | payer MEDICARE, MEDICAID | END 2024-02-03 22:11 | disposition EMS.NT | LOC: EMS 06:43 | DX: R41.82 Altered mental status, unspecified (principal); M54.2 Cervicalgia; G89.29 Other chronic pain; R29.6 Repeated falls ==